=== PATIENT | female | born 1935 | race Caucasian/White ===

== ENCOUNTER → 2016-11-18 | Outpatient (CLI) | payer OTHER ==
[~2016-11-18] MED LIST: ASPCH81X PO; INSUINJ4 SQ; LISI20TA3 PO; NVLGI7030 SC; PRED1SUS3; SIMV40TA2 PO
[2016-11-18 09:36] LABS: BASO % 0.5 %; BASO ABS # 0.03 K/uL (0-0.2); COMPLETE YES; EOS % 2.7 %; HEMATOCRIT 44.5 % (37-47); IG% 0.2 %; LYMPH % 35.2 %; LYMPH ABS # 2.05 K/uL (1.2-3.4); MEAN CELL VOLUME 93.1 fL (80-100); MEAN CORPUSCULAR HEMOGLOBIN 31.6 pg (25-34); MEAN CORPUSCULAR HGB CONC 33.9 g/dl (32-36); MEAN PLATELET VOLUME 9.4 fL (7.4-10.4); MONO % 8.4 %; PLATELET COUNT 220 K/uL (130-400); RED BLOOD COUNT 4.78 M/uL (4.2-5.4); WHITE BLOOD COUNT 5.83 K/uL (4.8-10.8)
[2016-11-18 10:15] LABS: ALT/SGPT 23 U/L (12-78); AST/SGOT 17 U/L (15-37); BLOOD UREA NITROGEN 20 mg/dl (7-18); BUN/CREATININE RATIO 26.2 (10-20); CALCIUM 8.7 mg/dl (8.5-10.1); CARBON DIOXIDE 26 mmol/L (21-32); CHLORIDE 105 mmol/L (98-107); CHOLESTEROL 186 mg/dl (0-200); CREATININE 0.77 mg/dl (0.60-1.20); GLUCOSE 123 mg/dl (70-99); POTASSIUM 3.9 mmol/L (3.5-5.1); SODIUM 138 mmol/L (136-145); TRIGLYCERIDES 136 mg/dl (0-150); VERY LOW DENSITY LIPOPROT CALC 27 mg/dl
[2016-11-18 10:17] LABS: ALB/GLOB RATIO 0.9 (0.9-2); ALKALINE PHOSPHATASE 122 U/L (45-117); HDL CHOLESTEROL 47 mg/dl
[2016-11-18 11:10] LABS: ESTIMATED AVERAGE GLUCOSE 180 mg/dl; HA1C FLAG Normal (Normal)
[2016-11-18 12:27] LABS: URINE APPEARANCE CLEAR (CLEAR); URINE BILIRUBIN NEG (NEG); URINE COLOR YELLOW; URINE NITRITE POS (NEG); URINE SPECIFIC GRAVITY 1.019 (1.000-1.030); UROBILINOGEN NEG (NEG)
[2016-11-18 12:30] LABS: MANUAL MICROSCOPIC REQUIRED? NO; REVIEW REQ? NO
[2016-11-18 13:03] LABS: RATIO 17.6 mcg/mg (0-30.0)
== END | disposition home or self-care (01) ==
LOC: C.LAB 08:24
PROVIDERS: ATTEND Internal Medicine
DX: E11.65 Type 2 diabetes mellitus with hyperglycemia (principal); I10 Essential (primary) hypertension; E78.5 Hyperlipidemia, unspecified

== ENCOUNTER → 2016-11-20 | Outpatient (CLI) | payer OTHER | END | disposition home or self-care (01) | LOC: C.LAB 08:30 | PROVIDERS: ATTEND Internal Medicine | DX: N39.0 Urinary tract infection, site not specified (principal) ==

== ENCOUNTER → 2017-02-10 | Outpatient (CLI) | payer OTHER ==
--- NOTE | 2017-02-10 13:37 | MAMMOGRAPHY REPORT ---
UNILATERAL RIGHT DIGITAL SCREENING MAMMOGRAM TOMOSYNTHESIS WITH CAD: 02/10/2017 CLINICAL HISTORY: Asymptomatic. Personal history of breast cancer. TECHNIQUE: Breast tomosynthesis in addition to standard 2D mammography was performed. Current study was also evaluated with a Computer Aided Detection (CAD) system. COMPARISON: Comparison is made to exams dated: 02/07/2016 mammogram, 02/05/2015 mammogram, 4 mammogram, 01/17/2013 mammogram, 01/15/2012 mammogram, and 01/09/2011 mammogram - [facility]. BREAST COMPOSITION: There are scattered areas of fibroglandular density in the right breast. FINDINGS: There are possible new groupings of microcalcifications in the lateral and medial posterio r right breast, for which additional spot magnification views are recommended. A possible area of ar chitectural distortion in the upper outer posterior right breast warrant additional spot compression tomosynthesis views and possible ultrasound. No other suspicious mass, architectural distortion or cluster of microcalcifications is seen. IMPRESSION: ACR BI-RADS CATEGORY 0: INCOMPLETE EVALUATION: NEED ADDITIONAL IMAGING EVALUATION The possible new groupings of microcalcifications in the medial and lateral posterior right breast an d possible area of architectural distortion in the upper outer posterior right breast need additional imaging evaluation. The patient will be called to schedule an appointment. Approximately 10% of breast cancers are not detected with mammography. A negative mammographic report should not delay biopsy if a clinically suggestive mass is present. Alivia Garcia M.D. ay/:02/10/2017 10:04:28 Nuclear Plant Operator: Sahista GODWIN(R)(M), [facility] letter sent: Addl Imaging 0 BI-RADS Code: ACR BI-RADS Category 0: Incomplete Evaluation: Need Additional Imaging Evaluation
== END | disposition home or self-care (01) ==
LOC: C.MAMM 07:28
PROVIDERS: ATTEND Internal Medicine
DX: Z12.31 Encounter for screening mammogram for malignant neoplasm of breast (principal); Z90.12 Acquired absence of left breast and nipple; Z85.3 Personal history of malignant neoplasm of breast; R92.8 Other abnormal and inconclusive findings on diagnostic imaging of breast

== ENCOUNTER → 2017-02-16 | Outpatient (CLI) | payer OTHER ==
--- NOTE | 2017-02-16 15:09 | MAMMOGRAPHY REPORT ---
UNILATERAL RIGHT DIGITAL DIAGNOSTIC MAMMOGRAM TOMOSYNTHESIS AND TARGETED RIGHT ULTRASOUND: 02/16/2017 CLINICAL HISTORY: 81-year-old woman with a personal history of left breast cancer status post mastect mendy, called back from recent screening mammogram for possible microcalcifications in the medial and l ateral right breast as well as a possible area of architectural distortion in the right upper outer q uadrant. TECHNIQUE: Spot magnification right CC and ML views were obtained. Repeat ML views were obtained due to motion. Spot compression tomosynthesis right CC and MLO views were also obtained in the upper ou ter quadrant. COMPARISON: Comparison is made to exams dated: 02/10/2017 mammogram, 02/07/2016 mammogram, 02/05/2015 mammogram, 01/18/2014 mammogram, 01/15/2012 mammogram, and 01/17/2013 mammogram - [facility]. BREAST COMPOSITION: There are scattered areas of fibroglandular density in the right breast. FINDINGS: The spot compression tomosynthesis views of the right upper outer breast demonstrate effac ement of the questionable area of architectural distortion as seen on the 02/10/2017 screening mammog jovan. No definite persistent area of distortion is identified. The spot magnification views of the right breast demonstrate a stable jersey-shaped biopsy marker clip i n the 3:00 middle one third of the breast. There are 2 groupings of amorphous microcalcifications in the medial and lateral posterior right breast, measuring 3 mm. None of these calcifications demonst rate definitive layering on the spot magnification ML views to confirm benign milk of calcium. There are numerous other benign-appearing coarse, rim and rodlike calcifications in the visualized right b reast. When comparing back to prior available mammograms the small groupings of amorphous microcalci fications may have been present dating back to 2014 and therefore could represent benign calcificatio ns such as degenerating fibroadenomas or fibrocystic change. However, a short interval follow-up rig ht diagnostic mammogram including spot magnification views is recommended to ensure stability in 6 mo nths. Targeted ultrasound was performed throughout the lateral right breast. Sonographically normal tissue is seen without a suspicious solid or cystic mass. IMPRESSION: ACR-BI-RADS CATEGORY 3: PROBABLY BENIGN, TARGETED ULTRASOUND ACR-BI-RADS CATEGORY 3: PRO BABLY BENIGN 1. Effacement of the questionable area of architectural distortion in the right upper outer quadrant , and no suspicious sonographic correlate. This finding most likely represented normal overlapping f ibrolinear markings and no further close follow-up is needed at this time. 2. There are two 3 mm groupings of amorphous microcalcifications in the posterior right breast, late rally and medially, which may have been present dating back to 2014 and are most likely benign, as th ere are numerous other benign morphology calcifications throughout the remainder of the right breast. However, a short interval follow-up right diagnostic mammogram including spot magnification views i s recommended to ensure stability in 6 months. These results and recommendations were discussed with the patient at the time of the exam. She tenta tively scheduled a follow-up appointment prior to leaving our department. Approximately 10% of breast cancers are not detected with mammography. A negative mammographic report should not delay biopsy if a clinically suggestive mass is present. Alivia Garcia M.D. ay/:02/16/2017 12:11:09 Bookmaker'S Clerk: Francoise GODWIN(R)(M), [facility] letter sent: Follow Up Recommended 3 BI-RADS Code: ACR-BI-RADS Category 3: Probably Benign Ultrasound BI-RADS: ACR-BI-RADS Category 3: Pr obably Benign
== END | disposition home or self-care (01) ==
LOC: C.MAMM 08:55
PROVIDERS: ATTEND Internal Medicine
DX: R92.0 Mammographic microcalcification found on diagnostic imaging of breast (principal); N64.89 Other specified disorders of breast

== ENCOUNTER → 2017-04-16 | Outpatient (CLI) | payer OTHER ==
[2017-04-23 16:36] LABS: FECAL OCCULT BLOOD #1 NEGATIVE (NEGATIVE); FECAL OCCULT BLOOD #2 NEGATIVE (NEGATIVE); FECAL OCCULT BLOOD #3 NEGATIVE (NEGATIVE)
== END | disposition home or self-care (01) ==
LOC: C.LABSPEC 14:30
PROVIDERS: ATTEND Internal Medicine
DX: Z12.11 Encounter for screening for malignant neoplasm of colon (principal)

== ENCOUNTER → 2017-04-20 | Outpatient (CLI) | payer OTHER ==
[2017-04-20 09:57] LABS: HEMOGLOBIN A1C 8.1 % (4.5-5.6)
[2017-04-20 10:06] LABS: BLOOD UREA NITROGEN 18 mg/dl (7-18); CALCIUM 8.9 mg/dl (8.5-10.1); CARBON DIOXIDE 28 mmol/L (21-32); CHOLESTEROL 136 mg/dl (0-200); CREATININE 0.84 mg/dl (0.60-1.20); GLUCOSE 97 mg/dl (70-99); POTASSIUM 3.9 mmol/L (3.5-5.1); SODIUM 137 mmol/L (136-145)
[2017-04-20 10:14] LABS: CREATININE RANDOM URINE 49.6 mg/dl
[2017-04-20 10:17] LABS: LDL CHOLESTEROL (DIRECT) 73 mg/dl
== END | disposition home or self-care (01) ==
LOC: C.LAB 07:35
PROVIDERS: ATTEND Internal Medicine
DX: E11.65 Type 2 diabetes mellitus with hyperglycemia (principal); I10 Essential (primary) hypertension; E78.5 Hyperlipidemia, unspecified

== ENCOUNTER → 2017-09-09 | Outpatient (CLI) | payer OTHER ==
[2017-09-09 14:42] LABS: BASO % 0.3 %; BASO ABS # 0.03 K/uL (0-0.2); EOS % 1.8 %; EOS ABS # 0.18 K/uL (0-0.5); HEMATOCRIT 40.3 % (37-47); HEMOGLOBIN 13.6 g/dL (12.0-16.0); IG# 0.01 K/uL (0.00-0.02); LYMPH % 12.4 %; LYMPH ABS # 1.26 K/uL (1.2-3.4); MEAN CELL VOLUME 93.5 fL (80-100); MEAN CORPUSCULAR HEMOGLOBIN 31.6 pg (25-34); MEAN CORPUSCULAR HGB CONC 33.7 g/dl (32-36); MONO % 8.5 %; MONO ABS # 0.86 K/uL (0.11-0.59); NEUT % 76.9 %; NEUT ABS # 7.81 K/uL (1.4-6.5); PLATELET COUNT 230 K/uL (130-400); RED CELL DISTRIBUTION WIDTH CV 13.1 % (11.5-14.5); WHITE BLOOD COUNT 10.15 K/uL (4.8-10.8)
[2017-09-09 15:03] LABS: ALBUMIN 3.4 gm/dl (3.4-5.0); ALKALINE PHOSPHATASE 127 U/L (45-117); ALT/SGPT 27 U/L (12-78); AST/SGOT 21 U/L (15-37); BLOOD UREA NITROGEN 18 mg/dl (7-18); CALCIUM 8.7 mg/dl (8.5-10.1); CARBON DIOXIDE 24 mmol/L (21-32); CREATININE 0.85 mg/dl (0.60-1.20); GLUCOSE 185 mg/dl (70-99); POTASSIUM 4.3 mmol/L (3.5-5.1); SODIUM 134 mmol/L (136-145); TOTAL PROTEIN 7.4 gm/dl (6.4-8.2)
== END | disposition home or self-care (01) ==
LOC: C.LABSPEC 13:41
PROVIDERS: ATTEND Internal Medicine
DX: K62.5 Hemorrhage of anus and rectum (principal)

== ENCOUNTER → 2017-09-10 | Outpatient (CLI) | payer OTHER ==
[2017-09-10 13:15] LABS: BASO % 0.2 %; BASO ABS # 0.02 K/uL (0-0.2); EOS % 1.5 %; EOS ABS # 0.18 K/uL (0-0.5); HEMATOCRIT 40.5 % (37-47); HEMOGLOBIN 13.5 g/dL (12.0-16.0); IG# 0.03 K/uL (0.00-0.02); LYMPH % 13.2 %; LYMPH ABS # 1.55 K/uL (1.2-3.4); MEAN CORPUSCULAR HEMOGLOBIN 31.3 pg (25-34); MEAN CORPUSCULAR HGB CONC 33.3 g/dl (32-36); MEAN PLATELET VOLUME 10.1 fL (7.4-10.4); MONO % 11.1 %; MONO ABS # 1.31 K/uL (0.11-0.59); NEUT % 73.7 %; NEUT ABS # 8.67 K/uL (1.4-6.5); PLATELET COUNT 229 K/uL (130-400); RED CELL DISTRIBUTION WIDTH CV 13.2 % (11.5-14.5); RED CELL DISTRIBUTION WIDTH SD 45.5 fL (36.4-46.3); WHITE BLOOD COUNT 11.76 K/uL (4.8-10.8)
== END | disposition home or self-care (01) ==
LOC: C.LABSPEC 12:34
PROVIDERS: ATTEND Internal Medicine
DX: K62.5 Hemorrhage of anus and rectum (principal)

== ENCOUNTER 2019-03-12 12:06 | Observation (INO) ==
[2019-03-12] MEDS ORDERED: SODIUM CHLORIDE 0.9% 1000ML 500 ML IV ONE (12:50)
[2019-03-12 14:13] LABS: Basophils # (auto) 0.01 K/uL (0-0.2); Basophils % (auto) 0.1 %; Eosinophils # (auto) 0.11 K/uL (0-0.5); Eosinophils % (auto) 1.6 %; Hemoglobin 13.3 g/dL (12.0-16.0); Immature Granulocytes # (auto) 0.01 K/uL (0.00-0.02); Immature Granulocytes % (auto) 0.1 %; Lymphocytes # (auto) 1.34 K/uL (1.2-3.4); Lymphocytes % (auto) 19.6 %; Mean Corpuscular Hemoglobin 31.1 pg (25-34); Mean Corpuscular Hgb Conc 33.3 g/dL (32-36); Mean Corpuscular Volume 93.5 fL (80-100); Mean Platelet Volume 9.5 fL (7.4-10.4); Monocytes # (auto) 0.56 K/uL (0.11-0.59); Monocytes % (auto) 8.2 %; Neutrophils # (auto) 4.81 K/uL (1.4-6.5); Neutrophils % (auto) 70.4 %; Platelet Count 199 K/uL (130-400); RDW Coefficient of Variation 13.5 % (11.5-14.5); Red Blood Count 4.28 M/uL (4.2-5.4); White Blood Count 6.84 K/uL (4.8-10.8)
[2019-03-12 14:26] LABS: Partial Thromboplastin Ratio 0.9; Partial Thromboplastin Time 25.4 Seconds (21.0-31.0); Prothrombin Time 10.4 Seconds (9.0-12.0)
[2019-03-12 14:34] LABS: Alanine Aminotransferase 18 U/L (12-78); Albumin Level 3.4 gm/dl (3.4-5.0); Aspartate Aminotransferase 21 U/L (15-37); BUN Creatinine Ratio 22.5 (10-20); Bilirubin Direct < 0.1 mg/dl (0-0.2); Blood Urea Nitrogen 23 mg/dl (7-18); Calcium 8.7 mg/dl (8.5-10.1); Carbon Dioxide 27 mmol/L (21-32); Chloride 106 mmol/L (98-107); Creatinine Clr Calc Pharmacy 43.2 ml/min; Est GFR (Non-African American) 51.8; Glucose 113 mg/dl (70-99); Lipase 97 U/L (73-393); Potassium 4.3 mmol/L (3.5-5.1); Sodium 138 mmol/L (136-145)
[2019-03-12 14:37] LABS: Alkaline Phosphatase 104 U/L (45-117); Bilirubin,Total 0.4 mg/dl (0.2-1); Total Protein 7.3 gm/dl (6.4-8.2)
--- NOTE | 2019-03-12 15:27 | Emergency Department Note ---
Entered by Anastasiya Callejas acting as a scribe for Hasmukh Cohen History of Present Illness General Chief complaint: GI Bleed Stated complaint: GI BLEED Time Seen by Provider: 03/12/19 12:30 Source: patient History of Present Illness Onset (ago): day(s) (yesterday) Location: abdomen Pain Consistency: + other (worsening) Quality: + other (blood in stool) Associated symptoms: + denies other symptoms (black stool, pain with urination); no fever/chills The patient is a 83 year old female who presents to the Emergency Room with complaints of worsening blood in her stool beginning yesterday. The patient reports the blood was only on the tissue yesterday. She states this morning there was blood on her sheets when she woke up this morning. The patient reports abdominal cramping. The patient denies black stools, fever, and pain with urination. She states she is taking aspirin and lisinopril. The patient states rectal bleeding 1.5 years ago. She notes she had a colonoscopy which did not reveal anything. Patient denies any chest pain or difficulty breathing but does states she feels very weak and dizzy. Home Medications Home Medications Medication Instructions Recorded Confirmed Type calcium carbonate-vitamin D3 1 tab PO BID 03/12/19 03/12/19 History [Calcium 500 + D] docusate sodium [Colace] 100 mg PO QA 03/12/19 03/12/19 History insulin NPH and regular human 35 unit SUBCUT QDD 03/12/19 03/12/19 History [Novolin 70/30 U-100 Insulin] insulin NPH and regular human 50 unit SUBCUT QAM 03/12/19 03/12/19 History [Novolin 70/30 U-100 Insulin] latanoprost 1 drp OPB QA 03/12/19 03/12/19 History lisinopril 20 mg PO QAM 03/12/19 03/12/19 History simvastatin 40 mg PO HS 03/12/19 03/12/19 History timolol maleate 1 drp OPB 03/12/19 03/12/19 History Allergies Allergy/AdvReac Type Severity Reaction Status Date / Time amoxicillin [From Augmentin] Allergy Intermediate Rash on Unverified 03/12/19 14:32 Hands and Feet clavulanic acid Allergy Intermediate Rash on Unverified 03/12/19 14:32 [From Augmentin] Hands and Feet Past Med/Surg History Medical History No pertinent past medical history Surgical History No pertinent past surgical history Family History Other No pertinent family history Social History Feels Safe at Home: Yes Smoking Status: Never smoker Review of Systems See HPI for pertinent positives & negatives. and A total of 10 systems reviewed and were otherwise negative Physical Exam Vital Signs Vital Signs - 24 hr 03/12/19 12:11 03/12/19 13:28 Temperature 36.6 C Temperature Source Oral Pulse Rate 95 H Pulse Rate [Right Finger] 85 Respiratory Rate 20 20 Respiratory Effort / Characteristics Non-Labored Spontaneous Non-Labored Respiratory Depth Normal Normal Respiratory Pattern Regular Blood Pressure 187/87 H Blood Pressure [Right Arm] 170/81 H Blood Pressure Mean 120 Blood Pressure Mean [Right Arm] 110 Pulse Oximetry 96 99 Oxygen Delivery Method Room Air Room Air Sepsis Recent Fever Within 48 Hours No Sepsis Action Taken by Nursing No Action Required GENERAL: She is oriented to person, place, and time. She appears well-developed and well-nourished. She does not appear distressed. HENT: Exam performed. Head: Normocephalic and atraumatic. Right Ear: External ear normal. No mastoid tenderness. Left Ear: External ear normal. No mastoid tenderness. Mouth/Throat: The oropharynx is clear and moist. No trismus in the jaw. No dental abscesses or uvula swelling. No oropharyngeal exudate or tonsillar abscesses. EYES: Conjunctivae and EOM are normal. Pupils are equal, round, and reactive to light. Right eye exhibits no discharge. Left eye exhibits no discharge. No scleral icterus. NECK: Normal range of motion. Neck supple. No JVD present. No spinous process tenderness present. No carotid bruit present. No rigidity. No tracheal deviation and normal range of motion present. No Brudzinski's sign and no Kernig's sign noted. CV: Normal rate, regular rhythm, normal heart sounds and intact distal pulses. There is no peripheral edema. Palpable radial pulses bue. PULM/CHEST: Effort normal and breath sounds normal. No respiratory distress. No stridor. She has no wheezes. She has no rales. Chest Wall: She exhibits no tenderness. ABD: The abdomen is soft. Bowel sounds are normal. She has no distension. No mass is present. There is no tenderness. There is no rebound, no guarding, no Barrera's sign and no tenderness at McBurney's point. Rovsig negative MUSC/SKEL: Normal range of motion. There is no peripheral edema, tenderness or deformity. LYMPH: No cervical adenopathy. NEURO: She is alert and oriented to person, place, and time. She has normal strength. No cranial nerve deficit or sensory deficit. Coordination and gait normal. GCS eye subscore is 4. GCS verbal subscore is 5. GCS motor subscore is 6. cerbellar tests wnl. SKIN: Skin is warm and dry. She is not diaphoretic. PSYCH: She has a normal mood and affect. Her behavior is normal. Judgment and thought content normal. RECTAL: Bright red blood in rectum. Course Course 1233: Past medical records reviewed. The patient was evaluated in room C01B. A complete history and physical exam was performed. 1445: Vital signs stable. Labs and imaging within normal limits. Patient reports increasing dizziness, stating she feels she might pass out. I spoke with Dr. Dodge - [facility] Hospitalist who agrees to accept the patient for further evaluation and treatment. Administered Medications Discontinued Medications Sodium Chloride (Nss 1000ml) 500 mls @ 999 mls/hr IV .Q31M ONE Stop: 03/12/19 13:20 Last Infusion: 03/12/19 15:24 Dose: 0 mls/hr Documented by: [id number] Admin: 03/12/19 14:24 Dose: 999 mls/hr Documented by: [id number] Medical Decision Making Medical Records Attestation: I reviewed the patient's medical records. Home Medications Current Medication List: was personally reviewed by me Laboratory Data Attestation: I reviewed the patient's lab results. Result diagrams: 03/12/19 13:57 03/12/19 13:57 Lab Results 03/12/19 03/12/19 03/12/19 Range/Units 13:57 13:57 13:57 WBC 6.84 (4.8-10.8) K/uL RBC 4.28 (4.2-5.4) M/uL Hgb 13.3 (12.0-16.0) g/dL Hct 40.0 (37-47) % MCV 93.5 (80-100) fL MCH 31.1 (25-34) pg MCHC 33.3 (32-36) g/dL RDW Std Deviation 46.0 (36.4-46.3) fL RDW Coeff of Nikki 13.5 (11.5-14.5) % Plt Count 199 (130-400) K/uL MPV 9.5 (7.4-10.4) fL Immature Gran % (Auto) 0.1 % Neut % (Auto) 70.4 % Lymph % (Auto) 19.6 % [place] % (Auto) 8.2 % Eos % (Auto) 1.6 % Baso % (Auto) 0.1 % Immature Gran # (Auto) 0.01 (0.00-0.02) K/uL Neut # (Auto) 4.81 (1.4-6.5) K/uL Lymph # (Auto) 1.34 (1.2-3.4) K/uL [place] # (Auto) 0.56 (0.11-0.59) K/uL Eos # (Auto) 0.11 (0-0.5) K/uL Baso # (Auto) 0.01 (0-0.2) K/uL PT 10.4 (9.0-12.0) Seconds INR 1.0 (0.9-1.1) APTT 25.4 (21.0-31.0) Seconds PTT Ratio 0.9 Sodium 138 (136-145) mmol/L Potassium 4.3 (3.5-5.1) mmol/L Chloride 106 (98-107) mmol/L Carbon Dioxide 27 (21-32) mmol/L Anion Gap 5.0 (3-11) BUN 23 H (7-18) mg/dl Creatinine 1.01 (0.6-1.2) mg/dl Est Cr Clr Drug Dosing 43.2 ml/min Est GFR ( Amer) 60.0 Est GFR (Non-Af Amer) 51.8 BUN/Creatinine Ratio 22.5 H (10-20) Glucose 113 H (70-99) mg/dl Calcium 8.7 (8.5-10.1) mg/dl Magnesium 2.0 (1.8-2.4) mg/dl Total Bilirubin 0.4 (0.2-1) mg/dl Direct Bilirubin < 0.1 (0-0.2) mg/dl AST 21 (15-37) U/L ALT 18 (12-78) U/L Alkaline Phosphatase 104 (45-117) U/L Total Protein 7.3 (6.4-8.2) gm/dl Albumin 3.4 (3.4-5.0) gm/dl Lipase 97 (73-393) U/L Blood Type Antibody Screen 03/12/19 Range/Units 13:58 WBC (4.8-10.8) K/uL RBC (4.2-5.4) M/uL Hgb (12.0-16.0) g/dL Hct (37-47) % MCV (80-100) fL MCH (25-34) pg MCHC (32-36) g/dL RDW Std Deviation (36.4-46.3) fL RDW Coeff of Nikki (11.5-14.5) % Plt Count (130-400) K/uL MPV (7.4-10.4) fL Immature Gran % (Auto) % Neut % (Auto) % Lymph % (Auto) % [place] % (Auto) % Eos % (Auto) % Baso % (Auto) % Immature Gran # (Auto) (0.00-0.02) K/uL Neut # (Auto) (1.4-6.5) K/uL Lymph # (Auto) (1.2-3.4) K/uL [place] # (Auto) (0.11-0.59) K/uL Eos # (Auto) (0-0.5) K/uL Baso # (Auto) (0-0.2) K/uL PT (9.0-12.0) Seconds INR (0.9-1.1) APTT (21.0-31.0) Seconds PTT Ratio Sodium (136-145) mmol/L Potassium (3.5-5.1) mmol/L Chloride (98-107) mmol/L Carbon Dioxide (21-32) mmol/L Anion Gap (3-11) BUN (7-18) mg/dl Creatinine (0.6-1.2) mg/dl Est Cr Clr Drug Dosing ml/min Est GFR ( Amer) Est GFR (Non-Af Amer) BUN/Creatinine Ratio (10-20) Glucose (70-99) mg/dl Calcium (8.5-10.1) mg/dl Magnesium (1.8-2.4) mg/dl Total Bilirubin (0.2-1) mg/dl Direct Bilirubin (0-0.2) mg/dl AST (15-37) U/L ALT (12-78) U/L Alkaline Phosphatase (45-117) U/L Total Protein (6.4-8.2) gm/dl Albumin (3.4-5.0) gm/dl Lipase (73-393) U/L Blood Type O Negative Antibody Screen NEGATIVE ECG Data Attestation: I personally reviewed and interpreted this ECG as follows: Indication: + other (GI bleed) Rate (beats per minute): 85 Rhythm: + sinus rhythm ECG Intervals/blocks: + Normal QRS, + Normal MT and + Normal QT-c ECG ST segments: no ST depression and no ST elevation Blood Pressure Blood Pressure Findings: Elevated blood pressure Blood Pressure Disposition: further management by hospitalist MDM Narrative Vital signs stable. Labs and imaging within normal limits. Patient reports increasing dizziness, stating she feels she might pass out. I spoke with Dr. Dodge - [facility] Hospitalist who agrees to accept the patient for further evaluation and treatment. Impression & Plan GI bleed Discharge Plan Visit Data Chief Complaint: GI Bleed Stated Complaint: GI BLEED ED Provider: Hasmukh Cohen Discharge Problem: GI bleed Patient Disposition: Being Evaluated by Hospitalist Forms Stand Alone Forms: My [facility] [employer] Prescriptions Prescriptions: No Action latanoprost 0.005 % drops 1 drp OPB QAM RF: 0 lisinopril 20 mg tablet 20 mg PO QAM RF: 0 Novolin 70/30 U-100 Insulin 100 unit/mL (70-30) suspension 35 unit SUBCUT QDD RF: 0 Novolin 70/30 U-100 Insulin 100 unit/mL (70-30) suspension 50 unit SUBCUT QAM RF: 0 simvastatin 40 mg tablet 40 mg PO HS RF: 0 docusate sodium [Colace] 100 mg Capsule 100 mg PO QAM RF: 0 timolol maleate 0.5 % drops 1 drp OPB HS RF: 0 calcium carbonate-vitamin D3 [Calcium 500 + D] 500 mg(1,250mg) -200 unit Tablet 1 tab PO BID RF: 0 Referrals Referrals: Andrew Andrade MD [Primary Care Provider] - Discharge Problem: GI bleed Qualifiers: GI bleed type/associated pathology: unspecified gastrointestinal hemorrhage type Qualified Code(s): K92.2 - Gastrointestinal hemorrhage, unspecified The scribe's documentation has been prepared under my direction and personally reviewed by me in its entirety. I confirm that the note above accurately reflects all work, treatment, procedures, and medical decision making performed by me.
[2019-03-12] MEDS ORDERED: GLUCOSE 10 TABS/TUBE PO PRN (17:11)
[2019-03-12] MEDS ORDERED: GLUCOSE 40% GEL 15 GM TUBE PO PRN (17:11)
[2019-03-12] MEDS ORDERED: ACETAMINOPHEN 325 MG TAB PO PRN (17:11)
[2019-03-12] MEDS ORDERED: ONDANSETRON INJ 2 MG/ML 2 ML VIAL IV PRN (17:11)
[2019-03-12] MEDS ORDERED: CARBOHYDRATES FOR HYPOGLYCEMIA PO PRN (17:11)
[2019-03-12] MEDS ORDERED: GLUCAGON FOR INJ 1 MG VIAL SQ PRN (17:11)
[2019-03-12] MEDS ORDERED: DEXTROSE 50% 50 ML SYRINGE IV PRN (17:11)
[2019-03-12] MEDS ORDERED: PHARMACY GLYCEMIC MGMT CONSULT PRN (17:19)
[2019-03-12] MEDS ORDERED: HydrALAZINE HCL 20 MG/ML VIAL IV PRN (17:23)
[2019-03-12] MEDS: lisinopriL 20 MG TAB PO SCH (17:58)
[2019-03-12] MEDS ORDERED: INSULIN HUMAN NPH SC SCH (18:00)
[2019-03-12] MEDS: INSULIN ASPART 100 UNITS/ML 3 ML PEN SC SCH ×2 (18:03→21:29)
[2019-03-12 20:54] LABS: Basophils # (auto) 0.02 K/uL (0-0.2); Basophils % (auto) 0.3 %; Eosinophils # (auto) 0.17 K/uL (0-0.5); Eosinophils % (auto) 2.2 %; Hematocrit (blood only) 38.9 % (37-47); Immature Granulocytes # (auto) 0.01 K/uL (0.00-0.02); Immature Granulocytes % (auto) 0.1 %; Lymphocytes # (auto) 1.76 K/uL (1.2-3.4); Mean Corpuscular Hemoglobin 31.5 pg (25-34); Mean Corpuscular Hgb Conc 33.4 g/dL (32-36); Mean Corpuscular Volume 94.2 fL (80-100); Mean Platelet Volume 9.4 fL (7.4-10.4); Monocytes # (auto) 0.69 K/uL (0.11-0.59); Neutrophils # (auto) 4.99 K/uL (1.4-6.5); Neutrophils % (auto) 65.4 %; Platelet Count 232 K/uL (130-400); RDW Coefficient of Variation 13.7 % (11.5-14.5); RDW Standard Deviation 47.2 fL (36.4-46.3); Red Blood Count 4.13 M/uL (4.2-5.4); White Blood Count 7.64 K/uL (4.8-10.8)
[2019-03-12] MEDS ORDERED: TIMOLOL MALEATE 0.25% OP SOLN 5 ML BTL OPB SCH (21:00)
[2019-03-12] MEDS ORDERED: SIMVASTATIN 40 MG TAB PO SCH (21:00)
--- NOTE | 2019-03-12 21:01 | Pharmacy Report ---
Pharmacy Glycemic Short Note 2 - Date of Service March 12, 2019 - Glycemic Short BSG Results (Last 24 hours): 03/12/19 03/12/19 03/12/19 13:57 16:59 20:22 Glucose 113 H POC Glucose 144 H 176 H OUTPATIENT ANTIDIABETIC REGIMEN: * Novolin 70/30 50 units SQ in the AM and 35 units SQ with dinner. ASSESSMENT: * Ms Canales is a 83 year old F with a history of T2DM who presents to ED with complaints of blood in her stool. * Last A1C 09/2018 6.9%, updated A1C pending with AM labs. * Med rec reports that she took her Novolin 70/30 this AM prior to admission. * Pt ordered dinner, but will be NPO after midnight (presumably for EGD or other procedure? Not scheduled at time of this note). PLAN FOR INPATIENT GLYCEMIC CONTROL: * Basal insulin * NPH 15 units with dinner (Home dose of 35 units of Novolin 70/30 with dinner would be comprised of 25 units of basal coverage. Reduced this by about 40% in case of decreased PO intake due to reported nausea and abdominal cramping). * Bolus insulin * NovoLog per scale ACHS or Q6hrs while NPO * Goal Range: Low 110 mg/dL - High 140 mg/dL * Correction Factor: 25 mg/dL/unit * Nutritional / Prandial insulin per carb ratio of 1 unit per 8 grams CHO consumed PLAN FOR DISCHARGE: * To addressed once patient has resumed diet and insulin needs can be assessed.
[2019-03-12] MEDS: CALCIUM 600MG + VIT D 400 IU TAB PO SCH (21:29)
--- NOTE | 2019-03-12 22:23 | Electrocardiogram Report ---
Test Reason : Blood Pressure : / mmHG Vent. Rate : 085 BPM Atrial Rate : 085 BPM P-R Int : 150 ms QRS Dur : 072 ms QT Int : 364 ms P-R-T Axes : 032 068 070 degrees QTc Int : 433 ms Normal sinus rhythm Nonspecific ST and T wave abnormality Abnormal ECG When compared with ECG of 12-JAN-2001 11:20, No significant change was found Confirmed by Lokesh North ([id number]) on 03/12/2019 10:23:27 PM Referred By: Andrew Andrade Confirmed By:Lokesh North
--- NOTE | 2019-03-12 22:35 | History & Physical Report ---
Date of Service March 12, 2019 Assessment & Plan (1) GI bleed: Suspect lower GIB, patient with hematochezia, passage of clots earlier today. She is afebrile, HD stable, NAD. HR=96, DD=764/80. Hbg=13, Hct = 38.9 -Observation to medical floor with telemetry -Trend CBC q 8 hours - transfuse for active bleeding, Hgb < 7 or symptomatic anemia -Maintain PIV x 2 -Zofran PRN nausea -GI Consultation appreciated Present on Admission?: Yes (2) Diabetes: Patient managed with 70/30 at home -Pharmacy consultation appreciated to assist with insulin management -Continue Lisinopril -Continue Simvastatin Present on Admission?: Yes (3) Hypertension: Blood pressure elevated -Will continue Lisinopril with caution -Hydralazine as needed for SBP > 180 F/E/N - Heplock. Electrolytes WNL. NPO after midnight Ppx - SCDs Code - DNR/DNI per discussion with patient Dispo - Observation to medical floor with telemetry History of Present Illness Chief Complaint: hematochezia Primary Care Provider: Andrew Andrade MD Daly Canales is an 83yo C female with history of DM, hemorrhoids, diverticulosis, remote history of breast cancer s/p left mastectomy presenting with hematochezia. Patient reports some bright red blood in her stool two nights ago. This morning she woke up with blood in her undergarments and her bed with clots. She denies abdominal pain, nausea/vomiting or diarrhea. She has been constipated lately and has been straining to have a BM. She contacted her PCP and was instructed to come to the ER. Patient has had one prior episode of GIB in the past. She had a colonoscopy performed by [facility] and was found to have one polyp which was removed as well as diverticulosis and hemorrhoids (per patient report). She has not had bleeding since then. She denies CP/palpitations/SOB/dizziness. Denies fevers/chills. No additional complaints at this time. ER Course: Rectal exam with bright red blood. NSS Allergies Allergy/AdvReac Type Severity Reaction Status Date / Time amoxicillin [From Augmentin] Allergy Intermediate Rash on Unverified 03/12/19 14:32 Hands and Feet clavulanic acid Allergy Intermediate Rash on Unverified 03/12/19 14:32 [From Augmentin] Hands and Feet Home Medications Home Medications Medication Instructions Recorded Confirmed Type calcium carbonate-vitamin D3 1 tab PO BID 03/12/19 03/12/19 History [Calcium 500 + D] docusate sodium [Colace] 100 mg PO QAM 03/12/19 03/12/19 History insulin NPH and regular human 35 unit SUBCUT QDD 03/12/19 03/12/19 History [Novolin 70/30 U-100 Insulin] insulin NPH and regular human 50 unit SUBCUT QAM 03/12/19 03/12/19 History [Novolin 70/30 U-100 Insulin] latanoprost 1 drp OPB QAM 03/12/19 03/12/19 History lisinopril 20 mg PO QAM 03/12/19 03/12/19 History simvastatin 40 mg PO HS 03/12/19 03/12/19 History timolol maleate 1 drp OPB HS 03/12/19 03/12/19 History Past Med/Surg History Medical History (Updated 03/12/19 @ 22:33 by Mayuri Dodge DO) Breast cancer Diabetes Surgical History (Updated 03/12/19 @ 22:26 by Mayuri Dodge DO) History of mastectomy Family History Other No pertinent family history Social History Preferred Language: Gibralt[place] Communication Ability: Effective Beliefs That Will Affect Care: None Current Living Situation: Family Other Information That Helps Us Care for You: No Feels Safe at Home: Yes Safety Concerns: Feels Safe At This Time Smoking Status: Never smoker Hx Alcohol Use: No Hx Substance Use: No Review of Systems Review of Systems: All systems reviewed & are unremarkable except as noted in HPI & below Physical Exam Physical Exam: General: patient resting comfortably, NAD, non-toxic in appearance, AA&O x 4 Skin: warm, dry, intact, no rashes or lesions HEENT: NC/AT, PERRL, EOMI, anicteric sclera, conjunctiva without injection, external ear normal to inspection and nontender, nares patent, moist mucus membranes, dentition intact, no oropharyngeal lesions, neck supple, trachea midline, no LAD, no thyromegaly, no JVD Heart: +S1/S2, regular, no m/r/g Lungs: equal air entry bilaterally, no rales/rhonchi/wheezes Abd: +BS, soft, NT/ND, no masses/organomegaly/ascites Ext: warm, 2+ pulses in UE/LE bilaterally, no clubbing/cyanosis or edema Neuro: nonfocal, patient AA&O x 4, speech intact, no facial droop, moving all extremities on command with equal strength 5/5 Results & Data Vital Signs (Past 12 Hours) Vital Signs Temp Pulse Pulse Resp BP BP Pulse Ox 03/12/19 19:51 166/80 H 03/12/19 19:00 37.0 C 96 H 19 188/78 H 96 03/12/19 17:17 91 H 03/12/19 17:11 36.7 C 97 H 19 181/73 H 98 03/12/19 13:28 85 20 170/81 H 99 03/12/19 12:11 36.6 C 95 H 20 187/87 H 96 Laboratory Results Lab Results 03/12/19 03/12/19 03/12/19 Range/Units 13:57 13:57 13:57 WBC 6.84 (4.8-10.8) K/uL RBC 4.28 (4.2-5.4) M/uL Hgb 13.3 (12.0-16.0) g/dL Hct 40.0 (37-47) % MCV 93.5 (80-100) fL MCH 31.1 (25-34) pg MCHC 33.3 (32-36) g/dL RDW Std Deviation 46.0 (36.4-46.3) fL RDW Coeff of Nikki 13.5 (11.5-14.5) % Plt Count 199 (130-400) K/uL MPV 9.5 (7.4-10.4) fL Immature Gran % (Auto) 0.1 % Neut % (Auto) 70.4 % Lymph % (Auto) 19.6 % Mercer % (Auto) 8.2 % Eos % (Auto) 1.6 % Baso % (Auto) 0.1 % Immature Gran # (Auto) 0.01 (0.00-0.02) K/uL Neut # (Auto) 4.81 (1.4-6.5) K/uL Lymph # (Auto) 1.34 (1.2-3.4) K/uL Mercer # (Auto) 0.56 (0.11-0.59) K/uL Eos # (Auto) 0.11 (0-0.5) K/uL Baso # (Auto) 0.01 (0-0.2) K/uL PT 10.4 (9.0-12.0) Seconds INR 1.0 (0.9-1.1) APTT 25.4 (21.0-31.0) Seconds PTT Ratio 0.9 Sodium 138 (136-145) mmol/L Potassium 4.3 (3.5-5.1) mmol/L Chloride 106 (98-107) mmol/L Carbon Dioxide 27 (21-32) mmol/L Anion Gap 5.0 (3-11) BUN 23 H (7-18) mg/dl Creatinine 1.01 (0.6-1.2) mg/dl Est Cr Clr Drug Dosing 43.2 ml/min Est GFR ( Amer) 60.0 Est GFR (Non-Af Amer) 51.8 BUN/Creatinine Ratio 22.5 H (10-20) Glucose 113 H (70-99) mg/dl POC Glucose (70-99) mg/dl Calcium 8.7 (8.5-10.1) mg/dl Magnesium 2.0 (1.8-2.4) mg/dl Total Bilirubin 0.4 (0.2-1) mg/dl Direct Bilirubin < 0.1 (0-0.2) mg/dl AST 21 (15-37) U/L ALT 18 (12-78) U/L Alkaline Phosphatase 104 (45-117) U/L Total Protein 7.3 (6.4-8.2) gm/dl Albumin 3.4 (3.4-5.0) gm/dl Lipase 97 (73-393) U/L Blood Type Antibody Screen 03/12/19 03/12/19 03/12/19 Range/Units 13:58 16:59 20:22 WBC (4.8-10.8) K/uL RBC (4.2-5.4) M/uL Hgb (12.0-16.0) g/dL Hct (37-47) % MCV (80-100) fL MCH (25-34) pg MCHC (32-36) g/dL RDW Std Deviation (36.4-46.3) fL RDW Coeff of Nikki (11.5-14.5) % Plt Count (130-400) K/uL MPV (7.4-10.4) fL Immature Gran % (Auto) % Neut % (Auto) % Lymph % (Auto) % Mercer % (Auto) % Eos % (Auto) % Baso % (Auto) % Immature Gran # (Auto) (0.00-0.02) K/uL Neut # (Auto) (1.4-6.5) K/uL Lymph # (Auto) (1.2-3.4) K/uL Mercer # (Auto) (0.11-0.59) K/uL Eos # (Auto) (0-0.5) K/uL Baso # (Auto) (0-0.2) K/uL PT (9.0-12.0) Seconds INR (0.9-1.1) APTT (21.0-31.0) Seconds PTT Ratio Sodium (136-145) mmol/L Potassium (3.5-5.1) mmol/L Chloride (98-107) mmol/L Carbon Dioxide (21-32) mmol/L Anion Gap (3-11) BUN (7-18) mg/dl Creatinine (0.6-1.2) mg/dl Est Cr Clr Drug Dosing ml/min Est GFR ( Amer) Est GFR (Non-Af Amer) BUN/Creatinine Ratio (10-20) Glucose (70-99) mg/dl POC Glucose 144 H 176 H (70-99) mg/dl Calcium (8.5-10.1) mg/dl Magnesium (1.8-2.4) mg/dl Total Bilirubin (0.2-1) mg/dl Direct Bilirubin (0-0.2) mg/dl AST (15-37) U/L ALT (12-78) U/L Alkaline Phosphatase (45-117) U/L Total Protein (6.4-8.2) gm/dl Albumin (3.4-5.0) gm/dl Lipase (73-393) U/L Blood Type O Negative Antibody Screen NEGATIVE 03/12/19 Range/Units 20:23 WBC 7.64 (4.8-10.8) K/uL RBC 4.13 L (4.2-5.4) M/uL Hgb 13.0 (12.0-16.0) g/dL Hct 38.9 (37-47) % MCV 94.2 (80-100) fL MCH 31.5 (25-34) pg MCHC 33.4 (32-36) g/dL RDW Std Deviation 47.2 H (36.4-46.3) fL RDW Coeff of Nikki 13.7 (11.5-14.5) % Plt Count 232 (130-400) K/uL MPV 9.4 (7.4-10.4) fL Immature Gran % (Auto) 0.1 % Neut % (Auto) 65.4 % Lymph % (Auto) 23.0 % Mercer % (Auto) 9.0 % Eos % (Auto) 2.2 % Baso % (Auto) 0.3 % Immature Gran # (Auto) 0.01 (0.00-0.02) K/uL Neut # (Auto) 4.99 (1.4-6.5) K/uL Lymph # (Auto) 1.76 (1.2-3.4) K/uL Mercer # (Auto) 0.69 H (0.11-0.59) K/uL Eos # (Auto) 0.17 (0-0.5) K/uL Baso # (Auto) 0.02 (0-0.2) K/uL PT (9.0-12.0) Seconds INR (0.9-1.1) APTT (21.0-31.0) Seconds PTT Ratio Sodium (136-145) mmol/L Potassium (3.5-5.1) mmol/L Chloride (98-107) mmol/L Carbon Dioxide (21-32) mmol/L Anion Gap (3-11) BUN (7-18) mg/dl Creatinine (0.6-1.2) mg/dl Est Cr Clr Drug Dosing ml/min Est GFR ( Amer) Est GFR (Non-Af Amer) BUN/Creatinine Ratio (10-20) Glucose (70-99) mg/dl POC Glucose (70-99) mg/dl Calcium (8.5-10.1) mg/dl Magnesium (1.8-2.4) mg/dl Total Bilirubin (0.2-1) mg/dl Direct Bilirubin (0-0.2) mg/dl AST (15-37) U/L ALT (12-78) U/L Alkaline Phosphatase (45-117) U/L Total Protein (6.4-8.2) gm/dl Albumin (3.4-5.0) gm/dl Lipase (73-393) U/L Blood Type Antibody Screen ECG Additional Comments: est Reason : Blood Pressure : / mmHG Vent. Rate : 085 BPM Atrial Rate : 085 BPM P-R Int : 150 ms QRS Dur : 072 ms QT Int : 364 ms P-R-T Axes : 032 068 070 degrees QTc Int : 433 ms Normal sinus rhythm Nonspecific ST and T wave abnormality Abnormal ECG When compared with ECG of 12-JAN-2001 11:20, No significant change was found Confirmed by Lokesh North ([id number]) on 03/12/2019 10:23:27 PM Referred By: Andrew Andrade Confirmed By:Lokesh North Code Status & VTE Plan Code Status DNR/DNI per discussion with patient VTE Prophylaxis Plan VTE Prophylaxis will be ordered: No PG Care Time/CCT Total # of Minutes Spent Total Time Spent with Patient: Total time spent is greater than 50% in coordination of care (as documented) at patient's floor/unit and/or counseling patient: Coding Level of Care Code 01858 OBS Care - Level 2 Diagnoses GI bleed K92.2 GI bleed type/associated pathology: unspecified gastrointestinal hemorrhage type Diabetes E11.9; Z79.4 Diabetes mellitus type: type 2 Diabetes mellitus care home insulin use: with care home use Diabetes mellitus complication status: without complication Hypertension I10 Hypertension type: essential hypertension (1) GI bleed GI bleed type/associated pathology: unspecified gastrointestinal hemorrhage type Qualified Code(s): K92.2 - Gastrointestinal hemorrhage, unspecified (2) Diabetes Diabetes mellitus type: type 2 Diabetes mellitus care home 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
[2019-03-13] MEDS: INSULIN ASPART 100 UNITS/ML 3 ML PEN SC SCH ×4 (00:14→13:23)
[2019-03-13 04:07] LABS: Basophils # (auto) 0.03 K/uL (0-0.2); Basophils % (auto) 0.5 %; Eosinophils % (auto) 3.2 %; Hematocrit (blood only) 37.4 % (37-47); Hemoglobin 12.5 g/dL (12.0-16.0); Immature Granulocytes # (auto) 0.01 K/uL (0.00-0.02); Immature Granulocytes % (auto) 0.2 %; Lymphocytes # (auto) 1.73 K/uL (1.2-3.4); Lymphocytes % (auto) 27.5 %; Mean Corpuscular Hemoglobin 31.6 pg (25-34); Mean Corpuscular Hgb Conc 33.4 g/dL (32-36); Mean Corpuscular Volume 94.4 fL (80-100); Mean Platelet Volume 9.6 fL (7.4-10.4); Monocytes # (auto) 0.63 K/uL (0.11-0.59); Neutrophils % (auto) 58.6 %; Platelet Count 204 K/uL (130-400); RDW Coefficient of Variation 13.7 % (11.5-14.5); RDW Standard Deviation 47.7 fL (36.4-46.3); Red Blood Count 3.96 M/uL (4.2-5.4)
[2019-03-13 04:25] LABS: BUN Creatinine Ratio 24.7 (10-20); Calcium 8.7 mg/dl (8.5-10.1); Creatinine Clr Calc Pharmacy 45.8 ml/min; Est GFR (African American) 64.6; Est GFR (Non-African American) 55.8; Potassium 4.1 mmol/L (3.5-5.1)
[2019-03-13] MEDS ORDERED: INSULIN HUMAN NPH SC SCH ×2 (08:00→16:45)
[2019-03-13] MEDS: CALCIUM 600MG + VIT D 400 IU TAB PO SCH (08:39)
[2019-03-13] MEDS: lisinopriL 20 MG TAB PO SCH (08:39)
[2019-03-13] MEDS ORDERED: LATANOPROST 0.005% OP SOLN 2.5 ML BTL OPB SCH (09:00)
[2019-03-13] MEDS ORDERED: DOCUSATE SODIUM 100 MG CAP PO SCH (09:00)
[2019-03-13 12:59] LABS: Hematocrit (blood only) 40.7 % (37-47); Hemoglobin 13.6 g/dL (12.0-16.0)
[2019-03-13] MEDS ORDERED: INSULIN ASPART 100 UNITS/ML 3 ML PEN SC SCH (16:50)
--- NOTE | 2019-03-13 19:34 | Discharge Summary ---
Date of Service March 13, 2019 Admission HPI Per Admitting Provider Daly Canales is an 83yo C female with history of DM, hemorrhoids, diverticulosis, remote history of breast cancer s/p left mastectomy presenting with hematochezia. Patient reports some bright red blood in her stool two nights ago. This morning she woke up with blood in her undergarments and her bed with clots. She denies abdominal pain, nausea/vomiting or diarrhea. She has been constipated lately and has been straining to have a BM. She contacted her PCP and was instructed to come to the ER. Patient has had one prior episode of GIB in the past. She had a colonoscopy performed by [facility] and was found to have one polyp which was removed as well as diverticulosis and hemorrhoids (per patient report). She has not had bleeding since then. She denies CP/palpitations/SOB/dizziness. Denies fevers/chills. No additional complaints at this time. ER Course: Rectal exam with bright red blood. NSS Principal Diagnosis Hematochezia - Hemorrhoidal vs Diverticular Discharge Exam Constitutional WD/WN, vitals as above no acute distress Eyes + anicteric sclerae ENMT Ears: no hearing impairment Neck trachea midline Respiratory normal respiratory effort, lungs clear to auscultation Cardiovascular RRR, no murmur, no edema Gastrointestinal (Abdomen) Inspection/Auscultation: normal bowel sounds Percussion/Palpation: abdomen soft; abdomen nontender Musculoskeletal Head/Neck/Chest: normocephalic and head atraumatic Skin no rashes, warm and dry Neurologic moves all extremities Psychiatric A+Ox3, euthymic affect Discharge Data Allergies Allergy/AdvReac Type Severity Reaction Status Date / Time amoxicillin [From Augmentin] Allergy Intermediate Rash on Unverified 03/12/19 14:32 Hands and Feet clavulanic acid Allergy Intermediate Rash on Unverified 03/12/19 14:32 [From Augmentin] Hands and Feet Consultations 03/12/19 14:50 ED Decision to Admit Stat 03/12/19 17:11 Consult Case Management - Discharge Planning Routine Consult Gastroenterology Routine Hospital Course (1) GI bleed: - Suspect lower GI issue - she reports recent pellet-like stool and constipation. States she was advised to start Colace which has helped soften her stool however had initially bright red blood with wiping but then was having more clot-like bleeding. During admission the bleeding was less in her BMs. Then had a moderate BM with no visible blood in stool or with wiping. - Hgb was trended at was 13.3, 13, 12.5, 13.6 -- Gave Rx for Hgb recheck in 1-2 days. 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 Sewell ([facility]) - given stable Hgb counts and stopped bleeding can hold on scopes/further workup -- Discussed with patient and she agrees that an outpatient assessment can be completed. GI to send information to Dr. Pacheco and will have chairperson anesthesiology arr [place] F/U with Dr. Pacheco - Patient is afebrile, without leukocytosis, no abdominal pain (only initial cramping when this started), no palpable abdominal pain so unlikely diverticulitis - discussed CT scan but patient feels well discussed that this could be arranged as outpatient as well if symptoms return/pain starts/fever/feeling unwell (2) Diabetes: - Continue home regimen; A1c was obtained and pending as this is not ran on the weekend labs (3) Hypertension: - Blood pressure elevated - likely situational due to stress/poor sleep - patient reports monitoring her pressures at home and that normally they are 120- 130 systolic -- Given age and her being a reliable individual for pressure checks would not make adjustments to current regimen - did advise her to discuss with her PCP if this becomes an ongoing issue - BP was 146/89 on D/C - Continue Lisinopril 20 mg daily Total Time Total Time Spent Total Time Spent (In Minutes): Greater than 30 minutes Discharge Plan Discharge Items Patient Disposition: Home - Self-Care Reason For Visit: HEMATOCHEZIA Discharge Diagnosis: Bright Red Blood Per Rectum Activity: Resume your previous activity Non-emergency contact: Primary Care Provider Call non-emergency contact if: you have any medication questions, your symptoms worsen and you have a fever Follow-up/Referrals: Andrew Andrade MD [Primary Care Provider] - 03/16/19 9:30 am Maximilian Pacheco [Physician] - 05/18/19 9:00 am Diet: Carb Consistent or DM2 Addtl Attending Provider Instructions: Bright Red Blood Per Rectum: - Given your recent constipation this may have caused some increased bleeding between hemorrhoids and maybe some diverticular bleed. Thankfully your last bowel movement had no more redness/blood - Recommend to avoid aspirin and NSAIDs (ibuprofen, advil, motrin, naproxyn) for the next couple days until you have your blood levels rechecked. A lab slip will be given to have this drawn and re-assessed with results to your family doctor. - THankfully your blood counts have stayed stable. We took several hemoglobins and they have been 13.3, 13, 12.5, and 13.6 which is fantastic. But still should recheck before you see your family doctor - Discussed with the GI doctors that a scope can be held for now given you good blood counts and resolving blood in your stool. Recommend to continue your stool softener to help - If you start having abdominal pain or feeling unwell it is best to get checked out again. Given your diverticulosis it is important to watch for inflammation of these called diverticulitis. - We will have our navigator call Dr. Morrison office and get a follow-up for a possible colonoscopy if needed. Blood Pressure: - You have had some higher readings here. However this could be situational and given you check your blood pressures and they are normally better we will not make adjustments to your medications. If they stay high at home then you can talk with your doctor about medication adjustments if necessary Home Medications: - Continue your medications as previously prescribed. We did not change these Pending Studies at Discharge: No Stand-Alone Forms: My [employer], Smoking Cessation Medications and DC Order Prescriptions: Continued latanoprost 0.005 % drops 1 drp OPB QAM RF: 0 lisinopril 20 mg tablet 20 mg PO QAM RF: 0 Novolin 70/30 U-100 Insulin 100 unit/mL (70-30) suspension 35 unit SUBCUT QDD RF: 0 Novolin 70/30 U-100 Insulin 100 unit/mL (70-30) suspension 50 unit SUBCUT QAM RF: 0 simvastatin 40 mg tablet 40 mg PO HS RF: 0 docusate sodium [Colace] 100 mg Capsule 100 mg PO QAM RF: 0 timolol maleate 0.5 % drops 1 drp OPB HS RF: 0 calcium carbonate-vitamin D3 [Calcium 500 + D] 500 mg(1,250mg) -200 unit Tablet 1 tab PO BID RF: 0 Discharge Orders: Discharge Order (Routine); Ordered 03/13/19 Ordered By: Stephenie Gonzales/Other Patient Handouts: Bleeding Gastrointestinal Admission Data Admit Date/Time: 03/12/19 15:45 Attending Provider: Francis Olmos Admit Provider: Mayuri Dodge Primary Care Provider: Andrew Andrade Other Providers: Mayuri Dodge ; Matt Rosa Other Interventions: Discharge Summary Assessment (RN) Last Done: 03/13/19 16:43 DC Date/Time DO NOT enter until pt leaves facility: 03/13/19 17:30 Supervising Physician Co-Signing Physician Notes During my face to face patient encounter, I obtained a history, physical examination and discussed discharge plan with the patient. I had reviewed above note by APC and agreed with ti as my examination did not differ from Stephenie DICK. I answered all of the patient's questions and concerns. Patient was admitted with a Gastrointestinal bleed. Hemoglobin has been relatively stable. Patient will followup with GI service as an outpatient. GI service did not recommend doing any inpatient procedures at this time. Coding Level of Care Code D/C Day Management >30 mins Diagnoses GI bleed K92.2 GI bleed type/associated pathology: unspecified gastrointestinal hemorrhage type Diabetes E11.9; Z79.4 Diabetes mellitus complication status: without complication Diabetes mellitus skilled nursing insulin use: with skilled nursing use Diabetes mellitus type: type 2 Hypertension I10 Hypertension type: essential hypertension
[2019-03-14 06:38] LABS: Estimated Average Glucose 151 mg/dl; Hemoglobin A1C 6.9 % (4.5-5.6)
== END 2019-03-13 17:30 | disposition home or self-care (01) ==
LOC: 2W 12:06 → ED 12:06 → SUATTDRO 15:45 → 2W 16:35

== ENCOUNTER 2021-11-01 09:33 | Observation (INO) ==
[2021-11-01] MEDS ORDERED: SODIUM CHLORIDE 0.9% 500 ML IV SCH (09:45)
--- NOTE | 2021-11-01 09:47 | Emergency Department Note ---
History of Present Illness General Chief complaint: Hypoglycemia Stated complaint: HYPERGLYCEMIA Time Seen by Provider: 11/01/21 09:36 History of Present Illness 86-year-old female presents to the ED with a chief complaint of hypoglycemia. The patient lives alone. Her neighbors took her food to eat last night and she was fine at that time. She did not bring her garbage out this morning for trash day and the neighbor checked on her this morning. They found her face down on the floor beside her couch in her room. The patient remembers thinking about taking her trash out last night. She was found to have a blood sugar of 33 by EMS. She has snoring respirations when they arrived. They did administer IV glucose. Her glucose on arrival was 230. The patient seems mildly confused. She does report some left hand pain. Home Medications Medication Instructions Recorded Confirmed Type calcium carbonate 500 mg-vitamin 1 tab PO BID 03/12/19 07/03/21 History D3 5 mcg (200 unit) tablet (Calcium 500 + D) docusate sodium 100 mg capsule 100 mg PO QAM 03/12/19 07/03/21 History (Colace) latanoprost 0.005 % eye drops 1 drp OPB QAM 03/12/19 07/03/21 History timolol maleate 0.5 % eye drops 1 drp OPB HS 03/12/19 07/03/21 History varicella-zoster glycoE [id number] 0.5 ml IM .COMPLEX #1 ea 12/20/20 07/03/21 Rx adj(PF) 50 mcg/0.5 mL IM susp, kit (Shingrix (PF)) tramadol 50 mg tablet 50 mg PO BID PRN pain #45 tabs 01/10/21 07/03/21 Rx Walker (w/ hand brakes and wheels) #1 ea 03/26/21 07/03/21 Rx insulin human U-100 NPH-regulr See Rx Instructions subcut 03/26/21 07/03/21 Rx 70-30 mix 100 unit/mL subcutaneous .COMPLEX #70 mL susp (Novolin 70/30 U-100 Insulin) lancets (Accu-Chek Softclix #200 ea 03/26/21 07/03/21 Rx Lancets) triamcinolone acetonide 0.025 % 1 applic topical BID #15 grams 03/26/21 07/03/21 Rx topical cream blood-glucose meter (OneTouch #1 ea 03/28/21 07/03/21 Rx Ultra2 Meter) blood sugar diagnostic (OneTouch #100 ea 04/02/21 07/03/21 Rx Ultra Test strips) lisinopril 20 mg tablet 20 mg PO QAM #90 tabs 06/26/21 07/03/21 Rx simvastatin 40 mg tablet 40 mg PO HS #90 tabs 06/26/21 07/03/21 Rx pen needle, diabetic 31 gauge x #500 ea 07/05/21 Rx 5/16" (BD Ultra-Fine Short Pen Needle) insulin syringe-needle U-100 1 mL #100 ea 08/06/21 Rx 31 gauge x 5/16" (BD Insulin Syringe Ultra-Fine) Allergies Allergy/AdvReac Type Severity Reaction Status Date / Time amoxicillin [From Augmentin] Allergy Intermediate Rash on Verified 07/03/21 12:35 Hands and Feet clavulanic acid Allergy Intermediate Rash on Verified 07/03/21 12:35 [From Augmentin] Hands and Feet Past Med/Surg History Medical History Breast cancer Chondrocalcinosis of knee Diabetes Encounter for routine pelvic examination GI bleed Glaucoma Hyperlipemia Hypertension Osteoarthritis of left hip Spondylolisthesis of lumbar region Surgical History History of mastectomy S/P hysterectomy Family History Other No pertinent family history Denies family history of Ovarian cancer Prostate cancer Heart disease Breast cancer Colorectal cancer Social History Smoking Status: Never smoker Second Hand Exposure: No; Hx Alcohol Use: No Hx Substance Use: No Preferred Language: Luxembourgish Communication Ability: Effective Visual Impairment: No Limitations Hearing Ability: Normal Light Technician Required: No Beliefs That Will Affect Care: None marital status: / Current Living Situation: Family Current Living Situation Comment: Granddaughter current occupational status: retired Feels Safe at Home: Yes Childhood Exposure to Second-Hand Smoke: No Dental Care, Regularly: Yes Physical Activity Frequency: Does not Exercise Seatbelt Use: always Sunscreen Use: No Assistive Devices: Glasses Review of Systems A total of 10 systems reviewed and were otherwise negative Physical Exam Vital Signs Vital Signs - 24 hr 11/01/21 09:34 11/01/21 10:30 Temperature 36.5 C Temperature Source Temporal Artery Scan Pulse Rate 107 H Pulse Rate [Apical] 102 H Pulse Rhythm [Apical] Regular Respiratory Rate 22 18 Respiratory Effort / Characteristics Non-Labored Respiratory Depth Normal Normal Blood Pressure 200/147 H Blood Pressure [Left Arm] 145/97 H Blood Pressure Mean 164 Blood Pressure Mean [Left Arm] 113 Pulse Oximetry 97 97 Oxygen Delivery Method Room Air Room Air Sepsis Recent Fever Within 48 Hours No Sepsis New/Unexplained Change in Mental Status No Sepsis Action Taken by Nursing No Action Required CONSTITUTIONAL/VITAL SIGNS: Reviewed / noted above. GENERAL: Non-toxic in appearance. INTEGUMENTARY: Warm, dry, and [place]. HEAD: Normocephalic. EYES: without scleral icterus or trauma. ENT/OROPHARYNX: clear and moist. There is some dried blood in the nares. EMS did place a nasal trumpet initially when they arrived. No septal hematoma. Tongue with bilateral effusions. LYMPHADENOPATHY/NECK: Is supple without lymphadenopathy or meningismus. RESPIRATORY: Clear to auscultation bilaterally. No increased work of breathing. CARDIOVASCULAR: Regular rate and rhythm. GI/ABDOMEN: Soft and nontender. No organomegaly or pulsatile mass. EXTREMITIES: Warm and well perfused. Hand is slightly swollen and red. Noninfectious appearing. BACK: No CVA tenderness. NEUROLOGICAL: Intact without focal deficits. PSYCHIATRIC: normal affect. MUSCULOSKELETAL: Normally developed with good muscle tone. TRIAGE NURSING DOCUMENTATION REVIEWED. Course Administered Medications Discontinued Medications Sodium Chloride (Nss) 500 mls @ 999 mls/hr IV .Q31M [facility] Stop: 11/01/21 10:15 Last Admin: 11/01/21 10:30 Dose: 999 mls/hr Documented By: JOHNNY Medical Decision Making Differential Diagnosis Differential includes acute coronary syndrome, myocardial infarction, CVA, TIA, anemia, infection, pneumonia, UTI, pyelonephritis, poor nutrition, dehydration, electrolyte disturbance,hypoglycemia. Medical Records Attestation: I reviewed the patient's medical records. Home Medications Current Medication List: was personally reviewed by me Laboratory Data Attestation: I reviewed the patient's lab results. Result diagrams: 11/01/21 09:40 11/01/21 09:40 Lab Results 11/01/21 11/01/21 11/01/21 Range/Units 09:40 09:40 09:40 WBC 10.98 H (4.8-10.8) K/ul RBC 5.14 (3.93-5.22) M/uL Hgb 16.1 H (12.0-16.0) g/dl Hct 48.1 H (34.1-44.9) % MCV 93.6 (80.0-100.0) fL MCH 31.3 (25.0-34.0) pg MCHC 33.5 (32.0-36.0) g/dL RDW Std Deviation 45.8 (36.4-46.3) fL RDW Coeff of Nikki 13.5 (11.5-14.5) % Plt Count 256 (130-400) K/uL MPV 10.1 (9.4-12.3) fL Immature Gran % (Auto) 0.4 % Neut % (Auto) 87.1 % Lymph % (Auto) 6.8 % [place] % (Auto) 5.3 % Eos % (Auto) 0.2 % Baso % (Auto) 0.2 % Neut # (Auto) 9.57 H (1.4-6.5) K/uL Lymph # (Auto) 0.75 L (1.2-3.4) K/uL [place] # (Auto) 0.58 (0.24-0.82) K/uL Eos # (Auto) 0.02 (0-0.50) K/uL Baso # (Auto) 0.02 (0-0.2) K/uL Immature Gran # (Auto) 0.04 H (0.00-0.02) K/uL Sodium 139 (136-145) mmol/L Potassium 3.7 (3.5-5.1) mmol/L Chloride 103 (98-107) mmol/L Carbon Dioxide 26 (21-32) mmol/L Anion Gap 10 (3-11) BUN 23 (6-23) mg/dl Creatinine 0.87 (0.6-1.2) mg/dl Est Cr Clr Drug Dosing Not Reportable Est GFR ( Amer) 70.4 ml/min Est GFR (Non-Af Amer) 60.7 ml/min BUN/Creatinine Ratio 26.4 H (10-20) Glucose 163 H (70-99(Fasting)) mg/dl Lactate (0.4-2.0) mmol/L Calcium 9.1 (8.5-10.1) mg/dl Total Bilirubin 0.6 (0.2-1.0) mg/dl AST 32 (13-39) U/L ALT 13 (7-52) U/L Alkaline Phosphatase 84 (34-104) U/L Total Creatine Kinase 493 H (26-192) U/L Troponin I High Sens 66.2 H* (0-14) pg/ml Total Protein 7.8 (6.0-8.3) gm/dl Albumin 4.1 (3.4-5.0) gm/dl Globulin 3.7 (2.5-4.0) gm/dl Albumin/Globulin Ratio 1.1 (0.9-2) TSH 1.155 (0.300-4.500) uIu/ml 11/01/21 Range/Units 09:50 WBC (4.8-10.8) K/ul RBC (3.93-5.22) M/uL Hgb (12.0-16.0) g/dl Hct (34.1-44.9) % MCV (80.0-100.0) fL MCH (25.0-34.0) pg MCHC (32.0-36.0) g/dL RDW Std Deviation (36.4-46.3) fL RDW Coeff of Nikki (11.5-14.5) % Plt Count (130-400) K/uL MPV (9.4-12.3) fL Immature Gran % (Auto) % Neut % (Auto) % Lymph % (Auto) % [place] % (Auto) % Eos % (Auto) % Baso % (Auto) % Neut # (Auto) (1.4-6.5) K/uL Lymph # (Auto) (1.2-3.4) K/uL [place] # (Auto) (0.24-0.82) K/uL Eos # (Auto) (0-0.50) K/uL Baso # (Auto) (0-0.2) K/uL Immature Gran # (Auto) (0.00-0.02) K/uL Sodium (136-145) mmol/L Potassium (3.5-5.1) mmol/L Chloride (98-107) mmol/L Carbon Dioxide (21-32) mmol/L Anion Gap (3-11) BUN (6-23) mg/dl Creatinine (0.6-1.2) mg/dl Est Cr Clr Drug Dosing Est GFR ( Amer) ml/min Est GFR (Non-Af Amer) ml/min BUN/Creatinine Ratio (10-20) Glucose (70-99(Fasting)) mg/dl Lactate 1.0 (0.4-2.0) mmol/L Calcium (8.5-10.1) mg/dl Total Bilirubin (0.2-1.0) mg/dl AST (13-39) U/L ALT (7-52) U/L Alkaline Phosphatase (34-104) U/L Total Creatine Kinase (26-192) U/L Troponin I High Sens (0-14) pg/ml Total Protein (6.0-8.3) gm/dl Albumin (3.4-5.0) gm/dl Globulin (2.5-4.0) gm/dl Albumin/Globulin Ratio (0.9-2) TSH (0.300-4.500) uIu/ml Imaging Data Radiologist's Impression: Chest X-Ray 11/01/21 09:43 XR chest 1V portable HISTORY: 86 years-old Female weakness acute weakness COMPARISON: None TECHNIQUE: AP view of the chest FINDINGS: Cardiac silhouette is mildly enlarged. Atherosclerosis of the thoracic aorta. Pulmonary vascular congestion with interstitial coarsening. No pneumothorax. Probable trace pleural effusions. Mild right hemidiaphragmatic elevation. Asymmetric right hilar prominence. Ill-defined 1.4 cm nodular density of the left upper lung. Degenerative changes of the shoulders and spine. IMPRESSION: 1. Cardiomegaly with pulmonary vascular congestion and possible trace pleural effusions. 2. Asymmetric right hilar prominence may be projectional. Adenopathy or a right hilar lesion could appear similarly. Attention at follow-up recommended. 3. Ill-defined 1.4 cm nodular density of the left upper lung may be secondary to summation density versus pulmonary nodule. ACT 112: Negative or not required by law. The above report was generated using voice recognition software. It may contain grammatical, syntax or spelling errors. Electronically signed by: Michael Alexander M.D. 11/01/2021 10:[address] 11/01/21 09:[address] DOSE: 788.63 mGycm HISTORY: unresponsive episode/injury TECHNIQUE: Multiaxial CT images of the head were performed without the use of intravenous contrast. Automated exposure control was utilized for this study. A dose lowering technique was utilized adhering to the principles of ALARA. Comparison: Head CT 01/08/2021 Findings: The paranasal sinuses and mastoid air cells are clear. Motion artifact. The calvarium and skull base are intact. There is no mass, hematoma, midline shift, acute infarct. White matter hypodensity is nonspecific but suggestive of microvascular ischemic change. The ventricles and sulci demonstrate mild age-related involutional changes. Impression: Motion artifact. No definite acute intracranial abnormality. ACT 112: Negative or not required by law. Electronically signed by: Medardo Slaughter M.D. 11/01/2021 10:15 AM Hand X-Ray 11/01/21 09:46 XR hand LT min 3V routine HISTORY: 86 years-old Female pain/injury acute left hand pain status post trauma COMPARISON: None TECHNIQUE: 3 views of the left hand FINDINGS: Demineralized appearance of the bones. Multifocal osteoarthritis, severe within the first carpal metacarpal joint. Chondrocalcinosis is noted within the radiocarpal and second metacarpal phalangeal joints. No acute fracture or dislocation. IMPRESSION: 1. No acute fracture or dislocation. 2. Demineralized appearance of the bones with multifocal osteoarthritis, severe within the first carpal metacarpal joint. ACT 112: Negative or not required by law. The above report was generated using voice recognition software. It may contain grammatical, syntax or spelling errors. Electronically signed by: Michael Alexander M.D. 11/01/2021 10:31 AM ECG Data Attestation: I personally reviewed and interpreted this ECG as follows: MDM Narrative 86-year-old female presents to the ED with a chief complaint of a hypoglycemic event. She was last seen well last evening at dinnertime by the neighbors. She did not bring her trash out this morning and therefore they checked on her and found her unresponsive. EMS found her to have a blood sugar of 33. She was given IV glucose in route and her blood sugar on arrival was 230. She is now awake. She does complain of some left hand pain that appears to be somewhat swollen and slightly red. She does have bilateral contusions of the tongue. Also some bleeding of the nose related to a nasal trumpet by EMS. The patient's twelve-lead EKG shows chronic A. fib at a rate of 111. CBC is unremarkable. Total CK was 493. Troponin is 66. TSH is normal. X-ray of the hand and chest x-ray did not show acute process. The patient was told the results of the test. The patient will be seen by the hospitalist for further evaluation and care. Family arrived with the patient little later. They state that her blood sugars have been ranging anywhere from 40-400. She has an appointment to see endocrinology but it is not until February. The family feels that she is at risk and needs an insulin pump. Impression & Plan Hypoglycemia due to insulin, Elevated troponin Discharge Plan Visit Data Chief Complaint: Hypoglycemia Stated Complaint: HYPERGLYCEMIA ED Provider: Aftab Mcdonough Discharge Problem: Hypoglycemia due to insulin, Elevated troponin Patient Disposition: Being Evaluated by Hospitalist Forms Stand Alone Forms: Replaced By [facility], Virtual Emergency Department, Important Visit Information Prescriptions Prescriptions: No Action tramadol 50 mg tablet 50 mg PO BID PRN (Reason: pain) Qty: 45 0RF Novolin 70/30 U-100 Insulin 100 unit/mL (70-30) suspension See Rx Instructions SUBCUT .COMPLEX Qty: 70 3RF Rx Instructions: 50 units q AM, 30 units q PM subcut; (DME) lancets [Accu-Chek Softclix Lancets] [facility] See Rx Instructions .Route Qty: 200 1RF Rx Instructions: testing once daily (DME) blood-glucose meter [OneTouch Ultra2 Meter] [facility] See Rx Instructions .Route Qty: 1 0RF Rx Instructions: As directed (DME) OneTouch Ultra Test Strip See Rx Instructions .Route Qty: 100 0RF Rx Instructions: As directed lisinopril 20 mg tablet 20 mg PO QAM Qty: 90 1RF simvastatin 40 mg tablet 40 mg PO HS Qty: 90 1RF (DME) pen needle, diabetic [BD Ultra-Fine Short Pen Needle] 31 gauge x 5/16" needle See Rx Instructions .Route Qty: 500 1RF Rx Instructions: INJECT INSULIN BID; DX CODE- E11.9, Z79.4 (DME) insulin syringe-needle U-100 [BD Insulin Syringe Ultra-Fine] 1 mL 31 gauge x 5/16 syringe See Rx Instructions .Route Qty: 100 3RF Rx Instructions: INJECT INSULIN BID Shingrix (PF) 50 mcg/0.5 mL suspension for reconstitution 0.5 ml IM .COMPLEX Qty: 1 1RF Rx Instructions: 0.5 mL IM Apply once and then again 2-6 months later; (DME) Walker (w/ hand brakes and wheels) See Rx Instructions .Route .MEDSUPPLY Qty: 1 0RF Rx Instructions: As directed triamcinolone acetonide 0.025 % cream 1 applic topical BID Qty: 15 1RF latanoprost 0.005 % drops 1 drp OPB QAM docusate sodium [Colace] 100 mg Capsule 100 mg PO QAM timolol maleate 0.5 % drops 1 drp OPB HS calcium carbonate-vitamin D3 [Calcium 500 + D] 500 mg(1,250mg) -200 unit Tablet 1 tab PO BID Referrals Referrals: Reji Carver, DO [Primary Care Provider] -
[2021-11-01 09:55] LABS: Basophils # (auto) 0.02 K/uL (0-0.2); Basophils % (auto) 0.2 %; Eosinophils # (auto) 0.02 K/uL (0-0.50); Eosinophils % (auto) 0.2 %; Hematocrit (blood only) 48.1 % (34.1-44.9); Hemoglobin 16.1 g/dl (12.0-16.0); Immature Granulocytes # (auto) 0.04 K/uL (0.00-0.02); Immature Granulocytes % (auto) 0.4 %; Lymphocytes # (auto) 0.75 K/uL (1.2-3.4); Lymphocytes % (auto) 6.8 %; Mean Corpuscular Hemoglobin 31.3 pg (25.0-34.0); Mean Corpuscular Hgb Conc 33.5 g/dL (32.0-36.0); Mean Corpuscular Volume 93.6 fL (80.0-100.0); Mean Platelet Volume 10.1 fL (9.4-12.3); Monocytes # (auto) 0.58 K/uL (0.24-0.82); Monocytes % (auto) 5.3 %; Neutrophils # (auto) 9.57 K/uL (1.4-6.5); Neutrophils % (auto) 87.1 %; Platelet Count 256 K/uL (130-400); RDW Coefficient of Variation 13.5 % (11.5-14.5); RDW Standard Deviation 45.8 fL (36.4-46.3); Red Blood Count 5.14 M/uL (3.93-5.22); White Blood Count 10.98 K/ul (4.8-10.8)
--- NOTE | 2021-11-01 10:16 | CT Scan Report ---
HEAD CT NONCONTRAST CT DOSE: 788.63 mGycm HISTORY: unresponsive episode/injury TECHNIQUE: Multiaxial CT images of the head were performed without the use of intravenous contrast. A utomated exposure control was utilized for this study. A dose lowering technique was utilized adheri ng to the principles of ALARA. Comparison: Head CT 01/08/2021 Findings: The paranasal sinuses and mastoid air cells are clear. Motion artifact. The calvarium and s kull base are intact. There is no mass, hematoma, midline shift, acute infarct. White matter hypodens ity is nonspecific but suggestive of microvascular ischemic change. The ventricles and sulci demonstr ate mild age-related involutional changes. Impression: Motion artifact. No definite acute intracranial abnormality. ACT 112: Negative or not required by law. Electronically signed by: Medardo Slaughter M.D. 11/01/2021 10:15 AM
[2021-11-01 10:22] LABS: Alanine Aminotransferase 13 U/L (7-52); Albumin Globulin Ratio 1.1 (0.9-2); Albumin Level 4.1 gm/dl (3.4-5.0); Alkaline Phosphatase 84 U/L (34-104); Anion Gap 10 (3-11); Aspartate Aminotransferase 32 U/L (13-39); BUN Creatinine Ratio 26.4 (10-20); Bilirubin,Total 0.6 mg/dl (0.2-1.0); Blood Urea Nitrogen 23 mg/dl (6-23); Calcium 9.1 mg/dl (8.5-10.1); Carbon Dioxide 26 mmol/L (21-32); Chloride 103 mmol/L (98-107); Creatine Kinase 493 U/L (26-192); Est GFR (African American) 70.4 ml/min; Est GFR (Non-African American) 60.7 ml/min; Globulin 3.7 gm/dl (2.5-4.0); Glucose 163 mg/dl (70-99(Fasting)); Potassium 3.7 mmol/L (3.5-5.1); Sodium 139 mmol/L (136-145); Total Protein 7.8 gm/dl (6.0-8.3)
[2021-11-01 10:23] LABS: Troponin I High Sensitivity 66.2 pg/ml (0-14)
--- NOTE | 2021-11-01 10:29 | XRay Report ---
XR chest 1V portable HISTORY: 86 years-old Female weakness acute weakness COMPARISON: None TECHNIQUE: AP view of the chest FINDINGS: Cardiac silhouette is mildly enlarged. Atherosclerosis of the thoracic aorta. Pulmonary vascular mihir estion with interstitial coarsening. No pneumothorax. Probable trace pleural effusions. Mild right he midiaphragmatic elevation. Asymmetric right hilar prominence. Ill-defined 1.4 cm nodular density of t he left upper lung. Degenerative changes of the shoulders and spine. IMPRESSION: 1. Cardiomegaly with pulmonary vascular congestion and possible trace pleural effusions. 2. Asymmetric right hilar prominence may be projectional. Adenopathy or a right hilar lesion could ap pear similarly. Attention at follow-up recommended. 3. Ill-defined 1.4 cm nodular density of the left upper lung may be secondary to summation density ve rsus pulmonary nodule. ACT 112: Negative or not required by law. The above report was generated using voice recognition software. It may contain grammatical, syntax o r spelling errors. Electronically signed by: Michael Alexander M.D. 11/01/2021 10:27 AM
--- NOTE | 2021-11-01 10:33 | XRay Report ---
XR hand LT min 3V routine HISTORY: 86 years-old Female pain/injury acute left hand pain status post trauma COMPARISON: None TECHNIQUE: 3 views of the left hand FINDINGS: Demineralized appearance of the bones. Multifocal osteoarthritis, severe within the first carpal meta carpal joint. Chondrocalcinosis is noted within the radiocarpal and second metacarpal phalangeal join ts. No acute fracture or dislocation. IMPRESSION: 1. No acute fracture or dislocation. 2. Demineralized appearance of the bones with multifocal osteoarthritis, severe within the first carp al metacarpal joint. ACT 112: Negative or not required by law. The above report was generated using voice recognition software. It may contain grammatical, syntax o r spelling errors. Electronically signed by: Michael Alexander M.D. 11/01/2021 10:31 AM
--- NOTE | 2021-11-01 11:34 | History & Physical Report ---
Date of Service November 01, 2021 Assessment & Plan (1) Syncope: Plan: -Admit to med tele -Patient is currently afebrile, hemodynamically stable, stable on room air, and back to her neurologic baseline per family -Syncope and collapse at home most likely related to her hypoglycemia, CT head negative and patient without focal neuro defects, no apparent seizure activity, cannot rule out cardiac cause at this time -Monitor on tele for now for possible arrhythmias -Fall precautions ordered -Ordered PT/OT consults as well; while the patient has been stubborn in the past with not allowing home health and refusing to be placed, she is now experiencing significantly unsafe living situations. The patient has at least some degree of dementia and cannot reliably check her BSG and give herself the correct dose of insulin. It should continue to be stressed that they need to bring in home health or patient should be placed for her own safety. (2) Hypoglycemia: Plan: -EMS noted her BSG to be in the 30's on presentation to her home -After speaking with her family it sounds more like an issue with her social situation and medication non-compliance than an issue with the dose of her insulin. She has been very stubborn in the past with allowing home health to come or being placed, it does not seem as though her current home situation is safe enough with her current eating habits and current insulin regimen -Initially consulted Endocrinology and they reached out, appreciate their help. They will schedule her an outpatient appointment for early next week. For now they recommend discharging her on 30 units am and 15 units even of her 70/30 until they see her >This may not be viable at this time with the patient's baseline mental status and social situation >Will also consult a environmental educator to see if they can help with the current situation and find a safer plan until the patient is seen by endo outpatient -Will monitor her BSg q4h for now until it is stable and she is eating consistently -For now will use glargine 10 units BID for basal -Correction factor of 30 with a carb ration of 10 (3) Elevated troponin: Plan: -Troponin noted to be 66.2 in the ED on arrival -Patient denies chest pain and SOB, no significant EKG changes when I compared the new EKg to her last on -Likely related to demand from her fall and being on the ground all night -Will continue to trend to ensure it reaches a plateau -If any concerning signs, symptoms, or labs could consider cardiology consult (4) Elevated CK: Plan: -Noted to be 493 today, due to patient being on the ground overnight -Kidney function remains at baseline -Given 1L NSS bolus in the ED -Continue to trend CK q4h for now to ensure it also reaches a plateau, if repeat CK is significantly elevated could consider light IV hydration to prevent rhabdomyolysis (5) Diabetes: Plan: -See hypoglycemia -Will get a new A1C to see where her control has been (6) Hypertension: Plan: -Continue SENIOR UI DEVELOPER lisinopril as long as kidney function continues to remain stable (7) Dementia: Plan: -Not currently on medication, patient noted to be back to her neurologic baseline at the time of admission -Family states that patient will have mood fluctuations and can be agitated (8) Depression: Plan: -Not currently on medication (9) Hyperlipemia: Plan: -SENIOR UI DEVELOPER statin (10) Glaucoma: Plan: SENIOR UI DEVELOPER eye drops Plan The patient was discussed with Dr. Olmos at the time of admisison History of Present Illness Chief Complaint: Syncope, recurrent hypoglycemia Primary Care Provider: Reji Carver DO Daly is an 86 year old female with a PMH significant for IDDM, dementia, depression, HTN, hyperlipidemia, and osteoarthritis who presented to the [facility] ED via EMS on 11/01/21 with complaints of syncope and recurrent hypoglycemia. Per the ED staff, the patient has been having difficulties controlling her blood surgar for the past 6 months or so. Her PCP has been following and made her a referral to Endocrinology but her appointment is not until February. Her blood glucose has been fluctuating greatly from lows of 30 to highs in the 400's. This week her family noted her blood glucose to be in the 40's but they were able to successful treat it at home. This morning, her neighbors noticed that he had not taken her trash to the curb and checked on her. They found her face-down on the ground and unresponsive. They called EMS who found her blood glucose to be in the 30's and administered dextrose. In the ED the patient was found to be afebrile, hemodynamically stable, and stable on room air. Chest xray was significant for Cardiomegaly with pulmonary vascular congestion and possible trace pleural effusions. It also showed asymmetric right hilar prominence, and an ill-defined 1.4 cm nodular density of the left upper lobe (follow-up imaging is recommended), xray of the left hand and CT of the head were negative for acute findings. Labs were significant for a mild leukocytosis of 10.98 with a left shift of 9.57, glucose of 163, CK of 493, and high sensitivity troponin of 66.2. Prior to admission the patient was given 1L NSS bolus in the ED. At the time of the exam the patient was resting comfortably in bed in no acute distress with family sitting bedside. The majority of the history was obtained from family due to the patient's baseline mental status. Her family states that the patient has had difficulties with medical compliance for some time. She uses a walker and cane to ambulate at home, she lives by herself. She has dementia at baseline and her daughter states that her level of orientation fluctuates but she normally at least knows who she is and where she is. Her daughter states that she must have rolled off her couch to her carpeted floor sometime in the evening and would have been on the ground all night. They state that she is very stubborn and refuses to let home health into her home and refuses placement. They state that she eats and takes her insulin very infrequently, her daughter states that she loves junk food as well. Her family and friends check on her multiple times a day but unfortunately there are still times during the day when she is home alone. Her son does not think that she is checking her blood sugar regularly and does not take the right doses of insulin. They deny any recent illness, fever, and chills. She personally denies current chest pain, sob, abdominal pain, nausea, dysuria, hematuria. Her family confirmed with me that the patient is back to her neurologic baseline at the time of my exam. Allergies Allergy/AdvReac Type Severity Reaction Status Date / Time amoxicillin [From Augmentin] Allergy Intermediate Rash on Verified 11/01/21 15:17 Hands and Feet clavulanic acid Allergy Intermediate Rash on Verified 11/01/21 15:17 [From Augmentin] Hands and Feet Home Medications Medication Instructions Recorded Confirmed Type calcium carbonate 500 mg-vitamin 1 tab PO BID 03/12/19 11/04/21 History D3 5 mcg (200 unit) tablet (Calcium 500 + D) docusate sodium 100 mg capsule 100 mg PO QAM 03/12/19 11/04/21 History (Colace) latanoprost 0.005 % eye drops 1 drp OPB QAM 03/12/19 11/04/21 History timolol maleate 0.5 % eye drops 1 drp OPB HS 03/12/19 11/04/21 History Walker (w/ hand brakes and wheels) #1 ea 03/26/21 11/04/21 Rx lancets (Accu-Chek Softclix #200 ea 03/26/21 11/04/21 Rx Lancets) blood-glucose meter (OneTouch #1 ea 03/28/21 11/04/21 Rx Ultra2 Meter) blood sugar diagnostic (OneTouch #100 ea 04/02/21 11/04/21 Rx Ultra Test strips) lisinopril 20 mg tablet 20 mg PO QAM #90 tabs 06/26/21 11/04/21 Rx simvastatin 40 mg tablet 40 mg PO HS #90 tabs 06/26/21 11/04/21 Rx pen needle, diabetic 31 gauge x #500 ea 07/05/21 11/04/21 Rx 5/16" (BD Ultra-Fine Short Pen Needle) insulin syringe-needle U-100 1 mL #100 ea 08/06/21 11/04/21 Rx 31 gauge x 5/16" (BD Insulin Syringe Ultra-Fine) naproxen sodium 220 mg tablet 220 - 440 mg PO BID PRN Pain 11/01/21 11/04/21 History (Aleve) insulin NPH-regular 70-30 U-100 See Rx Instructions .Route 11/02/21 11/04/21 Rx insulin 100 unit/mL subcutaneous .COMPLEX #15 mL pen Past Med/Surg History Medical History (Updated 11/01/21 @ 12:25 by Aftab Sidhu PA-C) Breast cancer Chondrocalcinosis of knee Diabetes Encounter for routine pelvic examination GI bleed Glaucoma Hyperlipemia Hypertension Osteoarthritis of left hip Spondylolisthesis of lumbar region Surgical History History of mastectomy S/P hysterectomy Family History Other No pertinent family history Denies family history of Ovarian cancer Prostate cancer Heart disease Breast cancer Colorectal cancer Social History Smoking Status: Never smoker Second Hand Exposure: No; Hx Alcohol Use: No Hx Substance Use: No Preferred Language: Kazakh Communication Ability: Effective Visual Impairment: No Limitations Hearing Ability: Normal Production Tech Required: No Beliefs That Will Affect Care: None marital status: / Current Living Situation: Alone Current Living Situation Comment: Granddaughter current occupational status: retired Feels Safe at Home: Yes Childhood Exposure to Second-Hand Smoke: No Dental Care, Regularly: Yes Physical Activity Frequency: Does not Exercise Seatbelt Use: always Sunscreen Use: No Assistive Devices: Walker Review of Systems Review of Systems: Denies current fever, chills, headache, changes in vision, hearing, taste, and smell, chest pain, SOB, cough, abdominal pain, nausea, vomiting, diarrhea, hematemesis, melena, dysuria, hematuria, and recent falls. All systems have been reviewed and are otherwise negative. Physical Exam Physical Exam: Physical Exam: General: In no acute distress, stated age, poor hygiene, chronically ill appearing HEENT: Normocephalic, atraumatic, no scleral icterus, pupils around round, symmetrical, and reactive to light, dry mucus membranes, trachea midline, no thyromegaly Chest/Pulm: No respiratory distress, symmetrical chest expansion, decreased breath sounds in the BL lower lung andrade Cardiac: tachycardic rate, regular rhythm,no murmurs noted Abdomen: Negative for ascites and bruising, normoactive bowel sounds, soft, non-tender to palpation throughout Musculoskeletal: Symmetrical and without signs of acute trauma, upper and lower extremities with full ROM, no atrophy, spasticity, or flaccidity Extremities: Radial, dorsalis pedis, and posterior tibial pulses are intact and symmetrical, no edema noted in the BL LE's Skin: Warm, dry, patient with rosacea on the BL face and upper chest which is not new for her Neuro: Alert and oriented to person, place, month, but not year or president, no focal defects, CN II-XII tested and intact, Psych: No acute distress, calm and cooperative during the exam Results & Data Results & Data ([facility]) Vital Signs (Past 12 Hours) Vital Signs Temp Pulse Pulse Resp BP BP Pulse Ox 11/01/21 10:30 102 H 18 145/97 H 97 11/01/21 09:34 36.5 C 107 H 22 200/147 H 97 O2 Del Method 11/01/21 10:30 Room Air 11/01/21 09:34 Room Air Laboratory Results Abnormal lab results 11/01/21 11/01/21 Range/Units 09:40 09:40 WBC 10.98 H (4.8-10.8) K/ul Hgb 16.1 H (12.0-16.0) g/dl Hct 48.1 H (34.1-44.9) % Neut # (Auto) 9.57 H (1.4-6.5) K/uL Lymph # (Auto) 0.75 L (1.2-3.4) K/uL Immature Gran # (Auto) 0.04 H (0.00-0.02) K/uL BUN/Creatinine Ratio 26.4 H (10-20) Glucose 163 H (70-99(Fasting)) mg/dl Total Creatine Kinase 493 H (26-192) U/L Troponin I High Sens 66.2 H* (0-14) pg/ml Diagnostic Findings Chest X-Ray 11/01/21 09:43 XR chest 1V portable HISTORY: 86 years-old Female weakness acute weakness COMPARISON: None TECHNIQUE: AP view of the chest FINDINGS: Cardiac silhouette is mildly enlarged. Atherosclerosis of the thoracic aorta. Pulmonary vascular congestion with interstitial coarsening. No pneumothorax. Probable trace pleural effusions. Mild right hemidiaphragmatic elevation. Asymmetric right hilar prominence. Ill-defined 1.4 cm nodular density of the left upper lung. Degenerative changes of the shoulders and spine. IMPRESSION: 1. Cardiomegaly with pulmonary vascular congestion and possible trace pleural effusions. 2. Asymmetric right hilar prominence may be projectional. Adenopathy or a right hilar lesion could appear similarly. Attention at follow-up recommended. 3. Ill-defined 1.4 cm nodular density of the left upper lung may be secondary to summation density versus pulmonary nodule. ACT 112: Negative or not required by law. The above report was generated using voice recognition software. It may contain grammatical, syntax or spelling errors. Electronically signed by: Michael Alexander M.D. 11/01/2021 10:[address] 09/23/22 09:[address] DOSE: 788.63 mGycm HISTORY: unresponsive episode/injury TECHNIQUE: Multiaxial CT images of the head were performed without the use of intravenous contrast. Automated exposure control was utilized for this study. A dose lowering technique was utilized adhering to the principles of ALARA. Comparison: Head CT 01/08/2021 Findings: The paranasal sinuses and mastoid air cells are clear. Motion artifact. The calvarium and skull base are intact. There is no mass, hematoma, midline shift, acute infarct. White matter hypodensity is nonspecific but suggestive of microvascular ischemic change. The ventricles and sulci demonstrate mild age-related involutional changes. Impression: Motion artifact. No definite acute intracranial abnormality. ACT 112: Negative or not required by law. Electronically signed by: Medardo Slaughter M.D. 11/01/2021 10:15 AM Hand X-Ray 11/01/21 09:46 XR hand LT min 3V routine HISTORY: 86 years-old Female pain/injury acute left hand pain status post trauma COMPARISON: None TECHNIQUE: 3 views of the left hand FINDINGS: Demineralized appearance of the bones. Multifocal osteoarthritis, severe within the first carpal metacarpal joint. Chondrocalcinosis is noted within the radiocarpal and second metacarpal phalangeal joints. No acute fracture or dislocation. IMPRESSION: 1. No acute fracture or dislocation. 2. Demineralized appearance of the bones with multifocal osteoarthritis, severe within the first carpal metacarpal joint. ACT 112: Negative or not required by law. The above report was generated using voice recognition software. It may contain grammatical, syntax or spelling errors. Electronically signed by: Michael Alexander M.D. 11/01/2021 10:31 AM ECG Additional Comments: Poor data quality, interpretation may be adversely affected Sinus tachycardia with Premature supraventricular complexes Rightward axis Septal infarct (cited on or before 01-NOV-2021) ST & T wave abnormality, consider anterior ischemia Abnormal ECG When compared with ECG of 01-NOV-2021 09:36, (unconfirmed) Sinus rhythm has replaced Atrial fibrillation Code Status & VTE Plan Code Status DNR/DNI VTE Prophylaxis Plan VTE Prophylaxis will be ordered: Yes Supervising Physician Co-Signing Physician Notes Patient seen and examined at bedside. During face to face encounter obtained a history and physical examination. I reviewed above note and agree with it. Plan of care discussed with patient and APC Peno. will admit for syncope. consult PT/OT likely related to hypoglycemia PG Care Time/CCT Total # of Minutes Spent Total Time Spent with Patient: Total time spent is greater than 50% in coordination of care (as documented) at patient's floor/unit and/or counseling patient: Coding Level of Care Code Established Pt INT OBSERVATION CARE 70M LVL 3 Patient Type Established Medical Decision Making High Complexity Diagnoses Syncope R55 Hypoglycemia E16.2 Elevated troponin R77.8 Elevated CK R74.8 Diabetes E11.9; Z79.4 Diabetes mellitus complication status: without complication Diabetes mellitus skilled nursing insulin use: with skilled nursing use Diabetes mellitus type: type 2 Hypertension I10 Hypertension type: essential hypertension Dementia F03.90 Depression F32.A Hyperlipemia E78.5 Glaucoma H40.9 (1) Diabetes Diabetes mellitus complication status: without complication Diabetes mellitus skilled nursing insulin use: 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
[2021-11-01 16:06] LABS: Troponin I High Sensitivity 87.4 pg/ml (0-14)
--- NOTE | 2021-11-01 16:06 | Electrocardiogram Report ---
Test Reason : Blood Pressure : / mmHG Vent. Rate : 109 BPM Atrial Rate : 109 BPM P-R Int : 138 ms QRS Dur : 072 ms QT Int : 344 ms P-R-T Axes : 079 104 069 degrees QTc Int : 463 ms Poor data quality, interpretation may be adversely affected Sinus tachycardia with Premature supraventricular complexes Rightward axis Abnormal ECG When compared with ECG of 01-NOV-2021 09:36, (unconfirmed) HR has increased Confirmed by Alvin Griffith ([id number]) on 11/01/2021 4:06:13 PM Referred By: REFERRED SELF Confirmed By:Alvin Griffith
[2021-11-01] MEDS ORDERED: CARBOHYDRATES FOR HYPOGLYCEMIA PO PRN (17:05)
[2021-11-01] MEDS ORDERED: GLUCOSE 10 TAB/TUBE PO PRN (17:05)
[2021-11-01] MEDS ORDERED: DEXTROSE 50% 50 ML SYRINGE IV PRN (17:05)
[2021-11-01] MEDS ORDERED: ACETAMINOPHEN 325 MG TAB PO PRN (17:05)
[2021-11-01] MEDS ORDERED: GLUCOSE 40% GEL 15 GM TUBE PO PRN (17:05)
[2021-11-01] MEDS ORDERED: GLUCAGON FOR INJ 1 MG VIAL SQ PRN (17:05)
[2021-11-01] MEDS: INSULIN ASPART PER UNIT SC SCH ×2 (18:19→20:52)
[2021-11-01 19:37] LABS: Appearance Urine Cloudy (Clear); Bacteria Urine Automated 4+ (Negative); Bilirubin Urine Negative (Negative); Blood Urine Trace (Negative); Color Urine Yellow; Epithelial Cell Urine Auto >30 /lpf (0-5); Glucose Urine UA 3+ (Negative); Ketones Urine 1+ (Negative); Leukocyte Esterase Urine 1+ (Negative); Nitrite Urine Positive (Negative); Protein Urine Trace (Negative); RBC Urine Automated 0-4 /hpf (0-4); Specific Gravity Urine 1.024 (1.000-1.030); Urobilinogen Urine Negative (Negative); WBC Urine Automated >30 /hpf (0-5); pH Urine 5.5 (4.5-7.5)
[2021-11-01] MEDS: LANTUS PER UNIT CHARGE SQ SCH (20:52)
[2021-11-01] MEDS: CALCIUM 600MG + VIT D 400 IU TAB PO SCH (20:53)
[2021-11-01] MEDS ORDERED: TIMOLOL MALEATE 0.5% OP SOLN 5 ML BTL OP SCH (21:00)
[2021-11-01] MEDS ORDERED: SIMVASTATIN 40 MG TAB PO SCH (21:00)
[2021-11-02 05:54] LABS: Hematocrit (blood only) 41.2 % (34.1-44.9); Hemoglobin 14.2 g/dl (12.0-16.0); Mean Corpuscular Hemoglobin 32.2 pg (25.0-34.0); Mean Corpuscular Hgb Conc 34.5 g/dL (32.0-36.0); Mean Corpuscular Volume 93.4 fL (80.0-100.0); Platelet Count 196 K/uL (130-400); RDW Coefficient of Variation 13.9 % (11.5-14.5); RDW Standard Deviation 47.2 fL (36.4-46.3); Red Blood Count 4.41 M/uL (3.93-5.22); White Blood Count 6.48 K/ul (4.8-10.8)
[2021-11-02 06:22] LABS: BUN Creatinine Ratio 19.2 (10-20); Calcium 8.9 mg/dl (8.5-10.1); Creatinine Clr Calc Pharmacy 38.1 ml/min; Est GFR (African American) 56.7 ml/min; Potassium 3.9 mmol/L (3.5-5.1)
[2021-11-02] MEDS: INSULIN ASPART PER UNIT SC SCH ×2 (08:00→12:11)
[2021-11-02] MEDS: LANTUS PER UNIT CHARGE SQ SCH (08:01)
[2021-11-02] MEDS: CALCIUM 600MG + VIT D 400 IU TAB PO SCH (08:06)
[2021-11-02] MEDS ORDERED: lisinopril 20 MG TAB PO SCH (09:00)
[2021-11-02] MEDS ORDERED: DOCUSATE SODIUM 100 MG CAP PO SCH (09:00)
[2021-11-02 11:29] LABS: Estimated Average Glucose 154 mg/dl
--- NOTE | 2021-11-02 12:26 | Discharge Summary ---
Date of Service November 02, 2021 Admission HPI Per Admitting Provider Daly is an 86 year old female with a PMH significant for IDDM, dementia, depression, HTN, hyperlipidemia, and osteoarthritis who presented to the [facility] ED via EMS on 11/01/21 with complaints of syncope and recurrent hypoglycemia. Per the ED staff, the patient has been having difficulties controlling her blood surgar for the past 6 months or so. Her PCP has been following and made her a referral to Endocrinology but her appointment is not until February. Her blood glucose has been fluctuating greatly from lows of 30 to highs in the 400's. This week her family noted her blood glucose to be in the 40's but they were able to successful treat it at home. This morning, her neighbors noticed that he had not taken her trash to the curb and checked on her. They found her face-down on the ground and unresponsive. They called EMS who found her blood glucose to be in the 30's and administered dextrose. In the ED the patient was found to be afebrile, hemodynamically stable, and stable on room air. Chest xray was significant for Cardiomegaly with pulmonary vascular congestion and possible trace pleural effusions. It also showed asymmetric right hilar prominence, and an ill-defined 1.4 cm nodular density of the left upper lobe (follow-up imaging is recommended), xray of the left hand and CT of the head were negative for acute findings. Labs were significant for a mild leukocytosis of 10.98 with a left shift of 9.57, glucose of 163, CK of 493, and high sensitivity troponin of 66.2. Prior to admission the patient was given 1L NSS bolus in the ED. At the time of the exam the patient was resting comfortably in bed in no acute distress with family sitting bedside. The majority of the history was obtained from family due to the patient's baseline mental status. Her family states that the patient has had difficulties with medical compliance for some time. She uses a walker and cane to ambulate at home, she lives by herself. She has dementia at baseline and her daughter states that her level of orientation fluctuates but she normally at least knows who she is and where she is. Her daughter states that she must have rolled off her couch to her carpeted floor sometime in the evening and would have been on the ground all night. They state that she is very stubborn and refuses to let home health into her home and refuses placement. They state that she eats and takes her insulin very inf requently, her daughter states that she loves junk food as well. Her family and friends check on her multiple times a day but unfortunately there are still times during the day when she is home alone. Her son does not think that she is checking her blood sugar regularly and does not take the right doses of insulin. They deny any recent illness, fever, and chills. She personally denies current chest pain, sob, abdominal pain, nausea, dysuria, hematuria. Her family confirmed with me that the patient is back to her neurologic baseline at the time of my exam. Principal Diagnosis Insulin induced hypoglycemia causing syncope, elevated troponin without acute myocardial infarction Discharge Exam General-alert and oriented x3, no fevers, no chills HEENT-head atraumatic and normocephalic, pupils equal and reactive to light, extraocular muscles intact Neck-no lymphadenopathy or thyromegaly, trachea midline Chest-clear to auscultation percussion. No rales wheezing or rhonchi Cardiac-regular rate and rhythm, normal S1 and S2, no murmurs Abdomen-normal bowel sounds, nontender, no hepatosplenomegaly Extremities-no cyanosis, clubbing, or edema Neuro-cranial nerves II through XII intact, motor and sensory function within normal limits, strength symmetrical , no focal deficits Psych-normal affect, normal mood Discharge Data Allergies Allergy/AdvReac Type Severity Reaction Status Date / Time amoxicillin [From Augmentin] Allergy Intermediate Rash on Verified 11/01/21 15:17 Hands and Feet clavulanic acid Allergy Intermediate Rash on Verified 11/01/21 15:17 [From Augmentin] Hands and Feet Consultations 11/01/21 11:11 ED Decision to Admit Stat 11/01/21 11:18 Consult Endocrinology Routine Ordered Studies 11/01/21 09:43 CT head/brain wo con Stat Hospital Course (1) Syncope: Resolved. Appears to be due to insulin induced hypoglycemia. Daughter is at the bedside and we discussed endocrinology recommendations which is to decrease the insulin 70/30 down to 30 units in the morning and 15 units in the evening. She will follow-up with endocrinology as an outpatient. (2) Hypoglycemia: Resolved. Endocrinology recommended decreasing the insulin dose at discharge. Daughter is present and understands. She was treated with insulin glargine while hospitalized and is stable. (3) Elevated troponin: No evidence of acute myocardial infarction. (4) Elevated CK: No evidence of acute myocardial infarction (5) Diabetes: Diabetic diet. Insulin dosage has been down titrated at discharge (6) Hypertension: Controlled with current medications (7) Dementia: -Not currently on medication, patient noted to be back to her neurologic baseline at the time of admission -Family states that patient will have mood fluctuations and can be agitated (8) Depression: Mild. Supportive care (9) Hyperlipemia: Statin therapy (10) Glaucoma: E[employer] eye drops Plan home today with lower dose of insulin. Follow-up with endocrinology as an outpatient Total Time Total Time Spent Total Time Spent (In Minutes): 35 minutes Discharge Plan Discharge Items Patient Disposition: Home - Self-Care Reason For Visit: SYNCOPE, HYPOGLYCEMIA Discharge Diagnosis: Insulin induced hypoglycemia and syncope Activity: Resume your previous activity Non-emergency contact: Primary Care Provider Call non-emergency contact if: you have any medication questions Follow-up/Referrals: Reji Carver DO [Primary Care Provider] - Diet: Carb Consistent or DM2 Addtl Attending Provider Instructions: Insulin dosage has been decreased to 30 units in the morning and 15 units in the evening. Follow-up with endocrinology as planned Pending Studies at Discharge: No Stand-Alone Forms: My [employer], Smoking Cessation Medications and DC Order Prescriptions: New insulin NPH and regular human 100 unit/mL (70-30) insulin pen See Rx Instructions .ROUTE .COMPLEX Qty: 15 0RF Rx Instructions: 30 units in AM, 15 units in PM Continued (DME) lancets [Accu-Chek Softclix Lancets] Misc See Rx Instructions .Route Qty: 200 1RF Rx Instructions: testing once daily (DME) blood-glucose meter [OneTouch Ultra2 Meter] Misc See Rx Instructions .Route Qty: 1 0RF Rx Instructions: As directed (DME) OneTouch Ultra Test Strip See Rx Instructions .Route Qty: 100 0RF Rx Instructions: As directed lisinopril 20 mg tablet 20 mg PO QAM Qty: 90 1RF simvastatin 40 mg tablet 40 mg PO HS Qty: 90 1RF (DME) pen needle, diabetic [BD Ultra-Fine Short Pen Needle] 31 gauge x 5/16" needle See Rx Instructions .Route Qty: 500 1RF Rx Instructions: INJECT INSULIN BID; DX CODE- E11.9, Z79.4 (DME) insulin syringe-needle U-100 [BD Insulin Syringe Ultra-Fine] 1 mL 31 gauge x 5/16 syringe See Rx Instructions .Route Qty: 100 3RF Rx Instructions: INJECT INSULIN BID (DME) Walker (w/ hand brakes and wheels) See Rx Instructions .Route .MEDSUPPLY Qty: 1 0RF Rx Instructions: As directed latanoprost 0.005 % drops 1 drp OPB QAM docusate sodium [Colace] 100 mg Capsule 100 mg PO QAM timolol maleate 0.5 % drops 1 drp OPB HS calcium carbonate-vitamin D3 [Calcium 500 + D] 500 mg(1,250mg) -200 unit Tablet 1 tab PO BID naproxen sodium [Aleve] 220 mg Tablet 220 - 440 mg PO BID PRN (Reason: Pain) Discontinued Novolin 70/30 U-100 Insulin 100 unit/mL (70-30) suspension See Rx Instructions SUBCUT .COMPLEX Qty: 70 3RF Rx Instructions: 50 units q AM, 30 units q PM subcut; Discharge Orders: Discharge Order (Routine); Ordered 11/02/21 Ordered By: Sin Hobbs Admission Data Admit Date/Time: 11/01/21 11:18 Attending Provider: Sin Hobbs Admit Provider: Aftab Sidhu Primary Care Provider: Reji Carver Other Providers: Marianela Gates ; Nayan Bhandari Diana ; Jae,Emi Casarez ; Wilfred Gomez ; Nayan Goldstein ; Clark Corral ; William Davison ; Arlen Lynch ; Jeane Carr ; Eugenio Reyes ; Ermelinda Corea ; Rowdy Iyer ; Lien Anderson ; Francis Olmos Coding Level of Care Code D/C DAY MANAGEMENT >30 MINS Diagnoses Syncope R55 Hypoglycemia E16.2 Elevated troponin R77.8 Elevated CK R74.8 Diabetes E11.9; Z79.4 Diabetes mellitus type: type 2 Diabetes mellitus superintendent terminal insulin use: with senior living use Diabetes mellitus complication status: without complication Hypertension I10 Hypertension type: essential hypertension Dementia F03.90 Depression F32.A Hyperlipemia E78.5 Glaucoma H40.9
== END 2021-11-02 13:24 | disposition home or self-care (01) ==
LOC: 2W 09:33 → ED 09:33 → SUATTDRO 11:18 → 2W 16:18

== ENCOUNTER 2022-07-16 09:41 | Inpatient (IN) ==
[2022-07-16] MEDS ORDERED: FAMOTIDINE 20MG IV PUSH 20 MG/5 ML SYR IV STA (09:51)
[2022-07-16] MEDS ORDERED: PANTOprazole 80 MG in DEXTROSE 5% 100 ML IV STA (09:51)
--- NOTE | 2022-07-16 09:55 | Emergency Department Note ---
Impression & Plan GI bleed, Diverticulosis ED Provider Note NAME: CHELE VILLARREAL AGE: 87 SEX: F : 1935 ARRIVES VIA: Ambulance INFORMANT: [Patient][ems] ED PROVIDER(S): [Zion Newell MD] CHIEF COMPLAINT: Rectal bleeding HISTORY OF PRESENT ILLNESS: The patient is an 87-year-old female who states that this morning when she got up and went to the bathroom, she noticed blood running down her legs and into the toilet. She has no pain. She is not short of breath, dizzy or weak. She is not on blood thinning agents. The patient cannot recall having bleeding like this previously. She has had previous colonoscopies. PMHx/PSHx: See Below SOCIAL HISTORY: See Below. PHYSICAL EXAM: GENERAL: Patient is in no acute distress. HEENT: No acute trauma, normocephalic atraumatic, mucous membranes moist, no nasal congestion. NECK: No stridor, no adenopathy, no meningismus, trachea is midline. LUNGS: Clear to auscultation bilaterally, no wheeze, no rhonchi, breath sounds equal. HEART: Without murmurs gallops or rubs, regular rate and rhythm. ABDOMEN: Soft, nontender, bowel sounds positive, no peritonitis. EXTREMITIES: No cyanosis or edema, full range of motion of all the joints without pain or difficulty, no signs for acute trauma. NEUROLOGIC: Oriented x 3, no acute motor or sensory deficits, no focal weakness. SKIN: No rash, no jaundice, no diaphoresis. Rectal: Dark maroon appearing blood noted. No mass felt. DIFFERENTIAL DIAGNOSIS: Ulcer, gastritis, lower GI bleed, anemia, coagulopathy, electrolyte imbalance, dehydration, colitis or diverticulitis, among others. EMERGENCY DEPARTMENT COURSE/PROCEDURES: Prior/Outside records reviewed: EMS notes. ECG per my interpretation: Indication was GI bleeding. The ECG shows a normal sinus rhythm with a rate of 94. There is some low voltage noted. 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 There is no ST elevation, no PVCs. The QTc is 467 Continuous Cardiac Monitoring per my interpretation: An order was placed for continuous cardiac monitoring. The monitor shows a rate of 97 with normal sinus rhythm. Critical Care Note: I have personally spent 47 minutes of critical care time in the direct management of this patient. This includes bedside care, interpretation of diagnostic studies, and testing, discussion with consultants, patient, and family members, and other required patient management activities. This 47 minutes is in excess of all separately billable procedures. MEDICAL DECISION MAKING: There is no leukocytosis or worrisome anemia. There is a normal platelet count. No coagulopathy. No renal failure or significant electrolyte abnormality. No concerning liver enzyme elevation. No evidence for pancreatitis. ECG shows a normal sinus rhythm, no ischemia. Cardiac enzyme testing x1 is not consistent with acute cardiac injury. COVID test returned negative. Abdominal and pelvis CT shows diverticulosis without diverticulitis. No acute surgical process by CT imaging. On exam, the patient had dark red to maroon appearing blood rectally. She was not toxic or febrile. No abdominal pain. The patient was given 1 L of saline IV. She was given IV Protonix and IV Pepcid. The patient is currently resting comfortably. I spoke with the patient and her family about my findings. She does need a hospital stay for further work-up and monitoring. The patient's GI bleed is likely lower given the rectal exam results. I did speak with case management, the on-call hospitalist was consulted. It does not appear that emergent GI intervention is required. DISPOSITION: Patient's presentation and findings warrant a hospital stay. Past Med/Surg History Medical History Breast cancer Chondrocalcinosis of knee Diabetes Encounter for routine pelvic examination GI bleed Glaucoma Hyperlipemia Hypertension Osteoarthritis of left hip Spondylolisthesis of lumbar region Surgical History History of mastectomy S/P hysterectomy Family History Other No pertinent family history Denies family history of Ovarian cancer Prostate cancer Heart disease Breast cancer Colorectal cancer Social History Smoking Status: Never smoker Second Hand Exposure: No; Do You Dip or Chew Tobacco: No; Hx Alcohol Use: No Hx Substance Use: No Preferred Language: Armenian Communication Ability: Effective Visual Impairment: No Limitations Hearing Ability: Normal 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 Beliefs That Will Affect Care: None marital status: / Current Living Situation: Alone current occupational status: retired Feels Safe at Home: Yes Childhood Exposure to Second-Hand Smoke: No Diet: regular Dental Care, Regularly: Yes Physical Activity Frequency: Does not Exercise Seatbelt Use: sometimes Sunscreen Use: No Assistive Devices: Cane and Walker Allergies Allergies Allergy/AdvReac Type Severity Reaction Status Date / Time amoxicillin [From Augmentin] Allergy Intermediate Rash on Verified 07/01/22 13:34 Hands and Feet clavulanic acid Allergy Intermediate Rash on Verified 07/01/22 13:34 [From Augmentin] Hands and Feet Home Meds Home Medications Medication Instructions Recorded Confirmed latanoprost 0.005 % eye drops 0 drp OPB QAM 03/12/19 07/16/22 docusate sodium 100 mg capsule 0 mg PO QAM PRN Constipation 01/13/22 07/16/22 (Colace) calcium carbonate 500 mg-vitamin 0 tab PO BID 07/16/22 07/16/22 D3 5 mcg (200 unit) tablet (Calcium 500 + D) diclofenac sodium 1 % topical gel 0 g topical QID PRN pain, moderate 07/16/22 07/16/22 simvastatin 40 mg tablet 0 mg PO HS 07/16/22 07/16/22 timolol maleate 0.5 % eye drops 0 drp OPB HS 07/16/22 07/16/22 triamcinolone acetonide 0.025 % 0 applic topical BID 07/16/22 07/16/22 topical cream Previous Rx's Medication Instructions Recorded Walker (w/ hand brakes and wheels) #1 ea 03/26/21 lancets (Accu-Chek Softclix #200 ea 03/26/21 Lancets) blood-glucose meter (OneTouch #1 ea 03/28/21 Ultra2 Meter) blood sugar diagnostic (OneTouch #100 ea 04/02/21 Ultra Test strips) pen needle, diabetic 31 gauge x #500 ea 07/05/21 5/16" (BD Ultra-Fine Short Pen Needle) insulin syringe-needle U-100 1 mL #100 ea 08/06/21 31 gauge x 5/16" (BD Insulin Syringe Ultra-Fine) lisinopril 20 mg tablet 20 mg PO QAM #90 tabs 11/11/21 varicella-zoster glycoE [id number] 0.5 ml IM .COMPLEX #1 ea 12/23/21 adj(PF) 50 mcg/0.5 mL IM susp, kit (Shingrix (PF)) blood-glucose sensor (FreeStyle #2 ea 01/20/22 Raul 3 Sensor device) insulin NPH-regular 70-30 U-100 See Rx Instructions subcut BID #30 07/01/22 insulin 100 unit/mL subcutaneous mL pen Results & Data (ED) Vital Signs Vital Signs - 24 hr 07/16/22 09:45 07/16/22 09:45 07/16/22 10:14 Temperature 36.8 C Temperature Source Oral Pulse Rate 92 H 84 Pulse Rate from SpO2 Sensor Respiratory Rate 20 Respiratory Effort / Characteristics Non-Labored Respiratory Depth Normal Respiratory Pattern Regular Blood Pressure 173/108 H Blood Pressure Mean 129 Pulse Oximetry 98 97 Oxygen Delivery Method Room Air Room Air Sepsis Recent Fever Within 48 Hours No Sepsis New/Unexplained Change in Mental Status N/A Sepsis Action Taken by Nursing No Action Required 07/16/22 11:06 07/16/22 11:30 07/16/22 11:30 Temperature Temperature Source Pulse Rate 93 H 79 Pulse Rate from SpO2 Sensor 77 Respiratory Rate 16 18 Respiratory Effort / Characteristics Respiratory Depth Respiratory Pattern Blood Pressure 138/101 H Blood Pressure Mean 110 Pulse Oximetry 99 Oxygen Delivery Method Sepsis Recent Fever Within 48 Hours Sepsis New/Unexplained Change in Mental Status Sepsis Action Taken by Nursing 07/16/22 12:00 07/16/22 12:02 Temperature Temperature Source Pulse Rate 78 73 Pulse Rate from SpO2 Sensor 73 Respiratory Rate 17 17 Respiratory Effort / Characteristics Respiratory Depth Respiratory Pattern Blood Pressure Blood Pressure Mean Pulse Oximetry 98 Oxygen Delivery Method Sepsis Recent Fever Within 48 Hours Sepsis New/Unexplained Change in Mental Status Sepsis Action Taken by Half-Way Medications Current Medication List: was personally reviewed by me Laboratory Data Attestation: I reviewed the patient's lab results. 07/16/22 14:43 07/16/22 09:35 Lab Results 07/16/22 07/16/22 07/16/22 Range/Units 09:35 09:35 09:35 WBC 4.87 (4.8-10.8) K/ul RBC 4.25 (4.20-5.40) M/uL Hgb 13.4 (12.0-16.0) g/dl Hct 39.3 (37.0-47.0) % MCV 92.5 (80.0-100.0) fL MCH 31.5 (25.0-34.0) pg MCHC 34.1 (32.0-36.0) g/dL RDW Std Deviation 42.7 (36.4-46.3) fL RDW Coeff of Nikki 12.6 (11.5-14.5) % Plt Count 210 (130-400) K/uL MPV 10.1 (9.4-12.4) fL Immature Gran % (Auto) 0.2 % Neut % (Auto) 61.0 % Lymph % (Auto) 28.1 % Florence % (Auto) 7.0 % Eos % (Auto) 2.9 % Baso % (Auto) 0.8 % Neut # (Auto) 2.97 (1.40-6.50) K/uL Lymph # (Auto) 1.37 (1.2-3.4) K/uL Florence # (Auto) 0.34 (0.11-0.59) K/uL Eos # (Auto) 0.14 (0-0.50) K/uL Baso # (Auto) 0.04 (0-0.2) K/uL Immature Gran # (Auto) 0.01 (0.01-0.20) K/uL PT 10.9 (9.0-12.0) Seconds INR 1.0 (0.9-1.1) APTT 25.5 (21.0-31.0) Seconds PTT Ratio 0.9 Sodium 136 (136-145) mmol/L Potassium 4.3 (3.5-5.1) mmol/L Chloride 104 (98-107) mmol/L Carbon Dioxide 26 (21-32) mmol/L Anion Gap 6 (3-11) BUN 28 H (6-23) mg/dl Creatinine 0.94 (0.6-1.2) mg/dl Est Cr Clr Drug Dosing 43.9 ml/min Est GFR ( Amer) 63.7 ml/min Est GFR (Non-Af Amer) 54.9 ml/min BUN/Creatinine Ratio 29.8 H (10-20) Glucose 221 H (70-99(Fasting)) mg/dl Calcium 8.9 (8.6-10.3) mg/dl Magnesium 1.8 (1.7-2.4) mg/dl Total Bilirubin 0.5 (0.2-1.0) mg/dl AST 14 (13-39) U/L ALT 10 (7-52) U/L Alkaline Phosphatase 95 (34-104) U/L Troponin I High Sens 9.6 (0-14) pg/ml Total Protein 6.6 (6.0-8.3) gm/dl Albumin 3.8 (3.4-5.0) gm/dl Globulin 2.8 (2.5-4.0) gm/dl Albumin/Globulin Ratio 1.4 (0.9-2) Lipase 33 (11-82) U/L SARS-CoV-2, RNA, NAAT (NEGATIVE) Blood Type Antibody Screen 07/16/22 07/16/22 Range/Units 09:53 10:00 WBC (4.8-10.8) K/ul RBC (4.20-5.40) M/uL Hgb (12.0-16.0) g/dl Hct (37.0-47.0) % MCV (80.0-100.0) fL MCH (25.0-34.0) pg MCHC (32.0-36.0) g/dL RDW Std Deviation (36.4-46.3) fL RDW Coeff of Nikki (11.5-14.5) % Plt Count (130-400) K/uL MPV (9.4-12.4) fL Immature Gran % (Auto) % Neut % (Auto) % Lymph % (Auto) % Florence % (Auto) % Eos % (Auto) % Baso % (Auto) % Neut # (Auto) (1.40-6.50) K/uL Lymph # (Auto) (1.2-3.4) K/uL Florence # (Auto) (0.11-0.59) K/uL Eos # (Auto) (0-0.50) K/uL Baso # (Auto) (0-0.2) K/uL Immature Gran # (Auto) (0.01-0.20) K/uL PT (9.0-12.0) Seconds INR (0.9-1.1) APTT (21.0-31.0) Seconds PTT Ratio Sodium (136-145) mmol/L Potassium (3.5-5.1) mmol/L Chloride (98-107) mmol/L Carbon Dioxide (21-32) mmol/L Anion Gap (3-11) BUN (6-23) mg/dl Creatinine (0.6-1.2) mg/dl Est Cr Clr Drug Dosing ml/min Est GFR ( Amer) ml/min Est GFR (Non-Af Amer) ml/min BUN/Creatinine Ratio (10-20) Glucose (70-99(Fasting)) mg/dl Calcium (8.6-10.3) mg/dl Magnesium (1.7-2.4) mg/dl Total Bilirubin (0.2-1.0) mg/dl AST (13-39) U/L ALT (7-52) U/L Alkaline Phosphatase (34-104) U/L Troponin I High Sens (0-14) pg/ml Total Protein (6.0-8.3) gm/dl Albumin (3.4-5.0) gm/dl Globulin (2.5-4.0) gm/dl Albumin/Globulin Ratio (0.9-2) Lipase (11-82) U/L SARS-CoV-2, RNA, NAAT NEGATIVE (NEGATIVE) Blood Type O Negative Antibody Screen NEGATIVE Administered Medications Potassium Chloride/Sodium Chloride (Normal Saline W/20 Meq Kcl) 20 meq in 1,000 mls @ 120 mls/hr IV .Q8H20M KUSUM Stop: 08/15/22 13:29 Last Admin: 07/16/22 14:16 Dose: 120 mls/hr Documented By: CAS Insulin Glargine (Lantus Per Unit Charge) 5 units SQ BID KUSUM Stop: 08/15/22 12:29 Last Admin: 07/16/22 14:16 Dose: 5 units Documented By: CAS Co-signed By: KS Discontinued Medications Sodium Chloride (Nss 1000ml) 1,000 mls @ 999 mls/hr IV .Q1H1M KUSUM Stop: 07/16/22 11:00 Last Infusion: 07/16/22 12:21 Dose: 0 mls/hr Documented By: Admin: 07/16/22 10:11 Dose: 999 mls/hr Documented By: AM Pantoprazole Sodium 80 mg/ (Dextrose) 120 mls @ 480 mls/hr IV ONE STA Stop: 07/16/22 10:05 Last Infusion: 07/16/22 11:07 Dose: 0 mls/hr Documented By: Admin: 07/16/22 10:32 Dose: 480 mls/hr Documented By: CHINA Famotidine (Pepcid 20mg Iv Push) 20 mg in 5 mls @ 2.5 mls/min IV NOW STA Stop: 07/16/22 09:52 Last Admin: 07/16/22 10:11 Dose: 2.5 mls/min Documented By: CHINA Ioversol (Optiray 320 500ml) 94 ml IV ONCE ONE Stop: 07/16/22 10:59 Last Admin: 07/16/22 10:58 Dose: 94 ml Documented By: ТАТЬЯНА Imaging Data Radiologist's Impression: Abdomen/Pelvis CT 07/16/22 09:51 CT SCAN OF THE ABDOMEN AND PELVIS WITH IV CONTRAST CLINICAL HISTORY: GI bleeding. COMPARISON STUDY: Abdominal radiograph dated 11/21/2021. TECHNIQUE: Following the IV administration of 94 cc of Optiray 320, CT scan of the abdomen and pelvis is performed from the lung bases to the proximal femora. Images are reviewed in the axial, sagittal, and coronal planes. IV contrast was administered without complication. A dose lowering technique was utilized adhering to the principles of ALARA. CT DOSE: 1223.84 mGy.cm FINDINGS: Lung bases: The heart is enlarged and without pericardial effusion. The coronary arteries are densely calcified. The lung bases are clear noting bibasilar scarring/atelectasis. The patient is status post left mastectomy. A small hiatal hernia is noted. Liver: The contrast-enhanced liver is normal in size, contour, and attenuation. There is no intrahepatic biliary ductal dilatation. The hepatic veins and portal veins are patent. Gallbladder: Unremarkable. Spleen: Normal in size and attenuation. Pancreas: Unremarkable. Adrenal glands: Unremarkable. Kidneys: The contrast enhanced kidneys demonstrate mild cortical atrophy. Foci of cortical scarring are noted on the right. The kidneys enhance symmetrically. There is mild bilateral hydronephrosis. The ureters are distended to the level of the bladder. A circumaortic left renal vein is incidentally noted. Abdominal vasculature: The abdominal aorta is normal in course and caliber noting advanced atherosclerotic calcification. Bowel: There is moderate to advanced colonic diverticulosis without CT evidence of acute diverticulitis. No bowel obstruction is seen. Moderate fecal retention is seen throughout the colon. No intraluminal contrast is identified to suggest active extravasation. The appendix is well-visualized and normal. Peritoneum: There is no intraperitoneal free air or abdominal ascites. There is a large fat-containing umbilical hernia. Lymphadenopathy: None. Pelvic viscera: The bladder is decompressed around a Maynard catheter and could not be evaluated. Intraluminal gas is likely related to instrumentation. The uterus is surgically absent. No adnexal lesion is seen. Skeletal structures: The skeletal structures are osteopenic. There is moderate lumbosacral spondylosis. No lytic or blastic lesions are seen. IMPRESSION: 1. Moderate to advanced colonic diverticulosis without CT evidence of acute diverticulitis. 2. There is mild bilateral hydroureteronephrosis. The ureters are distended to the level of the bladder, and this may have been related to bladder distention. The bladder is currently decompressed around a Maynard catheter and cannot be evaluated. 3. Cardiomegaly with advanced coronary artery calcification. 4. Additional findings as above. ACT 112: Negative or not required by law. Electronically signed by: Zion Hoang M.D. 07/16/2022 11:13 AM Discharge Plan Visit Data Chief Complaint: Rectal Bleed Stated Complaint: RECTAL BLEED ED Provider: Zion Newell Discharge Problem: GI bleed, Diverticulosis Patient Disposition: Admitted As Inpatient Condition: Fair Discharge Instructions Interventions: ED Discharge Assessment Last Done: 07/16/22 13:06
[2022-07-16] MEDS ORDERED: SODIUM CHLORIDE 0.9% 1000ML 1,000 ML IV SCH (10:00)
[2022-07-16 10:41] LABS: Basophils # (auto) 0.04 K/uL (0-0.2); Basophils % (auto) 0.8 %; Eosinophils # (auto) 0.14 K/uL (0-0.50); Eosinophils % (auto) 2.9 %; Hematocrit (blood only) 39.3 % (37.0-47.0); Hemoglobin 13.4 g/dl (12.0-16.0); Immature Granulocytes # (auto) 0.01 K/uL (0.01-0.20); Immature Granulocytes % (auto) 0.2 %; Lymphocytes # (auto) 1.37 K/uL (1.2-3.4); Lymphocytes % (auto) 28.1 %; Mean Corpuscular Hemoglobin 31.5 pg (25.0-34.0); Mean Corpuscular Hgb Conc 34.1 g/dL (32.0-36.0); Mean Corpuscular Volume 92.5 fL (80.0-100.0); Mean Platelet Volume 10.1 fL (9.4-12.4); Monocytes # (auto) 0.34 K/uL (0.11-0.59); Neutrophils # (auto) 2.97 K/uL (1.40-6.50); Platelet Count 210 K/uL (130-400); RDW Coefficient of Variation 12.6 % (11.5-14.5); RDW Standard Deviation 42.7 fL (36.4-46.3); Red Blood Count 4.25 M/uL (4.20-5.40); White Blood Count 4.87 K/ul (4.8-10.8)
[2022-07-16 10:43] LABS: Partial Thromboplastin Ratio 0.9; Partial Thromboplastin Time 25.5 Seconds (21.0-31.0); Prothrombin Time 10.9 Seconds (9.0-12.0)
[2022-07-16 10:46] LABS: Albumin Globulin Ratio 1.4 (0.9-2); Albumin Level 3.8 gm/dl (3.4-5.0); BUN Creatinine Ratio 29.8 (10-20); Bilirubin,Total 0.5 mg/dl (0.2-1.0); Calcium 8.9 mg/dl (8.6-10.3); Creatinine Clr Calc Pharmacy 43.9 ml/min; Est GFR (African American) 63.7 ml/min; Est GFR (Non-African American) 54.9 ml/min; Globulin 2.8 gm/dl (2.5-4.0); Magnesium 1.8 mg/dl (1.7-2.4); Potassium 4.3 mmol/L (3.5-5.1); Total Protein 6.6 gm/dl (6.0-8.3)
[2022-07-16 10:50] LABS: Troponin I High Sensitivity 9.6 pg/ml (0-14)
[2022-07-16] MEDS ORDERED: OPTIRAY 320 500ml IV ONE (10:58)
--- NOTE | 2022-07-16 11:14 | CT Scan Report ---
CT SCAN OF THE ABDOMEN AND PELVIS WITH IV CONTRAST CLINICAL HISTORY: GI bleeding. COMPARISON STUDY: Abdominal radiograph dated 11/21/2021. TECHNIQUE: Following the IV administration of 94 cc of Optiray 320, CT scan of the abdomen and pelvi s is performed from the lung bases to the proximal femora. Images are reviewed in the axial, sagittal , and coronal planes. IV contrast was administered without complication. A dose lowering technique wa s utilized adhering to the principles of ALARA. CT DOSE: 1223.84 mGy.cm FINDINGS: Lung bases: The heart is enlarged and without pericardial effusion. The coronary arteries are densely calcified. The lung bases are clear noting bibasilar scarring/atelectasis. The patient is status pos t left mastectomy. A small hiatal hernia is noted. Liver: The contrast-enhanced liver is normal in size, contour, and attenuation. There is no intrahepa tic biliary ductal dilatation. The hepatic veins and portal veins are patent. Gallbladder: Unremarkable. Spleen: Normal in size and attenuation. Pancreas: Unremarkable. Adrenal glands: Unremarkable. Kidneys: The contrast enhanced kidneys demonstrate mild cortical atrophy. Foci of cortical scarring a re noted on the right. The kidneys enhance symmetrically. There is mild bilateral hydronephrosis. The ureters are distended to the level of the bladder. A circumaortic left renal vein is incidentally no vianney. Abdominal vasculature: The abdominal aorta is normal in course and caliber noting advanced atheroscle rotic calcification. Bowel: There is moderate to advanced colonic diverticulosis without CT evidence of acute diverticulit is. No bowel obstruction is seen. Moderate fecal retention is seen throughout the colon. No intralumi nal contrast is identified to suggest active extravasation. The appendix is well-visualized and norm al. Peritoneum: There is no intraperitoneal free air or abdominal ascites. There is a large fat-containin g umbilical hernia. Lymphadenopathy: None. Pelvic viscera: The bladder is decompressed around a Maynard catheter and could not be evaluated. Intra luminal gas is likely related to instrumentation. The uterus is surgically absent. No adnexal lesion is seen. Skeletal structures: The skeletal structures are osteopenic. There is moderate lumbosacral spondylosi s. No lytic or blastic lesions are seen. IMPRESSION: 1. Moderate to advanced colonic diverticulosis without CT evidence of acute diverticulitis. 2. There is mild bilateral hydroureteronephrosis. The ureters are distended to the level of the bladd er, and this may have been related to bladder distention. The bladder is currently decompressed aroun d a Maynard catheter and cannot be evaluated. 3. Cardiomegaly with advanced coronary artery calcification. 4. Additional findings as above. ACT 112: Negative or not required by law. Electronically signed by: Zion oHang M.D. 07/16/2022 11:13 AM
--- NOTE | 2022-07-16 12:04 | History & Physical Report ---
Date of Service July 16, 2022 Assessment & Plan (1) GI bleed: Plan: Maroon GI bleed No history of blood thinner use, uses Aleve periodically at home, does not quantify how often she uses this Baseline hemoglobin approximately 1314 Admitting hemoglobin 13.4 INR 1.0, PT normal Creatinine with normal baseline, 0.94 on admission BUN slightly elevated at 28 Patient noted to have maroon blood in the ED. She does have history of hemorrhoids, records are pending fax from [facility]. She does not have a history of upper GI bleed. She does note epigastric tenderness, but does use NSAIDs. Given mildly elevated BUN, dark bleeding, and history of NSAID use will cover with PPI push twice daily for now, although suspect that this is more likely lower GI bleed? Hemorrhoids. She is not hemodynamically unstable. Hemoglobin is trended, if she remains stable can likely follow-up with GI as outpatient. If unstable will consult Type II DM Admitting BSG 221 Home insulin NPHregular 70/30 held. Outpatient she is on 30 units a.m./15 units p.m. daily for 45 units total daily dose. - Weight based basal bolus ordered, lantus dose reduced while npo Per outpatient note patient has had some personality change/manic-like episodes which may be related to underlying dementia but have also been associated with dysregulated glucose control/UTIs. - NPO at this time, bsg checks q6h. Once eating switch to ac/hs. Goal 110-140 Hypertension Continue lisinopril 20 mg Hyperlipidemia Continue simvastatin 40 mg daily Dementia Slums score 14 Delirium precautions Pleasant, at cognitive baseline, and conversing well during HPI occasionally tangential DVT prophylaxis: PHarmacoprophylaxis deferred in the setting of bleeding, SCDs Disposition: MedTele for GIB for initial stability, if h&h x2 stable --> downgrade to med/surg Diet: N.p.o. while following for GI bleed, IV FM CODE STATUS: DNR/DNI (2) Diabetes: (3) Hypertension: (4) Hyperlipemia: (5) Dementia: History of Present Illness Primary Care Provider: Reji Carver DO Daly is an 87-year-old female with past medical history of hypertension, hyperlipidemia, type II DM, dementia, and depression not on anticoagulation who presents with an episode of blood running down her leg into the toilet without pain, shortness of breath, or dizziness after she had a bowel movement this morning. Her baseline hemoglobin is approximately 1314, admitting hemoglobin is 13.4. Daly reports she woke up after napping with her Went to get up and use the commode. After using commode there was a lot of blood on the floor coming out of the rectum. Denies lightheadedness, dizziness, syncope, presyncope, chest pain, chest pressure, shortness of breath, difficulty breathing. Reports that blood is dark and red, was also little bit bright red running down her legs She has a history of hemorrhoids. Used to have a colonoscopy on [place] but esquivel snot know the results of this. Denies a history of colorectal cancer. Denies history of stomach ulcer/stomach bleeding/GERD She reprots she had bleeding like this many years ago but does not remember why. Reprots she takes tylenol sometimes. Uses Aleve for pain "whenever I need it " History is somewhat limited by dementia, patient overall is a fair historian occasionally tangential Medical History: Reviewed Medications: Reviewed Surgical History: Reviewed Family history: Reviewed Allergies: Reviewed Social History: NO tobaccoo/use Code Status:DNR/DNI Allergies Allergy/AdvReac Type Severity Reaction Status Date / Time amoxicillin [From Augmentin] Allergy Intermediate Rash on Verified 07/01/22 13:34 Hands and Feet clavulanic acid Allergy Intermediate Rash on Verified 07/01/22 13:34 [From Augmentin] Hands and Feet Home Medications Medication Instructions Recorded Confirmed Type latanoprost 0.005 % eye drops 0 drp OPB QAM 03/12/19 07/16/22 History Walker (w/ hand brakes and wheels) #1 ea 03/26/21 07/01/22 Rx lancets (Accu-Chek Softclix #200 ea 03/26/21 07/01/22 Rx Lancets) blood-glucose meter (OneTouch #1 ea 03/28/21 07/01/22 Rx Ultra2 Meter) blood sugar diagnostic (OneTouch #100 ea 04/02/21 07/01/22 Rx Ultra Test strips) pen needle, diabetic 31 gauge x #500 ea 07/05/21 07/01/22 Rx 5/16" (BD Ultra-Fine Short Pen Needle) insulin syringe-needle U-100 1 mL #100 ea 08/06/21 07/01/22 Rx 31 gauge x 5/16" (BD Insulin Syringe Ultra-Fine) lisinopril 20 mg tablet 20 mg PO QAM #90 tabs 11/11/21 07/16/22 Rx varicella-zoster glycoE [id number] 0.5 ml IM .COMPLEX #1 ea 12/23/21 07/16/22 Rx adj(PF) 50 mcg/0.5 mL IM susp, kit (Shingrix (PF)) docusate sodium 100 mg capsule 0 mg PO QAM PRN Constipation 01/13/22 07/16/22 History (Colace) blood-glucose sensor (FreeStyle #2 ea 01/20/22 07/01/22 Rx Raul 3 Sensor device) insulin NPH-regular 70-30 U-100 See Rx Instructions subcut BID #30 07/01/22 07/16/22 Rx insulin 100 unit/mL subcutaneous mL pen calcium carbonate 500 mg-vitamin 0 tab PO BID 07/16/22 07/16/22 History D3 5 mcg (200 unit) tablet (Calcium 500 + D) diclofenac sodium 1 % topical gel 0 g topical QID PRN pain, moderate 07/16/22 07/16/22 History simvastatin 40 mg tablet 0 mg PO HS 07/16/22 07/16/22 History timolol maleate 0.5 % eye drops 0 drp OPB HS 07/16/22 07/16/22 History triamcinolone acetonide 0.025 % 0 applic topical BID 07/16/22 07/16/22 History topical cream Past Med/Surg History Medical History (Updated 07/16/22 @ 12:19 by Eugenio Zapata MD) Breast cancer Chondrocalcinosis of knee Diabetes Encounter for routine pelvic examination GI bleed Glaucoma Hyperlipemia Hypertension Osteoarthritis of left hip Spondylolisthesis of lumbar region Surgical History History of mastectomy S/P hysterectomy Family History Other No pertinent family history Denies family history of Ovarian cancer Prostate cancer Heart disease Breast cancer Colorectal cancer Social History Smoking Status: Never smoker Second Hand Exposure: No; Do You Dip or Chew Tobacco: No; Hx Alcohol Use: No Hx Substance Use: No Preferred Language: Dominican Communication Ability: Effective Visual Impairment: No Limitations Hearing Ability: Normal 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 Not oriented to year. NAD. Cooperative. Frequently tangential HEENT: Atraumatic, normocephalic. Vision/hearing grossly intact Pulm: CTAB A&P. -wheezes, -rales, -rhonchi. Symmetrical chest rise. No increased work of breathing. No respiratory distress. Cardiac: RRR, soft murmur. Radial pulses intact and symmetrical. Abdominal: Nontender, nondistended, soft. BS present. Specifically no epigastric tenderness Results & Data Results & Data Vital Signs (Past 12 Hours) Vital Signs Temp Pulse Resp BP Pulse Ox O2 Del Method 07/16/22 11:30 79 18 99 07/16/22 11:30 138/101 H 07/16/22 11:06 93 H 16 07/16/22 10:14 84 07/16/22 09:45 97 Room Air 07/16/22 09:45 36.8 C 92 H 20 173/108 H 98 Room Air PG Care Time/CCT Total # of Minutes Spent Total Time Spent with Patient: Total time spent is greater than 50% in coordination of care (as documented) at patient's floor/unit and/or counseling patient: Coding Level of Care Code 19350 INT INP/OBS CARE 2/55MIN Diagnoses GI bleed K92.2 GI bleed type/associated pathology: unspecified gastrointestinal hemorrhage type Diabetes E11.9; Z79.4 Diabetes mellitus type: type 2 Diabetes mellitus long-term insulin use: 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 Diabetes mellitus complication status: without complication Hypertension I10 Hypertension type: essential hypertension Hyperlipemia E78.5 Dementia F03.90 (1) GI bleed GI bleed type/associated pathology: unspecified gastrointestinal hemorrhage type Qualified Code(s): K92.2 - Gastrointestinal hemorrhage, unspecified (2) Diabetes Diabetes mellitus type: type 2 Diabetes mellitus long-term insulin use: with long-term use Diabetes mellitus complication status: without complication Qualified Code(s): E11.9 - Type 2 diabetes mellitus without complications; 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
[2022-07-16] MEDS ORDERED: GLUCAGON FOR INJ 1 MG VIAL SQ PRN (12:17)
[2022-07-16] MEDS ORDERED: DEXTROSE 50% 50 ML SYRINGE IV PRN (12:17)
[2022-07-16] MEDS ORDERED: GLUCOSE 10 TAB/TUBE PO PRN (12:17)
[2022-07-16] MEDS ORDERED: GLUCOSE 40% GEL 15 GM TUBE PO PRN (12:17)
[2022-07-16] MEDS ORDERED: CARBOHYDRATES FOR HYPOGLYCEMIA PO PRN (12:17)
[2022-07-16] MEDS ORDERED: DOCUSATE SODIUM 100 MG CAP PO PRN (13:01)
[2022-07-16] MEDS: NSS + 20MEQ KCL 20 MEQ/1,000 ML BAG IV SCH (14:16)
[2022-07-16] MEDS: LANTUS PER UNIT CHARGE SQ SCH ×2 (14:16→21:42)
[2022-07-16 15:06] LABS: Hemoglobin 12.2 g/dl (12.0-16.0)
[2022-07-16] MEDS ORDERED: INSULIN ASPART PER UNIT CHARGE SC SCH (16:30)
[2022-07-16] MEDS ORDERED: Nursing to Pharmacy Communication SCH (17:30)
[2022-07-16] MEDS: INSULIN ASPART PER UNIT CHARGE SC SCH (18:06)
[2022-07-16 19:23] LABS: Hematocrit (blood only) 33.6 % (37.0-47.0); Hemoglobin 11.6 g/dl (12.0-16.0)
[2022-07-16] MEDS ORDERED: TIMOLOL MALEATE 0.5% OP SOLN 5 ML BTL OPB SCH (21:00)
[2022-07-16] MEDS: PANTOprazole 40 MG in SYRINGE 0 ML IV SCH (21:42)
[2022-07-16] MEDS: TIMOLOL MALEATE 0.5% OP SOLN 5 ML BTL OPB SCH (21:42)
[2022-07-17] MEDS: NSS + 20MEQ KCL 20 MEQ/1,000 ML BAG IV SCH ×3 (00:18→21:15)
[2022-07-17] MEDS: INSULIN ASPART PER UNIT CHARGE SC SCH ×4 (00:20→17:51)
[2022-07-17 01:32] LABS: Hematocrit (blood only) 30.6 % (37.0-47.0); Hemoglobin 10.3 g/dl (12.0-16.0)
[2022-07-17] MEDS ORDERED: OLANZAPINE 2.5 MG TAB PO STA (03:26)
[2022-07-17] MEDS ORDERED: OLANZapine 10 MG/2.1 ML SDV IM STA (03:50)
[2022-07-17] MEDS ORDERED: OLANZapine 10 MG/2.1 ML SDV IM ONE (03:58)
--- NOTE | 2022-07-17 04:20 | Communication Note ---
Date of Service: July 17, 2022 Patient having hospital-acquired delirium essentially all night and has been attempting on and off to remove medical equipment as well as strike at nursing s taff on occasion. Nursing had done a great job with frequent reorientation and maneuvers to prevent use of restraints either physical or pharmacological. I had went and examined the patient who is only oriented to self and not oriented to time, situation, or location. During conversation, she is reaching for medical equipment including catheter, IV, and frequently trying to get out of bed. It was decided that the best course of action was to attempt oral Zyprexa as the patient's safety was at risk and conservative measures with reorientation were not working. Attempted to give the patient oral Zyprexa who after multiple attempts of coaxing her into taking medication, proceeded to pinch and crushed up the oral dose. Nurse at bedside attempted to take the pill from patient and patient reacted violently by grabbing at the nurse and squeezing her hands essentially as hard as she could and at one point almost tried to throw a punch of myself. It was at that time that it was determined that IM Zyprexa was the best course of action to proceed. 2.5 mg of zyprexa was injected at bedside by nursing. Pt seemed to become slightly more calm after injection, but continues to occasionally grab at medical equipment but certainly much less. Will continue to monitor. If pt becomes a threat to herself or others again, will have to use soft restraint.
[2022-07-17 07:22] LABS: Basophils # (auto) 0.04 K/uL (0-0.2); Basophils % (auto) 0.6 %; Eosinophils # (auto) 0.11 K/uL (0-0.50); Eosinophils % (auto) 1.5 %; Hematocrit (blood only) 34.4 % (37.0-47.0); Hemoglobin 11.6 g/dl (12.0-16.0); Immature Granulocytes # (auto) 0.02 K/uL (0.01-0.20); Immature Granulocytes % (auto) 0.3 %; Lymphocytes # (auto) 1.24 K/uL (1.2-3.4); Lymphocytes % (auto) 17.4 %; Mean Corpuscular Hgb Conc 33.7 g/dL (32.0-36.0); Mean Platelet Volume 9.9 fL (9.4-12.4); Monocytes # (auto) 0.35 K/uL (0.11-0.59); Monocytes % (auto) 4.9 %; Neutrophils # (auto) 5.36 K/uL (1.40-6.50); Neutrophils % (auto) 75.3 %; Platelet Count 227 K/uL (130-400); RDW Coefficient of Variation 12.6 % (11.5-14.5); RDW Standard Deviation 43.9 fL (36.4-46.3); Red Blood Count 3.62 M/uL (4.20-5.40); White Blood Count 7.12 K/ul (4.8-10.8)
[2022-07-17] MEDS: LANTUS PER UNIT CHARGE SQ SCH ×2 (09:38→21:14)
[2022-07-17] MEDS: PANTOprazole 40 MG in SYRINGE 0 ML IV SCH ×2 (09:38→21:14)
[2022-07-17] MEDS: LATANOPROST 0.005% OP SOLN 2.5 ML BTL OPB SCH (10:46)
[2022-07-17 11:23] LABS: Calcium 8.4 mg/dl (8.6-10.3); Potassium 4.3 mmol/L (3.5-5.1)
[2022-07-17 11:29] LABS: BUN Creatinine Ratio 26.1 (10-20); Creatinine Clr Calc Pharmacy 43.9 ml/min; Est GFR (Non-African American) 59.5 ml/min
--- NOTE | 2022-07-17 11:50 | Gastrointestinal Consultation ---
Date of Consultation July 17, 2022 Assessment & Plan (1) GI bleed: 87 year old female with lower GI bleed and stable H/H. She may well have had a short, self limited diverticular bleed or a bleed from hemorrhoids which is more typical of the description she gave. She had a colonoscopy in 2019 that showed diverticulosis and it was assumed that she had a bleed related to diverticula. Family is fairly insistent on her having a colonoscopy. I asked the patient she feels like she could do it and would take the prep. I will arrange it but I have doubts that she will complete the prep. History of Present Illness Reason for Consultation: rectal bleeding Attending Physician: Elaine Darling, History of Present Illness 87 year old female with rectal bleeding. History from her is confusing but she does admit to bleeding. Also says she has had "about seven colonoscopies". No pain with bleeding. According to admit note the blood ran down her leg and into her toilet. She has apparently had an UGI bleed in the past and she will take Aleve on occasion Allergies Allergy/AdvReac Type Severity Reaction Status Date / Time amoxicillin [From Augmentin] Allergy Intermediate Rash on Verified 07/01/22 13:34 Hands and Feet clavulanic acid Allergy Intermediate Rash on Verified 07/01/22 13:34 [From Augmentin] Hands and Feet Home Medications Medication Instructions Recorded Confirmed Type latanoprost 0.005 % eye drops 0 drp OPB QAM 03/12/19 07/16/22 History Walker (w/ hand brakes and wheels) #1 ea 03/26/21 07/01/22 Rx lancets (Accu-Chek Softclix #200 ea 03/26/21 07/01/22 Rx Lancets) blood-glucose meter (OneTouch #1 ea 03/28/21 07/01/22 Rx Ultra2 Meter) blood sugar diagnostic (OneTouch #100 ea 04/02/21 07/01/22 Rx Ultra Test strips) pen needle, diabetic 31 gauge x #500 ea 07/05/21 07/01/22 Rx 5/16" (BD Ultra-Fine Short Pen Needle) insulin syringe-needle U-100 1 mL #100 ea 08/06/21 07/01/22 Rx 31 gauge x 5/16" (BD Insulin Syringe Ultra-Fine) lisinopril 20 mg tablet 20 mg PO QAM #90 tabs 11/11/21 07/16/22 Rx varicella-zoster glycoE [id number] 0.5 ml IM .COMPLEX #1 ea 12/23/21 07/16/22 Rx adj(PF) 50 mcg/0.5 mL IM susp, kit (Shingrix (PF)) docusate sodium 100 mg capsule 0 mg PO QAM PRN Constipation 01/13/22 07/16/22 History (Colace) blood-glucose sensor (FreeStyle #2 ea 01/20/22 07/01/22 Rx Raul 3 Sensor device) insulin NPH-regular 70-30 U-100 See Rx Instructions subcut BID #30 07/01/22 07/16/22 Rx insulin 100 unit/mL subcutaneous mL pen calcium carbonate 500 mg-vitamin 0 tab PO BID 07/16/22 07/16/22 History D3 5 mcg (200 unit) tablet (Calcium 500 + D) diclofenac sodium 1 % topical gel 0 g topical QID PRN pain, moderate 07/16/22 07/16/22 History simvastatin 40 mg tablet 0 mg PO HS 07/16/22 07/16/22 History timolol maleate 0.5 % eye drops 0 drp OPB HS 07/16/22 07/16/22 History triamcinolone acetonide 0.025 % 0 applic topical BID 07/16/22 07/16/22 History topical cream Patient History Medical History Breast cancer Chondrocalcinosis of knee Diabetes Encounter for routine pelvic examination GI bleed Glaucoma Hyperlipemia Hypertension Osteoarthritis of left hip Spondylolisthesis of lumbar region Surgical History History of mastectomy S/P hysterectomy Family History Other No pertinent family history Denies family history of Ovarian cancer Prostate cancer Heart disease Breast cancer Colorectal cancer Social History Smoking Status: Never smoker Second Hand Exposure: No; Do You Dip or Chew Tobacco: No; Hx Alcohol Use: No Hx Substance Use: No Preferred Language: German Communication Ability: Effective Visual Impairment: No Limitations Hearing Ability: Normal 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 Beliefs That Will Affect Care: None marital status: / Current Living Situation: Alone current occupational status: retired Feels Safe at Home: Yes Childhood Exposure to Second-Hand Smoke: No Diet: regular Dental Care, Regularly: Yes Physical Activity Frequency: Does not Exercise Seatbelt Use: sometimes Sunscreen Use: No Assistive Devices: Cane and Walker Physical Exam Constitutional: WD/WN, vitals as above no acute distress Eyes: PERRL, conjunctivae normal, anicteric sclerae ENMT: external ear and nose normal, oropharynx normal Neck: trachea midline, no thyromegaly Respiratory: normal respiratory effort, lungs clear to auscultation Cardiovascular: RRR, no murmur, no edema Gastrointestinal (Abdomen): normal bowel sounds, soft, nontender, no hepatosplenomegaly Musculoskeletal: Extremities: no cyanosis and no clubbing Skin: no rashes, warm and dry Neurologic: PERRL, EOMI, accommodation nl, no face palsy, no dysarthria Psychiatric: Orientation: alert and oriented x 3 Results & Data Vital Signs (Past 12 Hours) Vital Signs Temp Pulse Pulse Resp BP Pulse Ox O2 Del Method 07/17/22 11:42 36.7 C 94 H 18 144/76 H 96 Room Air 07/17/22 10:26 88 07/17/22 07:44 36.6 C 64 18 145/78 H 97 Room Air 07/17/22 04:52 Room Air Laboratory Results 07/17/22 07/17/22 07/17/22 Range/Units 06:55 06:55 06:47 WBC 7.12 (4.8-10.8) K/ul RBC 3.62 L (4.20-5.40) M/uL Hgb 11.6 L (12.0-16.0) g/dl Hct 34.4 L (37.0-47.0) % MCV 95.0 (80.0-100.0) fL MCH 32.0 (25.0-34.0) pg MCHC 33.7 (32.0-36.0) g/dL RDW Std Deviation 43.9 (36.4-46.3) fL RDW Coeff of Nikki 12.6 (11.5-14.5) % Plt Count 227 (130-400) K/uL MPV 9.9 (9.4-12.4) fL Immature Gran % (Auto) 0.3 % Neut % (Auto) 75.3 % Lymph % (Auto) 17.4 % Bucks % (Auto) 4.9 % Eos % (Auto) 1.5 % Baso % (Auto) 0.6 % Neut # (Auto) 5.36 (1.40-6.50) K/uL Lymph # (Auto) 1.24 (1.2-3.4) K/uL Bucks # (Auto) 0.35 (0.11-0.59) K/uL Eos # (Auto) 0.11 (0-0.50) K/uL Baso # (Auto) 0.04 (0-0.2) K/uL Immature Gran # (Auto) 0.02 (0.01-0.20) K/uL Sodium 138 (136-145) mmol/L Potassium 4.3 (3.5-5.1) mmol/L Chloride 108 H (98-107) mmol/L Carbon Dioxide 22 (21-32) mmol/L Anion Gap 8 (3-11) BUN 23 (6-23) mg/dl Creatinine 0.88 (0.6-1.2) mg/dl Est Cr Clr Drug Dosing 43.9 ml/min Est GFR ( Amer) 69.0 ml/min Est GFR (Non-Af Amer) 59.5 ml/min BUN/Creatinine Ratio 26.1 H (10-20) Glucose 186 H (70-99(Fasting)) mg/dl POC Glucose 179 H (70-99) mg/dl Calcium 8.4 L (8.6-10.3) mg/dl 07/17/22 07/16/22 07/16/22 Range/Units 00:52 23:55 20:16 WBC (4.8-10.8) K/ul RBC (4.20-5.40) M/uL Hgb 10.3 L (12.0-16.0) g/dl Hct 30.6 L (37.0-47.0) % MCV (80.0-100.0) fL MCH (25.0-34.0) pg MCHC (32.0-36.0) g/dL RDW Std Deviation (36.4-46.3) fL RDW Coeff of Nikki (11.5-14.5) % Plt Count (130-400) K/uL MPV (9.4-12.4) fL Immature Gran % (Auto) % Neut % (Auto) % Lymph % (Auto) % Bucks % (Auto) % Eos % (Auto) % Baso % (Auto) % Neut # (Auto) (1.40-6.50) K/uL Lymph # (Auto) (1.2-3.4) K/uL Bucks # (Auto) (0.11-0.59) K/uL Eos # (Auto) (0-0.50) K/uL Baso # (Auto) (0-0.2) K/uL Immature Gran # (Auto) (0.01-0.20) K/uL Sodium (136-145) mmol/L Potassium (3.5-5.1) mmol/L Chloride (98-107) mmol/L Carbon Dioxide (21-32) mmol/L Anion Gap (3-11) BUN (6-23) mg/dl Creatinine (0.6-1.2) mg/dl Est Cr Clr Drug Dosing ml/min Est GFR ( Amer) ml/min Est GFR (Non-Af Amer) ml/min BUN/Creatinine Ratio (10-20) Glucose (70-99(Fasting)) mg/dl POC Glucose 109 H 159 H (70-99) mg/dl Calcium (8.6-10.3) mg/dl 07/16/22 07/16/22 07/16/22 Range/Units 19:05 18:01 14:43 WBC (4.8-10.8) K/ul RBC (4.20-5.40) M/uL Hgb 11.6 L 12.2 (12.0-16.0) g/dl Hct 33.6 L 36.0 L (37.0-47.0) % MCV (80.0-100.0) fL MCH (25.0-34.0) pg MCHC (32.0-36.0) g/dL RDW Std Deviation (36.4-46.3) fL RDW Coeff of Nikki (11.5-14.5) % Plt Count (130-400) K/uL MPV (9.4-12.4) fL Immature Gran % (Auto) % Neut % (Auto) % Lymph % (Auto) % Bucks % (Auto) % Eos % (Auto) % Baso % (Auto) % Neut # (Auto) (1.40-6.50) K/uL Lymph # (Auto) (1.2-3.4) K/uL Bucks # (Auto) (0.11-0.59) K/uL Eos # (Auto) (0-0.50) K/uL Baso # (Auto) (0-0.2) K/uL Immature Gran # (Auto) (0.01-0.20) K/uL Sodium (136-145) mmol/L Potassium (3.5-5.1) mmol/L Chloride (98-107) mmol/L Carbon Dioxide (21-32) mmol/L Anion Gap (3-11) BUN (6-23) mg/dl Creatinine (0.6-1.2) mg/dl Est Cr Clr Drug Dosing ml/min Est GFR ( Amer) ml/min Est GFR (Non-Af Amer) ml/min BUN/Creatinine Ratio (10-20) Glucose (70-99(Fasting)) mg/dl POC Glucose 172 H (70-99) mg/dl Calcium (8.6-10.3) mg/dl 07/16/22 Range/Units 13:22 WBC (4.8-10.8) K/ul RBC (4.20-5.40) M/uL Hgb (12.0-16.0) g/dl Hct (37.0-47.0) % MCV (80.0-100.0) fL MCH (25.0-34.0) pg MCHC (32.0-36.0) g/dL RDW Std Deviation (36.4-46.3) fL RDW Coeff of Nikki (11.5-14.5) % Plt Count (130-400) K/uL MPV (9.4-12.4) fL Immature Gran % (Auto) % Neut % (Auto) % Lymph % (Auto) % Bucks % (Auto) % Eos % (Auto) % Baso % (Auto) % Neut # (Auto) (1.40-6.50) K/uL Lymph # (Auto) (1.2-3.4) K/uL Bucks # (Auto) (0.11-0.59) K/uL Eos # (Auto) (0-0.50) K/uL Baso # (Auto) (0-0.2) K/uL Immature Gran # (Auto) (0.01-0.20) K/uL Sodium (136-145) mmol/L Potassium (3.5-5.1) mmol/L Chloride (98-107) mmol/L Carbon Dioxide (21-32) mmol/L Anion Gap (3-11) BUN (6-23) mg/dl Creatinine (0.6-1.2) mg/dl Est Cr Clr Drug Dosing ml/min Est GFR ( Amer) ml/min Est GFR (Non-Af Amer) ml/min BUN/Creatinine Ratio (10-20) Glucose (70-99(Fasting)) mg/dl POC Glucose 181 H (70-99) mg/dl Calcium (8.6-10.3) mg/dl Diagnostic Findings Abdomen/Pelvis CT 07/16/22 09:51 CT SCAN OF THE ABDOMEN AND PELVIS WITH IV CONTRAST CLINICAL HISTORY: GI bleeding. COMPARISON STUDY: Abdominal radiograph dated 11/21/2021. TECHNIQUE: Following the IV administration of 94 cc of Optiray 320, CT scan of the abdomen and pelvis is performed from the lung bases to the proximal femora. Images are reviewed in the axial, sagittal, and coronal planes. IV contrast was administered without complication. A dose lowering technique was utilized adhering to the principles of ALARA. CT DOSE: 1223.84 mGy.cm FINDINGS: Lung bases: The heart is enlarged and without pericardial effusion. The coronary arteries are densely calcified. The lung bases are clear noting bibasilar scarring/atelectasis. The patient is status post left mastectomy. A small hiatal hernia is noted. Liver: The contrast-enhanced liver is normal in size, contour, and attenuation. There is no intrahepatic biliary ductal dilatation. The hepatic veins and portal veins are patent. Gallbladder: Unremarkable. Spleen: Normal in size and attenuation. Pancreas: Unremarkable. Adrenal glands: Unremarkable. Kidneys: The contrast enhanced kidneys demonstrate mild cortical atrophy. Foci of cortical scarring are noted on the right. The kidneys enhance symmetrically. There is mild bilateral hydronephrosis. The ureters are distended to the level of the bladder. A circumaortic left renal vein is incidentally noted. Abdominal vasculature: The abdominal aorta is normal in course and caliber noting advanced atherosclerotic calcification. Bowel: There is moderate to advanced colonic diverticulosis without CT evidence of acute diverticulitis. No bowel obstruction is seen. Moderate fecal retention is seen throughout the colon. No intraluminal contrast is identified to suggest active extravasation. The appendix is well-visualized and normal. Peritoneum: There is no intraperitoneal free air or abdominal ascites. There is a large fat-containing umbilical hernia. Lymphadenopathy: None. Pelvic viscera: The bladder is decompressed around a Maynard catheter and could not be evaluated. Intraluminal gas is likely related to instrumentation. The uterus is surgically absent. No adnexal lesion is seen. Skeletal structures: The skeletal structures are osteopenic. There is moderate lumbosacral spondylosis. No lytic or blastic lesions are seen. IMPRESSION: 1. Moderate to advanced colonic diverticulosis without CT evidence of acute diverticulitis. 2. There is mild bilateral hydroureteronephrosis. The ureters are distended to the level of the bladder, and this may have been related to bladder distention. The bladder is currently decompressed around a Maynard catheter and cannot be evaluated. 3. Cardiomegaly with advanced coronary artery calcification. 4. Additional findings as above. ACT 112: Negative or not required by law. Electronically signed by: Zion Hoang M.D. 07/16/2022 11:13 AM (1) GI bleed GI bleed type/associated pathology: melena Qualified Code(s): K92.1 - Melena
[2022-07-17] MEDS ORDERED: Nursing to Pharmacy Communication SCH (13:00)
--- NOTE | 2022-07-17 13:06 | Hospitalist Progress Note ---
Date of Service July 17, 2022 Assessment & Plan (1) GI bleed: Plan: Acute/unstable - suspect lower GI bleed - moderate risk No history of blood thinner use, uses Aleve periodically at home, does not quantify how often she uses this Baseline hemoglobin approximately 1314 Admitting hemoglobin 13.4, CBC reviewed today, hgb 11.6 Creatinine with normal baseline, 0.94 on admission Per records from prior colonoscopy - prior hemorrhage of anus/rectum, colonoscopy performed 12/2017. Multiple diverticuli of the sigmoid colon were noted, no diverticulitis other abnormality noted. BUN slightly elevated at 28, reviewed BMP today, BUN 23 Patient has had several episodes of passing dark blood from rectum, although stable H&H and HD stable - continue to trend H&H - consulted [facility] GI team, appreciate input from Dr. Funk, plan for colonoscopy on 07/18 following adequate prep, hemorrhoids v diverticular bleed? - consent will need to be signed by family member/poa (2) Dementia: Plan: Chronic/unstable with hospital acquired delirium Slums score 14 Delirium precautions Given a dose of IM Zyprexa this AM due to agitation/combativeness and is currently in soft restraints - Will consider adding low dose Seroquel 25mg at HS (3) Diabetes: Plan: Chronic/stable - type 2 Admitting BSG 221 Home insulin NPHregular 70/30 held. Outpatient she is on 30 units a.m./15 units p.m. daily for 45 units total daily dose. - Weight based basal bolus ordered, lantus dose reduced while npo Per outpatient note patient has had some personality change/manic-like episodes which may be related to underlying dementia but have also been associated with dysregulated glucose control/UTIs. - NPO at this time, bsg checks q6h. Once eating switch to ac/hs. (4) Hypertension: Plan: Chronic/stable - Continue Lisinopril (5) Hyperlipemia: Plan: Chronic/stable - Continue Simvastatin Plan NPO with plans for bowel prep and colonoscopy on 07/18. Appreciate assistance by GI. SCDs to b/l LE as chemoppx deferred in setting of lower GI bleeding. Had lengthy discussion with pt's son, Vivek Canales, on the phone, he is agreeable to proceeding with procedure. He states that his sister is POA but she is currently very ill and has been in the hospital herself and he is unsure whether she will be able to provide consent for patient. He is able and willing to give consent if needed. He also indicated to me that the patient's living conditions are po or, smells of urine, and that she has had prior episodes of "passing out" being found down by neighbors due to hypoglycemia. There is concern that her current living conditions are not safe and thus he is in agreement that a facility with a memory support unit would be in her best interest to consider at time of discharge. Will plan to make patient a full admission, consult case management to assist in this manner. Will need PT/OT evals as well. Plan d/w Dr. Darling. Admission and Anticipated Discharge Date Admission Date: July 16, 2022 Supervising Physician Co-Signing Physician Notes PA Supervision Note: I did not personally see or examine the patient. I verified all villalobos points and agree with KAPIL Moeller with the following exceptions and/or additions: none. Subjective Patient was seen on daily rounds this morning. She has a h/o dementia and was experiencing delirium this AM requiring a dose of IM Zyprexa around 4am. She is currently awake and alert, voices having some lower back discomfort but no abdominal pain. Her family friend is at bedside, Flor, who adamantly stated t hat the patient was "not leaving the hospital without a colonoscopy." Currently, the pt is living alone but family states that her house was "covered in blood and smells like a toilet as she is incontinent." Physical Exam Physical Exam: GENERAL: 87 yo well-developed, well-nourished elderly F. Awake, alert but oriented only to self. NAD. LUNGS: Clear to auscultation bilaterally w/o w/r/r CARDIOVASCULAR: Regular rate and rhythm ABDOMEN: Soft, non-tender and non-distended. Bowel sounds normoactive x 4 quad. : ken in place Results & Data Results & Data Vital Signs (Past 12 Hours) Vital Signs Temp Pulse Pulse Resp BP Pulse Ox O2 Del Method 07/17/22 11:42 36.7 C 94 H 18 144/76 H 96 Room Air 07/17/22 10:26 88 07/17/22 07:44 36.6 C 64 18 145/78 H 97 Room Air 07/17/22 04:52 Room Air Laboratory Results 07/17/22 06:55 07/17/22 06:55 PG Care Time/CCT Total # of Minutes Spent Total Time Spent with Patient: Total time spent is greater than 50% in coordination of care (as documented) at patient's floor/unit and/or counseling patient: Coding Level of Care Code 50461 SUB INP/OBS CARE 3/50MIN Diagnoses GI bleed K92.2 GI bleed type/associated pathology: unspecified gastrointestinal hemorrhage type Dementia F03.90 Diabetes E11.9; Z79.4 Diabetes mellitus complication status: without complication Diabetes mellitus manager long term care insulin use: with longterm use Diabetes mellitus type: type 2 Hypertension I10 Hypertension type: essential hypertension Hyperlipemia E78.5 (1) GI bleed GI bleed type/associated pathology: unspecified gastrointestinal hemorrhage type Qualified Code(s): K92.2 - Gastrointestinal hemorrhage, unspecified (3) Diabetes Diabetes mellitus complication status: without complication Diabetes mellitus manager long term care insulin use: with manager long term care use Diabetes mellitus type: type 2 Qualified Code(s): E11.9 - Type 2 diabetes mellitus without complications; Z79.4 - 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
--- NOTE | 2022-07-17 14:55 | Anesthesiology Consultation ---
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 Darby - Esteban Darby MD Height/Weight Height: 5 ft 2 in Weight: 76.34 kg Allergies Allergy/AdvReac Type Severity Reaction Status Date / Time amoxicillin [From Augmentin] Allergy Intermediate Rash on Verified 07/01/22 13:34 Hands and Feet clavulanic acid Allergy Intermediate Rash on Verified 07/01/22 13:34 [From Augmentin] Hands and Feet Medications Home Medications Medication Instructions Recorded Confirmed Last Taken latanoprost 0.005 % eye drops 0 drp OPB QAM 03/12/19 07/16/22 03/12/19 Walker (w/ hand brakes and wheels) #1 ea 03/26/21 07/01/22 Unknown lancets (Accu-Chek Softclix #200 ea 03/26/21 07/01/22 Unknown Lancets) blood-glucose meter (OneTouch #1 ea 03/28/21 07/01/22 Unknown Ultra2 Meter) blood sugar diagnostic (OneTouch #100 ea 04/02/21 07/01/22 Unknown Ultra Test strips) pen needle, diabetic 31 gauge x #500 ea 07/05/21 07/01/22 Unknown 5/16" (BD Ultra-Fine Short Pen Needle) insulin syringe-needle U-100 1 mL #100 ea 08/06/21 07/01/22 Unknown 31 gauge x 5/16" (BD Insulin Syringe Ultra-Fine) lisinopril 20 mg tablet 20 mg PO QAM #90 tabs 11/11/21 07/16/22 07/15/22 varicella-zoster glycoE [id number] 0.5 ml IM .COMPLEX #1 ea 12/23/21 07/16/22 Unknown adj(PF) 50 mcg/0.5 mL IM susp, kit (Shingrix (PF)) docusate sodium 100 mg capsule 0 mg PO QAM PRN Constipation 01/13/22 07/16/22 Unknown (Colace) blood-glucose sensor (FreeStyle #2 ea 01/20/22 07/01/22 Unknown Raul 3 Sensor device) insulin NPH-regular 70-30 U-100 See Rx Instructions subcut BID #30 07/01/22 06/0 08/3107/15/22 insulin 100 unit/mL subcutaneous mL pen calcium carbonate 500 mg-vitamin 0 tab PO BID 07/16/22 07/16/22 Unknown D3 5 mcg (200 unit) tablet (Calcium 500 + D) diclofenac sodium 1 % topical gel 0 g topical QID PRN pain, moderate 07/16/22 07/16/22 Unknown simvastatin 40 mg tablet 0 mg PO HS 07/16/22 07/16/22 Unknown timolol maleate 0.5 % eye drops 0 drp OPB HS 07/16/22 07/16/22 Unknown triamcinolone acetonide 0.025 % 0 applic topical BID 07/16/22 07/16/22 Unknown topical cream Active Medications Generic Name Dose Route Start Last Admin Trade Name Freq PRN Reason Stop Dose Admin Potassium Chloride/Sodium Chloride 20 meq in 1,000 mls @ 120 mls/hr 07/16/22 13:30 07/17/22 12:42 Normal Saline W/20 Meq Kcl IV 08/15/22 13:29 120 mls/hr .Q8H20M KUSUM Administration Pantoprazole Sodium 40 mg/ 10 mls @ 5 mls/min 07/16/22 21:00 07/17/22 09:38 Syringe IV 08/15/22 20:59 5 mls/min BID KUSUM Administration Insulin Aspart 0 units 07/16/22 18:00 07/17/22 12:45 Insulin Aspart Per Unit Charge SC 08/15/22 16:29 1 units Q6 KUSUM Administration Insulin Glargine 5 units 07/16/22 12:30 07/17/22 09:38 Lantus Per Unit Charge SQ 08/15/22 12:29 5 units BID KUSUM Administration Latanoprost 1 drops 07/17/22 09:00 07/17/22 10:46 Latanoprost 0.005% Op Soln 2.5 Ml Btl OPB 08/16/22 08:59 1 drops QAM KUSUM Administration Timolol Maleate 1 drops 07/16/22 21:00 07/16/22 21:42 Timolol Maleate 0.5% Op Soln 5 Ml Btl OPB 08/15/22 20:59 1 drops HS KUSUM Administration Past Medical History Medical History (Updated 07/17/22 @ 14:57 by Bill Márquez MD) Breast cancer Chondrocalcinosis of knee Diabetes Encounter for pre-operative examination Encounter for routine pelvic examination GI bleed Glaucoma Hyperlipemia Hypertension Osteoarthritis of left hip Spondylolisthesis of lumbar region Past Family History Family History Other No pertinent family history Denies family history of Ovarian cancer Prostate cancer Heart disease Breast cancer Colorectal cancer Past Surgical History Surgical History History of mastectomy S/P hysterectomy Social History Smoking Status: Never smoker Do You Dip or Chew Tobacco: No Hx Alcohol Use: No Hx Substance Use: No Physical Exam Vital Signs Last Vital Signs Temp 36.7 C 07/17/22 11:42 Pulse 94 H 07/17/22 11:42 Resp 18 07/17/22 11:42 BP 144/76 H 07/17/22 11:42 Pulse Ox 96 07/17/22 11:42 O2 Del Method Room Air 07/17/22 11:42 Testing Laboratory Results 07/17/22 06:55 07/17/22 06:55 PT 10.9 Seconds (9.0-12.0) 07/16/22 09:35 INR 1.0 (0.9-1.1) 07/16/22 09:35 APTT 25.5 Seconds (21.0-31.0) 07/16/22 09:35 Blood Type O Negative 07/16/22 09:53 Antibody Screen NEGATIVE 07/16/22 09:53 07/17/22 07/17/22 11:49 06:47 POC Glucose 182 H 179 H Electrocardiogram Date: 07/16/2216-Jul-2022 09:46:44 [facility] ROUTINE RETRIEVAL Normal sinus rhythm Low voltage QRS Septal infarct (cited on or before 16-JUL-2022) Abnormal ECG When compared with ECG of 01-NOV-2021 09:37, Premature supraventricular complexes are no longer Present ST no longer depressed in Anterior leads Nonspecific T wave abnormality no longer evident in Lateral leads. Ventricular rate 94. Chest X-Ray Date: 11/01/21 XR chest 1V portable HISTORY: 86 years-old Female weakness acute weakness COMPARISON: None TECHNIQUE: AP view of the chest FINDINGS: Cardiac silhouette is mildly enlarged. Atherosclerosis of the thoracic aorta. Pulmonary vascular congestion with interstitial coarsening. No pneumothorax. Probable trace pleural effusions. Mild right hemidiaphragmatic elevation. Asymmetric right hilar prominence. Ill-defined 1.4 cm nodular density of the left upper lung. Degenerative changes of the shoulders and spine. IMPRESSION: 1. Cardiomegaly with pulmonary vascular congestion and possible trace pleural effusions. 2. Asymmetric right hilar prominence may be projectional. Adenopathy or a right hilar lesion could appear similarly. Attention at follow-up recommended. 3. Ill-defined 1.4 cm nodular density of the left upper lung may be secondary to summation density versus pulmonary nodule.
[2022-07-17] MEDS: POLYETHYLENE (MIRALAX) 17 GM PACK PO SCH (18:25)
[2022-07-17 18:40] LABS: Hematocrit (blood only) 28.8 % (37.0-47.0); Hemoglobin 9.9 g/dl (12.0-16.0)
[2022-07-17] MEDS: TIMOLOL MALEATE 0.5% OP SOLN 5 ML BTL OPB SCH (21:14)
[2022-07-17 22:56] LABS: Hematocrit (blood only) 28.7 % (37.0-47.0); Hemoglobin 9.6 g/dl (12.0-16.0)
[2022-07-18] MEDS: INSULIN ASPART PER UNIT CHARGE SC SCH ×5 (01:11→20:18)
[2022-07-18] MEDS ORDERED: OLANZapine 10 MG/2.1 ML SDV IM STA (02:51)
--- NOTE | 2022-07-18 05:40 | Electrocardiogram Report ---
Test Reason : Blood Pressure : / mmHG Vent. Rate : 094 BPM Atrial Rate : 094 BPM P-R Int : 158 ms QRS Dur : 074 ms QT Int : 374 ms P-R-T Axes : 007 070 048 degrees QTc Int : 467 ms Normal sinus rhythm Low voltage QRS Septal infarct (cited on or before 16-JUL-2022) Abnormal ECG When compared with ECG of 01-NOV-2021 09:37, Premature supraventricular complexes are no longer Present Confirmed by Lokesh North ([id number]) on 07/18/2022 5:39:47 AM Referred By: REFERRED SELF Confirmed By:Lokesh North
--- NOTE | 2022-07-18 05:50 | Communication Note ---
Date of Service: July 18, 2022 I was called to bedside at approximately 2200 hrs. as patient has been having multiple bloody bowel movements with copious amounts of bright red blood. Shreya ent undergoing bowel prep for colonoscopy in the morning and is having multiple difficulties with the prep. She began with patient is defecating all over herself which is full of bright red blood. Patient is also once again going into worsening delirium and refusing to take medications including the MiraLAX which is required for her prep. Repeat H&H was obtained due to concern of large amount of blood loss which did show decrease of hemoglobin down to 9.6 down from 9.9 with active bleeding. Patient was not consented for blood, so did discuss case with patient's POA, her daughter, who agreed to blood transfusion if needed after discussing the risk and benefits. Conversation witnessed by nursing. Later in the night, I was informed that the patient was screaming and thrashing her legs about again kicking at staff. Her thrashing would make the soft restraints become loose and mobile causing her to knock her IV off the side of the bed. Nursing attempted multiple times to reorient patient as best they could but to no avail. It is at that time, that it was determined for the patient's safety as well as the staff, that an additional dose of IM Zyprexa be given at 2.5 mg. Patient then did calm down on reassessment later in the shift. I strongly encourage day team to consider a nighttime treatment such as Seroquel or oral Zyprexa before bed to prevent future episodes of this worsening delirium overnight.
[2022-07-18] MEDS: POLYETHYLENE (MIRALAX) 17 GM PACK PO SCH (06:06)
--- NOTE | 2022-07-18 07:40 | Hospitalist Progress Note ---
Date of Service July 18, 2022 Assessment & Plan (1) GI bleed: Plan: Per records from prior colonoscopy - prior hemorrhage of anus/rectum, colonoscopy performed 12/2017. Multiple diverticuli of the sigmoid colon were noted, no diverticulitis other abnormality noted Patient has had several episodes of passing dark blood from rectum, although stable H&H and HD stable - Continue to trend H&H - Colonoscopy today by Dr. Darby, unfortunately copious liquid stool t hroughout the colon interfered with visualization, though no active bleeding noted - NM GI bleeding scan without evidence of active bleeding - Suspect diverticular bleeding that has since stopped (2) Acute blood loss anemia: Plan: Secondary to lower GI bleed No history of blood thinner use, uses Aleve periodically at home, does not quantify how often she uses this Baseline hemoglobin approximately 1314 Admitting hemoglobin 13.4, Hgb 9.8 today but stable from yesterday, transfuse if Hgb <8 (3) Dementia: Plan: Chronic/unstable with concurrent hospital acquired delirium Delirium precautions Added Seroquel 25mg HS to help with sleep Recommend trial of Haldol 5mg x1 if necessary for agitation. Will attempt to remove restraints Family including son and daughter is concerned about patient's home situation; namely that she is missing medications, dirty due to incontinence and forgetfulness, lives alone Family desires placement for patient, PT and OT ordered, will try to assess physical needs (4) Diabetes: Plan: Admitting BSG 221, however with a few episodes of hypoglycemia yesterday SSI ordered, holding basal Per outpatient note patient has had some personality change/manic-like episodes which may be related to underlying dementia but have also been associated with dysregulated glucose control/UTIs. DM2 diet added (5) Hypertension: Plan: - Resume Lisinopril, BP 180s systolic (6) Hyperlipemia: Plan: - Continue Simvastatin Plan SCDs to b/l LE as chemoppx deferred in setting of lower GI bleeding. Had lengthy discussion with pt's son, Vivek Canales, in person. He states that his sister is POA but she is currently very ill and has been in the hospital herself and he is unsure whether she will be able to provide consent for patient. POA was attempted to be called yesterday but did not receive an answer. Son is able and willing to give consent if needed. He indicated to me that the patient's living conditions are poor, smells of urine, and that she has had prior episodes of "passing out" being found down by neighbors due to hypoglycemia. There is concern that her current living conditions are not safe and thus he is in agreement that a facility with a memory support unit would be in her best interest to consider at time of discharge. Ask case management to assist in this manner. PT and OT guerline ordered. Admission and Anticipated Discharge Date Admission Date: July 17, 2022 Subjective Overnight patient with multiple bloody bowel movements with copious amounts of bright red blood. Had difficulty with prep due to agitation and volume necessary. Severe agitation overnight requiring Zyprexa 2.5mg IM at ~3AM, with some improvement in agitation. Patient also in soft restraints due to severe agitation and attempts to remove medical equipment despite reorientation. This afternoon patient has moments of clarity, however followed by trailing off about different topics (cats, [place], her children). She denies abdominal pain, SOB, chest pain. Review of Systems Review of Systems: All systems reviewed & are unremarkable except as noted in Subjective Physical Exam Constitutional: WD/WN, vitals as above Respiratory: normal respiratory effort, lungs clear to auscultation Cardiovascular: RRR, no murmur, no edema Gastrointestinal (Abdomen): normal bowel sounds, soft, nontender, no hepatosplenomegaly Skin: no rashes, warm and dry Psychiatric: alert and oriented to self, periods of clarity Results & Data Results & Data Vital Signs (Past 12 Hours) Vital Signs Temp Pulse Pulse Resp BP BP Pulse Ox 07/18/22 03:12 36.8 C 87 16 173/75 H 96 07/18/22 00:09 87 07/17/22 22:47 36.4 C L 63 18 169/82 H 99 07/17/22 20:04 36.4 C L 96 H 20 156/76 H 98 O2 Del Method 07/18/22 03:12 Room Air 07/18/22 00:09 07/17/22 22:47 Room Air 07/17/22 20:04 Room Air PG Care Time/CCT Total # of Minutes Spent Total Time Spent with Patient: Total time spent is greater than 50% in coordination of care (as documented) at patient's floor/unit and/or counseling patient: Coding Level of Care Code 89909 SUB INP/OBS CARE 3/50MIN Diagnoses GI bleed K92.2 GI bleed type/associated pathology: unspecified gastrointestinal hemorrhage type Acute blood loss anemia D62 Dementia F03.90 Diabetes E11.9; Z79.4 Diabetes mellitus complication status: without complication Diabetes mellitus manager long term care insulin use: with detention use Diabetes mellitus type: type 2 Hypertension I10 Hypertension type: essential hypertension Hyperlipemia E78.5 (1) GI bleed GI bleed type/associated pathology: unspecified gastrointestinal hemorrhage type Qualified Code(s): K92.2 - Gastrointestinal hemorrhage, unspecified (4) Diabetes Diabetes mellitus complication status: without complication Diabetes mellitus detention insulin use: with manager long term care use Diabetes mellitus type: type 2 Qualified Code(s): E11.9 - Type 2 diabetes mellitus without complications; 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
--- NOTE | 2022-07-18 08:14 | History & Physical Bridge Note ---
Date of Service July 18, 2022 History & Physical Bridge Note I have examined the patient, reviewed the History & Physical and in the interval since the performance of the History & Physical I have noted the following changes of clinical significance: no changes noted proceed with colonoscopy. risks/benefits and procedure discussed with patient/patient's POA, who agrees to proceed
[2022-07-18] MEDS: PANTOprazole 40 MG in SYRINGE 0 ML IV SCH ×2 (08:31→20:17)
[2022-07-18] MEDS: LATANOPROST 0.005% OP SOLN 2.5 ML BTL OPB SCH (08:31)
[2022-07-18] MEDS ORDERED: LIDOCAINE 2% 2 ML VIAL/AMP(20MG/ML) INFIL ONE (09:33)
[2022-07-18] MEDS ORDERED: PROPOFOL IV EMULSION 10 MG/ML 20 ML VIAL IV ONE (09:33)
--- NOTE | 2022-07-18 09:36 | GI REPORT ---
Patient Name: Daly Canales Procedure Date: 07/18/2022 9:05 AM Date of : 1935 Admit Type: Inpatient Age: 87 Gender: Female Attending MD: Esteban Darby MD, Procedure: Colonoscopy Providers: Esteban Darby MD Referring MD: Elaine Darling Do Indications: Hematochezia Medicines: Monitored Anesthesia Care Complications: No immediate complications. Estimated blood loss: None. Estimated Blood Loss: Estimated blood loss: none. Procedure: Pre-Anesthesia Assessment: - Prior Anticoagulants: The patient has taken no anticoagulant or antiplatelet agents. - ASA Grade Assessment: III - A patient with severe systemic disease. After I obtained informed consent, the scope was passed under direct vision. Throughout the procedure, the patient's blood pressure, pulse, and oxygen saturations were monitored continuously. The Colonoscope was introduced through the anus and advanced to the cecum, identified by appendiceal orifice and ileocecal valve. The colonoscopy was performed without difficulty. The patient tolerated the procedure well. The quality of the bowel preparation was poor. Findings: Copious quantities of semi-liquid semi-solid stool was found in the entire colon, interfering with visualization. some old blood was noted but no definitive active GI bleeding was found. A few medium-mouthed diverticula were found in the transverse colon. Impression: - Preparation of the colon was poor. - Stool in the entire examined colon. - Diverticulosis in the transverse colon. - No specimens collected. Recommendation: - Return patient to [facility] for [facility] care. - Clear liquid diet today. -obtain nuclear medicine bleeding scan now and if positive would transfer to tertiary care center for IR angiography Esteban Darby MD 07/18/2022 9:35:12 AM This report has been signed electronically. Note Initiated On: 07/18/2022 9:05 AM Number of Addenda: 0 I attest to the content of the Intraoperative Record and orders documented therein, exceptions below {[id number]}
--- NOTE | 2022-07-18 10:43 | Anesthesiology Progress Note ---
Date of Service July 18, 2022 Anesthesia Post Procedure Vital Signs Vital Signs: Temp Pulse Pulse Resp BP BP Pulse Ox 07/18/22 10:34 36.6 C 88 20 174/70 H 97 07/18/22 10:10 84 20 124/81 97 07/18/22 09:56 89 20 156/55 H 98 07/18/22 09:41 85 18 139/60 98 07/18/22 08:00 91 H 07/18/22 08:23 36.8 C 89 12 173/86 H 97 07/18/22 07:40 36.7 C 91 H 18 155/67 H 98 07/18/22 03:12 36.8 C 87 16 173/75 H 96 07/18/22 00:09 87 07/17/22 22:47 36.4 C L 63 18 169/82 H 99 07/17/22 20:04 36.4 C L 96 H 20 156/76 H 98 07/17/22 16:17 37.1 C 94 H 20 176/77 H 95 07/17/22 15:33 95 H 07/17/22 11:42 36.7 C 94 H 18 144/76 H 96 O2 Del Method 07/18/22 10:34 Room Air 07/18/22 10:10 Room Air 07/18/22 09:56 Room Air 07/18/22 09:41 Room Air 07/18/22 08:00 07/18/22 08:23 Room Air 07/18/22 07:40 Room Air 07/18/22 03:12 Room Air 07/18/22 00:09 07/17/22 22:47 Room Air 07/17/22 20:04 Room Air 07/17/22 16:17 Room Air 07/17/22 15:33 07/17/22 11:42 Room Air Transfer of Care Handoff Completed per policy Notes Mental Status: alert / awake / arousable and participated in evaluation Patient Amnestic to Procedure: Yes Nausea / Vomiting: adequately controlled Pain: adequately controlled Airway Patency, RR, SpO2: stable & adequate BP & HR: stable & adequate Hydration State: stable & adequate Anesthetic Complications: no major complications apparent
[2022-07-18 12:17] LABS: Basophils # (auto) 0.02 K/uL (0-0.2); Basophils % (auto) 0.3 %; Eosinophils # (auto) 0.16 K/uL (0-0.50); Eosinophils % (auto) 2.7 %; Hematocrit (blood only) 29.3 % (37.0-47.0); Hemoglobin 9.8 g/dl (12.0-16.0); Immature Granulocytes # (auto) 0.01 K/uL (0.01-0.20); Immature Granulocytes % (auto) 0.2 %; Lymphocytes # (auto) 1.17 K/uL (1.2-3.4); Mean Corpuscular Hemoglobin 31.2 pg (25.0-34.0); Mean Corpuscular Hgb Conc 33.4 g/dL (32.0-36.0); Mean Corpuscular Volume 93.3 fL (80.0-100.0); Mean Platelet Volume 9.9 fL (9.4-12.4); Monocytes # (auto) 0.41 K/uL (0.11-0.59); Neutrophils # (auto) 4.08 K/uL (1.40-6.50); Neutrophils % (auto) 69.8 %; Platelet Count 213 K/uL (130-400); RDW Coefficient of Variation 12.8 % (11.5-14.5); RDW Standard Deviation 43.7 fL (36.4-46.3); Red Blood Count 3.14 M/uL (4.20-5.40); White Blood Count 5.85 K/ul (4.8-10.8)
[2022-07-18 12:28] LABS: BUN Creatinine Ratio 16.7 (10-20); Calcium 8.2 mg/dl (8.6-10.3); Creatinine Clr Calc Pharmacy 49.4 ml/min; Est GFR (African American) 79.8 ml/min; Est GFR (Non-African American) 68.8 ml/min; Potassium 3.9 mmol/L (3.5-5.1)
--- NOTE | 2022-07-18 16:01 | Nuclear Medicine Report ---
NUCLEAR GI BLEEDING SCAN CLINICAL HISTORY: GI bleeding. COMPARISON STUDY: Abdominal CT dated 07/16/2022. TECHNIQUE: Following the IV administration of 23.0 mCi of technetium 99m UltraTag labeled red blood c ells, nuclear bleeding scan was performed. Anterior flow images were obtained every 2 seconds for a t otal 54 seconds. Anterior static images were obtained every 5 minutes for a total of 60 minutes. Ther e is no scintigraphic evidence of active GI bleeding at the time of examination. The examination is d egraded by motion artifact. FINDINGS: On the flow images there is expected activity within the heart, abdominal aorta, and iliac vessels. There is expected activity within the liver and spleen. There is no abnormal tracer accumulation typi aslly for active GI bleeding at the time of examination. Excreted activity is seen within the bladder. IMPRESSION: There is no scintigraphic evidence of active GI bleeding at the time of examination. ACT 112: Negative or not required by law. Electronically signed by: Zion Hoang M.D. 07/18/2022 4:00 PM
[2022-07-18] MEDS ORDERED: Nursing to Pharmacy Communication SCH (19:00)
[2022-07-18] MEDS: QUEtiapine FUMARATE 25 MG TABLET PO SCH (20:17)
[2022-07-18] MEDS: TIMOLOL MALEATE 0.5% OP SOLN 5 ML BTL OPB SCH (20:18)
[2022-07-18] MEDS: NSS + 20MEQ KCL 20 MEQ/1,000 ML BAG IV SCH (20:20)
[2022-07-19] MEDS: NSS + 20MEQ KCL 20 MEQ/1,000 ML BAG IV SCH ×2 (05:31→18:56)
[2022-07-19 06:15] LABS: Basophils # (auto) 0.03 K/uL (0-0.2); Basophils % (auto) 0.5 %; Eosinophils # (auto) 0.15 K/uL (0-0.50); Eosinophils % (auto) 2.5 %; Hematocrit (blood only) 28.1 % (37.0-47.0); Hemoglobin 9.4 g/dl (12.0-16.0); Immature Granulocytes # (auto) 0.02 K/uL (0.01-0.20); Immature Granulocytes % (auto) 0.3 %; Lymphocytes # (auto) 1.17 K/uL (1.2-3.4); Lymphocytes % (auto) 19.2 %; Mean Corpuscular Hemoglobin 31.5 pg (25.0-34.0); Mean Corpuscular Hgb Conc 33.5 g/dL (32.0-36.0); Mean Corpuscular Volume 94.3 fL (80.0-100.0); Mean Platelet Volume 9.6 fL (9.4-12.4); Monocytes # (auto) 0.41 K/uL (0.11-0.59); Monocytes % (auto) 6.7 %; Neutrophils % (auto) 70.8 %; Platelet Count 192 K/uL (130-400); RDW Coefficient of Variation 12.8 % (11.5-14.5); Red Blood Count 2.98 M/uL (4.20-5.40); White Blood Count 6.08 K/ul (4.8-10.8)
[2022-07-19 06:33] LABS: BUN Creatinine Ratio 15.4 (10-20); Est GFR (African American) 79.8 ml/min; Est GFR (Non-African American) 68.8 ml/min; Potassium 4.3 mmol/L (3.5-5.1)
--- NOTE | 2022-07-19 07:09 | Hospitalist Progress Note ---
Date of Service July 19, 2022 Assessment & Plan (1) GI bleed: Plan: Per records from prior colonoscopy - prior hemorrhage of anus/rectum, colonoscopy performed 12/2017. Multiple diverticuli of the sigmoid colon were noted, no diverticulitis other abnormality noted - Continue to trend H&H, Hgb stable at 9.4 - Colonoscopy 07/[address] Darby, unfortunately copious liquid stool throughout the colon interfered with visualization, though no active bleeding noted - NM GI bleeding scan without evidence of active bleeding - Suspect diverticular bleeding that has since stopped, follow up with GI outpatient (2) Acute blood loss anemia: Plan: Secondary to lower GI bleed No history of blood thinner use, uses Aleve periodically at home Baseline hemoglobin approximately 1314 Hemoglobin stable at 9.4 (3) Dementia: Plan: Chronic/unstable with concurrent hospital acquired delirium Delirium precautions Added Seroquel 25mg HS to help with sleep, patient seems more alert today and got a bit more sleep overnight Recommend trial of Haldol 5mg x1 if necessary for agitation. Able to remove restraints this afternoon Family including son and daughter is concerned about patient's home situation; namely that she is missing medications, poor hygiene due to incontinence and forgetfulness, lives alone Family desires placement for patient, PT and OT ordered, will try to assess physical needs when patient more alert and oriented (4) Diabetes: Plan: Admitting BSG 221, BSGs have been well controlled in the low 100s SSI ordered, basal deferred given hypoglycemia on 07/17 Per outpatient note patient has had some personality change/manic-like epi sodes in the past which may be related to underlying dementia, but may have also been associated with dysregulated glucose control/UTIs DM2 diet; minced and moist as patient had difficulty with diet this morning with her dentures (they do not fit well) (5) Hypertension: Plan: - Continue lisinopril, BP 160s systolic (6) Hyperlipemia: Plan: - Continue Simvastatin Plan Chemoppx for DVT deferred in setting of lower GI bleeding. Son, Vivek Canales, is current medical decision maker if patient cannot advocate for herself. Patient's daughter is her POA, however, she is critically ill and hospitalized. POA was attempted to be called earlier this admission but did not receive an answer. Son is able and willing to give consent if needed. There is concern that her current living conditions are not safe and thus he is in agreement that a facility with a memory support unit would be in her best interest to consider at time of discharge. He indicated to me that the patient's living conditions are poor, smells of urine, and that she has had prior episodes of "passing out" being found down by neighbors due to hypoglycemia. Have asked case management to assist in this manner. PT and OT evals ordered. Admission and Anticipated Discharge Date Admission Date: July 17, 2022 Subjective Overnight patient did get about 4 hours of sleep with Seroquel, better than the night before, however did have episodes of disorientation requiring reorientation. Today patient is tearful reporting that she is having some difficulty with swallowing, started talking about how she slept a long life and wants her children to have her house. Later in the day was able to eat food without issue after her dentures were taken out. Review of Systems Review of Systems: All systems reviewed & are unremarkable except as noted in Subjective Physical Exam Constitutional: WD/WN, vitals as above Respiratory: normal respiratory effort, lungs clear to auscultation Cardiovascular: RRR, no murmur, no edema Gastrointestinal (Abdomen): normal bowel sounds, soft, nontender, no hepatosplenomegaly Skin: no rashes, warm and dry Psychiatric: alert and oriented to self, periods of clarity Results & Data Results & Data Vital Signs (Past 12 Hours) Vital Signs Temp Pulse Pulse Resp BP Pulse Ox O2 Del Method 07/19/22 02:55 36.6 C 109 H 18 172/77 H 98 Nasal Cannula 07/18/22 22:45 110 H 07/18/22 23:18 37.1 C 100 H 18 159/72 H 98 Nasal Cannula 07/18/22 19:19 36.8 C 93 H 18 154/73 H 97 Nasal Cannula 07/18/22 19:10 Nasal Cannula O2 Flow Rate 07/19/22 02:55 2 07/18/22 22:45 07/18/22 23:18 2 07/18/22 19:19 2 07/18/22 19:10 2 PG Care Time/CCT Total # of Minutes Spent Total Time Spent with Patient: Total time spent is greater than 50% in coordination of care (as documented) at patient's floor/unit and/or counseling patient: Coding Level of Care Code 38375 SUB INP/OBS CARE 3/50MIN Diagnoses GI bleed K92.2 GI bleed type/associated pathology: unspecified gastrointestinal hemorrhag e type Acute blood loss anemia D62 Dementia F03.90 Diabetes E11.9; Z79.4 Diabetes mellitus complication status: without complication Diabetes mellitus [facility] 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 Diabetes mellitus type: type 2 Hypertension I10 Hypertension type: essential hypertension Hyperlipemia E78.5 (1) GI bleed GI bleed type/associated pathology: unspecified gastrointestinal hemorrhage type Qualified Code(s): K92.2 - Gastrointestinal hemorrhage, unspecified (4) Diabetes Diabetes mellitus complication status: without complication Diabetes mellitus [facility] insulin use: with [facility] use Diabetes mellitus type: type 2 Qualified Code(s): E11.9 - Type 2 diabetes mellitus without complications; Z79.4 - jail (current) use of insulin (5) Hypertension Hypertension type: essential hypertension Qualified Code(s): I10 - Essential (primary) hypertension
[2022-07-19] MEDS: INSULIN ASPART PER UNIT CHARGE SC SCH ×4 (08:03→20:59)
[2022-07-19] MEDS: PANTOprazole 40 MG in SYRINGE 0 ML IV SCH ×2 (08:04→20:14)
[2022-07-19] MEDS: LATANOPROST 0.005% OP SOLN 2.5 ML BTL OPB SCH (08:04)
[2022-07-19] MEDS: lisinopril 20 MG TAB PO SCH (08:05)
[2022-07-19 19:39] LABS: Hematocrit (blood only) 27.5 % (37.0-47.0); Hemoglobin 9.3 g/dl (12.0-16.0)
[2022-07-19] MEDS: QUEtiapine FUMARATE 25 MG TABLET PO SCH (20:14)
[2022-07-19] MEDS: TIMOLOL MALEATE 0.5% OP SOLN 5 ML BTL OPB SCH (20:14)
[2022-07-20 06:13] LABS: Hematocrit (blood only) 27.7 % (37.0-47.0); Hemoglobin 9.5 g/dl (12.0-16.0)
[2022-07-20] MEDS: PANTOprazole 40 MG in SYRINGE 0 ML IV SCH ×2 (07:27→20:15)
[2022-07-20] MEDS: LATANOPROST 0.005% OP SOLN 2.5 ML BTL OPB SCH (07:27)
[2022-07-20] MEDS: lisinopril 20 MG TAB PO SCH (07:27)
--- NOTE | 2022-07-20 07:42 | Hospitalist Progress Note ---
Date of Service July 20, 2022 Assessment & Plan (1) GI bleed: Plan: - Per records from prior colonoscopy - prior hemorrhage of anus/rectum, colonoscopy performed 12/2017. Multiple diverticuli of the sigmoid colon were noted, no diverticulitis other abnormality noted - Colonoscopy 07/[address] Darby, unfortunately copious liquid stool throughout the colon interfered with visualization, though no active bleeding noted - NM GI bleeding scan without evidence of active bleeding - Suspect diverticular bleeding that has since slowed/stopped, follow up with GI outpatient - Continue to trend H&H, Hgb stable at 9.5 (2) Acute blood loss anemia: Plan: Secondary to lower GI bleed No history of blood thinner use, uses Aleve periodically at home Baseline hemoglobin approximately 1314 Hemoglobin stable at 9.5 (3) Dementia: Plan: Chronic/unstable with concurrent hospital acquired delirium Delirium precautions Added Seroquel 25mg HS to help with sleep, patient seems more alert today and got a bit more sleep overnight Recommend trial of Haldol 5mg x1 if necessary for agitation. Able to remove restraints this afternoon Family including son and daughter is concerned about patient's home situation; namely that she is missing medications, poor hygiene due to incontinence and forgetfulness, lives alone Family desires placement for patient, PT and OT ordered, recommending SNF (4) Diabetes: Plan: Admitting BSG 221, BSGs have been well controlled in the low 100s SSI ordered, basal deferred given hypoglycemia on 07/17 Per outpatient note patient has had some personality change/manic-like episodes in the past which may be related to underlying dementia, but may have also been associated with dysregulated glucose control/UTIs DM2 diet; minced and moist as patient had difficulty with her dentures (they do not fit well) (5) Hypertension: Plan: - Continue lisinopril, BP 150s systolic (6) Hyperlipemia: Plan: - Continue Simvastatin Plan Chemoppx for DVT deferred in setting of lower GI bleeding. Son, Vivek Canales, is current medical decision maker if patient cannot advocate for herself. Patient's daughter is her POA, however, she is critically ill and hospitalized. POA was attempted to be called earlier this admission but did not receive an answer. Son is able and willing to give consent if needed. There is concern that her current living conditions are not safe and thus he is in agreement that a facility with a memory support unit would be in her best interest to consider at time of discharge. He indicated to me that the patient's living conditions are poor, smells of urine, and that she has had prior episodes of "passing out" being found down by neighbors due to hypoglycemia. Have asked case management to assist in this manner. PT and OT recommending SNF. Admission and Anticipated Discharge Date Admission Date: July 17, 2022 Subjective Patient without any acute events overnight. Today is much more alert, conversant, periods of confusion but very redirectable. Review of Systems Review of Systems: All systems reviewed & are unremarkable except as noted in Subjective Physical Exam Constitutional: WD/WN, vitals as above Respiratory: normal respiratory effort, lungs clear to auscultation Cardiovascular: RRR, no murmur, no edema Gastrointestinal (Abdomen): normal bowel sounds, soft, nontender, no hepatosplenomegaly Skin: no rashes, warm and dry Psychiatric: alert and oriented x3, periods of confusion but is redirectable Results & Data Results & Data Vital Signs (Past 12 Hours) Vital Signs Temp Pulse Pulse Resp BP Pulse Ox O2 Del Method 07/20/22 03:21 165/71 H 07/20/22 03:02 36.7 C 76 18 175/74 H 95 Room Air 07/19/22 22:01 82 07/19/22 22:58 36.5 C 87 18 168/76 H 96 Room Air PG Care Time/CCT Total # of Minutes Spent Total Time Spent with Patient: Total time spent is greater than 50% in coordination of care (as documented) at patient's floor/unit and/or counseling patient: Coding Level of Care Code 03682 SUB INP/OBS CARE 2/35MIN Diagnoses GI bleed K92.2 GI bleed type/associated pathology: unspecified gastrointestinal hemorrhage type Acute blood loss anemia D62 Dementia F03.90 Diabetes E11.9; Z79.4 Diabetes mellitus complication status: without complication Diabetes mellitus group home insulin use: with lobsterman use Diabetes mellitus type: type 2 Hypertension I10 Hypertension type: essential hypertension Hyperlipemia E78.5 (1) GI bleed GI bleed type/associated pathology: unspecified gastrointestinal hemorrhage type Qualified Code(s): K92.2 - Gastrointestinal hemorrhage, unspecified (4) Diabetes Diabetes mellitus complication status: without complication Diabetes mellitus group home insulin use: with group home use Diabetes mellitus type: type 2 Qualified Code(s): E11.9 - Type 2 diabetes mellitus without complications; Z79.4 - terminal clerk (current) use of insulin (5) Hypertension Hypertension type: essential hypertension Qualified Code(s): I10 - Essential (primary) hypertension
[2022-07-20] MEDS: INSULIN ASPART PER UNIT CHARGE SC SCH ×4 (09:48→20:14)
[2022-07-20] MEDS: QUEtiapine FUMARATE 25 MG TABLET PO SCH (20:09)
[2022-07-20] MEDS: TIMOLOL MALEATE 0.5% OP SOLN 5 ML BTL OPB SCH (20:15)
[2022-07-21] MEDS ORDERED: HALOPERIDOL LACTATE 5 MG/ML 1 ML VIAL IM STA (00:29)
[2022-07-21] MEDS ORDERED: HALOPERIDOL LACTATE 5 MG/ML 1 ML VIAL ONE (06:20)
[2022-07-21] MEDS: PANTOprazole 40 MG in SYRINGE 0 ML IV SCH (07:37)
[2022-07-21] MEDS: LATANOPROST 0.005% OP SOLN 2.5 ML BTL OPB SCH (07:37)
[2022-07-21] MEDS: lisinopril 20 MG TAB PO SCH (07:37)
[2022-07-21] MEDS: PANTOprazole 40 MG TAB PO SCH (08:51)
[2022-07-21 08:54] LABS: Basophils # (auto) 0.01 K/uL (0-0.2); Basophils % (auto) 0.1 %; Eosinophils % (auto) 1.4 %; Hematocrit (blood only) 28.1 % (37.0-47.0); Hemoglobin 9.4 g/dl (12.0-16.0); Immature Granulocytes # (auto) 0.01 K/uL (0.01-0.20); Immature Granulocytes % (auto) 0.1 %; Lymphocytes # (auto) 0.99 K/uL (1.2-3.4); Lymphocytes % (auto) 14.3 %; Mean Corpuscular Hemoglobin 31.4 pg (25.0-34.0); Mean Corpuscular Hgb Conc 33.5 g/dL (32.0-36.0); Mean Platelet Volume 9.9 fL (9.4-12.4); Monocytes # (auto) 0.56 K/uL (0.11-0.59); Monocytes % (auto) 8.1 %; Neutrophils # (auto) 5.24 K/uL (1.40-6.50); Platelet Count 206 K/uL (130-400); RDW Coefficient of Variation 13.2 % (11.5-14.5); RDW Standard Deviation 44.9 fL (36.4-46.3); Red Blood Count 2.99 M/uL (4.20-5.40); White Blood Count 6.91 K/ul (4.8-10.8)
[2022-07-21] MEDS: INSULIN ASPART PER UNIT CHARGE SC SCH ×4 (09:06→20:49)
[2022-07-21 09:09] LABS: BUN Creatinine Ratio 15.8 (10-20); Calcium 8.4 mg/dl (8.6-10.3); Creatinine Clr Calc Pharmacy 40.4 ml/min; Est GFR (African American) 62.9 ml/min; Est GFR (Non-African American) 54.2 ml/min; Potassium 3.7 mmol/L (3.5-5.1)
--- NOTE | 2022-07-21 14:16 | Hospitalist Progress Note ---
Date of Service July 21, 2022 Assessment & Plan (1) GI bleed: Plan: Per records from prior colonoscopy - prior hemorrhage of anus/rectum, colonoscopy performed 12/2017. Multiple diverticuli of the sigmoid colon were noted, no diverticulitis other abnormality noted. Colonoscopy attempted this admission but very poor bowel prep encountered. Appreciate gastroenterology consultation. NM GI bleeding scan without evidence of active bleeding. Suspect diverticular bleeding that has since stopped. Follow up with GI outpatient. Serial labs (2) Acute blood loss anemia: Plan: Secondary to lower GI bleed. Hemoglobin now stable at 9.4. Serial labs. (3) Dementia: Plan: Supportive care. Seroquel added at bedtime to help with sleep. (4) Diabetes: Plan: ADA diet. Sliding scale coverage. Continue current medical management. Stable (5) Hypertension: Plan: Stable.- Continue lisinopril (6) Hyperlipemia: Plan: Stable. Continue Simvastatin Plan Awaiting discharge to SNF facility. Admission and Anticipated Discharge Date Admission Date: July 17, 2022 Subjective No acute distress. Baseline confusion due to underlying dementia. Hemoglobin stable at 9.4. Intravenous Protonix switch to p.o. Awaiting SNF placement. Review of Systems Review of Systems: Constitutional-no fever or chills ENT-no blurred vision, no double vision, no epistaxis, no sore throat Respiratory-no cough, no wheezing, no shortness of breath Cardiac-no palpitations, no chest pain, no syncope GI-no nausea, vomiting, diarrhea, melena, hematochezia -no urinary retention, no urinary incontinence, no dysuria, no hematuria Musculoskeletal-no joint pain, no muscle tenderness Skin-no bruising, no rashes, no pruritus Neuro-no isolated weakness, no paresthesia, no weakness Psych-no depression, no anxiety Physical Exam Physical Exam: General-alert. Disoriented at baseline HEENT-head atraumatic and normocephalic, pupils equal and reactive to light, extraocular muscles intact Neck-no lymphadenopathy or thyromegaly, trachea midline Chest-clear to auscultation percussion. No rales wheezing or rhonchi Cardiac-regular rate and rhythm, normal S1 and S2 Abdomen-normal bowel sounds, nontender, no hepatosplenomegaly Extremities-no cyanosis, clubbing, or edema Neuro-cranial nerves II through XII intact, motor and sensory function within normal limits, strength symmetrical , no focal deficits Psych-baseline dementia Results & Data Results & Data Vital Signs (Past 12 Hours) Vital Signs Temp Pulse Resp BP BP Pulse Ox O2 Del Method 07/21/22 11:19 36.6 C 93 H 18 165/70 H 98 Room Air 07/21/22 07:43 36.9 C 100 H 20 160/67 H 97 Room Air Laboratory Results 07/21/22 08:28 07/21/22 08:28 PG Care Time/CCT Total # of Minutes Spent Total Time Spent with Patient: Total time spent is greater than 50% in coordination of care (as documented) at patient's floor/unit and/or counseling patient: Coding Level of Care Code 39806 SUB INP/OBS CARE 3/50MIN Diagnoses GI bleed K92.2 GI bleed type/associated pathology: unspecified gastrointestinal hemorrhage type Acute blood loss anemia D62 Dementia F03.90 Diabetes E11.9; Z79.4 Diabetes mellitus type: type 2 Diabetes mellitus residential insulin use: with termination clerk use Diabetes mellitus complication status: without complication Hypertension I10 Hypertension type: essential hypertension Hyperlipemia E78.5 (1) GI bleed GI bleed type/associated pathology: unspecified gastrointestinal hemorrhage type Qualified Code(s): K92.2 - Gastrointestinal hemorrhage, unspecified (4) Diabetes Diabetes mellitus type: type 2 Diabetes mellitus termination clerk insulin use: with residential use Diabetes mellitus complication status: without complication Qualified Code(s): E11.9 - Type 2 diabetes mellitus without complications; Z79.4 - assisted (current) use of insulin (5) Hypertension Hypertension type: essential hypertension Qualified Code(s): I10 - Essential (primary) hypertension
[2022-07-21] MEDS: TIMOLOL MALEATE 0.5% OP SOLN 5 ML BTL OPB SCH (20:49)
[2022-07-21] MEDS: QUEtiapine FUMARATE 25 MG TABLET PO SCH (20:50)
[2022-07-22 08:05] LABS: Basophils # (auto) 0.03 K/uL (0-0.2); Basophils % (auto) 0.4 %; Eosinophils # (auto) 0.12 K/uL (0-0.50); Eosinophils % (auto) 1.4 %; Hematocrit (blood only) 28.5 % (37.0-47.0); Hemoglobin 9.7 g/dl (12.0-16.0); Immature Granulocytes # (auto) 0.03 K/uL (0.01-0.20); Immature Granulocytes % (auto) 0.4 %; Lymphocytes # (auto) 0.68 K/uL (1.2-3.4); Mean Corpuscular Hemoglobin 31.3 pg (25.0-34.0); Mean Corpuscular Volume 91.9 fL (80.0-100.0); Monocytes # (auto) 0.73 K/uL (0.11-0.59); Monocytes % (auto) 8.6 %; Neutrophils # (auto) 6.92 K/uL (1.40-6.50); Neutrophils % (auto) 81.2 %; Platelet Count 236 K/uL (130-400); RDW Coefficient of Variation 13.1 % (11.5-14.5); RDW Standard Deviation 43.2 fL (36.4-46.3); White Blood Count 8.51 K/ul (4.8-10.8)
[2022-07-22 08:21] LABS: BUN Creatinine Ratio 16.3 (10-20); Calcium 8.4 mg/dl (8.6-10.3); Creatinine Clr Calc Pharmacy 47.9 ml/min; Est GFR (African American) 77.4 ml/min; Est GFR (Non-African American) 66.8 ml/min; Potassium 3.4 mmol/L (3.5-5.1)
[2022-07-22] MEDS: lisinopril 20 MG TAB PO SCH (08:34)
[2022-07-22] MEDS: LATANOPROST 0.005% OP SOLN 2.5 ML BTL OPB SCH (08:34)
[2022-07-22] MEDS: PANTOprazole 40 MG TAB PO SCH (08:34)
[2022-07-22] MEDS: INSULIN ASPART PER UNIT CHARGE SC SCH ×4 (08:36→21:15)
[2022-07-22] MEDS ORDERED: POTASSIUM CHLORIDE CRTAB 20 MEQ TABCR PO STA (09:44)
[2022-07-22] MEDS: LANTUS PER UNIT CHARGE SQ SCH ×2 (10:40→21:17)
--- NOTE | 2022-07-22 14:37 | Hospitalist Progress Note ---
Date of Service July 22, 2022 Assessment & Plan (1) GI bleed: Plan: Per records from prior colonoscopy - prior hemorrhage of anus/rectum, colonoscopy performed 12/2017. Multiple diverticuli of the sigmoid colon were noted, no diverticulitis other abnormality noted. Colonoscopy attempted this admission but very poor bowel prep encountered. Appreciate gastroenterology consultation. NM GI bleeding scan without evidence of active bleeding. Suspect diverticular bleeding that has since stopped. Follow up with GI outpatient. Serial labs (2) Acute blood loss anemia: Plan: Secondary to lower GI bleed. Hemoglobin now stable. Serial labs. (3) Dementia: Plan: Supportive care. Seroquel added at bedtime to help with sleep. (4) Diabetes: Plan: ADA diet. Basal Lantus therapy has been ordered. Sliding scale coverage. (5) Hypertension: Plan: Stable. Continue lisinopril (6) Hyperlipemia: Plan: Stable. Continue Simvastatin (7) Hypokalemia: Plan: Oral supplementation. Serial labs Plan Awaiting discharge to SNF facility. Admission and Anticipated Discharge Date Admission Date: July 17, 2022 Subjective No new problems. She has baseline dementia. She is on basal Lantus at home and Lantus low-dose has been started. Mild hypokalemia noted. Oral potassium supplementation ordered. Review of Systems Review of Systems: Constitutional-no fever or chills ENT-no blurred vision, no double vision, no epistaxis, no sore throat Respiratory-no cough, no wheezing, no shortness of breath Cardiac-no palpitations, no chest pain, no syncope GI-no nausea, vomiting, diarrhea, melena, hematochezia -no urinary retention, no urinary incontinence, no dysuria, no hematuria Musculoskeletal-no joint pain, no muscle tenderness Skin-no bruising, no rashes, no pruritus Neuro-no isolated weakness, no paresthesia, no weakness Psych-no depression, no anxiety Physical Exam Physical Exam: General-alert. Disoriented at baseline HEENT-head atraumatic and normocephalic, pupils equal and reactive to light, extraocular muscles intact Neck-no lymphadenopathy or thyromegaly, trachea midline Chest-clear to auscultation percussion. No rales wheezing or rhonchi Cardiac-regular rate and rhythm, normal S1 and S2 Abdomen-normal bowel sounds, nontender, no hepatosplenomegaly Extremities-no cyanosis, clubbing, or edema Neuro-cranial nerves II through XII intact, motor and sensory function within normal limits, strength symmetrical , no focal deficits Psych-baseline dementia Results & Data Results & Data Vital Signs (Past 12 Hours) Vital Signs Temp Pulse Pulse Resp BP BP Pulse Ox 07/22/22 12:29 37.2 C 91 H 16 127/63 96 07/22/22 08:09 37.0 C 95 H 18 159/75 H 94 07/22/22 05:59 96 H O2 Del Method 07/22/22 12:29 Room Air 07/22/22 08:09 Room Air 07/22/22 05:59 Laboratory Results 07/22/22 07:33 07/22/22 07:33 PG Care Time/CCT Total # of Minutes Spent Total Time Spent with Patient: Total time spent is greater than 50% in coordination of care (as documented) at patient's floor/unit and/or counseling patient: Coding Level of Care Code 33155 SUB INP/OBS CARE 3/50MIN Diagnoses GI bleed K92.2 GI bleed type/associated pathology: unspecified gastrointestinal hemorrhage type Acute blood loss anemia D62 Dementia F03.90 Diabetes E11.9; Z79.4 Diabetes mellitus type: type 2 Diabetes mellitus custodial insulin use: with roasterman use Diabetes mellitus complication status: without complication Hypertension I10 Hypertension type: essential hypertension Hyperlipemia E78.5 Hypokalemia E87.6 (1) GI bleed GI bleed type/associated pathology: unspecified gastrointestinal hemorrhage type Qualified Code(s): K92.2 - Gastrointestinal hemorrhage, unspecified (4) Diabetes Diabetes mellitus type: type 2 Diabetes mellitus custodial insulin use: with custodial use Diabetes mellitus complication status: without complication Qualified Code(s): E11.9 - Type 2 diabetes mellitus without complications; Z79.4 - residential (current) use of insulin (5) Hypertension Hypertension type: essential hypertension Qualified Code(s): I10 - Essential (primary) hypertension
[2022-07-22 15:45] LABS: Basophils # (auto) 0.04 K/uL (0-0.2); Basophils % (auto) 0.3 %; Eosinophils # (auto) 0.07 K/uL (0-0.50); Eosinophils % (auto) 0.5 %; Hematocrit (blood only) 27.8 % (37.0-47.0); Hemoglobin 9.5 g/dl (12.0-16.0); Immature Granulocytes # (auto) 0.04 K/uL (0.01-0.20); Immature Granulocytes % (auto) 0.3 %; Lymphocytes # (auto) 1.24 K/uL (1.2-3.4); Lymphocytes % (auto) 9.7 %; Mean Corpuscular Hemoglobin 31.7 pg (25.0-34.0); Mean Corpuscular Hgb Conc 34.2 g/dL (32.0-36.0); Mean Corpuscular Volume 92.7 fL (80.0-100.0); Mean Platelet Volume 9.7 fL (9.4-12.4); Monocytes # (auto) 1.01 K/uL (0.11-0.59); Monocytes % (auto) 7.9 %; Neutrophils # (auto) 10.36 K/uL (1.40-6.50); Neutrophils % (auto) 81.3 %; Platelet Count 254 K/uL (130-400); RDW Coefficient of Variation 13.1 % (11.5-14.5); RDW Standard Deviation 44.1 fL (36.4-46.3); White Blood Count 12.76 K/ul (4.8-10.8)
--- NOTE | 2022-07-22 18:33 | Electrocardiogram Report ---
Test Reason : Blood Pressure : / mmHG Vent. Rate : 094 BPM Atrial Rate : 094 BPM P-R Int : 146 ms QRS Dur : 082 ms QT Int : 352 ms P-R-T Axes : 016 081 097 degrees QTc Int : 440 ms Normal sinus rhythm with sinus arrhythmia Poor R wave progression, consider anterior NM vs. lead placement vs. LVH Abnormal ECG When compared with ECG of 16-JUL-2022 09:46, Nonspecific T wave abnormality now evident in Lateral leads Confirmed by Bill Pimentel ([id number]) on 07/22/2022 6:33:15 PM Referred By: REFERRED SELF Confirmed By:Carrington Pimentel
[2022-07-22] MEDS: QUEtiapine FUMARATE 25 MG TABLET PO SCH (21:17)
[2022-07-22] MEDS: TIMOLOL MALEATE 0.5% OP SOLN 5 ML BTL OPB SCH (21:17)
[2022-07-23 07:58] LABS: Basophils # (auto) 0.03 K/uL (0-0.2); Basophils % (auto) 0.4 %; Eosinophils # (auto) 0.13 K/uL (0-0.50); Eosinophils % (auto) 1.8 %; Hematocrit (blood only) 26.4 % (37.0-47.0); Hemoglobin 8.9 g/dl (12.0-16.0); Immature Granulocytes # (auto) 0.02 K/uL (0.01-0.20); Immature Granulocytes % (auto) 0.3 %; Lymphocytes # (auto) 1.15 K/uL (1.2-3.4); Lymphocytes % (auto) 15.8 %; Mean Corpuscular Hemoglobin 31.3 pg (25.0-34.0); Mean Corpuscular Hgb Conc 33.7 g/dL (32.0-36.0); Mean Platelet Volume 10.2 fL (9.4-12.4); Monocytes # (auto) 0.74 K/uL (0.11-0.59); Monocytes % (auto) 10.2 %; Neutrophils # (auto) 5.19 K/uL (1.40-6.50); Neutrophils % (auto) 71.5 %; Platelet Count 234 K/uL (130-400); RDW Coefficient of Variation 13.1 % (11.5-14.5); RDW Standard Deviation 44.2 fL (36.4-46.3); Red Blood Count 2.84 M/uL (4.20-5.40); White Blood Count 7.26 K/ul (4.8-10.8)
[2022-07-23 08:14] LABS: BUN Creatinine Ratio 21.6 (10-20); Calcium 8.5 mg/dl (8.6-10.3); Creatinine Clr Calc Pharmacy 43.8 ml/min; Est GFR (Non-African American) 59.5 ml/min; Potassium 3.9 mmol/L (3.5-5.1)
[2022-07-23] MEDS: LANTUS PER UNIT CHARGE SQ SCH ×2 (08:44→22:09)
[2022-07-23] MEDS: INSULIN ASPART PER UNIT CHARGE SC SCH ×4 (08:44→22:08)
[2022-07-23] MEDS: LATANOPROST 0.005% OP SOLN 2.5 ML BTL OPB SCH (11:06)
[2022-07-23] MEDS: PANTOprazole 40 MG TAB PO SCH (11:06)
[2022-07-23] MEDS: lisinopril 20 MG TAB PO SCH (11:06)
--- NOTE | 2022-07-23 14:40 | Hospitalist Progress Note ---
Date of Service July 23, 2022 Assessment & Plan (1) GI bleed: Plan: Appears to have spontaneously stopped. GI consultation appreciated. Attempted colonoscopy July 18 was aborted due to poor bowel prep. Nuclear medicine bleeding scan was negative. Hemoglobin is low but stable. Serial labs (2) Acute blood loss anemia: Plan: Hemoglobin is low but stable. No transfusion needed. Serial labs (3) Dementia: Plan: Stable. Continue supportive care. Continue current medical management (4) Diabetes: Plan: Type II. ADA diet. Sliding scale coverage. Continue current medical management (5) Hypertension: Plan: Stable. Continue current medical management (6) Hyperlipemia: Plan: Stable. Continue current medical management (7) Hypokalemia: Plan: Improved. Continue oral replacement (8) Near syncope: Plan: Occurred July 22. Probably vasovagal etiology. No recurrence. Plan Anticipate discharge to SNF facility when arrangements are finalized Admission and Anticipated Discharge Date Admission Date: July 17, 2022 Subjective Alert. Baseline dementia. One-on-one sitter present. She had a near syncopal episode yesterday with no recurrence. Hemoglobin is mildly low but stable. No overt GI bleeding. Potassium corrected to 3.9. Lantus basal insulin therapy started yesterday, July 22. Glucose 168 this morning. Review of Systems Review of Systems: Constitutional-no fever or chills ENT-no blurred vision, no double vision, no epistaxis, no sore throat Respiratory-no cough, no wheezing, no shortness of breath Cardiac-no palpitations, no chest pain, no syncope GI-no nausea, vomiting, diarrhea, melena, hematochezia -no urinary retention, no urinary incontinence, no dysuria, no hematuria Musculoskeletal-no joint pain, no muscle tenderness Skin-no bruising, no rashes, no pruritus Neuro-no isolated weakness, no paresthesia, no weakness Psych-no depression, no anxiety Physical Exam Physical Exam: General-alert, no fevers, no chills HEENT-head atraumatic and normocephalic, pupils equal and reactive to light, ext raocular muscles intact Neck-no lymphadenopathy or thyromegaly, trachea midline Chest-clear to auscultation percussion. No rales wheezing or rhonchi Cardiac-regular rate and rhythm, normal S1 and S2 Abdomen-normal bowel sounds, nontender, no hepatosplenomegaly Extremities-no cyanosis, clubbing, or edema Neuro-cranial nerves II through XII intact, motor and sensory function within normal limits, strength symmetrical , no focal deficits Psych-baseline dementia and disorientation Results & Data Results & Data Vital Signs (Past 12 Hours) Vital Signs Temp Pulse Pulse Resp BP Pulse Ox O2 Del Method 07/23/22 08:50 Room Air 07/23/22 11:01 36.8 C 82 18 143/64 H 93 Room Air 07/23/22 06:02 74 07/23/22 07:02 36.8 C 72 19 137/61 90 Room Air 07/23/22 04:00 36.6 C 68 19 123/53 L 93 Room Air Laboratory Results 07/23/22 06:57 07/23/22 06:57 Resolved. Attempted colonoscopy was aborted due to poor bowel prep. Nuclear bleeding scan was negative. Hemoglobin is low but stable. PG Care Time/CCT Total # of Minutes Spent Total Time Spent with Patient: Total time spent is greater than 50% in coordination of care (as documented) at patient's floor/unit and/or counseling patient: Coding Level of Care Code 33981 SUB INP/OBS CARE 235MIN Diagnoses GI bleed K92.2 GI bleed type/associated pathology: unspecified gastrointestinal hemorrhage type Acute blood loss anemia D62 Dementia F03.90 Diabetes E11.9; Z79.4 Diabetes mellitus type: type 2 Diabetes mellitus halfway insulin use: with halfway use Diabetes mellitus complication status: without complication Hypertension I10 Hypertension type: essential hypertension Hyperlipemia E78.5 Hypokalemia E87.6 Near syncope R55 (1) GI bleed GI bleed type/associated pathology: unspecified gastrointestinal hemorrhage type Qualified Code(s): K92.2 - Gastrointestinal hemorrhage, unspecified (4) Diabetes Diabetes mellitus type: type 2 Diabetes mellitus termite technician insulin use: with termite technician use Diabetes mellitus complication status: without complication Qualified Code(s): E11.9 - Type 2 diabetes mellitus without complications; Z79.4 - halfway (current) use of insulin (5) Hypertension Hypertension type: essential hypertension Qualified Code(s): I10 - Essential (primary) hypertension
[2022-07-23] MEDS: TIMOLOL MALEATE 0.5% OP SOLN 5 ML BTL OPB SCH (22:08)
[2022-07-23] MEDS: QUEtiapine FUMARATE 25 MG TABLET PO SCH (22:08)
[2022-07-24 08:05] LABS: Basophils # (auto) 0.03 K/uL (0-0.2); Basophils % (auto) 0.5 %; Eosinophils # (auto) 0.14 K/uL (0-0.50); Eosinophils % (auto) 2.1 %; Immature Granulocytes # (auto) 0.02 K/uL (0.01-0.20); Immature Granulocytes % (auto) 0.3 %; Lymphocytes # (auto) 1.03 K/uL (1.2-3.4); Lymphocytes % (auto) 15.7 %; Mean Corpuscular Hemoglobin 31.9 pg (25.0-34.0); Mean Corpuscular Hgb Conc 33.3 g/dL (32.0-36.0); Mean Corpuscular Volume 95.7 fL (80.0-100.0); Mean Platelet Volume 9.9 fL (9.4-12.4); Monocytes % (auto) 9.2 %; Neutrophils # (auto) 4.72 K/uL (1.40-6.50); Neutrophils % (auto) 72.2 %; Platelet Count 184 K/uL (130-400); RDW Coefficient of Variation 13.2 % (11.5-14.5); RDW Standard Deviation 46.5 fL (36.4-46.3); Red Blood Count 2.82 M/uL (4.20-5.40); White Blood Count 6.54 K/ul (4.8-10.8)
[2022-07-24 08:16] LABS: BUN Creatinine Ratio 24.8 (10-20); Calcium 8.4 mg/dl (8.6-10.3); Creatinine Clr Calc Pharmacy 36.7 ml/min; Est GFR (African American) 55.7 ml/min; Est GFR (Non-African American) 48.1 ml/min; Potassium 4.1 mmol/L (3.5-5.1)
[2022-07-24] MEDS: INSULIN ASPART PER UNIT CHARGE SC SCH ×4 (09:06→21:51)
[2022-07-24] MEDS: LANTUS PER UNIT CHARGE SQ SCH ×2 (09:08→21:51)
[2022-07-24] MEDS: LATANOPROST 0.005% OP SOLN 2.5 ML BTL OPB SCH (09:09)
[2022-07-24] MEDS: lisinopril 20 MG TAB PO SCH (09:09)
[2022-07-24] MEDS: PANTOprazole 40 MG TAB PO SCH (09:09)
--- NOTE | 2022-07-24 14:13 | Hospitalist Progress Note ---
Date of Service July 24, 2022 Assessment & Plan (1) Near syncope: Plan: Resolved. Probably vasovagal etiology. This occurred while she was on the toilet. No recurrence (2) Hypokalemia: Plan: Corrected (3) Acute blood loss anemia: Plan: Hemoglobin now stable. No transfusion needed this admission (4) GI bleed: Plan: Probably diverticular in etiology which has resolved. Colonoscopy attempted July 18 but encountered poor bowel prep. Nuclear medicine bleeding scan negative (5) Diabetes: Plan: Type II. ADA diet. Continue current medical management. Stable (6) Hypertension: Plan: Stable. Continue current medical (7) Hyperlipemia: Plan: Stable. Continue current medical management Plan Eventual discharge to SNF dementia unit when arrangements are finalized Admission and Anticipated Discharge Date Admission Date: July 17, 2022 Subjective Alert. 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 Will discontinue one-on-one supervision. Hemoglobin stable at 9.0. Glucose level acceptable. Potassium 4.1. Will discharge to dementia unit when arrangements are finalized Review of Systems Review of Systems: Constitutional-no fever or chills ENT-no blurred vision, no double vision, no epistaxis, no sore throat Respiratory-no cough, no wheezing, no shortness of breath Cardiac-no palpitations, no chest pain, no syncope GI-no nausea, vomiting, diarrhea, melena, hematochezia -no urinary retention, no urinary incontinence, no dysuria, no hematuria Musculoskeletal-no joint pain, no muscle tenderness Skin-no bruising, no rashes, no pruritus Neuro-no isolated weakness, no paresthesia, no weakness Psych-no depression, no anxiety Physical Exam Physical Exam: General-alert, chronically confused due to severe dementia. No fevers, no chills HEENT-head atraumatic and normocephalic, pupils equal and reactive to light, extraocular muscles intact Neck-no lymphadenopathy or thyromegaly, trachea midline Chest-clear to auscultation percussion. No rales wheezing or rhonchi Cardiac-regular rate and rhythm, normal S1 and S2 Abdomen-normal bowel sounds, nontender, no hepatosplenomegaly Extremities-no cyanosis, clubbing, or edema Neuro-cranial nerves II through XII intact, motor and sensory function within normal limits, strength symmetrical , no focal deficits Psych-normal affect, normal mood Results & Data Results & Data Vital Signs (Past 12 Hours) Vital Signs Temp Pulse Pulse Resp BP Pulse Ox O2 Del Method 07/24/22 11:06 36.4 C L 98 H 18 125/72 94 Room Air 07/24/22 09:00 79 07/24/22 07:25 36.6 C 83 18 128/72 95 Room Air 07/24/22 04:00 37.1 C 78 18 137/61 97 Nasal Cannula O2 Flow Rate 07/24/22 11:06 07/24/22 09:00 07/24/22 07:25 07/24/22 04:00 2 Laboratory Results 07/24/22 07:42 07/24/22 07:42 PG Care Time/CCT Total # of Minutes Spent Total Time Spent with Patient: Total time spent is greater than 50% in coordination of care (as documented) at patient's floor/unit and/or counseling patient: Coding Level of Care Code 82201 SUB INP/OBS CARE 2/35MIN Diagnoses Near syncope R55 Hypokalemia E87.6 Acute blood loss anemia D62 GI bleed K92.1 GI bleed type/associated pathology: melena Diabetes E11.9; Z79.4 Diabetes mellitus type: type 2 Diabetes mellitus moth exterminator insulin use: with moth exterminator use Diabetes mellitus complication status: without complication Hypertension I10 Hypertension type: essential hypertension Hyperlipemia E78.5 (4) GI bleed GI bleed type/associated pathology: melena Qualified Code(s): K92.1 - Melena (5) Diabetes Diabetes mellitus type: type 2 Diabetes mellitus care home insulin use: with care home use Diabetes mellitus complication status: without complication Qualified Code(s): E11.9 - Type 2 diabetes mellitus without complications; Z79.4 - shelter (current) use of insulin (6) Hypertension Hypertension type: essential hypertension Qualified Code(s): I10 - Essential (primary) hypertension
[2022-07-24] MEDS: QUEtiapine FUMARATE 25 MG TABLET PO SCH (21:52)
[2022-07-24] MEDS: TIMOLOL MALEATE 0.5% OP SOLN 5 ML BTL OPB SCH (22:45)
[2022-07-25] MEDS: PANTOprazole 40 MG TAB PO SCH (08:21)
[2022-07-25] MEDS: lisinopril 20 MG TAB PO SCH (08:21)
[2022-07-25] MEDS: LATANOPROST 0.005% OP SOLN 2.5 ML BTL OPB SCH (08:22)
[2022-07-25] MEDS: LANTUS PER UNIT CHARGE SQ SCH ×2 (08:37→21:51)
[2022-07-25] MEDS: INSULIN ASPART PER UNIT CHARGE SC SCH ×4 (08:38→21:52)
--- NOTE | 2022-07-25 12:14 | Discharge Summary ---
Date of Service July 25, 2022 Admission HPI Per Admitting Provider Daly is an 87-year-old female with past medical history of hypertension, hyperlipidemia, type II DM, dementia, and depression not on anticoagulation who presents with an episode of blood running down her leg into the toilet without pain, shortness of breath, or dizziness after she had a bowel movement this morning. Her baseline hemoglobin is approximately 1314, admitting hemoglobin is 13.4. Daly reports she woke up after napping with her Went to get up and use the commode. After using commode there was a lot of blood on the floor coming out of the rectum. Denies lightheadedness, dizziness, syncope, presyncope, chest pain, chest pressure, shortness of breath, difficulty breathing. Reports that blood is dark and red, was also little bit bright red running down her legs She has a history of hemorrhoids. Used to have a colonoscopy on [place] but esquivel snot know the results of this. Denies a history of colorectal cancer. Denies history of stomach ulcer/stomach bleeding/GERD She reprots she had bleeding like this many years ago but does not remember why. Reprots she takes tylenol sometimes. Uses Aleve for pain "whenever I need it " History is somewhat limited by dementia, patient overall is a fair historian occasionally tangential Medical History: Reviewed Medications: Reviewed Surgical History: Reviewed Family history: Reviewed Allergies: Reviewed Social History: NO tobaccoo/use Code Status:DNR/DNI Principal Diagnosis GI bleed of suspected diverticular etiology, acute blood loss anemia, hypokalemia, near syncope Discharge Exam General-alert, chronically confused due to severe dementia. No fevers, no chills HEENT-head atraumatic and normocephalic, pupils equal and reactive to light, extraocular muscles intact Neck-no lymphadenopathy or thyromegaly, trachea midline Chest-clear to auscultation percussion. No rales wheezing or rhonchi Cardiac-regular rate and rhythm, normal S1 and S2 Abdomen-normal bowel sounds, nontender, no hepatosplenomegaly Extremities-no cyanosis, clubbing, or edema Neuro-cranial nerves II through XII intact, motor and sensory function within normal limits, strength symmetrical , no focal deficits Psych-normal affect, normal mood Discharge Data Allergies Allergy/AdvReac Type Severity Reaction Status Date / Time amoxicillin [From Augmentin] Allergy Intermediate Rash on Verified 07/01/22 13:34 Hands and Feet clavulanic acid Allergy Intermediate Rash on Verified 07/01/22 13:34 [From Augmentin] Hands and Feet Consultations 07/16/22 11:05 ED Decision to Admit Stat 07/17/22 10:23 Consult Gastroenterology Routine Procedures Performed Operation Date: 07/18/22 16:30 Actual Procedures p Colonoscopy - Esteban Darby MD Ordered Studies 07/16/22 09:51 CT abd pelvis IV con only Stat Hospital Course (1) Near syncope: Resolved. Probably vasovagal etiology. This occurred while she was on the toilet. No recurrence (2) Hypokalemia: Corrected (3) Acute blood loss anemia: Hemoglobin now stable. No transfusion needed this admission (4) GI bleed: Probably diverticular in etiology which has resolved. Colonoscopy attempted July 18 but encountered poor bowel prep. Nuclear medicine bleeding scan negative (5) Diabetes: Type II. ADA diet. Continue current medical management. Stable (6) Hypertension: Stable. Continue current medical (7) Hyperlipemia: Stable. Continue current medical management Plan Discharge to [facility] today, July 25 Total Time Total Time Spent Total Time Spent (In Minutes): 40 minutes Discharge Plan Discharge Items Patient Disposition: Transfer Jail Fac Reason For Visit: RECTAL BLEED Discharge Diagnosis: Lower GI bleed of suspected diverticular etiology, acute blood loss anemia, hypokalemia, near syncope Condition on Discharge: Good Activity: Resume your previous activity Non-emergency contact: Primary Care Provider Call non-emergency contact if: you have any medication questions Follow-up/Referrals: Reji Carver DO [Primary Care Provider] - Diet: Carb Consistent or DM2 Addtl Attending Provider Instructions: Take medications as directed Pending Studies at Discharge: No Stand-Alone Forms: My [facility] Skilled Items Patient informed of condition?: Yes DNR: Yes Discharge Level of Care: Skilled Communicable Disease: No Discharge Prognosis: Stable Lines: None Urinary Catheter: No Medications and DC Order Prescriptions: New quetiapine 25 mg Tablet 25 mg PO HS Qty: 10 0RF pantoprazole 40 mg Tablet,Delayed Release (Dr/Ec) 40 mg PO QAM Qty: 10 0RF Continued (DME) lancets [Accu-Chek Softclix Lancets] Misc See Rx Instructions .Route Qty: 200 1RF Rx Instructions: testing once daily (DME) blood-glucose meter [OneTouch Ultra2 Meter] [facility] See Rx Instructions .Route Qty: 1 0RF Rx Instructions: As directed (DME) OneTouch Ultra Test Strip See Rx Instructions .Route Qty: 100 0RF Rx Instructions: As directed (DME) pen needle, diabetic [BD Ultra-Fine Short Pen Needle] 31 gauge x 5/16" needle See Rx Instructions .Route Qty: 500 1RF Rx Instructions: INJECT INSULIN BID; DX CODE- E11.9, Z79.4 (DME) insulin syringe-needle U-100 [BD Insulin Syringe Ultra-Fine] 1 mL 31 gauge x 5/16 syringe See Rx Instructions .Route Qty: 100 3RF Rx Instructions: INJECT INSULIN BID (DME) FreeStyle Raul 3 Sensor Device See Rx Instructions .Route Qty: 2 3RF Rx Instructions: Change sensor every 14 days insulin NPH and regular human 100 unit/mL (70-30) insulin pen See Rx Instructions subcut BID Qty: 30 5RF Hold Instructions: Weight loss, nausea, lack of appetite. Rx Instructions: Inject 30 units in AM, 15 units in PM subcutaneously every day. (DME) Walker (w/ hand brakes and wheels) See Rx Instructions .Route .MEDSUPPLY Qty: 1 0RF Rx Instructions: As directed triamcinolone acetonide 0.025 % cream 0 applic topical BID Rx Instructions: Son says mom only takes insulin and lisinopril lisinopril 20 mg tablet 20 mg PO QAM Qty: 90 3RF Rx Instructions: Son says mom only takes insulin and lisinopril simvastatin 40 mg tablet 40 mg PO HS Qty: 10 0RF Rx Instructions: last filled in nov 2021 for 90 day supply, verified with pharmacist timolol maleate 0.5 % drops 1 drp OPB HS Qty: 5 0RF Rx Instructions: Son says mom only takes insulin and lisinopril calcium carbonate-vitamin D3 [Calcium 500 + D] 500 mg-5 mcg (200 unit) tablet 1 tab PO BID Qty: 10 0RF Rx Instructions: Son says mom only takes insulin and lisinopril diclofenac sodium 1 % gel 2 g topical QID PRN (Reason: pain, moderate) Qty: 100 0RF Rx Instructions: Son says mom only takes insulin and lisinopril Changed latanoprost 0.005 % drops 1 drp OPB QAM Qty: 7.5 0RF Rx Instructions: Son says mom only takes insulin and lisinopril docusate sodium [Colace] 100 mg capsule 100 mg PO QAM PRN (Reason: Constipation) Qty: 10 0RF Rx Instructions: Son says mom only takes insulin and lisinopril Discontinued Shingrix (PF) 50 mcg/0.5 mL suspension for reconstitution 0.5 ml IM .COMPLEX Qty: 1 1RF Rx Instructions: 0.5 mL IM Apply once and then again 2-6 months later; Discharge Orders: Discharge Order (Routine); Ordered 07/25/22 Ordered By: Sin Hobbs Admission Data Admit Date/Time: 07/17/22 12:43 Attending Provider: Sin Hobbs Admit Provider: Eugenio Zapata Primary Care Provider: Reji Carver Other Providers: Francis Olmos ; Eugenio Zapata ; Griffin Funk Jr ; [facility] ; [facility] Other Interventions: Discharge Summary Assessment (RN) Last Done: 07/18/22 10:10 Coding Level of Care Code 89255 INP/OBS DISCH >30 MIN Diagnoses Near syncope R55 Hypokalemia E87.6 Acute blood loss anemia D62 GI bleed K92.1 GI bleed type/associated pathology: melena Diabetes E11.9; Z79.4 Diabetes mellitus type: type 2 Diabetes mellitus custodial insulin use: with salvage determiner use Diabetes mellitus complication status: without complication Hypertension I10 Hypertension type: essential hypertension Hyperlipemia E78.5
--- NOTE | 2022-07-25 14:45 | Hospitalist Progress Note ---
Date of Service July 25, 2022 Assessment & Plan (1) Near syncope: Plan: Resolved. Probably vasovagal etiology. This occurred while she was on the toilet. No recurrence (2) Hypokalemia: Plan: Corrected (3) Acute blood loss anemia: Plan: Hemoglobin now stable. No transfusion needed this admission (4) GI bleed: Plan: Probably diverticular in etiology which has resolved. Colonoscopy attempted July 18 but encountered poor bowel prep. Nuclear medicine bleeding scan negative (5) Diabetes: Plan: Type II. ADA diet. Continue current medical management. Stable (6) Hypertension: Plan: Stable. Continue current medical (7) Hyperlipemia: Plan: Stable. Continue current medical management Plan Discharge to [facility] on Thursday, July 28 Admission and Anticipated Discharge Date Admission Date: July 17, 2022 Subjective No new problems. Anticipated discharge to SNF will be delayed until Thursday. Her Maynard catheter can be removed. Review of Systems Review of Systems: Constitutional-no fever or chills ENT-no blurred vision, no double vision, no epistaxis, no sore throat Respiratory-no cough, no wheezing, no shortness of breath Cardiac-no palpitations, no chest pain, no syncope GI-no nausea, vomiting, diarrhea, melena, hematochezia -no urinary retention, no urinary incontinence, no dysuria, no hematuria Musculoskeletal-no joint pain, no muscle tenderness Skin-no bruising, no rashes, no pruritus Neuro-no isolated weakness, no paresthesia, no weakness Psych-no depression, no anxiety Physical Exam Physical Exam: General-alert, chronically confused due to severe dementia. No fevers, no chills HEENT-head atraumatic and normocephalic, pupils equal and reactive to light, extraocular muscles intact Neck-no lymphadenopathy or thyromegaly, trachea midline Chest-clear to auscultation percussion. No rales wheezing or rhonchi Cardiac-regular rate and rhythm, normal S1 and S2 Abdomen-normal bowel sounds, nontender, no hepatosplenomegaly Extremities-no cyanosis, clubbing, or edema Neuro-cranial nerves II through XII intact, motor and sensory function within normal limits, strength symmetrical , no focal deficits Psych-normal affect, normal mood Results & Data Results & Data Vital Signs (Past 12 Hours) Vital Signs Temp Pulse Pulse Resp BP Pulse Ox O2 Del Method 07/25/22 11:55 36.8 C 95 H 18 131/66 98 Room Air 07/25/22 11:30 86 07/25/22 07:54 36.8 C 84 18 136/63 96 Room Air 07/25/22 03:00 36.8 C 86 20 124/65 94 Room Air Laboratory Results 07/24/22 07:42 07/24/22 07:42 PG Care Time/CCT Total # of Minutes Spent Total Time Spent with Patient: Total time spent is greater than 50% in coordination of care (as documented) at patient's floor/unit and/or counseling patient: Coding Level of Care Code 92321 SUB INP/OBS CARE 2/35MIN Diagnoses Near syncope R55 Hypokalemia E87.6 Acute blood loss anemia D62 GI bleed K92.1 GI bleed type/associated pathology: melena Diabetes E11.9; Z79.4 Diabetes mellitus type: type 2 Diabetes mellitus predatory animal exterminator insulin use: with predatory animal exterminator use Diabetes mellitus complication status: without complication Hypertension I10 Hypertension type: essential hypertension Hyperlipemia E78.5 (4) GI bleed GI bleed type/associated pathology: melena Qualified Code(s): K92.1 - Melena (5) Diabetes Diabetes mellitus type: type 2 Diabetes mellitus halfway insulin use: with halfway use Diabetes mellitus complication status: without complication Qualified Code(s): E11.9 - Type 2 diabetes mellitus without complications; Z79.4 - detention (current) use of insulin (6) Hypertension Hypertension type: essential hypertension Qualified Code(s): I10 - Essential (primary) hypertension
[2022-07-25] MEDS: TIMOLOL MALEATE 0.5% OP SOLN 5 ML BTL OPB SCH (21:52)
[2022-07-25] MEDS: QUEtiapine FUMARATE 25 MG TABLET PO SCH (21:52)
[2022-07-25] MEDS: DOCUSATE SODIUM 100 MG CAP PO PRN (22:00)
[2022-07-25] MEDS ORDERED: OLANZapine 10 MG/2.1 ML SDV IM STA (22:51)
[2022-07-26] MEDS: LANTUS PER UNIT CHARGE SQ SCH ×2 (08:38→21:35)
[2022-07-26] MEDS: LATANOPROST 0.005% OP SOLN 2.5 ML BTL OPB SCH (08:38)
[2022-07-26] MEDS: PANTOprazole 40 MG TAB PO SCH (08:38)
[2022-07-26] MEDS: lisinopril 20 MG TAB PO SCH (08:38)
[2022-07-26] MEDS: POLYETHYLENE (MIRALAX) 17 GM PACK PO PRN (08:38)
[2022-07-26] MEDS: INSULIN ASPART PER UNIT CHARGE SC SCH ×4 (08:39→21:34)
--- NOTE | 2022-07-26 14:46 | Hospitalist Progress Note ---
Date of Service July 26, 2022 Assessment & Plan (1) Near syncope: Plan: Resolved. Probably vasovagal etiology. This occurred while she was on the toilet. No recurrence (2) Hypokalemia: Plan: Corrected (3) Acute blood loss anemia: Plan: Hemoglobin now stable. No transfusion needed this admission (4) GI bleed: Plan: Probably diverticular in etiology which has resolved. Colonoscopy attempted July 18 but encountered poor bowel prep. Nuclear medicine bleeding scan negative (5) Diabetes: Plan: Type II. ADA diet. Continue current medical management. Stable (6) Hypertension: Plan: Stable. Continue current medical (7) Hyperlipemia: Plan: Stable. Continue current medical management Plan Discharge to [facility] on July 28 Admission and Anticipated Discharge Date Admission Date: July 17, 2022 Subjective Stable overall. No new problems. Awaiting placement Review of Systems Review of Systems: Constitutional-no fever or chills ENT-no blurred vision, no double vision, no epistaxis, no sore throat Respiratory-no cough, no wheezing, no shortness of breath Cardiac-no palpitations, no chest pain, no syncope GI-no nausea, vomiting, diarrhea, melena, hematochezia -no urinary retention, no urinary incontinence, no dysuria, no hematuria Musculoskeletal-no joint pain, no muscle tenderness Skin-no bruising, no rashes, no pruritus Neuro-no isolated weakness, no paresthesia, no weakness Psych-no depression, no anxiety Physical Exam Physical Exam: General-alert, chronically confused due to severe dementia. No fevers, no chills HEENT-head atraumatic and normocephalic, pupils equal and reactive to light, extraocular muscles intact Neck-no lymphadenopathy or thyromegaly, trachea midline Chest-clear to auscultation percussion. No rales wheezing or rhonchi Cardiac-regular rate and rhythm, normal S1 and S2 Abdomen-normal bowel sounds, nontender, no hepatosplenomegaly Extremities-no cyanosis, clubbing, or edema Neuro-cranial nerves II through XII intact, motor and sensory function within normal limits, strength symmetrical , no focal deficits Psych-normal affect, normal mood Results & Data Results & Data Vital Signs (Past 12 Hours) Vital Signs Temp Pulse Pulse Resp BP Pulse Ox O2 Del Method 07/26/22 14:05 87 07/26/22 12:11 37.0 C 81 16 125/66 94 Room Air 07/26/22 08:29 36.6 C 78 20 137/65 91 Room Air 07/26/22 07:30 Room Air 07/26/22 05:49 78 Laboratory Results 07/24/22 07:42 07/24/22 07:42 PG Care Time/CCT Total # of Minutes Spent Total Time Spent with Patient: Total time spent is greater than 50% in coordination of care (as documented) at patient's floor/unit and/or counseling patient: Coding Level of Care Code 81517 SUB INP/OBS CARE 2/35MIN Diagnoses Near syncope R55 Hypokalemia E87.6 Acute blood loss anemia D62 GI bleed K92.1 GI bleed type/associated pathology: melena Diabetes E11.9; Z79.4 Diabetes mellitus type: type 2 Diabetes mellitus continuous churn buttermaker insulin use: with continuous churn buttermaker use Diabetes mellitus complication status: without complication Hypertension I10 Hypertension type: essential hypertension Hyperlipemia E78.5 (4) GI bleed GI bleed type/associated pathology: melena Qualified Code(s): K92.1 - Melena (5) Diabetes Diabetes mellitus type: type 2 Diabetes mellitus continuous churn buttermaker insulin use: with mcc use Diabetes mellitus complication status: without complication Qualified Code(s): E11.9 - Type 2 diabetes mellitus without complications; Z79.4 - shelter (current) use of insulin (6) Hypertension Hypertension type: essential hypertension Qualified Code(s): I10 - Essential (primary) hypertension
[2022-07-26] MEDS: QUEtiapine FUMARATE 25 MG TABLET PO SCH (21:33)
[2022-07-26] MEDS: TIMOLOL MALEATE 0.5% OP SOLN 5 ML BTL OPB SCH (21:34)
[2022-07-27 07:25] LABS: Basophils # (auto) 0.03 K/uL (0-0.2); Basophils % (auto) 0.5 %; Eosinophils # (auto) 0.25 K/uL (0-0.50); Eosinophils % (auto) 4.3 %; Hematocrit (blood only) 26.1 % (37.0-47.0); Hemoglobin 8.8 g/dl (12.0-16.0); Immature Granulocytes # (auto) 0.02 K/uL (0.01-0.20); Immature Granulocytes % (auto) 0.3 %; Lymphocytes # (auto) 1.27 K/uL (1.2-3.4); Mean Corpuscular Hemoglobin 31.2 pg (25.0-34.0); Mean Corpuscular Hgb Conc 33.7 g/dL (32.0-36.0); Mean Corpuscular Volume 92.6 fL (80.0-100.0); Mean Platelet Volume 9.7 fL (9.4-12.4); Monocytes # (auto) 0.49 K/uL (0.11-0.59); Monocytes % (auto) 8.5 %; Neutrophils % (auto) 64.4 %; Platelet Count 157 K/uL (130-400); RDW Coefficient of Variation 13.2 % (11.5-14.5); RDW Standard Deviation 43.8 fL (36.4-46.3); Red Blood Count 2.82 M/uL (4.20-5.40); White Blood Count 5.76 K/ul (4.8-10.8)
[2022-07-27 07:39] LABS: BUN Creatinine Ratio 24.5 (10-20); Calcium 8.7 mg/dl (8.6-10.3); Creatinine Clr Calc Pharmacy 38.9 ml/min; Est GFR (African American) 63.7 ml/min; Est GFR (Non-African American) 54.9 ml/min; Potassium 4.1 mmol/L (3.5-5.1)
[2022-07-27] MEDS: LANTUS PER UNIT CHARGE SQ SCH ×2 (08:34→20:53)
[2022-07-27] MEDS: INSULIN ASPART PER UNIT CHARGE SC SCH ×4 (08:34→20:53)
[2022-07-27] MEDS: POLYETHYLENE (MIRALAX) 17 GM PACK PO PRN (08:34)
[2022-07-27] MEDS: LATANOPROST 0.005% OP SOLN 2.5 ML BTL OPB SCH (08:34)
[2022-07-27] MEDS: lisinopril 20 MG TAB PO SCH (08:35)
[2022-07-27] MEDS: PANTOprazole 40 MG TAB PO SCH (08:35)
[2022-07-27] MEDS: DOCUSATE SODIUM 100 MG CAP PO PRN (08:35)
--- NOTE | 2022-07-27 14:27 | Hospitalist Progress Note ---
Date of Service July 27, 2022 Assessment & Plan (1) Near syncope: Plan: Resolved. Probably vasovagal etiology. This occurred while she was on the toilet. No recurrence (2) Hypokalemia: Plan: Corrected (3) Acute blood loss anemia: Plan: Hemoglobin now stable. No transfusion needed this admission (4) GI bleed: Plan: Probably diverticular in etiology which has resolved. Colonoscopy attempted July 18 but encountered poor bowel prep. Nuclear medicine bleeding scan negative (5) Diabetes: Plan: Type II. ADA diet. Continue current medical management. Stable (6) Hypertension: Plan: Stable. Continue current medical (7) Hyperlipemia: Plan: Stable. Continue current medical management Plan Discharge to [facility] on July 28 Admission and Anticipated Discharge Date Admission Date: July 17, 2022 Subjective Alert. No acute problems. Lab studies done today, July 27, are stable. Hopeful discharge to [facility] tomorrow, July 28 Review of Systems Review of Systems: Constitutional-no fever or chills ENT-no blurred vision, no double vision, no epistaxis, no sore throat Respiratory-no cough, no wheezing, no shortness of breath Cardiac-no palpitations, no chest pain, no syncope GI-no nausea, vomiting, diarrhea, melena, hematochezia -no urinary retention, no urinary incontinence, no dysuria, no hematuria Musculoskeletal-no joint pain, no muscle tenderness Skin-no bruising, no rashes, no pruritus Neuro-no isolated weakness, no paresthesia, no weakness Psych-no depression, no anxiety Physical Exam Physical Exam: General-alert, chronically confused due to severe dementia. No fevers, no chills HEENT-head atraumatic and normocephalic, pupils equal and reactive to light, extraocular muscles intact Neck-no lymphadenopathy or thyromegaly, trachea midline Chest-clear to auscultation percussion. No rales wheezing or rhonchi Cardiac-regular rate and rhythm, normal S1 and S2 Abdomen-normal bowel sounds, nontender, no hepatosplenomegaly Extremities-no cyanosis, clubbing, or edema Neuro-cranial nerves II through XII intact, motor and sensory function within normal limits, strength symmetrical , no focal deficits Psych-normal affect, normal mood Results & Data Results & Data Vital Signs (Past 12 Hours) Vital Signs Temp Pulse Pulse Resp BP Pulse Ox O2 Del Method 07/27/22 12:00 36.3 C L 79 16 138/68 94 Room Air 07/27/22 07:56 36.9 C 74 18 146/74 H 91 Room Air 07/27/22 07:10 Room Air 07/27/22 05:44 72 Laboratory Results 07/27/22 07:01 07/27/22 07:01 PG Care Time/CCT Total # of Minutes Spent Total Time Spent with Patient: Total time spent is greater than 50% in coordination of care (as documented) at patient's floor/unit and/or counseling patient: Coding Level of Care Code 06321 SUB INP/OBS CARE 2/35MIN Diagnoses Near syncope R55 Hypokalemia E87.6 Acute blood loss anemia D62 GI bleed K92.1 GI bleed type/associated pathology: melena Diabetes E11.9; Z79.4 Diabetes mellitus type: type 2 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 [facility] use Diabetes mellitus complication status: without complication Hypertension I10 Hypertension type: essential hypertension Hyperlipemia E78.5 (4) GI bleed GI bleed type/associated pathology: melena Qualified Code(s): K92.1 - Melena (5) Diabetes Diabetes mellitus type: type 2 Diabetes mellitus [facility] insulin use: with [facility] use Diabetes mellitus complication status: without complication Qualified Code(s): E11.9 - Type 2 diabetes mellitus without complications; 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
[2022-07-27] MEDS: QUEtiapine FUMARATE 25 MG TABLET PO SCH (20:53)
[2022-07-27] MEDS: TIMOLOL MALEATE 0.5% OP SOLN 5 ML BTL OPB SCH (20:54)
[2022-07-28] MEDS: LATANOPROST 0.005% OP SOLN 2.5 ML BTL OPB SCH (08:32)
[2022-07-28] MEDS: POLYETHYLENE (MIRALAX) 17 GM PACK PO PRN (08:32)
[2022-07-28] MEDS: lisinopril 20 MG TAB PO SCH (08:32)
[2022-07-28] MEDS: PANTOprazole 40 MG TAB PO SCH (08:32)
[2022-07-28] MEDS: INSULIN ASPART PER UNIT CHARGE SC SCH ×2 (08:33→12:31)
[2022-07-28] MEDS: LANTUS PER UNIT CHARGE SQ SCH (08:33)
--- NOTE | 2022-07-28 11:59 | Discharge Summary ---
Date of Service July 28, 2022 Admission HPI Per Admitting Provider Daly is an 87-year-old female with past medical history of hypertension, hyperlipidemia, type II DM, dementia, and depression not on anticoagulation who presents with an episode of blood running down her leg into the toilet without pain, shortness of breath, or dizziness after she had a bowel movement this morning. Her baseline hemoglobin is approximately 1314, admitting hemoglobin is 13.4. Daly reports she woke up after napping with her Went to get up and use the commode. After using commode there was a lot of blood on the floor coming out of the rectum. Denies lightheadedness, dizziness, syncope, presyncope, chest pain, chest pressure, shortness of breath, difficulty breathing. Reports that blood is dark and red, was also little bit bright red running down her legs She has a history of hemorrhoids. Used to have a colonoscopy on [place] but esquivel snot know the results of this. Denies a history of colorectal cancer. Denies history of stomach ulcer/stomach bleeding/GERD She reprots she had bleeding like this many years ago but does not remember why. Reprots she takes tylenol sometimes. Uses Aleve for pain "whenever I need it " History is somewhat limited by dementia, patient overall is a fair historian occasionally tangential Medical History: Reviewed Medications: Reviewed Surgical History: Reviewed Family history: Reviewed Allergies: Reviewed Social History: NO tobaccoo/use Code Status:DNR/DNI Principal Diagnosis GI bleed, suspected diverticular etiology, acute blood loss anemia, hypokalemia, near syncope Discharge Exam General-alert, chronically confused due to severe dementia. No fevers, no chills HEENT-head atraumatic and normocephalic, pupils equal and reactive to light, ex traocular muscles intact Neck-no lymphadenopathy or thyromegaly, trachea midline Chest-clear to auscultation percussion. No rales wheezing or rhonchi Cardiac-regular rate and rhythm, normal S1 and S2 Abdomen-normal bowel sounds, nontender, no hepatosplenomegaly Extremities-no cyanosis, clubbing, or edema Neuro-cranial nerves II through XII intact, motor and sensory function within normal limits, strength symmetrical , no focal deficits Psych-normal affect, normal mood Discharge Data Allergies Allergy/AdvReac Type Severity Reaction Status Date / Time amoxicillin [From Augmentin] Allergy Intermediate Rash on Verified 07/01/22 13:34 Hands and Feet clavulanic acid Allergy Intermediate Rash on Verified 07/01/22 13:34 [From Augmentin] Hands and Feet Consultations 07/16/22 11:05 ED Decision to Admit Stat 07/17/22 10:23 Consult Gastroenterology Routine Procedures Performed Operation Date: 07/18/22 16:30 Actual Procedures p Colonoscopy - Esteban Darby MD Ordered Studies 07/16/22 09:51 CT abd pelvis IV con only Stat Hospital Course (1) Near syncope: Resolved. Probably vasovagal etiology. This occurred while she was on the toilet. No recurrence (2) Hypokalemia: Corrected (3) Acute blood loss anemia: Hemoglobin now stable. No transfusion needed this admission (4) GI bleed: Probably diverticular in etiology which has resolved. Colonoscopy attempted July 18 but encountered poor bowel prep. Nuclear medicine bleeding scan negative (5) Diabetes: Type II. ADA diet. Continue current medical management. Stable (6) Hypertension: Stable. Continue current medical (7) Hyperlipemia: Stable. Continue current medical management Plan Discharge to [facility] today, July 28 Total Time Total Time Spent Total Time Spent (In Minutes): 40 minutes Discharge Plan Discharge Items Patient Disposition: Transfer [facility] Fac Reason For Visit: RECTAL BLEED Discharge Diagnosis: Lower GI bleed of suspected diverticular etiology, acute blood loss anemia, hypokalemia, near syncope Condition on Discharge: Good Activity: Resume your previous activity Non-emergency contact: Primary Care Provider Call non-emergency contact if: you have any medication questions Follow-up/Referrals: Reji Carver DO [Primary Care Provider] - Diet: Carb Consistent or DM2 Addtl Attending Provider Instructions: Take medications as directed Pending Studies at Discharge: No Stand-Alone Forms: My [facility] Skilled Items Patient informed of condition?: Yes DNR: Yes Discharge Level of Care: Skilled Communicable Disease: No Discharge Prognosis: Stable Lines: None Urinary Catheter: No Medications and DC Order Prescriptions: New quetiapine 25 mg Tablet 25 mg PO HS Qty: 10 0RF pantoprazole 40 mg Tablet,Delayed Release (Dr/Ec) 40 mg PO QAM Qty: 10 0RF Continued (DME) lancets [Accu-Chek Softclix Lancets] Misc See Rx Instructions .Route Qty: 200 1RF Rx Instructions: testing once daily (DME) blood-glucose meter [OneTouch Ultra2 Meter] Misc See Rx Instructions .Route Qty: 1 0RF Rx Instructions: As directed (DME) OneTouch Ultra Test Strip See Rx Instructions .Route Qty: 100 0RF Rx Instructions: As directed (DME) pen needle, diabetic [BD Ultra-Fine Short Pen Needle] 31 gauge x 5/16" needle See Rx Instructions .Route Qty: 500 1RF Rx Instructions: INJECT INSULIN BID; DX CODE- E11.9, Z79.4 (DME) insulin syringe-needle U-100 [BD Insulin Syringe Ultra-Fine] 1 mL 31 gauge x 5/16 syringe See Rx Instructions .Route Qty: 100 3RF Rx Instructions: INJECT INSULIN BID (DME) FreeStyle Raul 3 Sensor Device See Rx Instructions .Route Qty: 2 3RF Rx Instructions: Change sensor every 14 days insulin NPH and regular human 100 unit/mL (70-30) insulin pen See Rx Instructions subcut BID Qty: 30 5RF Hold Instructions: Weight loss, nausea, lack of appetite. Rx Instructions: Inject 30 units in AM, 15 units in PM subcutaneously every day. (DME) Walker (w/ hand brakes and wheels) See Rx Instructions .Route .MEDSUPPLY Qty: 1 0RF Rx Instructions: As directed triamcinolone acetonide 0.025 % cream 0 applic topical BID Rx Instructions: Son says mom only takes insulin and lisinopril lisinopril 20 mg tablet 20 mg PO QAM Qty: 90 3RF Rx Instructions: Son says mom only takes insulin and lisinopril simvastatin 40 mg tablet 40 mg PO HS Qty: 10 0RF Rx Instructions: last filled in nov 2021 for 90 day supply, verified with pharmacist timolol maleate 0.5 % drops 1 drp OPB HS Qty: 5 0RF Rx Instructions: Son says mom only takes insulin and lisinopril calcium carbonate-vitamin D3 [Calcium 500 + D] 500 mg-5 mcg (200 unit) tablet 1 tab PO BID Qty: 10 0RF Rx Instructions: Son says mom only takes insulin and lisinopril diclofenac sodium 1 % gel 2 g topical QID PRN (Reason: pain, moderate) Qty: 100 0RF Rx Instructions: Son says mom only takes insulin and lisinopril Changed latanoprost 0.005 % drops 1 drp OPB QAM Qty: 7.5 0RF Rx Instructions: Son says mom only takes insulin and lisinopril docusate sodium [Colace] 100 mg capsule 100 mg PO QAM PRN (Reason: Constipation) Qty: 10 0RF Rx Instructions: Son says mom only takes insulin and lisinopril Discontinued Shingrix (PF) 50 mcg/0.5 mL suspension for reconstitution 0.5 ml IM .COMPLEX Qty: 1 1RF Rx Instructions: 0.5 mL IM Apply once and then again 2-6 months later; Discharge Orders: Discharge Order (Routine); Ordered 07/28/22 Ordered By: Sin Hobbs Admission Data Admit Date/Time: 07/17/22 12:43 Attending Provider: Sin Hobbs Admit Provider: Eugenio Zapata Primary Care Provider: Reji Carver Other Providers: Francis lOmos ; Eugenio Zapata ; Griffin Funk Jr ; [facility] ; [facility] Other Interventions: Discharge Summary Assessment (RN) Last Done: 07/18/22 10:10 Coding Level of Care Code 59873 INP/OBS DISCH >30 MIN Diagnoses Near syncope R55 Hypokalemia E87.6 Acute blood loss anemia D62 GI bleed K92.1 GI bleed type/associated pathology: melena Diabetes E11.9; Z79.4 Diabetes mellitus type: type 2 Diabetes mellitus longterm insulin use: with technician terminal and repeater use Diabetes mellitus complication status: without complication Hypertension I10 Hypertension type: essential hypertension Hyperlipemia E78.5
== END 2022-07-28 13:57 | DRG 378 ==
LOC: ED 09:41 → 2N 09:41 → SUATTDRO 12:14 → 2N 13:06 → SUATTDRO 07-17 12:43 → 2N 07-19 10:20

== ENCOUNTER 2022-08-06 17:15 | Observation (INO) ==
--- NOTE | 2022-08-06 17:20 | ED Triage Note ---
Date of Service August 06, 2022 History of Present Illness This patient was briefly evaluated while in triage. An abbreviated physical exam was performed. This patient is a 87-year-old Female who presents to the ED for evaluation of left leg pain and swelling. Had outpatient U/S today showing DVT. No breathing problems or fever. Recently here for GI bleed. Currently in a fdc. Physical Exam Limited Triage Exam: VITALS: Vitals are noted on the nurse's note and reviewed by myself. Vital signs stable. GENERAL: White female who is pleasantly confused but cooperative. HEART: Regular rate and rhythm without murmurs gallops or rubs. LUNGS: Clear to auscultation bilaterally without wheezes, rales or rhonchi. No retractions or accessory muscle use. SKIN: Notable edema to LLE Initial orders for labs and / or imaging were placed and patient was placed in the waiting area until a bed is available. Please see further documentation for the full ED course. MDM / Impression Impression Impression: Left leg swelling, DVT (deep venous thrombosis), History of GI bleed, Anemia Impression: DVT (deep venous thrombosis) Qualifiers: DVT location: lower extremity Affected thrombotic vein of extremity: unspecified vein of extremity Chronicity: acute Laterality: left Qualified Code(s): I82.402 - Acute embolism and thrombosis of unspecified deep veins of left lower extremity Anemia Qualifiers: Anemia type: unspecified type Qualified Code(s): D64.9 - Anemia, unspecified
[2022-08-06 18:15] LABS: Alanine Aminotransferase 11 U/L (7-52); Albumin Globulin Ratio 0.9 (0.9-2); Albumin Level 3.4 gm/dl (3.4-5.0); Alkaline Phosphatase 89 U/L (34-104); Anion Gap 9 (3-11); Aspartate Aminotransferase 20 U/L (13-39); BUN Creatinine Ratio 21.1 (10-20); Bilirubin,Total 0.4 mg/dl (0.2-1.0); Blood Urea Nitrogen 23 mg/dl (6-23); Calcium 8.8 mg/dl (8.6-10.3); Carbon Dioxide 26 mmol/L (21-32); Chloride 105 mmol/L (98-107); Est GFR (African American) 53.2 ml/min; Est GFR (Non-African American) 45.9 ml/min; Globulin 3.6 gm/dl (2.5-4.0); Glucose 206 mg/dl (70-99(Fasting)); Potassium 4.6 mmol/L (3.5-5.1); Sodium 140 mmol/L (136-145)
[2022-08-06 18:23] LABS: Basophils # (auto) 0.04 K/uL (0-0.2); Basophils % (auto) 0.5 %; Eosinophils # (auto) 0.22 K/uL (0-0.50); Eosinophils % (auto) 2.6 %; Hematocrit (blood only) 28.2 % (37.0-47.0); Hemoglobin 9.1 g/dl (12.0-16.0); Immature Granulocytes # (auto) 0.03 K/uL (0.01-0.20); Immature Granulocytes % (auto) 0.4 %; Lymphocytes # (auto) 1.41 K/uL (1.2-3.4); Lymphocytes % (auto) 16.5 %; Mean Corpuscular Hemoglobin 30.3 pg (25.0-34.0); Mean Corpuscular Hgb Conc 32.3 g/dL (32.0-36.0); Mean Platelet Volume 10.6 fL (9.4-12.4); Monocytes # (auto) 0.45 K/uL (0.11-0.59); Monocytes % (auto) 5.3 %; Neutrophils # (auto) 6.37 K/uL (1.40-6.50); Neutrophils % (auto) 74.7 %; Platelet Count 276 K/uL (130-400); RDW Coefficient of Variation 13.3 % (11.5-14.5); RDW Standard Deviation 45.3 fL (36.4-46.3); White Blood Count 8.52 K/ul (4.8-10.8)
--- NOTE | 2022-08-06 18:46 | Emergency Department Note ---
Impression & Plan Left leg swelling, DVT (deep venous thrombosis), History of GI bleed, Anemia ED Provider Note NAME: CHELE VILLARREAL AGE: 87 SEX: F : 1935 ARRIVES VIA: Walk-In INFORMANT: [Patient][son] ED PROVIDER(S): [Zion Newell MD] CHIEF COMPLAINT: Left leg swelling HISTORY OF PRESENT ILLNESS: The patient is an 87-year-old female who has had 3 or 4 days of some left leg swelling. Today, she had an outpatient ultrasound showing an extensive DVT. All the veins of the leg were clotted except the common femoral vein. She was sent to the hospital. The patient was in our facility recently for what was thought to be diverticular bleeding. She did not require a blood transfusion. As per the patient and her son, she has never had a DVT before. PMHx/PSHx: See Below SOCIAL HISTORY: See Below. PHYSICAL EXAM: GENERAL: Patient is in no acute distress. HEENT: No acute trauma, normocephalic atraumatic, mucous membranes moist, no nasal congestion. NECK: No stridor, no adenopathy, no meningismus, trachea is midline. LUNGS: Clear to auscultation bilaterally, no wheeze, no rhonchi, breath sounds equal. HEART: 2/6 systolic murmur, regular rate and rhythm. ABDOMEN: Soft, nontender, bowel sounds positive, no peritonitis. EXTREMITIES: No cyanosis. There is fairly significant swelling of the left low er extremity when compared to the right. No erythema to suggest cellulitis. No evidence for left lower extremity neurovascular compromise. NEUROLOGIC: Oriented x 3, no acute motor or sensory deficits, no focal weakness. SKIN: No rash, no jaundice, no diaphoresis. DIFFERENTIAL DIAGNOSIS: DVT, PE, coagulopathy, anemia, cellulitis, neurovascular compromise, among others. EMERGENCY DEPARTMENT COURSE/PROCEDURES: Prior/Outside records reviewed: Recent discharge summary. MEDICAL DECISION MAKING: There is no leukocytosis. The patient is anemic however, this appears baseline looking back at recent testing. There is a normal platelet count. No coagulopathy. No renal failure, glucose was somewhat elevated. No concerning liver enzyme elevation. COVID test returned negative. On exam, the patient did have edema to the left lower extremity. The ultrasound report she brought to our hospital does show extensive DVT in the veins of the left lower extremity. Given the extensive DVT findings, given her recent GI bleeding, I do think a hospital stay is warranted. She requires anticoagulation and monitoring. We need to be sure she does not redevelop GI bleeding. I spoke with the patient and case management, the on-call hospitalist was consulted. DISPOSITION: Patient's findings and history warrant a hospital stay. Past Med/Surg History Medical History Breast cancer Chondrocalcinosis of knee Diabetes GI bleed likely secondary to diverticulosis Glaucoma Hyperlipemia Hypertension Osteoarthritis of left hip Spondylolisthesis of lumbar region Surgical History History of mastectomy S/P hysterectomy Family History Other No pertinent family history Denies family history of Ovarian cancer Prostate cancer Heart disease Breast cancer Colorectal cancer Social History Smoking Status: Never smoker Second Hand Exposure: No; Do You Dip or Chew Tobacco: No; Hx Alcohol Use: No Hx Substance Use: No Preferred Language: Danish Communication Ability: Effective Visual Impairment: No Limitations Hearing Ability: Normal 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 Required: No Beliefs That Will Affect Care: None marital status: / Current Living Situation: Correction current occupational status: retired Other Information That Helps Us Care for You: No Feels Safe at Home: Yes Safety Concerns: Feels Safe At This Time Childhood Exposure to Second-Hand Smoke: No Diet: regular Dental Care, Regularly: Yes Physical Activity Frequency: Does not Exercise Seatbelt Use: sometimes Sunscreen Use: No Assistive Devices: Walker Allergies Allergies Allergy/AdvReac Type Severity Reaction Status Date / Time amoxicillin [From Augmentin] Allergy Intermediate Rash on Verified 07/01/22 13:34 Hands and Feet clavulanic acid Allergy Intermediate Rash on Verified 07/01/22 13:34 [From Augmentin] Hands and Feet Home Meds Home Medications Medication Instructions Recorded Confirmed calcium carbonate 500 mg-vitamin 1 tab PO BID 08/06/22 08/06/22 D3 5 mcg (200 unit) tablet (Os-Wil 500 + D3) diclofenac sodium 1 % topical gel 2 g topical QID PRN Pain 08/06/22 08/06/22 docusate sodium 100 mg tablet 100 mg PO DAILY PRN Constipation 08/06/22 08/06/22 insulin NPH-regular 70-30 U-100 15 unit subcut QPM 08/06/22 08/06/22 insulin 100 unit/mL subcutaneous pen (Novolin 70-30 FlexPen U-100 Insulin) insulin NPH-regular 70-30 U-100 30 unit subcut QAM 08/06/22 08/06/22 insulin 100 unit/mL subcutaneous pen (Novolin 70-30 FlexPen U-100 Insulin) latanoprost 0.005 % eye drops 1 drp OPB HS 08/06/22 08/06/22 lisinopril 20 mg tablet 20 mg PO QAM 08/06/22 08/06/22 pantoprazole 40 mg tablet,delayed 40 mg PO QAM 08/06/22 08/06/22 release quetiapine 25 mg tablet 25 mg PO HS 08/06/22 08/06/22 simvastatin 40 mg tablet 40 mg PO HS 08/06/22 08/06/22 timolol maleate 0.5 % eye drops 1 drp OPB HS 08/06/22 08/06/22 triamcinolone acetonide 0.025 % 1 applic topical BID 08/06/22 08/06/22 topical cream Results & Data (ED) Vital Signs Vital Signs - 24 hr 08/06/22 17:19 08/06/22 18:41 Temperature 36.0 C L Temperature Source Temporal Artery Scan Pulse Rate 104 H Pulse Rate [Right Finger] 93 H Pulse Rhythm [Right Finger] Regular Pulse Strength [Right Finger] Normal Respiratory Rate 20 18 Respiratory Effort / Characteristics Non-Labored Non-Labored Respiratory Depth Normal Normal Respiratory Pattern Regular Regular Blood Pressure 131/64 Blood Pressure [Right Arm] 167/85 H Blood Pressure Mean 86 Blood Pressure Mean [Right Arm] 112 Blood Pressure Position [Right Arm] Lying Pulse Oximetry 96 98 Oxygen Delivery Method Room Air Room Air Sepsis Recent Fever Within 48 Hours No Sepsis New/Unexplained Change in Mental Status N/A Sepsis Action Taken by Nursing No Action Required Home Medications Current Medication List: was personally reviewed by me Laboratory Data Attestation: I reviewed the patient's lab results. 08/06/22 17:34 08/06/22 17:34 Lab Results 0608/06/22 08/06/22 Range/Units 17:34 17:34 17:34 WBC 8.52 (4.8-10.8) K/ul RBC 3.00 L (4.20-5.40) M/uL Hgb 9.1 L (12.0-16.0) g/dl Hct 28.2 L (37.0-47.0) % MCV 94.0 (80.0-100.0) fL MCH 30.3 (25.0-34.0) pg MCHC 32.3 (32.0-36.0) g/dL RDW Std Deviation 45.3 (36.4-46.3) fL RDW Coeff of Nikki 13.3 (11.5-14.5) % Plt Count 276 (130-400) K/uL MPV 10.6 (9.4-12.4) fL Immature Gran % (Auto) 0.4 % Neut % (Auto) 74.7 % Lymph % (Auto) 16.5 % [place] % (Auto) 5.3 % Eos % (Auto) 2.6 % Baso % (Auto) 0.5 % Neut # (Auto) 6.37 (1.40-6.50) K/uL Lymph # (Auto) 1.41 (1.2-3.4) K/uL [place] # (Auto) 0.45 (0.11-0.59) K/uL Eos # (Auto) 0.22 (0-0.50) K/uL Baso # (Auto) 0.04 (0-0.2) K/uL Immature Gran # (Auto) 0.03 (0.01-0.20) K/uL PT Cancelled INR Cancelled APTT Cancelled PTT Ratio Cancelled Sodium 140 (136-145) mmol/L Potassium 4.6 (3.5-5.1) mmol/L Chloride 105 (98-107) mmol/L Carbon Dioxide 26 (21-32) mmol/L Anion Gap 9 (3-11) BUN 23 (6-23) mg/dl Creatinine 1.09 (0.6-1.2) mg/dl Est Cr Clr Drug Dosing Not Reportable Est GFR ( Amer) 53.2 ml/min Est GFR (Non-Af Amer) 45.9 ml/min BUN/Creatinine Ratio 21.1 H (10-20) Glucose 206 H (70-99(Fasting)) mg/dl Calcium 8.8 (8.6-10.3) mg/dl Total Bilirubin 0.4 (0.2-1.0) mg/dl AST 20 (13-39) U/L ALT 11 (7-52) U/L Alkaline Phosphatase 89 (34-104) U/L Total Protein 7.0 (6.0-8.3) gm/dl Albumin 3.4 (3.4-5.0) gm/dl Globulin 3.6 (2.5-4.0) gm/dl Albumin/Globulin Ratio 0.9 (0.9-2) 08/06/22 Range/Units 19:00 WBC (4.8-10.8) K/ul RBC (4.20-5.40) M/uL Hgb (12.0-16.0) g/dl Hct (37.0-47.0) % MCV (80.0-100.0) fL MCH (25.0-34.0) pg MCHC (32.0-36.0) g/dL RDW Std Deviation (36.4-46.3) fL RDW Coeff of Nikki (11.5-14.5) % Plt Count (130-400) K/uL MPV (9.4-12.4) fL Immature Gran % (Auto) % Neut % (Auto) % Lymph % (Auto) % [place] % (Auto) % Eos % (Auto) % Baso % (Auto) % Neut # (Auto) (1.40-6.50) K/uL Lymph # (Auto) (1.2-3.4) K/uL [place] # (Auto) (0.11-0.59) K/uL Eos # (Auto) (0-0.50) K/uL Baso # (Auto) (0-0.2) K/uL Immature Gran # (Auto) (0.01-0.20) K/uL PT Cancelled INR Cancelled APTT Cancelled PTT Ratio Cancelled Sodium (136-145) mmol/L Potassium (3.5-5.1) mmol/L Chloride (98-107) mmol/L Carbon Dioxide (21-32) mmol/L Anion Gap (3-11) BUN (6-23) mg/dl Creatinine (0.6-1.2) mg/dl Est Cr Clr Drug Dosing Est GFR ( Amer) ml/min Est GFR (Non-Af Amer) ml/min BUN/Creatinine Ratio (10-20) Glucose (70-99(Fasting)) mg/dl Calcium (8.6-10.3) mg/dl Total Bilirubin (0.2-1.0) mg/dl AST (13-39) U/L ALT (7-52) U/L Alkaline Phosphatase (34-104) U/L Total Protein (6.0-8.3) gm/dl Albumin (3.4-5.0) gm/dl Globulin (2.5-4.0) gm/dl Albumin/Globulin Ratio (0.9-2) Administered Medications Heparin Sodium/Dextrose (Heparin Sodium/Dextrose) 25,000 units in 500 mls @ 23 mls/hr IV .[id number] [facility]; Protocol Stop: 09/05/22 19:59 Last Admin: 08/06/22 21:09 Dose: 1,150 units/hr, 23 mls/hr Documented By: CHRIS Co-signed By: AB Insulin Aspart (Insulin Aspart Per Unit Charge) 0 units SC ACHS KUSUM Stop: 09/05/22 23:14 Last Admin: 08/06/22 23:29 Dose: 9 units Documented By: LMP Co-signed By: RICARDA Discontinued Medications Insulin Glargine (Lantus Per Unit Charge) 10 units SQ NOW STA Stop: 08/06/22 23:21 Last Admin: 08/06/22 23:30 Dose: 10 units Documented By: LMP Co-signed By: RICARDA Discharge Plan Visit Data Chief Complaint: Leg Injury/Pain Stated Complaint: HAS BLOODCLOT IN HER LEG ED Provider: Zion Newell Discharge Problem: Left leg swelling, DVT (deep venous thrombosis), History of GI bleed, Anemia Patient Disposition: Admitted As Inpatient Condition: Good Discharge Instructions Interventions: ED Discharge Assessment Last Done: 08/06/22 22:25
[2022-08-06] MEDS ORDERED: Heparin IV Adult Wt-Based Standard *NO* Bolus Protocol IV SCH (19:39)
--- NOTE | 2022-08-06 19:44 | History & Physical Report ---
Date of Service August 06, 2022 Assessment & Plan (1) Left leg DVT: Plan: 87yo female presenting with extensive acute DVT of LLE. No SOB, cough, hemoptysis or chest pain to suggest current PE. Patient is 98% on RA, HR=87. Patient was recently admitted to [facility] for acute LGIB thought to be secondary to diverticular bleed. She denies any recent melena or hematochezia. Complicated case due to extensive clot burden involving entirety of LLE as well as recent LGIB. -Admit to medical -Consider CT venogram to assess extension of clot -Heparin gtt -Monitor closely for evidence of bleeding or development of PE -If patient fails to improve would consider transfer to facility capable of catheter directed thrombolysis or IVC filter placement (2) Diabetes: Plan: Patient is on NPH 70-30 at home 30u qAM nd 15u qPM. Last HgbA1C on 06/05/22 = 8 -Lantus 10u BID -ISS - goal blood sugar 110-140 -CC diet as tolerated (3) Hypertension: Plan: Chronic. Blood pressure elevated at present 152/73 -Continue Lisinopril 20mg po daily -Monitor (4) Hyperlipemia: Plan: Chronic. Stable -Continue Simvastatin 40mg po qHS F/E/N - Heplock. Electrolyltes WNL. CC diet as tolerated Ppx - Heparin gtt for acute DVT. Protonix po daily Code -DNR/DNI per discussion with patient Dispo - Admit to medical History of Present Illness Chief Complaint: LLE DVT Primary Care Provider: DO Meño Mistrydonita Canales is a pleasant 87yo female with history fo HTN, HLP, DM, and Dementia presenting with LLE DVT. Patient was recently admitted to [facility] from 07/17/22 - 07/28/22 with a lower GI bleed and near syncope thought to be secondary to diverticulosis. Her bleeding resolved spontaneously. She had a colonoscopy performed on 07/18/[address] Darby which revealed diverticulosis. Patient was discharged to [facility] in stable condition on 07/28/22. Patient has been complaining of intermittent LLE pain for the last month. Four days ago she was found to have extensive swelling and pain in the LLE. She had a LLE venous doppler performed at [facility] today 08/06/22 which revealed extensive LLE acute DVT with all visualized left-sided deep vein structures failing to compress or augment normally. Right common femoral vein is of normal appearance and interrogation. Patient denies chest pain, cough, SOB or hemoptysis. No prior episodes of VTE. No recent surgery. She was recently hospitalized as above and did not receive VTE chemoprophylaxis due to acute LGIB. In the ER she is afebrile, HD stable, NAD. No additional complaints. Patient specifically denies fever, chills, cough, SOB, chest pain, abdominal pain, nausea, vomiting, diarrhea or constipation. She does not think she's had any further episodes of GI bleeding. ER Course: Heparin gtt - no bolus Allergies Allergy/AdvReac Type Severity Reaction Status Date / Time amoxicillin [From Augmentin] Allergy Intermediate Rash on Verified 07/01/22 13:34 Hands and Feet clavulanic acid Allergy Intermediate Rash on Verified 07/01/22 13:34 [From Augmentin] Hands and Feet Home Medications Medication Instructions Recorded Confirmed Type calcium carbonate 500 mg-vitamin 1 tab PO BID 08/06/22 08/06/22 History D3 5 mcg (200 unit) tablet (Os-Wil 500 + D3) diclofenac sodium 1 % topical gel 2 g topical QID PRN Pain 08/06/22 08/06/22 History docusate sodium 100 mg tablet 100 mg PO DAILY PRN Constipation 08/06/22 08/06/22 History insulin NPH-regular 70-30 U-100 15 unit subcut QPM 08/06/22 08/06/22 History insulin 100 unit/mL subcutaneous pen (Novolin 70-30 FlexPen U-100 Insulin) insulin NPH-regular 70-30 U-100 30 unit subcut QAM 08/06/22 08/06/22 History insulin 100 unit/mL subcutaneous pen (Novolin 70-30 FlexPen U-100 Insulin) latanoprost 0.005 % eye drops 1 drp OPB HS 08/06/22 08/06/22 History lisinopril 20 mg tablet 20 mg PO QAM 08/06/22 08/06/22 History pantoprazole 40 mg tablet,delayed 40 mg PO QAM 08/06/22 08/06/22 History release quetiapine 25 mg tablet 25 mg PO HS 08/06/22 08/06/22 History simvastatin 40 mg tablet 40 mg PO HS 08/06/22 08/06/22 History timolol maleate 0.5 % eye drops 1 drp OPB HS 08/06/22 08/06/22 History triamcinolone acetonide 0.025 % 1 applic topical BID 08/06/22 08/06/22 History topical cream Past Med/Surg History Medical History (Updated 08/06/22 @ 22:50 by Mayuri Dodge DO) Breast cancer Chondrocalcinosis of knee Diabetes GI bleed likely secondary to diverticulosis Glaucoma Hyperlipemia Hypertension Osteoarthritis of left hip Spondylolisthesis of lumbar region Surgical History History of mastectomy S/P hysterectomy Family History Other No pertinent family history Denies family history of Ovarian cancer Prostate cancer Heart disease Breast cancer Colorectal cancer Social History Smoking Status: Never smoker Second Hand Exposure: No; Do You Dip or Chew Tobacco: No; Hx Alcohol Use: No Hx Substance Use: No Preferred Language: Algerian Communication Ability: Impaired Visual Impairment: No Limitations Hearing Ability: Normal Mine Promotor Required: No Beliefs That Will Affect Care: None marital status: / Current Living Situation: Alone current occupational status: retired Feels Safe at Home: Yes Childhood Exposure to Second-Hand Smoke: No Diet: regular Dental Care, Regularly: Yes Physical Activity Frequency: Does not Exercise Seatbelt Use: sometimes Sunscreen Use: No Assistive Devices: Cane Review of Systems Review of Systems: All systems reviewed & are unremarkable except as noted in HPI & below Physical Exam Physical Exam: General: patient resting comfortably, NAD, non-toxic in appearance, answers questions appropriately and follows commands Skin: warm, dry, intact, no rashes or lesions HEENT: NC/AT, PERRL, EOMI, anicteric sclera, conjunctiva without injection, external ear normal to inspection and nontender, nares patent, moist mucus membranes, dentition intact, no oropharyngeal lesions, neck supple, trachea midline, no LAD, no thyromegaly, no JVD Heart: +S1/S2, regular, no m/r/g Lungs: equal air entry bilaterally, no rales/rhonchi/wheezes Abd: +BS, soft, NT/ND, no masses/organomegaly/ascites Ext: warm, 2+ pulses in UE/LE bilaterally, no clubbing/cyanosis, +edema, redness, tenderness and warmth of LLE to thigh. No cellulitis or rash Neuro: nonfocal, speech intact, no facial droop, moving all extremities on command with equal strength 5/5 Results & Data Results & Data Vital Signs (Past 12 Hours) Vital Signs Temp Pulse Pulse Resp BP BP Pulse Ox 08/06/22 18:41 93 H 18 167/85 H 98 08/06/22 17:19 36.0 C L 104 H 20 131/64 96 O2 Del Method 08/06/22 18:41 Room Air 08/06/22 17:19 Room Air Laboratory Results Laboratory Results WBC 8.52 K/ul (4.8-10.8) 08/06/22 17:34 RBC 3.00 M/uL (4.20-5.40) L 08/06/22 17:34 Hgb 9.1 g/dl (12.0-16.0) L 08/06/22 17:34 Hct 28.2 % (37.0-47.0) L 08/06/22 17:34 MCV 94.0 fL (80.0-100.0) 08/06/22 17:34 MCH 30.3 pg (25.0-34.0) 08/06/22 17:34 MCHC 32.3 g/dL (32.0-36.0) 08/06/22 17:34 RDW Std Deviation 45.3 fL (36.4-46.3) 08/06/22 17:34 RDW Coeff of Nikki 13.3 % (11.5-14.5) 08/06/22 17:34 Plt Count 276 K/uL (130-400) 08/06/22 17:34 MPV 10.6 fL (9.4-12.4) 08/06/22 17:34 Immature Gran % (Auto) 0.4 % 08/06/22 17: Neut % (Auto) 74.7 % 08/06/22 17: Lymph % (Auto) 16.5 % 08/06/22 17:34 Young % (Auto) 5.3 % 08/06/22 17:34 Eos % (Auto) 2.6 % 08/06/22 17:34 Baso % (Auto) 0.5 % 08/06/22 17:34 Neut # (Auto) 6.37 K/uL (1.40-6.50) 08/06/22 17:34 Lymph # (Auto) 1.41 K/uL (1.2-3.4) 08/06/22 17:34 Young # (Auto) 0.45 K/uL (0.11-0.59) 08/06/22 17:34 Eos # (Auto) 0.22 K/uL (0-0.50) 08/06/22 17:34 Baso # (Auto) 0.04 K/uL (0-0.2) 08/06/22 17:34 Immature Gran # (Auto) 0.03 K/uL (0.01-0.20) 08/06/22 17:34 PT 11.4 Seconds (9.0-12.0) 08/06/22 21:33 INR 1.0 (0.9-1.1) 08/06/22 21:33 APTT 27.1 Seconds (21.0-31.0) 08/06/22 21:33 PTT Ratio 1.0 08/06/22 21:33 Sodium 140 mmol/L (136-145) 08/06/22 17:34 Potassium 4.6 mmol/L (3.5-5.1) 08/06/22 17:34 Chloride 105 mmol/L (98-107) 08/06/22 17:34 Carbon Dioxide 26 mmol/L (21-32) 08/06/22 17:34 Anion Gap 9 (3-11) 08/06/22 17:34 BUN 23 mg/dl (6-23) 08/06/22 17:34 Creatinine 1.09 mg/dl (0.6-1.2) 08/06/22 17:34 Est Cr Clr Drug Dosing Not Reportable 08/06/22 17:34 Est GFR ( Amer) 53.2 ml/min 08/06/22 17:34 Est GFR (Non-Af Amer) 45.9 ml/min 08/06/22 17:34 BUN/Creatinine Ratio 21.1 (10-20) H 08/06/22 17:34 Glucose 206 mg/dl (70-99(Fasting)) H 08/06/22 17:34 Calcium 8.8 mg/dl (8.6-10.3) 08/06/22 17:34 Total Bilirubin 0.4 mg/dl (0.2-1.0) 08/06/22 17:34 AST 20 U/L (13-39) 08/06/22 17:34 ALT 11 U/L (7-52) 08/06/22 17:34 Alkaline Phosphatase 89 U/L (34-104) 08/06/22 17:34 Total Protein 7.0 gm/dl (6.0-8.3) 08/06/22 17:34 Albumin 3.4 gm/dl (3.4-5.0) 08/06/22 17:34 Globulin 3.6 gm/dl (2.5-4.0) 08/06/22 17:34 Albumin/Globulin Ratio 0.9 (0.9-2) 08/06/22 17:34 SARS-CoV-2, RNA, NAAT NEGATIVE (NEGATIVE) 08/06/22 20:13 PG Care Time/CCT Total # of Minutes Spent Total Time Spent with Patient: Total time spent is greater than 50% in coordination of care (as documented) at patient's floor/unit and/or counseling patient: Coding Level of Care Code 34952 INT INP/OBS CARE 2/55MIN Diagnoses Left leg DVT I82.402 Diabetes E11.9; Z79.4 Diabetes mellitus complication status: without complication Diabetes mellitus mcfp insulin use: with mcfp use Diabetes mellitus type: type 2 Hypertension I10 Hypertension type: essential hypertension Hyperlipemia E78.5 (2) Diabetes Diabetes mellitus complication status: without complication Diabetes mellitus mcfp insulin use: with intermodal 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
[2022-08-06] MEDS ORDERED: HEPARIN SODIUM/DEXTROSE 25,000 UNITS/500 ML BAG IV SCH (20:00)
[2022-08-06 22:34] LABS: Partial Thromboplastin Time 27.1 Seconds (21.0-31.0); Prothrombin Time 11.4 Seconds (9.0-12.0)
[2022-08-06] MEDS ORDERED: GLUCOSE 40% GEL 15 GM TUBE PO PRN (23:02)
[2022-08-06] MEDS ORDERED: ONDANSETRON INJ 2 MG/ML 2 ML VIAL IV PRN (23:02)
[2022-08-06] MEDS ORDERED: GLUCOSE 10 TAB/TUBE PO PRN (23:02)
[2022-08-06] MEDS ORDERED: CARBOHYDRATES FOR HYPOGLYCEMIA PO PRN (23:02)
[2022-08-06] MEDS ORDERED: DEXTROSE 50% 50 ML SYRINGE IV PRN (23:02)
[2022-08-06] MEDS ORDERED: ACETAMINOPHEN 325 MG TAB PO PRN (23:02)
[2022-08-06] MEDS ORDERED: GLUCAGON FOR INJ 1 MG VIAL SQ PRN (23:02)
[2022-08-06] MEDS ORDERED: LANTUS PER UNIT CHARGE SQ STA (23:20)
[2022-08-06] MEDS: INSULIN ASPART PER UNIT CHARGE SC SCH (23:29)
[2022-08-07 03:31] LABS: Hematocrit (blood only) 24.2 % (37.0-47.0); Hemoglobin 7.9 g/dl (12.0-16.0); Mean Corpuscular Hemoglobin 30.5 pg (25.0-34.0); Mean Corpuscular Hgb Conc 32.6 g/dL (32.0-36.0); Mean Corpuscular Volume 93.4 fL (80.0-100.0); Mean Platelet Volume 9.6 fL (9.4-12.4); Platelet Count 220 K/uL (130-400); RDW Coefficient of Variation 13.5 % (11.5-14.5); RDW Standard Deviation 45.9 fL (36.4-46.3); Red Blood Count 2.59 M/uL (4.20-5.40); White Blood Count 6.72 K/ul (4.8-10.8)
[2022-08-07 03:45] LABS: BUN Creatinine Ratio 21.7 (10-20); Calcium 8.1 mg/dl (8.6-10.3); Creatinine Clr Calc Pharmacy 38.9 ml/min; Est GFR (African American) 55.1 ml/min; Est GFR (Non-African American) 47.5 ml/min; Potassium 3.8 mmol/L (3.5-5.1)
[2022-08-07 04:13] LABS: Partial Thromboplastin Ratio 1.8
[2022-08-07 04:15] LABS: Partial Thromboplastin Time 51.3 Seconds (21.0-31.0)
[2022-08-07] MEDS: lisinopril 20 MG TAB PO SCH (08:56)
[2022-08-07] MEDS: PANTOprazole 40 MG TAB PO SCH (08:56)
[2022-08-07] MEDS: TRIAMCINOLONE ACET 0.025% CR 15 GM TUBE TOP SCH ×2 (08:57→21:11)
[2022-08-07] MEDS ORDERED: LANTUS PER UNIT CHARGE SQ SCH (09:00)
[2022-08-07] MEDS: INSULIN ASPART PER UNIT CHARGE SC SCH ×4 (09:04→21:08)
[2022-08-07] MEDS ORDERED: ENOXAPARIN 1 MG/KG SQ SCH (10:15)
--- NOTE | 2022-08-07 10:21 | Hospitalist Progress Note ---
Date of Service August 07, 2022 Assessment & Plan (1) Left leg DVT: Plan: Acute/unstable - Complicated case due to extensive clot burden involving entirety of LLE as well as recent LGIB. - Could consider CT venogram to assess extension of clot - Heparin gtt initiated by admitting team - will switch to Lovenox for now with plans to transition to DOAC vs Coumadin - Will d/w Dr. Villanueva to gauge input on most appropriate anticoagulant to start - Monitor closely for evidence of bleeding or development of PE - If patient fails to improve would consider transfer to facility capable of catheter directed thrombolysis or IVC filter placement - CBC reviewed this AM, hgb 7.9, hct 24.2 - Continue to monitor for s/sx of bleeding, repeat CBC in AM (2) Diabetes: Plan: Chronic/stable Patient is on NPH 70-30 at home 30u qAM nd 15u qPM. Last HgbA1C on 06/05/22 = 8 - Lantus 10u BID - ISS - goal blood sugar 110-140 - CC diet as tolerated (3) Hypertension: Plan: Chronic/stable - Continue Lisinopril 20mg po daily - BP well controlled (4) Hyperlipemia: Plan: Chronic. Stable - Continue Simvastatin 40mg po qHS Plan Patient is medically stable, dc heparin gtt and transition to Lovenox for today with intent to start either Coumadin therapy vs. DOAC. Anticipate can return to SNF tomorrow. PT/OT eval. Labs in AM. Updated patient's son, Vivek, and daugther, Arely, via phone today. Plan d/w Dr. Hobbs. Admission and Anticipated Discharge Date Admission Date: August 06, 2022 Supervising Physician Co-Signing Physician Notes The patient was not seen by me. The chart was reviewed. Case discussed with KAPIL Blanchard. Agree with assessment and plan Subjective Patient seen on daily rounds this morning. She is resting comfortably in bed. Pleasantly confused. No complaints. Physical Exam Physical Exam: GENERAL: 87 yo well-developed, well-nourished F. NAD. LUNGS: Clear to auscultation bilaterally w/o W/R/R. CARDIOVASCULAR: Regular rate and rhythm ABDOMEN: Soft, non-tender and non-distended. BS normoactive x 4 quad. EXTREMITIES: No edema. Non-tender. Peripheral pulses +2/4. Results & Data Results & Data Vital Signs (Past 12 Hours) Vital Signs Temp Pulse Resp BP Pulse Ox O2 Del Method 08/07/22 07:13 36.5 C 88 16 138/63 95 Room Air 08/06/22 22:55 36.7 C 101 H 165/76 H 98 Room Air Laboratory Results 08/07/22 03:08 08/07/22 03:08 PG Care Time/CCT Total # of Minutes Spent Total Time Spent with Patient: Total time spent is greater than 50% in coordination of care (as documented) at patient's floor/unit and/or counseling patient: Coding Level of Care Code 46431 SUB INP/OBS CARE 2/35MIN Diagnoses Left leg DVT I82.402 Diabetes E11.9; Z79.4 Diabetes mellitus complication status: without complication 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
[2022-08-07] MEDS ORDERED: ENOXAPARIN 80 MG/0.8 ML SYR SQ SCH (10:30)
[2022-08-07] MEDS ORDERED: STOP ORDER [HEPARIN DRIP] ONE (12:00)
[2022-08-07] MEDS: ENOXAPARIN 80 MG/0.8 ML SYR SQ SCH ×2 (12:26→21:10)
[2022-08-07 16:06] LABS: Appearance Urine Turbid (Clear); Bacteria Urine Automated 4+ (Negative); Bilirubin Urine Negative (Negative); Blood Urine Trace (Negative); Cast Urine Automated 0 /lpf (0-5); Color Urine Yellow; Epithelial Cell Urine Auto >30 /lpf (0-5); Glucose Urine UA 2+ (Negative); Ketones Urine Negative (Negative); Leukocyte Esterase Urine 3+ (Negative); Nitrite Urine Positive (Negative); Protein Urine Trace (Negative); RBC Urine Automated 0-4 /hpf (0-4); Specific Gravity Urine 1.018 (1.000-1.030); Urobilinogen Urine Negative (Negative); WBC Urine Automated >30 /hpf (0-5); pH Urine 5.5 (4.5-7.5)
[2022-08-07] MEDS ORDERED: LATANOPROST 0.005% OP SOLN 2.5 ML BTL OPB SCH (21:00)
[2022-08-07] MEDS ORDERED: SIMVASTATIN 40 MG TAB PO SCH (21:00)
[2022-08-07] MEDS ORDERED: QUEtiapine FUMARATE 25 MG TABLET PO SCH (21:00)
[2022-08-07] MEDS: LANTUS PER UNIT CHARGE SQ SCH (21:08)
[2022-08-08 06:49] LABS: Basophils # (auto) 0.05 K/uL (0-0.2); Basophils % (auto) 0.8 %; Eosinophils # (auto) 0.22 K/uL (0-0.50); Eosinophils % (auto) 3.6 %; Hematocrit (blood only) 24.6 % (37.0-47.0); Immature Granulocytes # (auto) 0.02 K/uL (0.01-0.20); Immature Granulocytes % (auto) 0.3 %; Lymphocytes # (auto) 1.58 K/uL (1.2-3.4); Lymphocytes % (auto) 25.7 %; Mean Corpuscular Hemoglobin 30.3 pg (25.0-34.0); Mean Corpuscular Hgb Conc 32.5 g/dL (32.0-36.0); Mean Corpuscular Volume 93.2 fL (80.0-100.0); Mean Platelet Volume 9.6 fL (9.4-12.4); Monocytes # (auto) 0.46 K/uL (0.11-0.59); Monocytes % (auto) 7.5 %; Neutrophils # (auto) 3.81 K/uL (1.40-6.50); Neutrophils % (auto) 62.1 %; Platelet Count 245 K/uL (130-400); RDW Coefficient of Variation 13.3 % (11.5-14.5); RDW Standard Deviation 44.9 fL (36.4-46.3); Red Blood Count 2.64 M/uL (4.20-5.40); White Blood Count 6.14 K/ul (4.8-10.8)
[2022-08-08 07:09] LABS: BUN Creatinine Ratio 18.2 (10-20); Calcium 8.1 mg/dl (8.6-10.3); Creatinine Clr Calc Pharmacy 41.7 ml/min; Est GFR (African American) 59.8 ml/min; Est GFR (Non-African American) 51.6 ml/min; Potassium 3.8 mmol/L (3.5-5.1)
[2022-08-08 07:20] LABS: Prothrombin Time 11.1 Seconds (9.0-12.0)
[2022-08-08] MEDS: INSULIN ASPART PER UNIT CHARGE SC SCH ×2 (09:02→12:44)
[2022-08-08] MEDS: LANTUS PER UNIT CHARGE SQ SCH (09:02)
[2022-08-08] MEDS: PANTOprazole 40 MG TAB PO SCH (09:03)
[2022-08-08] MEDS: lisinopril 20 MG TAB PO SCH (09:03)
[2022-08-08] MEDS: ENOXAPARIN 80 MG/0.8 ML SYR SQ SCH (09:04)
[2022-08-08] MEDS: TRIAMCINOLONE ACET 0.025% CR 15 GM TUBE TOP SCH (09:04)
--- NOTE | 2022-08-08 11:41 | Discharge Summary ---
Date of Service August 08, 2022 Admission HPI Per Admitting Provider Daly Canales is a pleasant 87yo female with history fo HTN, HLP, DM, and Dementia presenting with LLE DVT. Patient was recently admitted to [facility] from 07/17/22 - 07/28/22 with a lower GI bleed and near syncope thought to be secondary to diverticulosis. Her bleeding resolved spontaneously. She had a colonoscopy performed on 07/18/[address] Darby which revealed diverticulosis. Patient was discharged to [facility] in stable condition on 07/28/22. Patient has been complaining of intermittent LLE pain for the last month. Four days ago she was found to have extensive swelling and pain in the LLE. She had a LLE venous doppler performed at [facility] today 08/06/22 which revealed extensive LLE acute DVT with all visualized left-sided deep vein structures failing to compress or augment normally. Right common femoral vein is of normal appearance and interrogation. Patient denies chest pain, cough, SOB or hemoptysis. No prior episodes of VTE. No recent surgery. She was recently hospitalized as above and did not receive VTE chemoprophylaxis due to acute LGIB. In the ER she is afebrile, HD stable, NAD. No additional complaints. Patient specifically denies fever, chills, cough, SOB, chest pain, abdominal pain, nausea, vomiting, diarrhea or constipation. She does not think she's had any further episodes of GI bleeding. ER Course: Heparin gtt - no bolus Principal Diagnosis LLE DVT Discharge Exam GENERAL: 87 yo well-developed, well-nourished F. NAD. LUNGS: Clear to auscultation bilaterally w/o W/R/R. CARDIOVASCULAR: Regular rate and rhythm ABDOMEN: Soft, non-tender and non-distended. BS normoactive x 4 quad. EXTREMITIES: No edema. Non-tender. Peripheral pulses +2/4. Discharge Data Allergies Allergy/AdvReac Type Severity Reaction Status Date / Time amoxicillin [From Augmentin] Allergy Intermediate Rash on Verified 07/01/22 13:34 Hands and Feet clavulanic acid Allergy Intermediate Rash on Verified 07/01/22 13:34 [From Augmentin] Hands and Feet Consultations 08/06/22 19:09 ED Decision to Admit Stat Hospital Course (1) Left leg DVT: Acute/unstable - Complicated case due to extensive clot burden involving entirety of LLE as well as recent LGIB. - Could consider CT venogram to assess extension of clot - Heparin gtt initiated by admitting team - will switch to Lovenox for now with plans to transition to DOAC vs Coumadin - After discussion with Dr. Villanueva, plan was for treatment dose Lovenox 1mg/kg BID x 1 week with transition to Eliquis 5mg BID - Given her history of GI bleeding/recent diverticular bleed, using Lovenox would pose lower risk of bleeding as opposed to using Eliquis 10mg BID x 1 week and then transitioning to 5mg BID - Unfortunately, personal care facility will refused to take her back on Lovenox, therefore, no other option but to put her on Eliquis 10mg BID x 5 more days for total of 7 days and then reduce dose to 5mg BID - Total duration should be minimum of 3 months but will be left to the discretion of her PCP - Monitor closely for evidence of bleeding or development of PE - If patient fails to improve would consider transfer to facility capable of catheter directed thrombolysis or IVC filter placement - CBC reviewed this AM, stable H&H - hgb 8.0 and hct 24.6, no s/sx of bleeding since admission - She will need to be continuously monitored for s/sx of bleeding given her recent history (2) Diabetes: Chronic/stable Patient is on NPH 70-30 at home 30u qAM nd 15u qPM. Last HgbA1C on 06/05/22 = 8 - Lantus 10u BID - ISS - goal blood sugar 110-140 - CC diet as tolerated (3) Hypertension: Chronic/stable - Continue Lisinopril 20mg po daily - BP well controlled (4) Hyperlipemia: Chronic. 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 Plan for d/c back to personal care facility on Eliquis. Will need to f/u with PCP upon discharge. Above plan of care has been d/w Dr. Hobbs who is in agreement with aforementioned. Total Time Total Time Spent Total Time Spent (In Minutes): 40 minutes Discharge Plan Discharge Items Patient Disposition: Personal Group Home Reason For Visit: LLE DVT Discharge Diagnosis: blood clot in left leg Condition on Discharge: Good Activity: Resume your previous activity Non-emergency contact: Primary Care Provider Call non-emergency contact if: you have any medication questions Follow-up/Referrals: Reji Carver, [Primary Care Provider] - Diet: Carb Consistent or DM2 Addtl Attending Provider Instructions: You were hospitalized due to swelling in your left leg which was found to be due to a blood clot in your left leg. You were started on a blood thinner in your IV to treat the blood clot. You have been transitioned to a pill called Eliquis of which you will need to continue taking as directed to treat the blood clot. You will be taking Eliquis 10mg twice a day for the next 5 days and then reduce the dose to 5mg twice a day. You will be at a higher risk of bleeding with taking this new medication. Please notify medical provider urgently if any signs or symptoms of bleeding occur. You will need to continue blood thinners for a minimum of 3 months but your [facility] care provider will determine when you can stop taking it. Please follow up with your primary care provider within 1 week or sooner if needed. If you have any questions following your discharge, call the nonemergency number listed on your discharge paperwork. In the event of a medical emergency, call 911. Pending Studies at Discharge: No Stand-Alone Forms: My [employer], Smoking Cessation Skilled Items Patient informed of condition?: Yes DNR: Yes Discharge Level of Care: Other Communicable Disease: No Discharge Prognosis: Stable Lines: None Urinary Catheter: No Medications and DC Order Prescriptions: New Eliquis 5 mg tablet 5 mg PO BID Qty: 72 0RF Rx Instructions: take 2 tablets po BID x 5 more days (first dose on 08/08/22) Continued quetiapine 25 mg tablet 25 mg PO HS latanoprost 0.005 % drops 1 drp OPB HS lisinopril 20 mg tablet 20 mg PO QAM simvastatin 40 mg tablet 40 mg PO HS triamcinolone acetonide 0.025 % cream 1 applic TOPICAL BID pantoprazole 40 mg tablet,delayed release (DR/EC) 40 mg PO QAM timolol maleate 0.5 % drops 1 drp OPB HS docusate sodium 100 mg Tablet 100 mg PO DAILY PRN (Reason: Constipation) Novolin 70-30 FlexPen U-100 100 unit/mL (70-30) insulin pen 15 unit SUBCUT QPM Novolin 70-30 FlexPen U-100 100 unit/mL (70-30) insulin pen 30 unit SUBCUT QAM calcium carbonate-vitamin D3 [Os-Wil 500 + D3] 500 mg-5 mcg (200 unit) Tablet 1 tab PO BID diclofenac sodium 1 % gel 2 g TOPICAL QID PRN (Reason: Pain) Discharge Orders: Discharge Order (Routine); Ordered 08/08/22 Ordered By: Lorena Gonzales/Other Patient Handouts: DVT Dc Admission Data Admit Date/Time: 08/06/22 19:44 Attending Provider: Sin Hobbs Admit Provider: Mayuri Dodge Primary Care Provider: Reji Carver Other Providers: Mayuri Dodge Other Interventions: Discharge Summary Assessment (RN) Last Done: 08/08/22 11:43 Supervising Physician Co-Signing Physician Notes The patient was not seen by me. The chart was reviewed. Case discussed with KAPIL Ortiz. Agree with assessment and plan. She will be discharged today, August 08 Coding Level of Care Code 59904 INP/OBS DISCH >30 MIN Diagnoses Left leg DVT I82.402 Diabetes E11.9; Z79.4 Diabetes mellitus complication status: without complication Diabetes mellitus nursing home insulin use: with remote computer terminal operator use Diabetes mellitus type: type 2 Hypertension I10 Hypertension type: essential hypertension Hyperlipemia E78.5 Abnormal urinalysis R82.90
[2022-08-08] MEDS ORDERED: WARFARIN SOD 5 MG TAB PO SCH (16:00)
== END 2022-08-08 13:11 | disposition home or self-care (01) ==
LOC: ED 17:15 → SUATTDRO 19:44 → INTOOBSV 19:44 → 3W 19:44

== ENCOUNTER 2023-08-08 16:34 | Observation (INO) ==
--- NOTE | 2023-08-08 17:07 | Emergency Department Note ---
Impression & Plan Unwitnessed fall, CVA (cerebral vascular accident), Contusion of knee, left ED Provider Note Provider: Vasiliy Berrios MD DATE OF SERVICE: 08/08/2023 CHIEF COMPLAINT: Fall, ongoing confusion HISTORY OF PRESENT ILLNESS: Patient is a 88-year-old female history of dementia, type 2 diabetes, osteoarthritis, GI bleed, left lower extremity DVT and recent UTI evaluated here this past week on cefdinir presenting after an unwitnessed fall at [facility] where she resides. Patient herself states that she was helping somebody use the bathroom and then fell. Not sure that this is entirely accurate and the patient is the best historian. Does relay a bit of soreness of right upper arm and states she has broken this in the past. Denies injury to the left arm or the legs although she states they are chronically swollen. Denies significant chest pain to me or shortness of breath. Denies any abdominal pain or nausea or vomiting. Denies neck or head pain to me. Patient does not remember on antibiotics for UTI recently and also states that she should have just stayed home. Not in any significant distress and not agitated. Did reach out discussed with [facility] in the states that she possibly hit her head on the back of a dresser but her insurer and she does often help another friend there so this could be possible. They did get in contact with the patient's son who is at camp and planning to come back to see his mother. PAST MEDICAL HISTORY: As noted above MEDICATIONS: Reviewed home medications includes Eliquis SOCIAL HISTORY: PHYSICAL EXAM: GENERAL: alert and oriented to her birthday but not recent events in no acute distress on stretcher Head: normocephalic and atraumatic EYES: No injection, discharge or icterus. PERRL, EOMI. NECK: Trachea midline. Supple. ENT: Mucous membranes pink and moist. Pharynx without erythema or exudate. LUNGS: Airway patent. No retractions. Breath sounds clear with good air entry bilaterally. HEART: Regular rate and rhythm. No chest wall tenderness ABDOMEN: Soft and non-tender, without guarding or rebound. BACK: No midline tenderness, no SI joint tenderness. No bilateral flank tenderness. SKIN: Acyanotic, warm, dry, without rashes EXTREMITIES: Tenderness or swelling of the left upper extremity. The right upper extremities is acutely swollen or tender with a little bit of soreness to the right shoulder with ROM. Patient has 2-3+ edema of the lower extremities left greater than right with some contusion to the left knee and slight abrasion here. NEUROLOGICAL: No aphasia. No facial droop or slurred speech. Again not the best historian to current events. Intact sensation in extremities and moves extremities to command. EK bpm normal sinus rhythm. Right axis. No acute ST segment elevation or depression with a QTc of 446. CONTINUOUS CARDIAC MONITORING: was ordered and showed a heart rate of 70s to 90s bpm in normal sinus GCS 15. Patient's laboratory studies and imaging reviewed. Differential includes Fracture, dislocation, contusion, intra-abdominal, pneumothorax, intrathoracic, intracranial, neurologic, compartment syndrome, rhabdomyolysis, as well as other pathologies. IMPRESSION/MEDICAL DECISION MAKING: Patient suffered a fall to the ground unwitnessed at facility. Unclear if she may have hit her head or not and again she is an unreliable historian. Does not seem to be in any significant distress at this time. Is chronic swelling of the lower extremities based on prior notes and recently treated for UTI. Is on Eliquis. As such with her dementia and the use of anticoagulants with her threshold for CT scanning. Will obtain x-ray of the right shoulder she is tender here but able to move the lower legs without significant tenderness and doubt occult fracture or dislocation here. Will repeat basic blood work and try to obtain a repeat urine sample to ensure clearance. Shoulder x-ray without new acute fracture healing previous fracture per radiology. CT of the head, cervical spine, and chest abdomen pelvis without significant acute traumatic injury noted. There is note of some lymph nodes in the right chest as well as a 9 mm hypodense focus in the bonilla favoring a subacute infarct. Blood work without significant anemia or leukocytosis. No significant electrolyte abnormalities signs of new significant renal dysfunction. No evidence of significant transaminitis, elevated CK, or troponin elevation. Does not seem consistent with ACS or rhabdomyolysis. Negative COVID testing and normal TSH. Patient does have a history of DVT on Eliquis do have some concerns of again as per reports he has not been acting quite herself and with the findings of subacute infarct on the imaging if this may be at play. Urinalysis is ordered pending collection to ensure clearance of previous UTI and she is on cefdinir. Prior culture was for alpha strep so it is unclear if this was truly pathogenic. Discussion with facility states she has had some waxing waning issues and has been having much more frequent falls recently. Urinalysis not indicative of infection. Given that she denies any history of stroke and there is no documented history of stroke and she now has a subacute stroke finding do feel that further evaluation would be reasonable especially in light of her multiple falls. Discussed with the patient. Attempted call the patient's son at the listed number but no answer. Discussed with the hospitalist team for further care here given the concern for subacute CVA. DIAGNOSIS: Fall, subacute CVA, right knee contusion DISPOSITION: Hospitalist will evaluate Patient was agreeable with this plan. Past Med/Surg History Problem List (Updated 08/08/23 @ 21:09 by Vasiliy Berrios M.D.) Contusion of knee, left (Acute) UTI (urinary tract infection) CVA (cerebral vascular accident) (Acute) Unwitnessed fall (Acute) Falls frequently (Acute) Acute UTI (urinary tract infection) (Acute) AMS (altered mental status) (Acute) Fracture, humerus Abnormal urinalysis Left leg swelling (Acute) DVT (deep venous thrombosis) (Acute) History of GI bleed (Acute) Anemia (Acute) Left leg DVT Near syncope Hypokalemia Acute blood loss anemia Encounter for pre-operative examination GI bleed (Acute) Diverticulosis (Acute) GI bleed likely secondary to diverticulosis Diabetes Hypertension Hyperlipemia Glaucoma Chondrocalcinosis of knee Spondylolisthesis of lumbar region DDD (degenerative disc disease), lumbar Osteoarthritis of left hip Lumbar spinal stenosis Severe at L4-L5 Dementia Depression Chronic low back pain Hypoglycemia due to insulin (Acute) Elevated troponin (Acute) Elevated CK Hypoglycemia Syncope Diabetes mellitus type 2 in nonobese Medical History Breast cancer Surgical History S/P hysterectomy History of mastectomy Family History Other No pertinent family history Denies family history of Ovarian cancer Prostate cancer Heart disease Breast cancer Colorectal cancer Social History Smoking Status: Never smoker Second Hand Exposure: No; Do You Dip or Chew Tobacco: No; Hx Alcohol Use: No Hx Substance Use: No Preferred Language: Mongolian Communication Ability: Impaired Visual Impairment: No Limitations Hearing Ability: Normal Cuff Cutter Required: No Beliefs That Will Affect Care: None marital status: / Current Living Situation: Assisted current occupational status: retired Feels Safe at Home: Yes Childhood Exposure to Second-Hand Smoke: No Diet: regular Dental Care, Regularly: Yes Physical Activity Frequency: Does not Exercise Seatbelt Use: sometimes Sunscreen Use: No Assistive Devices: Walker Allergies Allergies Allergy/AdvReac Type Severity Reaction Status Date / Time amoxicillin [From Augmentin] Allergy Intermediate Rash on Verified 08/08/23 18:00 Hands and Feet clavulanic acid Allergy Intermediate Rash on Verified 08/08/23 18:00 [From Augmentin] Hands and Feet Home Meds Home Medications Medication Instructions Recorded Confirmed calcium carbonate 500 mg-vitamin 1 tab PO BID 08/06/22 08/08/23 D3 5 mcg (200 unit) tablet (Os-Wil 500 + D3) diclofenac sodium 1 % topical gel 2 g topical QID PRN Pain 08/06/22 08/08/23 docusate sodium 100 mg tablet 100 mg PO DAILY PRN Constipation 08/06/22 08/08/23 latanoprost 0.005 % eye drops 1 drp OPB HS 08/06/22 08/08/23 pantoprazole 40 mg tablet,delayed 40 mg PO QAM 08/06/22 08/08/23 release quetiapine 25 mg tablet 25 mg PO HS 08/06/22 08/08/23 simvastatin 40 mg tablet 40 mg PO HS 08/06/22 08/08/23 timolol maleate 0.5 % eye drops 1 drp OPB HS 08/06/22 08/08/23 triamcinolone acetonide 0.025 % 1 applic topical BID 08/06/22 08/08/23 topical cream insulin NPH-regular 70-30 U-100 20 unit subcut QPM 08/11/22 08/08/23 insulin 100 unit/mL subcutaneous pen (Novolin 70-30 FlexPen U-100 Insulin) insulin NPH-regular 70-30 U-100 35 unit subcut QAM 08/11/22 08/08/23 insulin 100 unit/mL subcutaneous pen (Novolin 70-30 FlexPen U-100 Insulin) acetaminophen 325 mg tablet 650 mg PO Q6H PRN PAIN/FEVER 08/08/23 08/08/23 (Tylenol) ferrous sulfate 325 mg (65 mg 325 mg PO DAILY 08/08/23 08/08/23 iron) tablet furosemide 20 mg tablet (Lasix) 20 mg PO DAILY 08/08/23 08/08/23 lisinopril 40 mg tablet 40 mg PO QAM 08/08/23 08/08/23 Previous Rx's Medication Instructions Recorded apixaban 5 mg tablet (Eliquis) 5 mg PO BID #72 tabs 08/08/22 cefdinir 300 mg capsule 300 mg PO BID 7 days #14 caps 08/03/23 Results & Data (ED) Vital Signs Vital Signs - 24 hr 08/08/23 16:26 08/08/23 16:41 08/08/23 16:54 Temperature 36.9 C Temperature Source Oral Pulse Rate 81 98 H 78 Pulse Rate from SpO2 Sensor Pulse Rhythm Regular Pulse Strength Normal Respiratory Rate 22 20 Respiratory Effort / Characteristics Non-Labored Respiratory Depth Normal Respiratory Pattern Regular Blood Pressure 198/107 H 187/97 H Blood Pressure Mean 137 127 Blood Pressure Position Lying Pulse Oximetry 98 Oxygen Delivery Method Room Air Sepsis Recent Fever Within 48 Hours No Sepsis New/Unexplained Change in Mental Status N/A Sepsis Action Taken by Nursing No Action Required 08/08/23 17:00 08/08/23 17:00 08/08/23 19:33 Temperature Temperature Source Pulse Rate 81 80 87 Pulse Rate from SpO2 Sensor 81 86 Pulse Rhythm Pulse Strength Respiratory Rate 20 18 18 Respiratory Effort / Characteristics Respiratory Depth Respiratory Pattern Blood Pressure 190/92 H 190/92 H 182/86 H Blood Pressure Mean 124 104 118 Blood Pressure Position Pulse Oximetry 95 97 97 Oxygen Delivery Method Room Air Room Air Room Air Sepsis Recent Fever Within 48 Hours Sepsis New/Unexplained Change in Mental Status Sepsis Action Taken by Nursing 08/08/23 20:06 08/08/23 20:33 Temperature Temperature Source Pulse Rate 90 97 H Pulse Rate from SpO2 Sensor 90 Pulse Rhythm Pulse Strength Respiratory Rate 20 20 Respiratory Effort / Characteristics Respiratory Depth Respiratory Pattern Blood Pressure 179/90 H 180/85 H Blood Pressure Mean 119 116 Blood Pressure Position Pulse Oximetry 96 97 Oxygen Delivery Method Room Air Room Air Sepsis Recent Fever Within 48 Hours Sepsis New/Unexplained Change in Mental Status Sepsis Action Taken by Nursing Laboratory Data 08/08/23 16:40 08/08/23 17:54 Lab Results 08/08/23 08/08/23 08/08/23 Range/Units 16:40 16:58 17:54 WBC 4.89 (4.8-10.8) K/ul RBC 4.54 (4.20-5.40) M/uL Hgb 14.2 (12.0-16.0) g/dl Hct 42.7 (37.0-47.0) % MCV 94.1 (80.0-100.0) fL MCH 31.3 (25.0-34.0) pg MCHC 33.3 (32.0-36.0) g/dL RDW Std Deviation 46.0 (36.4-46.3) fL RDW Coeff of Nikki 13.5 (11.5-14.5) % Plt Count 213 (130-400) K/uL MPV 10.1 (9.4-12.4) fL Immature Gran % (Auto) 0.2 % Neut % (Auto) 55.4 % Lymph % (Auto) 30.7 % Warrick % (Auto) 9.8 % Eos % (Auto) 3.3 % Baso % (Auto) 0.6 % Neut # (Auto) 2.71 (1.40-6.50) K/uL Lymph # (Auto) 1.50 (1.20-3.40) K/uL Warrick # (Auto) 0.48 (0.11-0.59) K/uL Eos # (Auto) 0.16 (0.00-0.50) K/uL Baso # (Auto) 0.03 (0.00-0.20) K/uL Immature Gran # (Auto) 0.01 (0.01-0.20) K/uL PT Cancelled 11.1 INR Cancelled 1.0 Sodium 137 (136-145) mmol/L Potassium TNP 3.9 Chloride 103 (98-107) mmol/L Carbon Dioxide 27 (21-32) mmol/L Anion Gap 7 (3-11) BUN 22 (6-23) mg/dl Creatinine 1.25 H (0.6-1.2) mg/dl Est Cr Clr Drug Dosing 33.2 ml/min Est GFR ( Amer) 44.8 ml/min Est GFR (Non-Af Amer) 38.6 ml/min BUN/Creatinine Ratio 17.6 (10-20) Glucose 87 (70-99(Fasting)) mg/dl POC Glucose (70-99) mg/dl Calcium 9.0 (8.6-10.3) mg/dl Magnesium 2.0 (1.7-2.4) mg/dl Total Bilirubin 0.4 (0.2-1.0) mg/dl AST TNP 15 ALT 10 (7-52) U/L Alkaline Phosphatase 101 (34-104) U/L Total Creatine Kinase 106 (26-192) U/L Troponin I High Sens 7.3 (0-14) pg/ml Total Protein 7.8 (6.0-8.3) gm/dl Albumin 4.1 (3.4-5.0) gm/dl Globulin 3.7 (2.5-4.0) gm/dl Albumin/Globulin Ratio 1.1 (0.9-2) TSH 2.465 (0.300-4.500) uIu/ml Urine Color Urine Appearance (Clear) Urine pH (4.5-7.5) Ur Specific Granville (1.000-1.030) Urine Protein (Negative) Urine Glucose (UA) (Negative) Urine Ketones (Negative) Urine Blood (Negative) Urine Nitrite (Negative) Urine Bilirubin (Negative) Urine Urobilinogen (Negative) Ur Leukocyte Esterase (Negative) SARS-CoV-2, RNA, NAAT NEGATIVE (NEGATIVE) 08/08/23 08/08/23 Range/Units 19:48 Unknown WBC (4.8-10.8) K/ul RBC (4.20-5.40) M/uL Hgb (12.0-16.0) g/dl Hct (37.0-47.0) % MCV (80.0-100.0) fL MCH (25.0-34.0) pg MCHC (32.0-36.0) g/dL RDW Std Deviation (36.4-46.3) fL RDW Coeff of Nikki (11.5-14.5) % Plt Count (130-400) K/uL MPV (9.4-12.4) fL Immature Gran % (Auto) % Neut % (Auto) % Lymph % (Auto) % Warrick % (Auto) % Eos % (Auto) % Baso % (Auto) % Neut # (Auto) (1.40-6.50) K/uL Lymph # (Auto) (1.20-3.40) K/uL Warrick # (Auto) (0.11-0.59) K/uL Eos # (Auto) (0.00-0.50) K/uL Baso # (Auto) (0.00-0.20) K/uL Immature Gran # (Auto) (0.01-0.20) K/uL PT INR Sodium (136-145) mmol/L Potassium Chloride (98-107) mmol/L Carbon Dioxide (21-32) mmol/L Anion Gap (3-11) BUN (6-23) mg/dl Creatinine (0.6-1.2) mg/dl Est Cr Clr Drug Dosing ml/min Est GFR ( Amer) ml/min Est GFR (Non-Af Amer) ml/min BUN/Creatinine Ratio (10-20) Glucose (70-99(Fasting)) mg/dl POC Glucose 106 H (70-99) mg/dl Calcium (8.6-10.3) mg/dl Magnesium (1.7-2.4) mg/dl Total Bilirubin (0.2-1.0) mg/dl AST ALT (7-52) U/L Alkaline Phosphatase (34-104) U/L Total Creatine Kinase (26-192) U/L Troponin I High Sens (0-14) pg/ml Total Protein (6.0-8.3) gm/dl Albumin (3.4-5.0) gm/dl Globulin (2.5-4.0) gm/dl Albumin/Globulin Ratio (0.9-2) TSH (0.300-4.500) uIu/ml Urine Color Yellow Urine Appearance Clear (Clear) Urine pH 6.5 (4.5-7.5) Ur Specific [place]ville 1.011 (1.000-1.030) Urine Protein Negative (Negative) Urine Glucose (UA) Negative (Negative) Urine Ketones Negative (Negative) Urine Blood Negative (Negative) Urine Nitrite Negative (Negative) Urine Bilirubin Negative (Negative) Urine Urobilinogen Negative (Negative) Ur Leukocyte Esterase Negative (Negative) SARS-CoV-2, RNA, NAAT (NEGATIVE) Administered Medications Discontinued Medications Aspirin (Aspirin Chew 324 Mg) 324 mg PO NOW STA Stop: 08/08/23 19:53 Last Admin: 08/08/23 20:11 Dose: 324 mg Documented By: ABEL Ioversol (Optiray 320 125ml) 120 ml IV ONCE ONE Stop: 08/08/23 20:54 Last Admin: 08/08/23 20:53 Dose: 120 ml Documented By: KARLEE Imaging Data Radiologist's Impression: Abdomen/Pelvis CT 08/08/23 16:42 CT OF THE ABDOMEN AND PELVIS WITHOUT CONTRAST CLINICAL HISTORY: fall, on eliquis COMPARISON STUDY: CT of the abdomen and pelvis July 16, 2022. TECHNIQUE: Axial images of the abdomen and pelvis were obtained without IV contrast. Images were reviewed in the axial, sagittal, and coronal planes. Automated exposure control was utilized for the study. A dose lowering technique was utilized adhering to the principles of ALARA. FINDINGS: No hemoperitoneum or pneumoperitoneum is present. There is no retroperitoneal hematoma. Evaluation of the solid abdominal viscera is suboptimal on this unenhanced exam but there is no evidence for hepatic injury to the liver, spleen, adrenal glands, kidneys or pancreas. Mild bilateral collecting system dilatation is similar to prior CT. There are no urinary calculi. No free fluid is present. There is no abdominal or pelvic lymphadenopathy. Colonic diverticulosis without evidence for acute diverticulitis. There is a moderate amount stool within the colon and rectum. No acute fractures are identified within the lumbar spine, pelvis or hips. IMPRESSION: 1. No acute traumatic findings within the abdomen or pelvis on unenhanced exam. 2. Colonic diverticulosis. No evidence for acute diverticulitis. Moderate amount of stool within the colon and rectum. 3. No acute fractures. ACT 112: Negative or not required by law. Electronically signed by: Flaco Campa M.D. 08/08/2023 5:[address] 08/08/23 16:42 CT OF THE CERVICAL SPINE WITHOUT CONTRAST CLINICAL HISTORY: fall COMPARISON STUDY: Cervical spine CT August 03, 2023. TECHNIQUE: Helical axial images of the cervical spine were obtained without IV contrast. Sagittal and coronal reconstructions were viewed. Automated exposure control was utilized for the study. A dose lowering technique was utilized adhering to the principles of ALARA. FINDINGS: Alignment of the cervical spine is anatomic. Vertebral body heights are maintained. No acute cervical spine fracture or subluxation is present. There is no prevertebral edema. Facet joints are intact. Moderate multilevel degenerative disc disease and facet arthrosis is present. Degenerative changes at the C1-C2 articulation are again noted. IMPRESSION: No acute cervical spine fracture or subluxation. ACT 112: Negative or not required by law. Electronically signed by: Flaco Campa M.D. 08/08/2023 5:[address] 08/08/23 16:42 CT OF THE CHEST WITHOUT IV CONTRAST CLINICAL HISTORY: fall COMPARISON STUDY: Chest radiograph August 03, 2023. TECHNIQUE: Axial images of the chest were obtained without IV contrast. Images were reviewed in the axial, sagittal, and coronal planes. IV contrast was not administered for this examination. Automated exposure control was utilized for the study. A dose lowering technique was utilized adhering to the principles of ALARA. FINDINGS: Old, healed proximal right humeral fracture is noted. Status post left mastectomy. There are several mildly enlarged low-attenuation lobulated right axillary lymph nodes. Index node on image 60 of 213 measures 1.6 x 1.6 cm. The inferior most lymph node contains calcifications. Evaluation of the thoracic aorta is suboptimal on this unenhanced exam but there is no mediastinal hematoma. There is moderate cardiomegaly and coronary artery calcification. There is no pericardial effusion. No pneumothorax or pleural effusion is present. There are no suspicious pulmonary nodules. Ground glass opacities and linear densities favor atelectasis. There is no pulmonary contusion. No acute rib or thoracic spine fracture is identified. The abdomen and pelvis CT will be reported separately. IMPRESSION: 1. No acute traumatic findings within the chest. 2. Several mildly enlarged low-attenuation lobulated right axillary lymph nodes. This lymphadenopathy is nonspecific and follow-up nonemergent right mammogram and ultrasound are recommended. 3. Status post left mastectomy. ACT 112: Positive. There are findings on this exam that require communication between the performing entity and the patient following Patient Test Result Information Act ([place] Act 112) guidelines. Electronically signed by: Flaco Campa M.D. 08/08/2023 5:39 PM Chest X-Ray 08/08/23 16:42 XR chest 1V portable CLINICAL HISTORY: fall, confusion COMPARISON STUDY: Chest radiograph August 03, 2023. Chest CT performed earlier today. FINDINGS: There is no pneumothorax or pleural effusion. Lung volumes are mildly diminished. Mild interstitial thickening is likely chronic cardiomegaly is unchanged. There has been no change in alignment of the healing proximal right humeral fracture. IMPRESSION: 1. No acute cardiopulmonary findings. 2. No change in alignment of a healing proximal right humeral fracture. ACT 112: Negative or not required by law. Electronically signed by: Flaco Campa M.D. 08/08/2023 6:[address] 08/08/23 16:42 CT OF THE HEAD WITHOUT CONTRAST CLINICAL HISTORY: fall, more confusion, dementia/eliquis COMPARISON STUDY: Head CT August 03, 2023. TECHNIQUE: Helical axial images of the head were obtained without IV contrast. Automated exposure control was utilized for the study. A dose lowering technique was utilized adhering to the principles of ALARA. FINDINGS: No acute intracranial hemorrhage, midline shift or mass effect is present. The ventricular system is stable. White matter hypodensities are unchanged and favor small vessel disease. A 9 mm hypodense focus within the bonilla on image 8 is more conspicuous than on prior exam. The basal cisterns are patent. No extra-axial collections are present. There are no findings to suggest acute dural sinus thrombosis or acute territorial infarct. No significant calvarial abnormalities are present. Visualized portions of the sinuses and mastoid air cells are clear. IMPRESSION: 1. No acute intracranial hemorrhage or mass effect. 2. 9 mm hypodense focus within the bonilla. This favors a subacute infarct. 3. No calvarial fractures. ACT 112: Negative or not required by law. Electronically signed by: Flaco Campa M.D. 08/08/2023 5:27 PM Shoulder X-Ray 08/08/23 16:42 XR shoulder RT min 2V routine CLINICAL HISTORY: fall COMPARISON: Right humerus radiographs April 11, 2023. FINDINGS: There is been no change in alignment of the displaced impacted proximal right humeral fracture since radiographs of April 11, 2023. There is callus formation. No acute fractures within the right shoulder are present. There are moderate degenerative changes within the right shoulder. IMPRESSION: 1. No change in alignment of the partially healed proximal right humeral fracture since radiographs of April 11, 2023. 2. No acute fractures within the right shoulder. No dislocation. ACT 112: Negative or not required by law. Electronically signed by: Flaco Campa M.D. 08/08/2023 5:45 PM Discharge Plan Visit Data Chief Complaint: Fall ED Provider: Vasiliy Berrios Discharge Problem: Unwitnessed fall, CVA (cerebral vascular accident), Contusion of knee, left Patient Disposition: Being Evaluated by Hospitalist Discharge Instructions Interventions: ED Discharge Assessment Last Done: 08/08/23 20:42 Forms Stand Alone Forms: [facility] [place] Prescriptions Prescriptions: No Action Novolin 70-30 FlexPen U-100 100 unit/mL (70-30) insulin pen 20 unit SUBCUT QPM Rx Instructions: AT 1700 Novolin 70-30 FlexPen U-100 100 unit/mL (70-30) insulin pen 35 unit SUBCUT QAM quetiapine 25 mg tablet 25 mg PO HS latanoprost 0.005 % drops 1 drp OPB HS simvastatin 40 mg tablet 40 mg PO HS triamcinolone acetonide 0.025 % cream 1 applic TOPICAL BID pantoprazole 40 mg tablet,delayed release (DR/EC) 40 mg PO QAM timolol maleate 0.5 % drops 1 drp OPB HS docusate sodium 100 mg Tablet 100 mg PO DAILY PRN (Reason: Constipation) calcium carbonate-vitamin D3 [Os-Wil 500 + D3] 500 mg-5 mcg (200 unit) Tablet 1 tab PO BID diclofenac sodium 1 % gel 2 g TOPICAL QID PRN (Reason: Pain) Eliquis 5 mg tablet 5 mg PO BID Qty: 72 0RF cefdinir 300 mg capsule 300 mg PO BID 7 Days Qty: 14 0RF Rx Instructions: STARTED 08/03/23 FOR 7 DAYS acetaminophen [Tylenol] 325 mg Tablet 650 mg PO Q6H PRN (Reason: PAIN/FEVER) ferrous sulfate 325 mg (65 mg iron) Tablet 325 mg PO DAILY furosemide [Lasix] 20 mg Tablet 20 mg PO DAILY lisinopril 40 mg tablet 40 mg PO QAM Referrals Referrals: Reji Carver DO [Primary Care Provider] - Discharge Problem: CVA (cerebral vascular accident) Qualifiers: CVA mechanism: unspecified Qualified Code(s): I63.9 - Cerebral infarction, unspecified
[2023-08-08 17:18] LABS: Basophils # (auto) 0.03 K/uL (0.00-0.20); Basophils % (auto) 0.6 %; Eosinophils # (auto) 0.16 K/uL (0.00-0.50); Eosinophils % (auto) 3.3 %; Hematocrit (blood only) 42.7 % (37.0-47.0); Hemoglobin 14.2 g/dl (12.0-16.0); Immature Granulocytes # (auto) 0.01 K/uL (0.01-0.20); Immature Granulocytes % (auto) 0.2 %; Lymphocytes % (auto) 30.7 %; Mean Corpuscular Hemoglobin 31.3 pg (25.0-34.0); Mean Corpuscular Hgb Conc 33.3 g/dL (32.0-36.0); Mean Corpuscular Volume 94.1 fL (80.0-100.0); Mean Platelet Volume 10.1 fL (9.4-12.4); Monocytes # (auto) 0.48 K/uL (0.11-0.59); Monocytes % (auto) 9.8 %; Neutrophils # (auto) 2.71 K/uL (1.40-6.50); Neutrophils % (auto) 55.4 %; Platelet Count 213 K/uL (130-400); RDW Coefficient of Variation 13.5 % (11.5-14.5); Red Blood Count 4.54 M/uL (4.20-5.40); White Blood Count 4.89 K/ul (4.8-10.8)
--- NOTE | 2023-08-08 17:28 | CT Scan Report ---
CT OF THE HEAD WITHOUT CONTRAST CLINICAL HISTORY: fall, more confusion, dementia/eliquis COMPARISON STUDY: Head CT August 03, 2023. TECHNIQUE: Helical axial images of the head were obtained without IV contrast. Automated exposure con trol was utilized for the study. A dose lowering technique was utilized adhering to the principles o f ALARA. FINDINGS: No acute intracranial hemorrhage, midline shift or mass effect is present. The ventricular system is stable. White matter hypodensities are unchanged and favor small vessel disease. A 9 mm hyp odense focus within the bonilla on image 8 is more conspicuous than on prior exam. The basal cisterns ar e patent. No extra-axial collections are present. There are no findings to suggest acute dural sinus thrombosis or acute territorial infarct. No significant calvarial abnormalities are present. Visualiz ed portions of the sinuses and mastoid air cells are clear. IMPRESSION: 1. No acute intracranial hemorrhage or mass effect. 2. 9 mm hypodense focus within the bonilla. This favors a subacute infarct. 3. No calvarial fractures. ACT 112: Negative or not required by law. Electronically signed by: Flaco Campa M.D. 08/08/2023 5:27 PM
--- NOTE | 2023-08-08 17:30 | CT Scan Report ---
CT OF THE CERVICAL SPINE WITHOUT CONTRAST CLINICAL HISTORY: fall COMPARISON STUDY: Cervical spine CT August 03, 2023. TECHNIQUE: Helical axial images of the cervical spine were obtained without IV contrast. Sagittal a nd coronal reconstructions were viewed. Automated exposure control was utilized for the study. A do se lowering technique was utilized adhering to the principles of ALARA. FINDINGS: Alignment of the cervical spine is anatomic. Vertebral body heights are maintained. No acut e cervical spine fracture or subluxation is present. There is no prevertebral edema. Facet joints are intact. Moderate multilevel degenerative disc disease and facet arthrosis is present. Degenerative changes at the C1-C2 articulation are again noted. IMPRESSION: No acute cervical spine fracture or subluxation. ACT 112: Negative or not required by law. Electronically signed by: Flaco Campa M.D. 08/08/2023 5:29 PM
--- NOTE | 2023-08-08 17:41 | CT Scan Report ---
CT OF THE CHEST WITHOUT IV CONTRAST CLINICAL HISTORY: fall COMPARISON STUDY: Chest radiograph August 03, 2023. TECHNIQUE: Axial images of the chest were obtained without IV contrast. Images were reviewed in the axial, sagittal, and coronal planes. IV contrast was not administered for this examination. Automat ed exposure control was utilized for the study. A dose lowering technique was utilized adhering to t he principles of ALARA. FINDINGS: Old, healed proximal right humeral fracture is noted. Status post left mastectomy. There are several mildly enlarged low-attenuation lobulated right axillary lymph nodes. Index node on image 60 of 213 measures 1.6 x 1.6 cm. The inferior most lymph node contains calcifications. Evaluation of the thoracic aorta is suboptimal on this unenhanced exam but there is no mediastinal hematoma. There is moderate cardiomegaly and coronary artery calcification. There is no pericardial effusion. No pne umothorax or pleural effusion is present. There are no suspicious pulmonary nodules. Ground glass opa cities and linear densities favor atelectasis. There is no pulmonary contusion. No acute rib or thora cic spine fracture is identified. The abdomen and pelvis CT will be reported separately. IMPRESSION: 1. No acute traumatic findings within the chest. 2. Several mildly enlarged low-attenuation lobulated right axillary lymph nodes. This lymphadenopathy is nonspecific and follow-up nonemergent right mammogram and ultrasound are recommended. 3. Status post left mastectomy. ACT 112: Positive. There are findings on this exam that require communication between the performing entity and the patient following Patient Test Result Information Act ([place] Act 112) guidelines. Electronically signed by: Flaco Campa M.D. 08/08/2023 5:39 PM
[2023-08-08 17:45] LABS: Troponin I High Sensitivity 7.3 pg/ml (0-14)
--- NOTE | 2023-08-08 17:46 | CT Scan Report ---
CT OF THE ABDOMEN AND PELVIS WITHOUT CONTRAST CLINICAL HISTORY: fall, on eliquis COMPARISON STUDY: CT of the abdomen and pelvis July 16, 2022. TECHNIQUE: Axial images of the abdomen and pelvis were obtained without IV contrast. Images were revi ewed in the axial, sagittal, and coronal planes. Automated exposure control was utilized for the alfredo dy. A dose lowering technique was utilized adhering to the principles of ALARA. FINDINGS: No hemoperitoneum or pneumoperitoneum is present. There is no retroperitoneal hematoma. Shadia luation of the solid abdominal viscera is suboptimal on this unenhanced exam but there is no evidence for hepatic injury to the liver, spleen, adrenal glands, kidneys or pancreas. Mild bilateral collect ing system dilatation is similar to prior CT. There are no urinary calculi. No free fluid is present. There is no abdominal or pelvic lymphadenopathy. Colonic diverticulosis without evidence for acute d iverticulitis. There is a moderate amount stool within the colon and rectum. No acute fractures are i dentified within the lumbar spine, pelvis or hips. IMPRESSION: 1. No acute traumatic findings within the abdomen or pelvis on unenhanced exam. 2. Colonic diverticulosis. No evidence for acute diverticulitis. Moderate amount of stool within the colon and rectum. 3. No acute fractures. ACT 112: Negative or not required by law. Electronically signed by: Flaco Campa M.D. 08/08/2023 5:44 PM
[2023-08-08 17:47] LABS: Alanine Aminotransferase 10 U/L (7-52); Albumin Globulin Ratio 1.1 (0.9-2); Albumin Level 4.1 gm/dl (3.4-5.0); Alkaline Phosphatase 101 U/L (34-104); Anion Gap 7 (3-11); BUN Creatinine Ratio 17.6 (10-20); Bilirubin,Total 0.4 mg/dl (0.2-1.0); Blood Urea Nitrogen 22 mg/dl (6-23); Carbon Dioxide 27 mmol/L (21-32); Chloride 103 mmol/L (98-107); Creatine Kinase 106 U/L (26-192); Creatinine Clr Calc Pharmacy 33.2 ml/min; Est GFR (African American) 44.8 ml/min; Est GFR (Non-African American) 38.6 ml/min; Globulin 3.7 gm/dl (2.5-4.0); Glucose 87 mg/dl (70-99(Fasting)); Sodium 137 mmol/L (136-145); Total Protein 7.8 gm/dl (6.0-8.3)
--- NOTE | 2023-08-08 17:47 | XRay Report ---
XR shoulder RT min 2V routine CLINICAL HISTORY: fall COMPARISON: Right humerus radiographs April 11, 2023. FINDINGS: There is been no change in alignment of the displaced impacted proximal right humeral frac ture since radiographs of April 11, 2023. There is callus formation. No acute fractures within the rig ht shoulder are present. There are moderate degenerative changes within the right shoulder. IMPRESSION: 1. No change in alignment of the partially healed proximal right humeral fracture since radiographs o f April 11, 2023. 2. No acute fractures within the right shoulder. No dislocation. ACT 112: Negative or not required by law. Electronically signed by: Flaco Campa M.D. 08/08/2023 5:45 PM
[2023-08-08 18:02] LABS: Thyroid Stimulating Hormone 2.465 uIu/ml (0.300-4.500)
--- NOTE | 2023-08-08 18:13 | XRay Report ---
XR chest 1V portable CLINICAL HISTORY: fall, confusion COMPARISON STUDY: Chest radiograph August 03, 2023. Chest CT performed earlier today. FINDINGS: There is no pneumothorax or pleural effusion. Lung volumes are mildly diminished. Mild inte rstitial thickening is likely chronic cardiomegaly is unchanged. There has been no change in alignmen t of the healing proximal right humeral fracture. IMPRESSION: 1. No acute cardiopulmonary findings. 2. No change in alignment of a healing proximal right humeral fracture. ACT 112: Negative or not required by law. Electronically signed by: Flaco Campa M.D. 08/08/2023 6:11 PM
[2023-08-08 18:39] LABS: Potassium 3.9 mmol/L (3.5-5.1)
[2023-08-08 18:51] LABS: Prothrombin Time 11.1 Seconds (9.0-12.0)
[2023-08-08 19:08] LABS: Appearance Urine Clear (Clear); Bilirubin Urine Negative (Negative); Blood Urine Negative (Negative); Color Urine Yellow; Glucose Urine UA Negative (Negative); Ketones Urine Negative (Negative); Leukocyte Esterase Urine Negative (Negative); Nitrite Urine Negative (Negative); Protein Urine Negative (Negative); Specific Gravity Urine 1.011 (1.000-1.030); Urobilinogen Urine Negative (Negative); pH Urine 6.5 (4.5-7.5)
--- NOTE | 2023-08-08 19:36 | History & Physical Report ---
Date of Service August 08, 2023 Assessment & Plan (1) CVA (cerebral vascular accident): Plan: Admit to the PCU on telemetry Currently stable and nontoxic-appearing Presented to the ED from her personal-group home after sustaining an unwitnessed fall earlier today Extensive imaging was obtained on trauma workup, CT of the head and brain without contrast notes a 9 mm hypodense focus within the bonilla favoring a subacute infarct Per chart review patient was in the [facility] ED on 08/03/2023 due to recurrent falls, altered mental status, and slurred speech At the time she did have a CT of the head and brain obtained which was read as negative for acute findings, her symptoms were thought to be due to possible UTI and she was discharged on a 7-day course of cefdinir Suspects her symptoms on 08/03/2023 may have been due to this subacute stroke and may not have been visible on CT head at that time Patient's neurologic exam is nonfocal Will obtain CTAs of the head/neck, MRI of the brain without contrast, TTE, A1c, and fasting lipid panel for further evaluation to assist with secondary prevention Dysphagia screen, aspiration precautions, fall precautions, PT/OT consults May have been experiencing recurrent falls due to remaining on her antihypertensives and diuretics possibly exacerbating her CVA Will allow permissive hypertension overnight Every 4 hours neurochecks Neurology consult has been placed Will give 324 mg aspirin now, can plan to continue 81 mg tomorrow Will continue home simvastatin at this time, adjust dosing based on fasting lipid panel tomorrow Heart healthy/DM type II diet if she passes dysphagia screen AM CBC, CMP, mag, PT/INR, A1c, fasting lipid panel (2) Unwitnessed fall: Plan: Patient was initially brought to the ED today due to unwitnessed fall She has been having recurrent falls since her last ED visit on 08/03/2023, symptoms/falls were thought to be due to possible UTI at that time Trauma workup today is negative for acute trauma, patient denies any pain at this time Fall precautions have been ordered PT/OT consults As needed Tylenol for pain (3) UTI (urinary tract infection): Plan: Patient was started on a 7-day course of cefdinir on 08/03/2023 for possible UTI Review of urine culture from 08/03/2023 shows no growth to date Will continue cefdinir with an end date of (4) DVT (deep venous thrombosis): Plan: Patient is typically on 5 mg twice daily Eliquis for history of left lower extremity DVT Did have her a.m. dose Will hold her evening dose tonight with recent unwitnessed fall, and starting full dose aspirin for subacute stroke tonight Can resume tomorrow (08/09/2023), if she is without signs of bleeding (5) Dementia: Plan: Continue at bedtime Seroquel (6) Diabetes: Plan: Monitor BSG ACHS, goal is [id number] Start 5 units Lantus twice daily, CF of 50, CR of 15 Adjust regimen as needed Follow a.m. hemoglobin A1c Plan The patient was discussed with Dr. Cuellar at the time of the admission History of Present Illness Chief Complaint: Unwitnessed fall Primary Care Provider: Reji Carver, Is an 88-year-old female with a past medical history significant for left lower extremity DVT (Currently on Eliquis), HTN, HLP, DMII, and Dementia who presented to the [facility] ED From [facility] dementia unit after experiencing an unwitnessed fall. There was reportedly question as to if she did hit her head against a dresser. On arrival to the ED she was noted to be hypertensive at 198/107, tachycardic at 98, but otherwise stable. Labs including CBC, CMP, high-sensitivity troponin, UA, and COVID-19 screen were unremarkable. Cervical spine CT, chest CT, chest x-ray, right shoulder x-ray, and CT of the abdomen and pelvis without contrast were read as negative for acute signs of trauma. The patient's CT chest did note several mi ldly enlarged low-attenuation loculated right axillary lymph nodes. This lymph adenopathy is nonspecific and follow-up nonemergent right mammogram and ultrasound are recommended. CT of the head and brain without contrast was read as negative for acute intracranial hemorrhage or mass effect. But did show a 9 mm hypodense focus within the bonilla favoring a subacute infarct. Patient was sitting in bed in no acute distress at the time of exam. History was limited due to the patient's baseline dementia. She confirms that she did fall earlier today but cannot tell me details surrounding the fall. She denies any pain at this time. Her only complaint is that she is hungry and wants to eat. She denies chest pain, shortness of breath, abdominal pain. 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 Shortly after admission the patient's son arrived and I did go back and discuss the current findings with him. He is in agreement with admission for further workup and secondary prevention. Of note he says that the patient's bruise left knee was from her fall approximately 1 week ago where she did have a negative x-ray. Please refer to Dr. Cuellar's attestation for any changes to the treatment plan Allergies Allergy/AdvReac Type Severity Reaction Status Date / Time amoxicillin [From Augmentin] Allergy Intermediate Rash on Verified 08/08/23 18:00 Hands and Feet clavulanic acid Allergy Intermediate Rash on Verified 08/08/23 18:00 [From Augmentin] Hands and Feet Home Medications Medication Instructions Recorded Confirmed Type calcium carbonate 500 mg-vitamin 1 tab PO BID 08/06/22 08/08/23 History D3 5 mcg (200 unit) tablet (Os-Wil 500 + D3) diclofenac sodium 1 % topical gel 2 g topical QID PRN Pain 08/06/22 08/08/23 History docusate sodium 100 mg tablet 100 mg PO DAILY PRN Constipation 08/06/22 08/08/23 History latanoprost 0.005 % eye drops 1 drp OPB HS 08/06/22 08/08/23 History pantoprazole 40 mg tablet,delayed 40 mg PO QAM 08/06/22 08/08/23 History release quetiapine 25 mg tablet 25 mg PO HS 08/06/22 08/08/23 History simvastatin 40 mg tablet 40 mg PO HS 08/06/22 08/08/23 History timolol maleate 0.5 % eye drops 1 drp OPB HS 08/06/22 08/08/23 History triamcinolone acetonide 0.025 % 1 applic topical BID 08/06/22 08/08/23 History topical cream apixaban 5 mg tablet (Eliquis) 5 mg PO BID #72 tabs 08/08/22 08/08/23 Rx insulin NPH-regular 70-30 U-100 20 unit subcut QPM 08/11/22 08/08/23 History insulin 100 unit/mL subcutaneous pen (Novolin 70-30 FlexPen U-100 Insulin) insulin NPH-regular 70-30 U-100 35 unit subcut QAM 08/11/22 08/08/23 History insulin 100 unit/mL subcutaneous pen (Novolin 70-30 FlexPen U-100 Insulin) cefdinir 300 mg capsule 300 mg PO BID 7 days #14 caps 08/03/23 08/08/23 Rx acetaminophen 325 mg tablet 650 mg PO Q6H PRN PAIN/FEVER 08/08/23 08/08/23 History (Tylenol) ferrous sulfate 325 mg (65 mg 325 mg PO DAILY 08/08/23 08/08/23 History iron) tablet furosemide 20 mg tablet (Lasix) 20 mg PO DAILY 08/08/23 08/08/23 History lisinopril 40 mg tablet 40 mg PO QAM 08/08/23 08/08/23 History Past Med/Surg History Problem List (Updated 08/08/23 @ 21:09 by Vasiliy Berrios M.D.) Contusion of knee, left (Acute) UTI (urinary tract infection) CVA (cerebral vascular accident) (Acute) Unwitnessed fall (Acute) Falls frequently (Acute) Acute UTI (urinary tract infection) (Acute) AMS (altered mental status) (Acute) Fracture, humerus Abnormal urinalysis Left leg swelling (Acute) DVT (deep venous thrombosis) (Acute) History of GI bleed (Acute) Anemia (Acute) Left leg DVT Near syncope Hypokalemia Acute blood loss anemia Encounter for pre-operative examination GI bleed (Acute) Diverticulosis (Acute) GI bleed likely secondary to diverticulosis Diabetes Hypertension Hyperlipemia Glaucoma Chondrocalcinosis of knee Spondylolisthesis of lumbar region DDD (degenerative disc disease), lumbar Osteoarthritis of left hip Lumbar spinal stenosis Severe at L4-L5 Dementia Depression Chronic low back pain Hypoglycemia due to insulin (Acute) Elevated troponin (Acute) Elevated CK Hypoglycemia Syncope Diabetes mellitus type 2 in nonobese Medical History Breast cancer Surgical History S/P hysterectomy History of mastectomy Family History Other No pertinent family history Denies family history of Ovarian cancer Prostate cancer Heart disease Breast cancer Colorectal cancer Social History Smoking Status: Never smoker Second Hand Exposure: No; Do You Dip or Chew Tobacco: No; Hx Alcohol Use: No Hx Substance Use: No Preferred Language: [place]agu[place] Communication Ability: Effective Visual Impairment: No Limitations Hearing Ability: Normal 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 Beliefs That Will Affect Care: None marital status: / Current Living Situation: [facility] Current Living Situation Comment: [facility] current occupational status: retired Other Information That Helps Us Care for You: No Feels Safe at Home: Yes Safety Concerns: Feels Safe At This Time Childhood Exposure to Second-Hand Smoke: No Diet: regular Dental Care, Regularly: Yes Physical Activity Frequency: Does not Exercise Seatbelt Use: sometimes Sunscreen Use: No Assistive Devices: Walker Physical Exam Physical Exam: Physical Exam: General: In no acute distress, stated age, chronically ill appearing but non- toxic HEENT: Normocephalic, atraumatic, no scleral icterus, pupils around round, symmetrical, and reactive to light, moist mucus membranes, trachea midline, no thyromegaly Chest/Pulm: No respiratory distress, symmetrical chest expansion, clear breath sounds throughout Cardiac: RRR, no murmurs noted Abdomen: Negative for ascites and bruising, normoactive bowel sounds, soft, non-tender to palpation throughout Musculoskeletal: Bruising in various stages of healing is noted on the left knee from previous fall last week, no other signs of trauma noted Extremities: Radial, dorsalis pedis, and posterior tibial pulses are intact and symmetrical, no edema noted in the BL LE's Skin: Patient with BL LE erythema consistent with venous stasis, mine skin abrasions from previous fall in various stages of healing on the BL LE's, no signs of acute infection Neuro: Alert and oriented to person, place, month, no focal defects, CN II- XII tested and intact, patient was unable to follow commands for pronator drift or cerebellar testing, no tremors noted Psych: No acute distress, polite, intermittently confused, cooperative during the exam Results & Data Results & Data Vital Signs (Past 12 Hours) Vital Signs Temp Pulse Resp BP Pulse Ox O2 Del Method 08/08/23 17:00 80 18 190/92 H 97 Room Air 08/08/23 17:00 81 20 190/92 H 95 Room Air 08/08/23 16:54 78 20 187/97 H 08/08/23 16:41 98 H 08/08/23 16:26 36.9 C 81 22 198/107 H 98 Room Air Laboratory Results Abnormal lab results 08/08/23 08/08/23 Range/Units 16:40 19:48 Creatinine 1.25 H (0.6-1.2) mg/dl POC Glucose 106 H (70-99) mg/dl Diagnostic Findings Abdomen/Pelvis CT 08/08/23 16:42 CT OF THE ABDOMEN AND PELVIS WITHOUT CONTRAST CLINICAL HISTORY: fall, on eliquis COMPARISON STUDY: CT of the abdomen and pelvis July 16, 2022. TECHNIQUE: Axial images of the abdomen and pelvis were obtained without IV contrast. Images were reviewed in the axial, sagittal, and coronal planes. Automated exposure control was utilized for the study. A dose lowering technique was utilized adhering to the principles of ALARA. FINDINGS: No hemoperitoneum or pneumoperitoneum is present. There is no retroperitoneal hematoma. Evaluation of the solid abdominal viscera is suboptimal on this unenhanced exam but there is no evidence for hepatic injury to the liver, spleen, adrenal glands, kidneys or pancreas. Mild bilateral collecting system dilatation is similar to prior CT. There are no urinary calculi. No free fluid is present. There is no abdominal or pelvic lymp hadenopathy. Colonic diverticulosis without evidence for acute diverticulitis. There is a moderate amount stool within the colon and rectum. No acute fractures are identified within the lumbar spine, pelvis or hips. IMPRESSION: 1. No acute traumatic findings within the abdomen or pelvis on unenhanced exam. 2. Colonic diverticulosis. No evidence for acute diverticulitis. Moderate amount of stool within the colon and rectum. 3. No acute fractures. ACT 112: Negative or not required by law. Electronically signed by: Flaco Campa M.D. 08/08/2023 5:[address] 08/08/23 16:42 CT OF THE CERVICAL SPINE WITHOUT CONTRAST CLINICAL HISTORY: fall COMPARISON STUDY: Cervical spine CT August 03, 2023. TECHNIQUE: Helical axial images of the cervical spine were obtained without IV contrast. Sagittal and coronal reconstructions were viewed. Automated exposure control was utilized for the study. A dose lowering technique was utilized adhering to the principles of ALARA. FINDINGS: Alignment of the cervical spine is anatomic. Vertebral body heights are maintained. No acute cervical spine fracture or subluxation is present. Th ere is no prevertebral edema. Facet joints are intact. Moderate multilevel degenerative disc disease and facet arthrosis is present. Degenerative changes at the C1-C2 articulation are again noted. IMPRESSION: No acute cervical spine fracture or subluxation. ACT 112: Negative or not required by law. Electronically signed by: Flaco Campa M.D. 08/08/2023 5:[address] 08/08/23 16:42 CT OF THE CHEST WITHOUT IV CONTRAST CLINICAL HISTORY: fall COMPARISON STUDY: Chest radiograph August 03, 2023. TECHNIQUE: Axial images of the chest were obtained without IV contrast. Images were reviewed in the axial, sagittal, and coronal planes. IV contrast was not administered for this examination. Automated exposure control was utilized for the study. A dose lowering technique was utilized adhering to the principles of ALARA. FINDINGS: Old, healed proximal right humeral fracture is noted. Status post left mastectomy. There are several mildly enlarged low-attenuation lobulated right axillary lymph nodes. Index node on image 60 of 213 measures 1.6 x 1.6 cm. The inferior most lymph node contains calcifications. Evaluation of the thoracic aorta is suboptimal on this unenhanced exam but there is no mediastinal hematoma. There is moderate cardiomegaly and coronary artery calcification. There is no pericardial effusion. No pneumothorax or pleural effusion is present. There are no suspicious pulmonary nodules. Ground glass opacities and linear densities favor atelectasis. There is no pulmonary contusion. No acute rib or thoracic spine fracture is identified. The abdomen and pelvis CT will be reported separately. IMPRESSION: 1. No acute traumatic findings within the chest. 2. Several mildly enlarged low-attenuation lobulated right axillary lymph nodes. This lymphadenopathy is nonspecific and follow-up nonemergent right mammogram and ultrasound are recommended. 3. Status post left mastectomy. ACT 112: Positive. There are findings on this exam that require communication between the performing entity and the patient following Patient Test Result Information Act ([place] Act 112) guidelines. Electronically signed by: Flaco Campa M.D. 08/08/2023 5:39 PM Chest X-Ray 08/08/23 16:42 XR chest 1V portable CLINICAL HISTORY: fall, confusion COMPARISON STUDY: Chest radiograph August 03, 2023. Chest CT performed earlier today. FINDINGS: There is no pneumothorax or pleural effusion. Lung volumes are mildly diminished. Mild interstitial thickening is likely chronic cardiomegaly is unchanged. There has been no change in alignment of the healing proximal right humeral fracture. IMPRESSION: 1. No acute cardiopulmonary findings. 2. No change in alignment of a healing proximal right humeral fracture. ACT 112: Negative or not required by law. Electronically signed by: Flaco Campa M.D. 08/08/2023 6:[address] 08/08/23 16:42 CT OF THE HEAD WITHOUT CONTRAST CLINICAL HISTORY: fall, more confusion, dementia/eliquis COMPARISON STUDY: Head CT August 03, 2023. TECHNIQUE: Helical axial images of the head were obtained without IV contrast. Automated exposure control was utilized for the study. A dose lowering technique was utilized adhering to the principles of ALARA. FINDINGS: No acute intracranial hemorrhage, midline shift or mass effect is present. The ventricular system is stable. White matter hypodensities are unchanged and favor small vessel disease. A 9 mm hypodense focus within the bonilla on image 8 is more conspicuous than on prior exam. The basal cisterns are patent. No extra-axial collections are present. There are no findings to suggest acute dural sinus thrombosis or acute territorial infarct. No significant calvarial abnormalities are present. Visualized portions of the sinuses and mastoid air cells are clear. IMPRESSION: 1. No acute intracranial hemorrhage or mass effect. 2. 9 mm hypodense focus within the bonilla. This favors a subacute infarct. 3. No calvarial fractures. ACT 112: Negative or not required by law. Electronically signed by: Flaco Campa M.D. 08/08/2023 5:27 PM Shoulder X-Ray 08/08/23 16:42 XR shoulder RT min 2V routine CLINICAL HISTORY: fall COMPARISON: Right humerus radiographs April 11, 2023. FINDINGS: There is been no change in alignment of the displaced impacted proximal right humeral fracture since radiographs of April 11, 2023. There is callus formation. No acute fractures within the right shoulder are present. There are moderate degenerative changes within the right shoulder. IMPRESSION: 1. No change in alignment of the partially healed proximal right humeral fracture since radiographs of April 11, 2023. 2. No acute fractures within the right shoulder. No dislocation. ACT 112: Negative or not required by law. Electronically signed by: Flaco Campa M.D. 08/08/2023 5:45 PM ECG Additional Comments: Normal sinus rhythm Rightward axis Low voltage QRS Cannot rule out Anterior infarct (cited on or before 03-AUG-2023) Abnormal ECG When compared with ECG of 03-AUG-2023 07:17, QRS axis Shifted right Nonspecific T wave abnormality no longer evident in Inferior leads Code Status & VTE Plan Code Status DNR/DNI VTE Prophylaxis Plan VTE Prophylaxis will be ordered: Yes Supervising Physician Co-Signing Physician Notes Attending addendum: I have physically seen this patient, have supervised the LATHA's activities, and agree with the H&P unless as otherwise noted. Assessment and Plan: Subacute pontine CVA/unwitnessed fall- The patient will be admitted to telemetry for serial cardiac enzymes, serial EKG's, cardiac rhythm monitoring and a 2-D echocardiogram with Dopplers. CT head shows 9 mm bonilla subacute infarct CT cervical spine negative CT scan abdomen and pelvis shows moderate stool CTA head and neck are now ordered MRI of brain is now ordered Stroke without tPA order set Consult PT/OT and speech Consults neurology Temporarily hold Eliquis Aspirin 324 mg now Urinary tract infection- Started on cefdinir on 08/03/2023 Will complete 7-day course as long as swallowing is okay DVT- Temporarily hold Eliquis PG Care Time/CCT Total # of Minutes Spent Total Time Spent with Patient: Total time spent is greater than 50% in coordination of care (as documented) at patient's floor/unit and/or counseling patient: Coding [place] [address] INT INP/OBS CARE 3/75MIN Patient Type Established Medical Decision Making High Complexity Diagnoses CVA (cerebral vascular accident) I63.9 Unwitnessed fall R29.6 UTI (urinary tract infection) N39.0 DVT (deep venous thrombosis) I82.402 Affected thrombotic vein of extremity: unspecified vein of extremity Chronicity: acute DVT location: lower extremity Laterality: left Dementia F03.90 Type 2 diabetes mellitus without complication, with long-term current use of insulin E11.9; Z79.4 Diabetes mellitus complication status: without complication 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 mellitus mobile application developer insulin use: with mobile application developer use Diabetes mellitus type: type 2 (4) DVT (deep venous thrombosis) Affected thrombotic vein of extremity: unspecified vein of extremity Chronicity: acute DVT location: lower extremity Laterality: left Qualified Code(s): I82.402 - Acute embolism and thrombosis of unspecified deep veins of left lower extremity (6) Diabetes Diabetes mellitus complication status: without complication Diabetes mellitus mobile application developer insulin use: with mobile application developer use Diabetes mellitus type: type 2 Qualified Code(s): E11.9 - Type 2 diabetes mellitus without complications; Z79.4 - MCC (current) use of insulin
[2023-08-08] MEDS ORDERED: PHARMACIST DISCHARGE MED REC CONSULT PRN (19:37)
[2023-08-08] MEDS ORDERED: CARBOHYDRATES FOR HYPOGLYCEMIA PO PRN (19:38)
[2023-08-08] MEDS ORDERED: GLUCAGON FOR INJ 1 MG VIAL SQ PRN (19:38)
[2023-08-08] MEDS ORDERED: DEXTROSE 50% 50 ML SYRINGE IV PRN (19:38)
[2023-08-08] MEDS ORDERED: GLUCOSE 40% GEL 15 GM TUBE PO PRN (19:38)
[2023-08-08] MEDS ORDERED: GLUCOSE 10 TAB/TUBE PO PRN (19:38)
[2023-08-08] MEDS: ASPIRIN CHEW 324 MG PO STA (20:11)
[2023-08-08] MEDS: OPTIRAY 320 125ml IV ONE (20:53)
[2023-08-08] MEDS ORDERED: DOCUSATE SODIUM 100 MG CAP PO PRN (21:14)
--- NOTE | 2023-08-08 21:36 | CT Scan Report ---
CT angio neck with con, CT angio head w con CLINICAL HISTORY: subacute CVA on CT head TECHNIQUE: CT angiography of the head and neck was performed following intravenous administration of iodinated contrast. Coronal and sagittal MIPS were obtained from the axial data set and were submitt ed for review. Automated dose lowering techniques and/or adjustment according to patient size were u tilized for this examination. All measurements were calculated based on NASCET criteria. CT DOSE: 451.88 mGy.cm Comparison: Prior CT head 08/08/2023. FINDINGS: Small thyroid nodules are seen which do not require follow-up by ACR criteria. 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 There is no significant atherosclerotic plaque i n the aortic arch or the origins of the innominate, left common carotid, and left subclavian arteries . The common carotid, external carotid, cervical segments of the internal carotid arteries, and the cervical segments of the vertebral arteries are patent without hemodynamically significant stenosis. The left vertebral artery is dominant. CTA Head: The anterior and posterior cerebral circulations are patent. No hemodynamically significan t stenosis, aneurysm, dissection, or arteriovenous malformation is shown. In particular, the superior cerebellar arteries and anterior inferior cerebral arteries appear intact. IMPRESSION: 1. No occlusion, hemodynamically significant stenosis, or dissection in the major cervical arteries. 2. No occlusion, hemodynamically significant stenosis, aneurysm, dissection, or arteriovenous malfor mation in the major intracranial arteries. In particular the major arteries of the vertebrobasilar sy stem appear patent with a right-sided pontine hypodensity. Assessment of stenosis of the internal carotid arteries is based on NASCET criteria. ACT 112: Negative or not required by law. Electronically signed by: Duane Briggs M.D. 08/08/2023 9:33 PM
[2023-08-08] MEDS: SIMVASTATIN 40 MG TAB PO SCH (21:46)
[2023-08-08] MEDS: LACTATED RINGER'S 1,000 ML IV SCH (21:46)
[2023-08-08] MEDS: QUEtiapine FUMARATE 25 MG TABLET PO SCH (21:46)
[2023-08-08] MEDS: CEFDINIR 300 MG CAP PO SCH (21:46)
[2023-08-08] MEDS: INSULIN ASPART PER UNIT CHARGE SC SCH (21:47)
[2023-08-08] MEDS: LANTUS PER UNIT CHARGE SQ SCH (21:47)
[2023-08-08] MEDS: TIMOLOL MALEATE 0.5% OP SOLN 5 ML BTL OP SCH (21:47)
[2023-08-08] MEDS: LATANOPROST 0.005% OP SOLN 2.5 ML BTL OPB SCH (21:47)
[2023-08-09 07:29] LABS: Basophils # (auto) 0.03 K/uL (0.00-0.20); Basophils % (auto) 0.7 %; Eosinophils # (auto) 0.13 K/uL (0.00-0.50); Eosinophils % (auto) 3.1 %; Hematocrit (blood only) 39.6 % (37.0-47.0); Immature Granulocytes # (auto) 0.01 K/uL (0.01-0.20); Immature Granulocytes % (auto) 0.2 %; Lymphocytes # (auto) 1.18 K/uL (1.20-3.40); Lymphocytes % (auto) 27.9 %; Mean Corpuscular Hemoglobin 30.7 pg (25.0-34.0); Mean Corpuscular Hgb Conc 32.8 g/dL (32.0-36.0); Mean Corpuscular Volume 93.4 fL (80.0-100.0); Mean Platelet Volume 9.6 fL (9.4-12.4); Monocytes # (auto) 0.32 K/uL (0.11-0.59); Monocytes % (auto) 7.6 %; Neutrophils # (auto) 2.56 K/uL (1.40-6.50); Neutrophils % (auto) 60.5 %; Platelet Count 183 K/uL (130-400); RDW Coefficient of Variation 13.2 % (11.5-14.5); RDW Standard Deviation 44.9 fL (36.4-46.3); Red Blood Count 4.24 M/uL (4.20-5.40); White Blood Count 4.23 K/ul (4.8-10.8)
--- NOTE | 2023-08-09 07:42 | Electrocardiogram Report ---
Test Reason : Blood Pressure : / mmHG Vent. Rate : 082 BPM Atrial Rate : 082 BPM P-R Int : 172 ms QRS Dur : 088 ms QT Int : 382 ms P-R-T Axes : 083 101 091 degrees QTc Int : 446 ms Normal sinus rhythm Rightward axis Low voltage QRS Cannot rule out Anterior infarct (cited on or before 03-AUG-2023) Abnormal ECG When compared with ECG of 03-AUG-2023 07:17, QRS axis Shifted right Nonspecific T wave abnormality no longer evident in Inferior leads Confirmed by Lokesh North ([id number]) on 08/09/2023 7:42:39 AM Referred By: Confirmed By:Lokesh North
[2023-08-09 07:45] LABS: Prothrombin Time 10.9 Seconds (9.0-12.0)
[2023-08-09 08:01] LABS: BUN Creatinine Ratio 22.8 (10-20); Calcium 8.4 mg/dl (8.6-10.3); Chol HDL Ratio 2.2 (0-5); Creatinine Clr Calc Pharmacy 43.8 ml/min; Est GFR (African American) 64.9 ml/min; Estimated Average Glucose 157 mg/dl; Hemoglobin A1C 7.1 % (4.5-5.6); Magnesium 1.8 mg/dl (1.7-2.4); Potassium 3.8 mmol/L (3.5-5.1)
--- NOTE | 2023-08-09 08:16 | Neurology Consultation ---
Date of Consultation August 09, 2023 Assessment & Plan (1) CVA (cerebral vascular accident): History of Present Illness Attending Physician: Josh Burgess MD History of Present Illness S: pt this morning talking well. complaining of rt arm pain. pt CT head with pontine hypodensity, appears to be new compare to prior. pt overall back to baseline. pt with dementia hx and lives at a senior living (personal care). 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 pending mri brain. chart reviewed. Admission HPI: Is an 88-year-old female with a past medical history significant for left lower extremity DVT (Currently on Eliquis), HTN, HLP, DMII, and Dementia who presented to the [facility] ED From [facility] dementia unit after experiencing an unwitnessed fall. There was reportedly question as to if she did hit her head against a dresser. On arrival to the ED she was noted to be hypertensive at 198/107, tachycardic at 98, but otherwise stable. Labs including CBC, CMP, high-sensitivity troponin, UA, and COVID-19 screen were unremarkable. Cervical spine CT, chest CT, chest x-ray, right shoulder x-ray, and CT of the abdomen and pelvis without contrast were read as negative for acute signs of trauma. The patient's CT chest did note several mildly enlarged low-attenuation loculated right axillary lymph nodes. This lymph adenopathy is nonspecific and follow-up nonemergent right mammogram and ultrasound are recommended. CT of the head and brain without contrast was read as negative for acute intracranial hemorrhage or mass effect. But did show a 9 mm hypodense focus within the bonilla favoring a subacute infarct. Patient was sitting in bed in no acute distress at the time of exam. History was limited due to the patient's baseline dementia. She confirms that she did fall earlier today but cannot tell me details surrounding the fall. She denies any pain at this time. Her only complaint is that she is hungry and wants to eat. She denies chest pain, shortness of breath, abdominal pain. Per review of patient's previous admissions and transfer paperwork she is a DNR/DNI in her son is her power of environmental attorney. Shortly after admission the patient's son arrived and I did go back and discuss the current findings with him. He is in agreement with admission for further workup and secondary prevention. Of note he says that the patient's bruise left knee was from her fall approximately 1 week ago where she did have a negative x- ray. Allergies Allergy/AdvReac Type Severity Reaction Status Date / Time amoxicillin [From Augmentin] Allergy Intermediate Rash on Verified 08/08/23 18:00 Hands and Feet clavulanic acid Allergy Intermediate Rash on Verified 08/08/23 18:00 [From Augmentin] Hands and Feet Home Medications Medication Instructions Recorded Confirmed Type calcium carbonate 500 mg-vitamin 1 tab PO BID 08/06/22 08/08/23 History D3 5 mcg (200 unit) tablet (Os-Wil 500 + D3) diclofenac sodium 1 % topical gel 2 g topical QID PRN Pain 08/06/22 08/08/23 History docusate sodium 100 mg tablet 100 mg PO DAILY PRN Constipation 08/06/22 08/08/23 History latanoprost 0.005 % eye drops 1 drp OPB HS 08/06/22 08/08/23 History pantoprazole 40 mg tablet,delayed 40 mg PO QAM 08/06/22 08/08/23 History release quetiapine 25 mg tablet 25 mg PO HS 08/06/22 08/08/23 History simvastatin 40 mg tablet 40 mg PO HS 08/06/22 08/08/23 History timolol maleate 0.5 % eye drops 1 drp OPB HS 08/06/22 08/08/23 History triamcinolone acetonide 0.025 % 1 applic topical BID 08/06/22 08/08/23 History topical cream apixaban 5 mg tablet (Eliquis) 5 mg PO BID #72 tabs 08/08/22 08/08/23 Rx insulin NPH-regular 70-30 U-100 20 unit subcut QPM 08/11/22 08/08/23 History insulin 100 unit/mL subcutaneous pen (Novolin 70-30 FlexPen U-100 Insulin) insulin NPH-regular 70-30 U-100 35 unit subcut QAM 08/11/22 08/08/23 History insulin 100 unit/mL subcutaneous pen (Novolin 70-30 FlexPen U-100 Insulin) cefdinir 300 mg capsule 300 mg PO BID 7 days #14 caps 08/03/23 08/08/23 Rx acetaminophen 325 mg tablet 650 mg PO Q6H PRN PAIN/FEVER 08/08/23 08/08/23 History (Tylenol) ferrous sulfate 325 mg (65 mg 325 mg PO DAILY 08/08/23 08/08/23 History iron) tablet furosemide 20 mg tablet (Lasix) 20 mg PO DAILY 08/08/23 08/08/23 History lisinopril 40 mg tablet 40 mg PO QAM 08/08/23 08/08/23 History Patient History Medical History Breast cancer Surgical History S/P hysterectomy History of mastectomy Family History Other No pertinent family history Denies family history of Ovarian cancer Prostate cancer Heart disease Breast cancer Colorectal cancer Social History Smoking Status: Never smoker Second Hand Exposure: No; Do You Dip or Chew Tobacco: No; Hx Alcohol Use: No Hx Substance Use: No Preferred Language: Maltese Communication Ability: Effective Visual Impairment: No Limitations Hearing Ability: Normal 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 Beliefs That Will Affect Care: None marital status: / Current Living Situation: Senior Care Current Living Situation Comment: [facility] current occupational status: retired Other Information That Helps Us Care for You: No Feels Safe at Home: Yes Safety Concerns: Feels Safe At This Time Childhood Exposure to Second-Hand Smoke: No Diet: regular Dental Care, Regularly: Yes Physical Activity Frequency: Does not Exercise Seatbelt Use: sometimes Sunscreen Use: No Assistive Devices: Walker Review of Systems Review of Systems: All systems reviewed & are unremarkable except as noted in Subjective Constitutional: as per Subjective / HPI Eyes: as per Subjective / HPI Ear, Nose, Mouth, Throat: as per Subjective / HPI Respiratory: as per Subjective / HPI Cardiovascular: as per Subjective / HPI Gastrointestinal: as per Subjective / HPI Musculoskeletal: as per Subjective / HPI Integumentary: as per Subjective / HPI Neurologic: as per Subjective / HPI Psychiatric: as per Subjective / HPI Endocrine: as per Subjective / HPI Hematologic / Lymphatic: as per Subjective / HPI Allergy / Immunological: as per Subjective / HPI Exam (Neuro) Physical Exam: HEENT: normocephalic Neuro: Mental: Alert, follows command well. fluent speech but with some mumbling. at times hard to make sentence. no neglect CN: PERRL, Full EOM, symmetric face, midline T/U/P, Motor: No abnormal movements, normal tone , moves all distal limbs. complaining of rt arm pain. Coord: intact on left arm. rt arm pt does not want to move. DTR: 1+ sym b/l Gait:deferred. Impression: 88 yo female with recurrent falls with CT head noted for pontine hypodensity suggestive of ischemic stroke. Likely subacute since her last recent ED visit. pt with dementia as baseline and DNR/DNI. Recommendations: 1. Standard stroke work up as planned 2. pt on eliquis for prior hx of DVT, re commend cutting back on eliquis dose to 2.5mg po bid given her advance age and frequent falls. 3. Images: pending MRI brain (stroke pro tocol), TTE with bubble, CTA done (no stenosis). 4. Permissive Hypertension for next 24-4 8 hrs. Keep SBP goal range less than 220. Avoid hypotension. Do not stop beta-arielle if on it. 5 6. Long-term SBP goal less than 130. 7. Plenty of hydration including IV flui d if possible (use isotonic solution) next 1-2 days. Avoid hypovolemia and hypotension. 8. Initiate DVT prevention therapy. 9. Avoid hypoglycemia, serum glucose goa l during hospitalization: 140-180. 10. Long-term HgA1c goal less than 7. 11. Start statin if not on it and no abs olute contraindication, long-term LDL goal less than 70. 12. Head of bed up 30 degrees if possibl e. 14. Telemetry monitoring. Consider manager intermediate cardiac monitoring, i.e. MCOT (mobile cardiac outpatient telemetry) or ICM (insertable solar energy installation manager, e.g. LINQ), if never had fdc cardiac monitoring done previously. And if found to have atrial flutter or fibrillation, should consider anticoagulation therapy if no contraindication. 15. Fall precaution and aspiration preca ution. 16. Consult physical and occupational th erapy and speech path evaluation (for swallowing). Chart reviewed I have spent more than 50% educating patient about potential diagnosis and neurological evaluation and coordinating care with patient's treatment team. Total time spent (including chart review and coordination of care): 60 min (this includes chart review). Results & Data Vital Signs (Past 12 Hours) Vital Signs Temp Pulse Pulse Resp BP BP Pulse Ox 08/09/23 03:58 36.5 C 82 18 184/82 H 97 08/08/23 23:48 36.6 C 80 19 152/72 H 92 08/08/23 22:58 95 H 08/08/23 22:03 90 08/08/23 21:10 36.5 C 92 H 18 185/82 H 96 08/08/23 21:10 08/08/23 20:33 97 H 20 180/85 H 97 Pulse Ox O2 Del Method O2 Del Method 08/09/23 03:58 Room Air 08/08/23 23:48 Room Air 08/08/23 22:58 08/08/23 22:03 08/08/23 21:10 Room Air 08/08/23 21:10 96 Room Air 08/08/23 20:33 Room Air PG Care Time/CCT Total # of Minutes Spent Total Time Spent with Patient: Total time spent is greater than 50% in coordination of care (as documented) at patient's floor/unit and/or counseling patient: Coding Level of Care Code 01105 IN/OBS CONSULT LVL 4,60M Diagnoses CVA (cerebral vascular accident) I63.9 CVA mechanism: unspecified (1) CVA (cerebral vascular accident) CVA mechanism: unspecified Qualified Code(s): I63.9 - Cerebral infarction, unspecified
[2023-08-09] MEDS: FERROUS SULFATE 325 MG TAB PO SCH (08:59)
[2023-08-09] MEDS: PANTOprazole 40 MG TAB PO SCH (08:59)
[2023-08-09] MEDS: ASPIRIN 81 MG ECTAB PO SCH (08:59)
--- NOTE | 2023-08-09 09:38 | Hospitalist Progress Note ---
Date of Service August 09, 2023 Assessment & Plan (1) CVA (cerebral vascular accident): Plan: Presented to the ED from her personal-senior care after sustaining an unwitnessed fall Extensive imaging was obtained on trauma workup, CT of the head and brain without contrast notes a 9 mm hypodense focus within the bonilla favoring a subacute infarct Per chart review patient was in [facility] ED on 08/03/2023 due to recurrent falls, altered mental status, and slurred speech At the time she did have a CT of the head and brain obtained which was read as negative for acute findings, her symptoms were thought to be due to possible UTI and she was discharged on a 7-day course of cefdinir Suspects her symptoms on 08/03/2023 may have been due to this subacute stroke and may not have been visible on CT head at that time Patient's neurologic exam is nonfocal -CTA head and neck did not show any evidence of big vessel occlusions, MRI of the brain is pending -Neurology has been consulted, appreciate commendations -Will reduce the dose of apixaban to 2.5 mg twice daily as suggested, continue aspirin 81 mg daily and also statin. (2) Unwitnessed fall: Plan: Patient was initially brought to the ED today due to unwitnessed fall She has been having recurrent falls since her last ED visit on 08/03/2023, symptoms/falls were thought to be due to possible UTI at that time Trauma workup today is negative for acute trauma, patient denies any pain at this time Fall precautions have been ordered PT/OT consults As needed Tylenol for pain (3) UTI (urinary tract infection): Plan: Patient was started on a 7-day course of cefdinir on 08/03/2023 for possible UTI Review of urine culture from 08/03/2023 shows no growth to date Will continue cefdinir with an end date of 08/10/23 (4) DVT (deep venous thrombosis): Plan: Patient is typically on 5 mg twice daily Eliquis for history of left lower extremity DVT Resumed on a lower dose of 2.5 mg twice daily given her age (5) Dementia: Plan: Continue at bedtime Seroquel (6) Diabetes: Plan: Monitor BSG ACHS, goal is [id number] Start 5 units Lantus twice daily, CF of 50, CR of 15 Adjust regimen as needed Follow a.m. hemoglobin A1c Plan Continue to monitor, await evaluation by physical therapy Admission and Anticipated Discharge Date Admission Date: August 08, 2023 Subjective Patient seen and examined, denies pain although a little bit confused. Review of Systems Review of Systems: All systems reviewed are negative, apart from the ones contained in the history. Physical Exam Physical Exam: The patient is awake, alert and oriented 2, well developed and well nourished, normocephalic and atraumatic, lying in bed and in no acute distress. HEENT--PERRL, EOMI, mucous membranes and oropharynx mildly dry Neck--supple. No JVD. No bruits. Thyroid normal, trachea midline, no adenopathy. Heart--normal S1 and S2. No murmurs, rubs or gallops. Lungs--clear bilaterally, no respiratory distress, no accessory muscle use. Abdomen--normal bowel sounds and soft. Extremities--no cyanosis or clubbing. No edema. Dermatologic--normal skin turgor, normal color, no abnormal lymph nodes, no rash. Neurologic--cranial nerves II through XII grossly intact. Rheumatologic--normal range of motion. Psychiatric--normal affect. Results & Data Results & Data Vital Signs (Past 12 Hours) Vital Signs Temp Pulse Pulse Resp BP Pulse Ox O2 Del Method 08/09/23 08:11 97.9 F 75 19 172/81 H 96 Room Air 08/09/23 03:58 97.7 F 82 18 184/82 H 97 Room Air 08/08/23 23:48 97.9 F 80 19 152/72 H 92 Room Air 08/08/23 22:58 95 H 08/08/23 22:03 90 PG Care Time/CCT Total # of Minutes Spent Total Time Spent with Patient: Total time spent is greater than 50% in coordination of care (as documented) at patient's floor/unit and/or counseling patient: Coding Level of Care Code 76560 SUB INP/OBS CARE 2/35MIN Diagnoses CVA (cerebral vascular accident) I63.9 CVA mechanism: unspecified Unwitnessed fall R29.6 UTI (urinary tract infection) N39.0 DVT (deep venous thrombosis) I82.402 Affected thrombotic vein of extremity: unspecified vein of extremity Chronicity: acute DVT location: lower extremity Laterality: left Dementia F03.90 Type 2 diabetes mellitus without complication, with long-term current use of insulin E11.9; Z79.4 Diabetes mellitus type: type 2 Diabetes mellitus jail insulin use: with intermediate manager use Diabetes mellitus complication status: without complication Time Spent (min) 35 (1) CVA (cerebral vascular accident) CVA mechanism: unspecified Qualified Code(s): I63.9 - Cerebral infarction, unspecified (4) DVT (deep venous thrombosis) Affected thrombotic vein of extremity: unspecified vein of extremity Chronicity: acute DVT location: lower extremity Laterality: left Qualified Code(s): I82.402 - Acute embolism and thrombosis of unspecified deep veins of left lower extremity (6) Diabetes Diabetes mellitus type: type 2 Diabetes mellitus jail insulin use: with jail use Diabetes mellitus complication status: without complication Qualified Code(s): E11.9 - Type 2 diabetes mellitus without complications; Z79.4 - prison (current) use of insulin
--- NOTE | 2023-08-09 12:35 | Magnetic Resonance Report ---
MRI OF THE BRAIN WITHOUT CONTRAST CLINICAL HISTORY: subacute CVA COMPARISON STUDY: Head CT and CTA of the head August 08, 2023. TECHNIQUE: Utilizing a 1.5 Ruth Ann magnet and dedicated coil, multiplanar, multiecho imaging of the bra in was performed without IV contrast. FINDINGS: There is a 1.2 cm focus restricted diffusion within the right aspect of the bonilla which mariah esponds to the finding on head CT of August 08, 2023. This is hypointense on the ADC map. Corresponding T2 hyperintensity is present. There is no mass effect. There is no evidence for acute hemorrhage. No additional foci of restricted diffusion are present. Ventricular system is unremarkable. The basal c isterns are patent. There are no extra axial collections. Flow-voids for the major intracranial vesse ls are present. Moderate white matter T2 hyperintense foci suggest small vessel disease. No calvarial lesions are evident. IMPRESSION: 1. 1.2 cm focus of restricted diffusion within the right aspect of the bonilla consistent with an acute to subacute infarct. This corresponds to the finding on head CT. 2. No acute intracranial hemorrhage. ACT 112: Negative or not required by law. Electronically signed by: Flaco Campa M.D. 08/09/2023 12:32 PM
[2023-08-09] MEDS ORDERED: POLYETHYLENE (MIRALAX) 17 GM PACK PO PRN (13:26)
--- NOTE | 2023-08-09 14:41 | XCELERA ---
[id number]
--- NOTE | 2023-08-09 18:56 | Billing Data ---
Date of Service August 09, 2023 Coding Level of Care Code 62458 INT INP/OBS CARE
[2023-08-09] MEDS: APIXABAN 2.5 MG TAB PO SCH (19:51)
[2023-08-10 06:33] LABS: Basophils # (auto) 0.04 K/uL (0.00-0.20); Basophils % (auto) 0.9 %; Eosinophils # (auto) 0.16 K/uL (0.00-0.50); Eosinophils % (auto) 3.5 %; Hematocrit (blood only) 40.3 % (37.0-47.0); Hemoglobin 13.3 g/dl (12.0-16.0); Immature Granulocytes # (auto) 0.01 K/uL (0.01-0.20); Immature Granulocytes % (auto) 0.2 %; Lymphocytes # (auto) 1.32 K/uL (1.20-3.40); Lymphocytes % (auto) 29.1 %; Mean Corpuscular Hemoglobin 30.9 pg (25.0-34.0); Mean Corpuscular Volume 93.5 fL (80.0-100.0); Mean Platelet Volume 9.6 fL (9.4-12.4); Monocytes # (auto) 0.35 K/uL (0.11-0.59); Monocytes % (auto) 7.7 %; Neutrophils # (auto) 2.66 K/uL (1.40-6.50); Neutrophils % (auto) 58.6 %; Platelet Count 183 K/uL (130-400); RDW Standard Deviation 44.8 fL (36.4-46.3); Red Blood Count 4.31 M/uL (4.20-5.40); White Blood Count 4.54 K/ul (4.8-10.8)
[2023-08-10 07:51] LABS: Magnesium 1.8 mg/dl (1.7-2.4); Potassium 4.1 mmol/L (3.5-5.1)
[2023-08-10 07:57] LABS: BUN Creatinine Ratio 19.4 (10-20); Creatinine Clr Calc Pharmacy 37.5 ml/min; Est GFR (African American) 53.5 ml/min; Est GFR (Non-African American) 46.1 ml/min
--- NOTE | 2023-08-10 09:03 | Pharmacy Report ---
- Date of Service August 10, 2023 - Pharmacy CVA/TIA Medication Review Medications to Prevent Stroke handout has been added to the patients discharge packet. Antiplatelet(s) * aspirin 81 mg daily Cholesterol * age>75 moderate-high statin therapy : atorvastatin 40 mg daily DVT Prophylaxis * see below Therapeutic Anticoagulation * apixaban 2.5 mg bid - lower dosing utilized d/t advanced age and hx of frequent falls Type 2 Diabetes * Patient has T2DM, reasonable to defer a diabetes medication with proven CVD benefit to their outpatient provider due to familiarity with risks/benefits of such therapies. "Medications to prevent stroke" handout has already been added to the patient's discharge packet, which instructs the patient to follow up with their outpatient provider to evaluate which diabetes medication with proven CVD benefit is best for them
[2023-08-10] MEDS: ACETAMINOPHEN 325 MG TAB PO PRN (12:26)
[2023-08-10] MEDS ORDERED: STROKE PATIENT DISCHARGE STA (14:21)
--- NOTE | 2023-08-10 14:21 | Discharge Summary ---
Discharge Summary Date of Service August 10, 2023 Principal Dx & Hospital Course #1 = Principal Diagnosis (1) CVA (cerebral vascular accident): Presented to the ED from her personal-prison after sustaining an unwitnessed fall Extensive imaging was obtained on trauma workup, CT of the head and brain without contrast notes a 9 mm hypodense focus within the bonilla favoring a subacute infarct Per chart review patient was in the [facility] ED on 08/03/2023 due to recurrent falls, altered mental status, and slurred speech At the time she did have a CT of the head and brain obtained which was read as negative for acute findings, her symptoms were thought to be due to possible UTI and she was discharged on a 7-day course of cefdinir Suspect her symptoms on 08/03/2023 may have been due to this subacute stroke and may not have been visible on CT head at that time Patient's neurologic exam is nonfocal and her slurred speech has improved CTAs of the head/neck without major stenoses, MRI of the brain without contrast confirms 1.2 cm bonilla acute to subacute stroke - TTE negative for bubble study and with preserved EF -Hemoglobin A1c well-controlled, and fasting lipid panel controlled but will switch simvastatin to high intensity atorvastatin 40 mg daily Appreciate neurology consultation -No need for long-term cardiac event monitoring as she is already on Eliquis for history of DVT -Added on aspirin 81 mg daily Given history of diabetes, could also consider SGLT2 as an outpatient Stable for discharge back to personal care with outpatient PT/OT (2) Unwitnessed fall: Patient was initially brought to the ED today due to unwitnessed fall She has been having recurrent falls since her last ED visit on 08/03/2023, symptoms/falls were thought to be due to possible UTI at that time Trauma workup today is negative for acute trauma, patient denies any pain at this time -Likely from stroke (3) UTI (urinary tract infection): Patient was started on a 7-day course of cefdinir on 08/03/2023 for possible UTI Review of urine culture from 08/03/2023 shows alpha Streptococcus, not Enterococcus She completed a 7-day course of cefdinir (4) DVT (deep venous thrombosis): Patient is typically on 5 mg twice daily Eliquis for history of left lower extremity DVT -Neurology recommends decreasing dose to 2.5 Mg p.o. twice daily for DVT prevention dose but also due to multiple falls and risk of bleeding (5) Dementia: Continue at bedtime Seroquel (6) Diabetes: Hemoglobin A1c well-controlled Continue home NPH 70/30 and consider adding on SGLT 2 inhibitor given history of stroke and diabetes (7) Axillary lymphadenopathy: Noted incidentally to have enlarged right axillary lymphadenopathy on the CT of the chest Recommend outpatient mammogram and breast ultrasound especially given history of breast cancer Discussed care with patient and her son at the bedside regarding this issue Plan Disposition-stable for discharge to personal-prison with outpatient PT/OT Notes For Next Care Provider Needs outpatient right breast mammogram and breast ultrasound Medication Changes From Visit Added aspirin 81 mg p.o. daily Decrease Eliquis to 2.5 Mg p.o. twice daily Admission HPI Per Admitting Provider Is an 88-year-old female with a past medical history significant for left lower extremity DVT (Currently on Eliquis), HTN, HLP, DMII, and Dementia who presented to the [facility] ED From [facility] dementia unit after experiencing an unwitnessed fall. There was reportedly question as to if she did hit her head against a dresser. On arrival to the ED she was noted to be hypertensive at 198/107, tachycardic at 98, but otherwise stable. Labs including CBC, CMP, high-sensitivity troponin, UA, and COVID-19 screen were unremarkable. Cervical spine CT, chest CT, chest x-ray, right shoulder x-ray, and CT of the abdomen and pelvis without contrast were read as negative for acute signs of trauma. The patient's CT chest did note several mildly enlarged low-attenuation loculated right axillary lymph nodes. This lymph adenopathy is nonspecific and follow-up nonemergent right mammogram and ultrasound are recommended. CT of the head and brain without contrast was read as negative for acute intracranial hemorrhage or mass effect. But did show a 9 mm hypodense focus within the bonilla favoring a subacute infarct. Patient was sitting in bed in no acute distress at the time of exam. History was limited due to the patient's baseline dementia. She confirms that she did fall earlier today but cannot tell me details surrounding the fall. She denies any pain at this time. Her only complaint is that she is hungry and wants to eat. She denies chest pain, shortness of breath, abdominal pain. Per review of patient's previous admissions and transfer paperwork she is a DNR/DNI in her son is her power of ip attorney. Shortly after admission the patient's son arrived and I did go back and discuss the current findings with him. He is in agreement with admission for further workup and secondary prevention. Of note he says that the patient's bruise left knee was from her fall approximately 1 week ago where she did have a negative x-ray. Please refer to Dr. Cuellar's attestation for any changes to the treatment plan Discharge Exam Constitutional WD/WN, vitals as above Respiratory normal respiratory effort, lungs clear to auscultation Cardiovascular RRR, no murmur, no edema Gastrointestinal (Abdomen) normal bowel sounds, soft, nontender, no hepatosplenomegaly Neurologic PERRL, EOMI, accommodation nl, no face palsy, no dysarthria moves all extremities and awake; no focal motor deficits Updated Medication List Medication Instructions Recorded Confirmed Type calcium carbonate 500 mg-vitamin 1 tab PO BID 08/06/22 08/08/23 History D3 5 mcg (200 unit) tablet (Os-Wil 500 + D3) diclofenac sodium 1 % topical gel 2 g topical QID PRN Pain 08/06/22 08/08/23 History docusate sodium 100 mg tablet 100 mg PO DAILY PRN Constipation 08/06/22 08/08/23 History latanoprost 0.005 % eye drops 1 drp OPB HS 08/06/22 08/08/23 History pantoprazole 40 mg tablet,delayed 40 mg PO QAM 08/06/22 08/08/23 History release quetiapine 25 mg tablet 25 mg PO HS 08/06/22 08/08/23 History timolol maleate 0.5 % eye drops 1 drp OPB HS 08/06/22 08/08/23 History triamcinolone acetonide 0.025 % 1 applic topical BID 08/06/22 08/08/23 History topical cream insulin NPH-regular 70-30 U-100 20 unit subcut QPM 08/11/22 08/08/23 History insulin 100 unit/mL subcutaneous pen (Novolin 70-30 FlexPen U-100 Insulin) insulin NPH-regular 70-30 U-100 35 unit subcut QAM 08/11/22 08/08/23 History insulin 100 unit/mL subcutaneous pen (Novolin 70-30 FlexPen U-100 Insulin) acetaminophen 325 mg tablet 650 mg PO Q6H PRN PAIN/FEVER 08/08/23 08/08/23 History (Tylenol) ferrous sulfate 325 mg (65 mg 325 mg PO DAILY 08/08/23 08/08/23 History iron) tablet furosemide 20 mg tablet (Lasix) 20 mg PO DAILY 08/08/23 08/08/23 History lisinopril 40 mg tablet 40 mg PO QAM 08/08/23 08/08/23 History apixaban 2.5 mg tablet (Eliquis) 2.5 mg PO BID #60 tabs 08/10/23 Rx aspirin 81 mg tablet,delayed 81 mg PO DAILY #30 tabs 08/10/23 Rx release atorvastatin 40 mg tablet 40 mg PO QAM #30 tabs 08/10/23 Rx Hospital Stay Data Consultations 08/08/23 19:31 ED Decision to Admit Stat 08/08/23 19:37 Consult Neurology Routine Diagnostic Imagining Performed 08/08/23 16:42 CT abd pelvis wo con Stat CT cervical spine wo con Stat CT chest diagnostic wo con Stat CT head/brain wo con Stat 08/08/23 19:52 CTA head w con [CT angio head w con] Urgent CTA neck with con [CT angio neck with con] Urgent 08/09/23 00:00 MR brain wo con Routine Echocardiogram Pending Results Patient Have Any Pending Studies at Discharge: No Discharge Instructions Given to Patient (Per Discharging Provider) You were admitted and found to have had a stroke in your bonilla which is a part of your brainstem. Fortunately your symptoms of stroke have resolved. You were started on aspirin and your cholesterol medication was switched to a stronger one to keep this from happening again. Your Eliquis dose was lowered to the DVT prevention dose based on the fact that you have frequent falls-this was recommended by the Neurologist. Incidentally, you were found to have some enlarged lymph nodes in your right armpit region. Please talk to your PCP about ordering a breast mammogram and ultrasound to look for breast cancer as we discussed. Risk Factors for Stroke: You can reduce your chances of stroke by working with your medical provider to adopt a healthy lifestyle. Some specific ways to lower your chance of stroke are: * If you are a smoker, now is the time to stop smoking cigarettes * If you are diabetic, improve the control of your blood sugars * Avoid excessive amounts of alcohol * Control high blood pressure * Lose weight if you are overweight * Be sure to lead an active lifestyle * Eat a healthy diet low in salt, cholesterol and fat You should know about other risk factors for stroke that you are unable to control. These include: * Age 55 years or older * Male gender * Certain racial groups: , or / * Family History of Stroke, Mini stroke or Heart Attack * Sickle Cell Disease Follow Up: It is important for you to keep your follow up appointments with your medical provider. Who to Call and When: Medical Emergencies: Call 911 immediately if you experience any of the following warning signs and symptoms of Stroke: * Sudden numbness or weakness of the face, arm or leg, especially on one side of the body * Sudden confusion, trouble speaking or understanding * Sudden trouble seeing in one or both eyes * Sudden trouble walking, dizziness, loss of balance or coordination * Sudden severe headache with no cause Do not delay calling 911 if you experience any warning signs or symptoms of a stroke. Delay in seeking medical attention may affect what treatments can be given to you. . Total Time Total Time Spent Total Time Spent (In Minutes): 45 minutes Total Time Includes: Examination of the Patient, Discharge Planning and Medication Reconciliation Coding Level of Care Code 69788 INP/OBS DISCH >30 MIN Diagnoses CVA (cerebral vascular accident) I63.9 CVA mechanism: unspecified Unwitnessed fall R29.6 UTI (urinary tract infection) N39.0 DVT (deep venous thrombosis) I82.402 Affected thrombotic vein of extremity: unspecified vein of extremity Chronicity: acute DVT location: lower extremity Laterality: left Dementia F03.90 Type 2 diabetes mellitus without complication, with long-term current use of insulin E11.9; Z79.4 Diabetes mellitus complication status: without complication Diabetes mellitus mcfp insulin use: with long lines operator use Diabetes mellitus type: type 2 Axillary lymphadenopathy R59.0
[2023-08-11] MEDS ORDERED: ATORVASTATIN 40 MG TAB PO SCH (09:00)
== END 2023-08-10 15:10 | disposition home or self-care (01) ==
LOC: 2S 16:34 → ED 16:34 → SUATTDRO 19:37 → 2S 20:42

== ENCOUNTER 2024-02-11 11:34 | Inpatient (IN) ==
--- NOTE | 2024-02-11 12:15 | Emergency Department Note ---
Impression & Plan Melena, Anticoagulant long-term use ED Provider Note Provider: Vasiliy Berrios MD CHIEF COMPLAINT: Rectal bleeding HISTORY OF PRESENT ILLNESS: Patient is a 88-year-old female past medical history of CVA, dementia, hypertension Eliquis 2.5 mg twice daily presenting from [facility] where she resides. Patient evidently developed rectal bleeding last evening. Has had multiple bloody stools. Denies any syncope or significant shortness of breath or chest pain. Denies significant abdominal pain. Denies any nausea or vomiting. Is on aspirin in addition to Eliquis. Patient does have a distant history of GI bleed in the past. No other fevers or sick contacts reported. Patient reports she ate okay this morning and had a decent breakfast. PAST MEDICAL HISTORY: As noted above MEDICATIONS: Reviewed medication list from the facility SOCIAL HISTORY: Resides at [facility] PHYSICAL EXAM: GENERAL: alert and oriented in no acute distress on stretcher Head: normocephalic and atraumatic EYES: No injection, discharge or icterus. NECK: Trachea midline. Supple. ENT: Mucous membranes pink and moist. LUNGS: Airway patent. No retractions or tachypnea HEART: Regular rate and rhythm. No chest wall tenderness ABDOMEN: Soft and non-tender, without guarding or rebound. No hepatosplenomegaly or masses Rectal: With nurse RN director of field coordination present, maroon stool Hemoccult positive noted without hemorrhoid. SKIN: Acyanotic, warm, dry, without rashes EXTREMITIES: Without swelling, tenderness or deformity NEUROLOGICAL: No focal deficits. No aphasia. No facial droop or slurred speech. Normal strength and tone in the extremities. Sensation to gross touch normal. EK bpm normal sinus rhythm. No PVC or PAC. No acute ST segment elevation or depression with QTc of 442. CONTINUOUS CARDIAC MONITORING: was ordered and showed a heart rate of 80s to 90s bpm in normal sinus rhythm Patient's laboratory studies and imaging reviewed. Differential includes Diverticulosis, AVM, coagulopathy, colitis, inflammatory bowel disease, malignancy, Bettye-Ocampo tear, esophagitis, peptic ulcer disease, variceal bleed, gastritis, epistaxis, fissure, hemorrhoids, as well as other pathologies. IMPRESSION/MEDICAL DECISION MAKING: Reviewed prior records from July 2022. Patient had nuclear medicine study and colonoscopy at that time for rectal bleeding likely lower GI bleed but no definite source was noted at that point. Currently on aspirin and low-dose Eliquis. Denies significant abdominal pain fevers or worsening symptoms of symptomatic anemia. Type and screen sent given a dose of Protonix here although likely it is seeming like more of a lower GI bleed. Will obtain CT of the abdomen pelvis to look for any occult intra-abdominal pathology or signs of active bleeding. Type and screen is sent although she does not appear unstable. Not having significant pain and lower suspicion for diverticular bleed or hemorrhoidal bleed. Blood work here today's slightly worse anemia 11.7 from baseline around 13-14. No leukocytosis and normal platelet count. No severe electrolyte abnormalities. No severely elevated BUN. Creatinine normal at 1.1. No transaminitis noted. CT the abdomen pelvis shows without acute inflammatory process with extensive colonic close this without active diverticulitis. No intraluminal contrast was small and large bowel. There is some layering of hyperdense material in the stomach favoring food but cannot exclude intraluminal contrast in the stomach. Given patient reports she did have a large breakfast. Discussed with GI.zc Given the patient's long-term anticoagulation with Eliquis and use of aspirin with the 2 g drop in hemoglobin since prior values 5 months ago, do believe further observation is indicated. Patient agreeable and patient son agreeable. He does request urinalysis testing as he has frequent UTIs. Discussed possibility of GI intervention with scope however patient and patient's son states she does not cooperate for these and would not wish for these. Do not see any emergent indication for this at this time anyway but with time can see where her counts and bleeding go. Did contact the hospitalist team DIAGNOSIS: Melena, long-term anticoagulation DISPOSITION: Hospitalist will evaluate Patient was agreeable with this plan. Past Med/Surg History Problem List (Updated 02/11/24 @ 13:56 by Vasiliy Berrios M.D.) Anticoagulant long-term use (Acute) Melena (Acute) Axillary lymphadenopathy Contusion of knee, left (Acute) UTI (urinary tract infection) CVA (cerebral vascular accident) (Acute) Unwitnessed fall (Acute) Fracture, humerus Abnormal urinalysis Left leg swelling (Acute) DVT (deep venous thrombosis) (Acute) History of GI bleed (Acute) Anemia (Acute) Left leg DVT Near syncope Hypokalemia Acute blood loss anemia Encounter for pre-operative examination GI bleed (Acute) Diverticulosis (Acute) GI bleed likely secondary to diverticulosis Diabetes Hypertension Hyperlipemia Glaucoma Chondrocalcinosis of knee Spondylolisthesis of lumbar region DDD (degenerative disc disease), lumbar Osteoarthritis of left hip Lumbar spinal stenosis Severe at L4-L5 Dementia Depression Chronic low back pain Hypoglycemia due to insulin (Acute) Elevated troponin (Acute) Elevated CK Hypoglycemia Syncope Diabetes mellitus type 2 in nonobese Medical History Breast cancer Surgical History S/P hysterectomy History of mastectomy Family History Other No pertinent family history Denies family history of Ovarian cancer Prostate cancer Heart disease Breast cancer Colorectal cancer Social History Smoking Status: Never smoker Second Hand Exposure: No; Do You Dip or Chew Tobacco: No; Hx Alcohol Use: No Hx Substance Use: No Preferred Language: Sammarinese Communication Ability: Effective Visual Impairment: No Limitations Hearing Ability: Normal Boardmarker Required: No Beliefs That Will Affect Care: None marital status: / Current Living Situation: Long Term Current Living Situation Comment: [facility] current occupational status: retired Feels Safe at Home: Yes Childhood Exposure to Second-Hand Smoke: No Diet: regular Dental Care, Regularly: Yes Physical Activity Frequency: Does not Exercise Seatbelt Use: sometimes Sunscreen Use: No Assistive Devices: Walker Allergies Allergies Allergy/AdvReac Type Severity Reaction Status Date / Time amoxicillin [From Augmentin] Allergy Intermediate Rash on Verified 08/12/23 12:32 Hands and Feet clavulanic acid Allergy Intermediate Rash on Verified 08/12/23 12:32 [From Augmentin] Hands and Feet Home Meds Home Medications Medication Instructions Recorded Confirmed calcium 500 mg (as 1 tab PO BID 08/06/22 08/12/23 carbonate)-vitamin D3 5 mcg (200 unit) tablet (Os-Wil 500 + D3) diclofenac sodium 1 % topical gel 2 g topical QID PRN Pain 08/06/22 08/12/23 docusate sodium 100 mg tablet 100 mg PO DAILY PRN Constipation 08/06/22 08/12/23 latanoprost 0.005 % eye drops 1 drp OPB HS 08/06/22 08/12/23 pantoprazole 40 mg tablet,delayed 40 mg PO QAM 08/06/22 08/12/23 release quetiapine 25 mg tablet 25 mg PO HS 08/06/22 08/12/23 timolol maleate 0.5 % eye drops 1 drp OPB HS 08/06/22 08/12/23 triamcinolone acetonide 0.025 % 1 applic topical BID 08/06/22 08/12/23 topical cream insulin NPH-regular 70-30 U-100 20 unit subcut QPM 08/11/22 08/12/23 insulin 100 unit/mL subcutaneous pen (Novolin 70-30 FlexPen U-100 Insulin) insulin NPH-regular 70-30 U-100 35 unit subcut QAM 08/11/22 08/12/23 insulin 100 unit/mL subcutaneous pen (Novolin 70-30 FlexPen U-100 Insulin) acetaminophen 325 mg tablet 650 mg PO Q6H PRN PAIN/FEVER 08/08/23 08/12/23 (Tylenol) ferrous sulfate 325 mg (65 mg 325 mg PO DAILY 08/08/23 08/12/23 iron) tablet furosemide 20 mg tablet (Lasix) 20 mg PO DAILY 08/08/23 08/12/23 lisinopril 40 mg tablet 40 mg PO QAM 08/08/23 08/12/23 Previous Rx's Medication Instructions Recorded apixaban 2.5 mg tablet (Eliquis) 2.5 mg PO BID #60 tabs 08/10/23 aspirin 81 mg tablet,delayed 81 mg PO DAILY #30 tabs 08/10/23 release atorvastatin 40 mg tablet 40 mg PO QAM #30 tabs 08/10/23 Results & Data (ED) Vital Signs Vital Signs - 24 hr 02/11/24 11:52 02/11/24 12:08 02/11/24 12:21 Temperature 36.6 C Temperature Source Oral Pulse Rate 95 H 89 90 Pulse Rhythm Respiratory Rate 20 22 Blood Pressure 173/98 H 173/98 H Blood Pressure Mean 123 123 Pulse Oximetry 96 95 Oxygen Delivery Method Room Air Room Air Sepsis Recent Fever Within 48 Hours No Sepsis New/Unexplained Change in Mental Status No Sepsis Action Taken by Nursing No Action Required 02/11/24 12:33 Temperature Temperature Source Pulse Rate 86 Pulse Rhythm Regular Respiratory Rate 14 Blood Pressure Blood Pressure Mean Pulse Oximetry 94 Oxygen Delivery Method Room Air Sepsis Recent Fever Within 48 Hours Sepsis New/Unexplained Change in Mental Status Sepsis Action Taken by Nursing Laboratory Data 02/11/24 12:15 02/11/24 12:15 Lab Results 02/11/24 02/11/24 02/11/24 Range/Units 12:15 12:17 12:24 WBC 6.26 (4.8-10.8) K/ul RBC 3.63 L (4.20-5.40) M/uL Hgb 11.7 L (12.0-16.0) g/dl POC Hgb 11.9 L (12.0-16.0) g/dl Hct 35.3 L (37.0-47.0) % POC Hct 35 L (37-47) % MCV 97.2 (80.0-100.0) fL MCH 32.2 (25.0-34.0) pg MCHC 33.1 (32.0-36.0) g/dL RDW Std Deviation 49.1 H (36.4-46.3) fL RDW Coeff of Nikki 13.8 (11.5-14.5) % Plt Count 216 (130-400) K/uL MPV 9.8 (9.4-12.4) fL Immature Gran % (Auto) 0.2 % Neut % (Auto) 74.3 % Lymph % (Auto) 15.7 % [place] % (Auto) 6.7 % Eos % (Auto) 2.6 % Baso % (Auto) 0.5 % Neut # (Auto) 4.66 (1.40-6.50) K/uL Lymph # (Auto) 0.98 L (1.20-3.40) K/uL [place] # (Auto) 0.42 (0.11-0.59) K/uL Eos # (Auto) 0.16 (0.00-0.50) K/uL Baso # (Auto) 0.03 (0.00-0.20) K/uL Immature Gran # (Auto) 0.01 (0.01-0.20) K/uL PT 10.7 (9.0-12.0) Seconds INR 1.0 (0.9-1.1) APTT 26 (21-31) Seconds PTT Ratio 1.0 POC Sodium 140 (135-144) mmol/L Sodium 139 (136-145) mmol/L POC Potassium 4.1 (3.3-5.0) mmol/L Potassium 4.0 (3.5-5.1) mmol/L POC Chloride 100 L (101-112) mmol/L Chloride 102 (98-107) mmol/L Carbon Dioxide 29 (21-32) mmol/L POC Total CO2 29 (24-31) mmol/L Anion Gap 8 (3-11) POC Anion Gap 16.0 (16-25) mmol/L POC BUN 25 H (7-18) mg/dl BUN 23 (6-23) mg/dl Creatinine 1.09 (0.6-1.2) mg/dl POC Creatinine 1.1 (0.6-1.3) mg/dl Est Cr Clr Drug Dosing 38.0 ml/min eGFR 49.17 BUN/Creatinine Ratio 21.1 H (10-20) Glucose 225 H (70-99(Fasting)) mg/dl POC Glucose (other) 224 H (70-99) mg/dl Calcium 8.8 (8.6-10.3) mg/dl POC Ioniz Calcium Jaycee 1.13 (1.12-1.32) mmol/l Total Bilirubin 0.4 (0.2-1.0) mg/dl AST 15 (13-39) U/L ALT 10 (7-52) U/L Alkaline Phosphatase 110 H (34-104) U/L Total Protein 7.1 (6.0-8.3) gm/dl Albumin 3.8 (3.4-5.0) gm/dl Globulin 3.3 (2.5-4.0) gm/dl Albumin/Globulin Ratio 1.2 (0.9-2) POC Stool Occult Blood Positive A (Negative) Adenovirus (PCR) (NotDetected) B. pertussis DNA (PCR) (NotDetected) B.parapertussis DNA PCR (NotDetected) C. pneumoniae DNA (PCR) (NotDetected) Coronavirus OC43 (PCR) (NotDetected) Coronavirus HKU1 (PCR) (NotDetected) Coronavirus 229E (PCR) (NotDetected) SARS-CoV-2 (PCR) (NotDetected) Coronavirus NL63 (PCR) (NotDetected) Human Metapneumovir PCR (NotDetected) Influenza Type A (PCR) (NotDetected) Influenza Type B (PCR) (NotDetected) M. pneumoniae (PCR) (NotDetected) Parainfluenza 1 (PCR) (NotDetected) Parainfluenza 2 (PCR) (NotDetected) Parainfluenza 3 (PCR) (NotDetected) Parainfluenza 4 (PCR) (NotDetected) RSV (PCR) (NotDetected) Entero/Rhino (PCR) (NotDetected) Blood Type O Negative Antibody Screen NEGATIVE 02/11/24 Range/Units 12:30 WBC (4.8-10.8) K/ul RBC (4.20-5.40) M/uL Hgb (12.0-16.0) g/dl POC Hgb (12.0-16.0) g/dl Hct (37.0-47.0) % POC Hct (37-47) % MCV (80.0-100.0) fL MCH (25.0-34.0) pg MCHC (32.0-36.0) g/dL RDW Std Deviation (36.4-46.3) fL RDW Coeff of Nikki (11.5-14.5) % Plt Count (130-400) K/uL MPV (9.4-12.4) fL Immature Gran % (Auto) % Neut % (Auto) % Lymph % (Auto) % [place] % (Auto) % Eos % (Auto) % Baso % (Auto) % Neut # (Auto) (1.40-6.50) K/uL Lymph # (Auto) (1.20-3.40) K/uL [place] # (Auto) (0.11-0.59) K/uL Eos # (Auto) (0.00-0.50) K/uL Baso # (Auto) (0.00-0.20) K/uL Immature Gran # (Auto) (0.01-0.20) K/uL PT (9.0-12.0) Seconds INR (0.9-1.1) APTT (21-31) Seconds PTT Ratio POC Sodium (135-144) mmol/L Sodium (136-145) mmol/L POC Potassium (3.3-5.0) mmol/L Potassium (3.5-5.1) mmol/L POC Chloride (101-112) mmol/L Chloride (98-107) mmol/L Carbon Dioxide (21-32) mmol/L POC Total CO2 (24-31) mmol/L Anion Gap (3-11) POC Anion Gap (16-25) mmol/L POC BUN (7-18) mg/dl BUN (6-23) mg/dl Creatinine (0.6-1.2) mg/dl POC Creatinine (0.6-1.3) mg/dl Est Cr Clr Drug Dosing ml/min eGFR BUN/Creatinine Ratio (10-20) Glucose (70-99(Fasting)) mg/dl POC Glucose (other) (70-99) mg/dl Calcium (8.6-10.3) mg/dl POC Ioniz Calcium Jaycee (1.12-1.32) mmol/l Total Bilirubin (0.2-1.0) mg/dl AST (13-39) U/L ALT (7-52) U/L Alkaline Phosphatase (34-104) U/L Total Protein (6.0-8.3) gm/dl Albumin (3.4-5.0) gm/dl Globulin (2.5-4.0) gm/dl Albumin/Globulin Ratio (0.9-2) POC Stool Occult Blood (Negative) Adenovirus (PCR) Not Detected (NotDetected) B. pertussis DNA (PCR) Not Detected (NotDetected) B.parapertussis DNA PCR Not Detected (NotDetected) C. pneumoniae DNA (PCR) Not Detected (NotDetected) Coronavirus OC43 (PCR) Not Detected (NotDetected) Coronavirus HKU1 (PCR) Not Detected (NotDetected) Coronavirus 229E (PCR) Not Detected (NotDetected) SARS-CoV-2 (PCR) Not Detected (NotDetected) Coronavirus NL63 (PCR) Not Detected (NotDetected) Human Metapneumovir PCR Not Detected (NotDetected) Influenza Type A (PCR) Not Detected (NotDetected) Influenza Type B (PCR) Not Detected (NotDetected) M. pneumoniae (PCR) Not Detected (NotDetected) Parainfluenza 1 (PCR) Not Detected (NotDetected) Parainfluenza 2 (PCR) Not Detected (NotDetected) Parainfluenza 3 (PCR) Not Detected (NotDetected) Parainfluenza 4 (PCR) Not Detected (NotDetected) RSV (PCR) Not Detected (NotDetected) Entero/Rhino (PCR) Not Detected (NotDetected) Blood Type Antibody Screen Administered Medications Discontinued Medications Ioversol (Optiray 320 125ml) 118 ml IV ONCE ONE Stop: 02/11/24 13:21 Last Admin: 02/11/24 13:21 Dose: 118 ml Documented By: JACINTO Imaging Data Radiologist's Impression: Abdomen/Pelvis CTA 02/11/24 11:59 CT ANGIOGRAPHY OF THE ABDOMEN AND PELVIS CLINICAL HISTORY: Rectal bleeding. COMPARISON STUDY: CT of the abdomen and pelvis 07/19/2023. TECHNIQUE: Helical axial images of the abdomen and pelvis were obtained during arterial phase following intravenous injection of 118 cc Optiray 320 IV. Sagittal and coronal reconstructions were viewed as well as maximal intensity projections on an independent 3-D workstation. Automated exposure control was utilized for the study. A dose lowering technique was utilized adhering to the principles of ALARA. FINDINGS: No pneumatosis, free air or portal venous gas is present. Caliber of the abdominal aorta is normal. There is extensive atherosclerotic plaque within the abdominal aorta. The mesenteric vessels are patent. The right renal artery is patent. There is an accessory right renal artery. There is severe stenosis at the origin of the left renal artery due to calcified plaque. Extensive colonic diverticulosis is present. There is no evidence for acute diverticulitis. No intraluminal contrast within small or large bowel is present. There is hyperdense material within the dependent aspect of the stomach. Arterial phase images of the liver, spleen, adrenal glands and pancreas are unremarkable. The bladder is distended. This likely accounts for mild bilateral collecting system dilatation. The kidneys are unremarkable. There is no lymphadenopathy. There are no fluid collections. The appendix is normal. IMPRESSION: 1. No acute inflammatory process within the abdomen or pelvis. 2. Extensive colonic diverticulosis. No evidence for acute diverticulitis. No intraluminal contrast within the small or large bowel. 3. Layering hyperdense material within the stomach. Ingested contents are favored. However, intraluminal contrast within the stomach in the setting of an active bleed could appear similar. Findings could be correlated with clinical evidence for an upper GI bleed and upper endoscopy as indicated. 4. 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 ACT 112: Negative or not required by law. Electronically signed by: Flaco Campa M.D. 02/11/2024 1:39 PM Discharge Plan Visit Data Chief Complaint: Rectal Bleed Stated Complaint: RECTAL BLEED ED Provider: Vasiliy Berrios Discharge Problem: Melena, Anticoagulant long-term use Patient Disposition: Being Evaluated by Hospitalist Forms Stand Alone Forms: [facility] Prescriptions Prescriptions: No Action Novolin 70-30 FlexPen U-100 100 unit/mL (70-30) insulin pen 20 unit SUBCUT QPM Rx Instructions: AT 1700 Novolin 70-30 FlexPen U-100 100 unit/mL (70-30) insulin pen 35 unit SUBCUT QAM quetiapine 25 mg tablet 25 mg PO HS latanoprost 0.005 % drops 1 drp OPB HS triamcinolone acetonide 0.025 % cream 1 applic TOPICAL BID pantoprazole 40 mg tablet,delayed release (DR/EC) 40 mg PO QAM timolol maleate 0.5 % drops 1 drp OPB HS docusate sodium 100 mg Tablet 100 mg PO DAILY PRN (Reason: Constipation) calcium carbonate-vitamin D3 [Os-Wil 500 + D3] 500 mg-5 mcg (200 unit) Tablet 1 tab PO BID diclofenac sodium 1 % gel 2 g TOPICAL QID PRN (Reason: Pain) acetaminophen [Tylenol] 325 mg Tablet 650 mg PO Q6H PRN (Reason: PAIN/FEVER) ferrous sulfate 325 mg (65 mg iron) Tablet 325 mg PO DAILY furosemide [Lasix] 20 mg Tablet 20 mg PO DAILY lisinopril 40 mg tablet 40 mg PO QAM Eliquis 2.5 mg Tablet 2.5 mg PO BID Qty: 60 0RF atorvastatin 40 mg Tablet 40 mg PO QAM Qty: 30 0RF aspirin 81 mg Tablet,Delayed Release (Dr/Ec) 81 mg PO DAILY Qty: 30 0RF Referrals Referrals: Sharon Arevalo [Primary Care Provider] -
[2024-02-11 12:36] LABS: Basophils # (auto) 0.03 K/uL (0.00-0.20); Basophils % (auto) 0.5 %; Eosinophils # (auto) 0.16 K/uL (0.00-0.50); Eosinophils % (auto) 2.6 %; Hematocrit (blood only) 35.3 % (37.0-47.0); Hemoglobin 11.7 g/dl (12.0-16.0); Immature Granulocytes # (auto) 0.01 K/uL (0.01-0.20); Immature Granulocytes % (auto) 0.2 %; Lymphocytes # (auto) 0.98 K/uL (1.20-3.40); Lymphocytes % (auto) 15.7 %; Mean Corpuscular Hemoglobin 32.2 pg (25.0-34.0); Mean Corpuscular Hgb Conc 33.1 g/dL (32.0-36.0); Mean Corpuscular Volume 97.2 fL (80.0-100.0); Mean Platelet Volume 9.8 fL (9.4-12.4); Monocytes # (auto) 0.42 K/uL (0.11-0.59); Monocytes % (auto) 6.7 %; Neutrophils # (auto) 4.66 K/uL (1.40-6.50); Neutrophils % (auto) 74.3 %; Platelet Count 216 K/uL (130-400); RDW Coefficient of Variation 13.8 % (11.5-14.5); RDW Standard Deviation 49.1 fL (36.4-46.3); Red Blood Count 3.63 M/uL (4.20-5.40); White Blood Count 6.26 K/ul (4.8-10.8)
[2024-02-11 12:36] LABS: iSTAT Creatinine 1.1 mg/dl (0.6-1.3); iSTAT Hemoglobin 11.9 g/dl (12.0-16.0); iSTAT Ionized Calcium 1.13 mmol/l (1.12-1.32); iSTAT Potassium 4.1 mmol/L (3.3-5.0)
[2024-02-11 12:50] LABS: Albumin Globulin Ratio 1.2 (0.9-2); Albumin Level 3.8 gm/dl (3.4-5.0); BUN Creatinine Ratio 21.1 (10-20); Bilirubin,Total 0.4 mg/dl (0.2-1.0); Calcium 8.8 mg/dl (8.6-10.3); Globulin 3.3 gm/dl (2.5-4.0); Total Protein 7.1 gm/dl (6.0-8.3)
[2024-02-11 13:09] LABS: Partial Thromboplastin Time 26 Seconds (21-31); Prothrombin Time 10.7 Seconds (9.0-12.0)
[2024-02-11] MEDS: OPTIRAY 320 125ml IV ONE (13:21)
--- NOTE | 2024-02-11 13:41 | CT Scan Report ---
CT ANGIOGRAPHY OF THE ABDOMEN AND PELVIS CLINICAL HISTORY: Rectal bleeding. COMPARISON STUDY: CT of the abdomen and pelvis 07/19/2023. TECHNIQUE: Helical axial images of the abdomen and pelvis were obtained during arterial phase followi ng intravenous injection of 118 cc Optiray 320 IV. Sagittal and coronal reconstructions were viewed a s well as maximal intensity projections on an independent 3-D workstation. Automated exposure control was utilized for the study. A dose lowering technique was utilized adhering to the principles of AL STAN. FINDINGS: No pneumatosis, free air or portal venous gas is present. Caliber of the abdominal aorta is normal. There is extensive atherosclerotic plaque within the abdominal aorta. The mesenteric vessels are patent. The right renal artery is patent. There is an accessory right renal artery. There is sev ere stenosis at the origin of the left renal artery due to calcified plaque. Extensive colonic divert iculosis is present. There is no evidence for acute diverticulitis. No intraluminal contrast within s mall or large bowel is present. There is hyperdense material within the dependent aspect of the stoma ch. Arterial phase images of the liver, spleen, adrenal glands and pancreas are unremarkable. The joanna dder is distended. This likely accounts for mild bilateral collecting system dilatation. The kidneys are unremarkable. There is no lymphadenopathy. There are no fluid collections. The appendix is normal . IMPRESSION: 1. No acute inflammatory process within the abdomen or pelvis. 2. Extensive colonic diverticulosis. No evidence for acute diverticulitis. No intraluminal contrast w ithin the small or large bowel. 3. Layering hyperdense material within the stomach. Ingested contents are favored. However, intralumi nal contrast within the stomach in the setting of an active bleed could appear similar. Findings coul d be correlated with clinical evidence for an upper GI bleed and upper endoscopy as indicated. 4. 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 ACT 112: Negative or not required by law. Electronically signed by: Flaco Campa M.D. 02/11/2024 1:39 PM
[2024-02-11 14:02] LABS: Adenovirus PCR Not Detected (NotDetected); Bordetella parapertussis PCR Not Detected (NotDetected); Bordetella pertussis PCR Not Detected (NotDetected); Chlamydia pneumoniae PCR Not Detected (NotDetected); Coronavirus 229E PCR Not Detected (NotDetected); Coronavirus CoV-2 (COVID19)PCR Not Detected (NotDetected); Coronavirus HKU1 PCR Not Detected (NotDetected); Coronavirus NL63 PCR Not Detected (NotDetected); Coronavirus OC43PCR Not Detected (NotDetected); Human Metapneumovirus PCR Not Detected (NotDetected); Influenza A PCR Not Detected (NotDetected); Influenza B PCR Not Detected (NotDetected); Mycoplasma pneumoniae PCR Not Detected (NotDetected); Parainfluenza Virus 1 PCR Not Detected (NotDetected); Parainfluenza Virus 2 PCR Not Detected (NotDetected); Parainfluenza Virus 3 PCR Not Detected (NotDetected); Parainfluenza Virus 4 PCR Not Detected (NotDetected); Respiratory Syncytial VirusPCR Not Detected (NotDetected); Rhinovirus/Enterovirus PCR Not Detected (NotDetected)
--- NOTE | 2024-02-11 14:18 | Electrocardiogram Report ---
Test Reason : Blood Pressure : */* mmHG Vent. Rate : 91 BPM Atrial Rate : 91 BPM P-R Int : 174 ms QRS Dur : 86 ms QT Int : 360 ms P-R-T Axes : 35 80 72 degrees QTcB Int : 442 ms Normal sinus rhythm Poor R wave progression, consider anterior ME vs. lead placement vs. LVH Abnormal ECG When compared with ECG of 21-Sep-2023 09:00, No significant change was found Confirmed by Israel Sanders ([id number]) on 02/11/2024 2:18:06 PM Referred By: Confirmed By: Israel Sanders
[2024-02-11] MEDS: PANTOprazole 80 MG in DEXTROSE 5% 100 ML IV STA (14:28)
[2024-02-11] MEDS ORDERED: GLUCAGON FOR INJ 1 MG VIAL SQ PRN (14:30)
[2024-02-11] MEDS ORDERED: CARBOHYDRATES FOR HYPOGLYCEMIA PO PRN (14:30)
[2024-02-11] MEDS ORDERED: GLUCOSE 10 TAB/TUBE PO PRN (14:30)
[2024-02-11] MEDS ORDERED: GLUCOSE 40% GEL 15 GM TUBE PO PRN (14:30)
[2024-02-11] MEDS ORDERED: ONDANSETRON INJ 2 MG/ML 2 ML VIAL IV PRN (14:30)
[2024-02-11] MEDS ORDERED: DEXTROSE 50% 50 ML SYRINGE IV PRN (14:30)
[2024-02-11] MEDS ORDERED: ACETAMINOPHEN 325 MG TAB PO PRN (14:30)
--- NOTE | 2024-02-11 14:52 | History & Physical Report ---
Date of Service February 11, 2024 Assessment & Plan (1) GI bleed: Plan: Assessment: 1. Acute GI bleed. Probably lower. BUN and creatinine ratio are stable does not reflect upper GI bleed. CAT scan was equivocal with possible food content in the stomach versus contrast. I favor food she had a large meal prior to presentation. Her BUN and creatinine ratio do not reflect upper GI bleed. She has been having gross rectal bleeding per history. As she did back in July 2022. At this time the patient does not feel she would probably want to attempt another colonoscopy as she did in July 2022. It was a poor prep at that time and inconclusive. Will treat her conservatively. Placed on clear liquids. Have GI see the patient. Hold her aspirin and Eliquis. Do H&H's every 6 hours. I did discuss possible blood transfusion with the patient if her hemoglobin to drop into the 8 range. At this point she does not want to consent to blood transfusion either. She would like to make that decision if and when needed. 2. Anemia of acute blood loss. Hemoglobin is around 13 at baseline. 11.7 today. H&H is every 6. Monitor carefully. Hold aspirin and Eliquis. 3. Chronic left lower extremity DVT on chronic Eliquis therapy. This will be held at this time given the chief complaint as described above. 4. Diabetes mellitus type 2 insulin requiring. Sliding scale's been ordered. As well as basal insulin. Hemoglobin A1c checked in the AM. 5. History of dyslipidemia. Continue statin therapy. 6. Hypertension. Continue antihypertensives. 7. Cognitive impairment. She is on some Seroquel in the evening. But again she is alert and oriented x 2 today which is her baseline per her family at the bedside. Plan: As described above. Please refer to orders for further planning. History of Present Illness Chief Complaint: Rectal bleeding Primary Care Provider: Sharon Viveros [facility] 88-year-old female resides at a long-term care facility. She is on aspirin and Eliquis chronically. 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 Last evening she started develop rectal bleeding came to the ER for further evaluation and treatment as it continued throughout the day today. The patient denies any other symptomatology including abdominal pain Upon presentation emergency department patient's vital signs were stable. Hemoglobin was 11.7 g/dL. Her baseline is around 13 g/dL. CAT scan of the abdomen pelvis was performed which showed large amount of gastric content. She did have a large meal prior to presentation. This could also represent IV contrast however this is not favored. BUN and creatinine ratio are stable. Does not reflect upper GI bleed. Additionally the patient was here in July 2022. She had a similar presentation. Attempted colonoscopy was obtained but was a very poor prep therefore attempts were abandoned and it was inconclusive. The patient remained hemodynamically stable in the ER. She has had no further rectal bleeding in the ER. We have been called to admit for a probable lower GI bleed I suspect diverticular in nature. Back in July 2022 she also had a bleeding scan which was negative. In conversation with the patient and her son at the bedside the patient does not feel she would want to attempt another colonoscopy. However we will consult GI for further input and discussion with the patient for definitive decision on whether attempt to reattempt endoscopy or not. Allergies Allergy/AdvReac Type Severity Reaction Status Date / Time amoxicillin [From Augmentin] Allergy Intermediate Rash on Verified 08/12/23 12:32 Hands and Feet clavulanic acid Allergy Intermediate Rash on Verified 08/12/23 12:32 [From Augmentin] Hands and Feet Home Medications Medication Instructions Recorded Confirmed Type calcium 500 mg (as 1 tab PO BID 08/06/22 08/12/23 History carbonate)-vitamin D3 5 mcg (200 unit) tablet (Os-Wil 500 + D3) diclofenac sodium 1 % topical gel 2 g topical QID PRN Pain 08/06/22 08/12/23 History docusate sodium 100 mg tablet 100 mg PO DAILY PRN Constipation 08/06/22 08/12/23 History latanoprost 0.005 % eye drops 1 drp OPB HS 08/06/22 08/12/23 History pantoprazole 40 mg tablet,delayed 40 mg PO QAM 08/06/22 08/12/23 History release quetiapine 25 mg tablet 25 mg PO HS 08/06/22 08/12/23 History timolol maleate 0.5 % eye drops 1 drp OPB HS 08/06/22 08/12/23 History triamcinolone acetonide 0.025 % 1 applic topical BID 08/06/22 08/12/23 History topical cream insulin NPH-regular 70-30 U-100 20 unit subcut QPM 08/11/22 08/12/23 History insulin 100 unit/mL subcutaneous pen (Novolin 70-30 FlexPen U-100 Insulin) insulin NPH-regular 70-30 U-100 35 unit subcut QAM 08/11/22 08/12/23 History insulin 100 unit/mL subcutaneous pen (Novolin 70-30 FlexPen U-100 Insulin) acetaminophen 325 mg tablet 650 mg PO Q6H PRN PAIN/FEVER 08/08/23 08/12/23 History (Tylenol) ferrous sulfate 325 mg (65 mg 325 mg PO DAILY 08/08/23 08/12/23 History iron) tablet furosemide 20 mg tablet (Lasix) 20 mg PO DAILY 08/08/23 08/12/23 History lisinopril 40 mg tablet 40 mg PO QAM 08/08/23 08/12/23 History apixaban 2.5 mg tablet (Eliquis) 2.5 mg PO BID #60 tabs 08/10/23 08/12/23 Rx aspirin 81 mg tablet,delayed 81 mg PO DAILY #30 tabs 08/10/23 08/12/23 Rx release atorvastatin 40 mg tablet 40 mg PO QAM #30 tabs 08/10/23 08/12/23 Rx Past Med/Surg History Problem List (Updated 02/11/24 @ 13:56 by Vasiliy Berrios M.D.) Anticoagulant long-term use (Acute) Melena (Acute) Axillary lymphadenopathy Contusion of knee, left (Acute) UTI (urinary tract infection) CVA (cerebral vascular accident) (Acute) Unwitnessed fall (Acute) Fracture, humerus Abnormal urinalysis Left leg swelling (Acute) DVT (deep venous thrombosis) (Acute) History of GI bleed (Acute) Anemia (Acute) Left leg DVT Near syncope Hypokalemia Acute blood loss anemia Encounter for pre-operative examination GI bleed (Acute) Diverticulosis (Acute) GI bleed likely secondary to diverticulosis Diabetes Hypertension Hyperlipemia Glaucoma Chondrocalcinosis of knee Spondylolisthesis of lumbar region DDD (degenerative disc disease), lumbar Osteoarthritis of left hip Lumbar spinal stenosis Severe at L4-L5 Dementia Depression Chronic low back pain Hypoglycemia due to insulin (Acute) Elevated troponin (Acute) Elevated CK Hypoglycemia Syncope Diabetes mellitus type 2 in nonobese Medical History Breast cancer Surgical History S/P hysterectomy History of mastectomy Family History Other No pertinent family history Denies family history of Ovarian cancer Prostate cancer Heart disease Breast cancer Colorectal cancer Social History Smoking Status: Never smoker Second Hand Exposure: No; Do You Dip or Chew Tobacco: No; Hx Alcohol Use: No Hx Substance Use: No Preferred Language: Croatian Communication Ability: Effective Visual Impairment: No Limitations Hearing Ability: Normal [employer] 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 Beliefs That Will Affect Care: None marital status: / Current Living Situation: Snf Current Living Situation Comment: [facility] current occupational status: retired Feels Safe at Home: Yes Childhood Exposure to Second-Hand Smoke: No Diet: regular Dental Care, Regularly: Yes Physical Activity Frequency: Does not Exercise Seatbelt Use: sometimes Sunscreen Use: No Assistive Devices: Walker Review of Systems Review of Systems: A 10 point review of system was obtained and unless otherwise stated here or in history of present illness are negative and noncontributory to chief complaint. Physical Exam Physical Exam: In General: In general pleasant 88-year-old female who is alert and oriented to person and place. She is accompanied by her son at the time my examination. She interacts appropriate and pleasantly. She denies any symptoms whatsoever. HEENT: Normocephalic atraumatic pupils are equal round and reactive to light bilaterally. No scleral icterus no conjunctival injection external auditory canals are patent septum is in the midline nose is without discharge oral mucosa is pink and moist without lesion. NECK: Supple no rigidity no lymphadenopathy no thyromegaly no carotid bruits no JVD no masses. HEART: Regular rate and rhythm I do not appreciate any ectopy or rub. No murmur. LUNGS: Clear to auscultation bilaterally and anteriorly with no evidence of adventitious sounds/wheezes rales or rhonchi. ABDOMEN: Soft nontender, no rebound, no peritoneal signs, positive bowel sounds, no appreciable organomegaly. EXTREMITIES: Intact, no peripheral cyanosis, clubbing. There is bilateral lower extremity edema that appears quite chronic according to her son her lower extremity edema is actually looks improved over the last couple months. Left greater than right given her chronic left lower extremity DVT. Strength is 4+ out of 5 in extremities x4. NEUROLOGICAL: Cranial nerves II through XII are grossly intact with no focal deficit elicited upon examination. Results & Data Results & Data Vital Signs (Past 12 Hours) Vital Signs Temp Pulse Resp BP Pulse Ox O2 Del Method 02/11/24 14:06 88 14 181/96 H 02/11/24 13:00 86 17 158/81 H 02/11/24 12:33 86 14 94 Room Air 02/11/24 12:21 90 22 173/98 H 95 Room Air 02/11/24 12:08 89 02/11/24 11:52 36.6 C 95 H 20 173/98 H 96 Room Air Code Status & VTE Plan Code Status DNR/DNI. Personally discussed with the patient and her son at the bedside today. VTE Prophylaxis Plan VTE Prophylaxis will be ordered: No PG Care Time/CCT Total # of Minutes Spent Total Time Spent with Patient: Total time spent is greater than 50% in coordination of care (as documented) at patient's floor/unit and/or counseling patient: Coding Level of Care Code 40716 INT INP/OBS CARE 3/75MIN Diagnoses GI bleed K92.1 GI bleed type/associated pathology: melena (1) GI bleed GI bleed type/associated pathology: melena Qualified Code(s): K92.1 - Melena
[2024-02-11 19:47] LABS: Hematocrit (blood only) 35.9 % (37.0-47.0); Hemoglobin 11.9 g/dl (12.0-16.0)
[2024-02-11] MEDS: INSULIN ASPART PER UNIT CHARGE SC SCH (20:39)
[2024-02-11] MEDS ORDERED: TRIAMCINOLONE ACET 0.025% CR 15 GM TUBE TOP SCH (21:00)
[2024-02-11] MEDS: PANTOprazole 40 MG/10 ML SYR IV SCH (21:01)
[2024-02-11] MEDS: QUEtiapine FUMARATE 25 MG TABLET PO SCH (21:01)
[2024-02-11] MEDS: LATANOPROST 0.005% OP SOLN 2.5 ML BTL OPB SCH (21:02)
[2024-02-11] MEDS: TIMOLOL MALEATE 0.5% OP SOLN 5 ML BTL OPB SCH (21:02)
[2024-02-11] MEDS: LANTUS PER UNIT CHARGE SQ SCH (21:02)
[2024-02-11 22:09] LABS: Appearance Urine Clear (Clear); Bacteria Urine Automated 4+ (None Seen); Bilirubin Urine Negative (Negative); Blood Urine Negative (Negative); Cast Urine Automated 0-2 /lpf (0-2); Color Urine Yellow; Epithelial Cell Urine Auto 0-2 /hpf (0-2); Glucose Urine UA Negative (Negative); Ketones Urine Negative (Negative); Leukocyte Esterase Urine 2+ (Negative); Nitrite Urine Negative (Negative); Protein Urine Negative (Negative); Specific Gravity Urine 1.034 (1.000-1.030); Urobilinogen Urine Negative (Negative); WBC Urine Automated 21-50 /hpf (0-5); pH Urine 7.5 (4.5-7.5)
[2024-02-11] MEDS: MELATONIN 3 MG TAB PO ONE (22:28)
[2024-02-11 23:23] VITALS: O2SAT 95
[2024-02-12 00:49] LABS: Hematocrit (blood only) 32.7 % (37.0-47.0); Hemoglobin 10.8 g/dl (12.0-16.0)
[2024-02-12 08:05] LABS: Basophils # (auto) 0.04 K/uL (0.00-0.20); Basophils % (auto) 0.7 %; Eosinophils # (auto) 0.15 K/uL (0.00-0.50); Eosinophils % (auto) 2.6 %; Hematocrit (blood only) 35.7 % (37.0-47.0); Hemoglobin 11.8 g/dl (12.0-16.0); Immature Granulocytes # (auto) 0.01 K/uL (0.01-0.20); Immature Granulocytes % (auto) 0.2 %; Lymphocytes # (auto) 0.95 K/uL (1.20-3.40); Lymphocytes % (auto) 16.2 %; Mean Corpuscular Hemoglobin 31.8 pg (25.0-34.0); Mean Corpuscular Hgb Conc 33.1 g/dL (32.0-36.0); Mean Corpuscular Volume 96.2 fL (80.0-100.0); Monocytes # (auto) 0.39 K/uL (0.11-0.59); Monocytes % (auto) 6.6 %; Neutrophils # (auto) 4.33 K/uL (1.40-6.50); Neutrophils % (auto) 73.7 %; Platelet Count 210 K/uL (130-400); RDW Coefficient of Variation 13.8 % (11.5-14.5); RDW Standard Deviation 48.7 fL (36.4-46.3); Red Blood Count 3.71 M/uL (4.20-5.40); White Blood Count 5.87 K/ul (4.8-10.8)
[2024-02-12 08:08] LABS: Albumin Globulin Ratio 1.2 (0.9-2); Albumin Level 3.6 gm/dl (3.4-5.0); BUN Creatinine Ratio 18.9 (10-20); Bilirubin,Total 0.6 mg/dl (0.2-1.0); Calcium 8.5 mg/dl (8.6-10.3); Chol HDL Ratio 2.4 (0-5); Creatinine Clr Calc Pharmacy 42.5 ml/min; Globulin 3.1 gm/dl (2.5-4.0); Magnesium 1.8 mg/dl (1.7-2.4); Potassium 3.9 mmol/L (3.5-5.1); Total Protein 6.7 gm/dl (6.0-8.3)
[2024-02-12 08:22] LABS: Thyroid Stimulating Hormone 2.6 uIu/ml (0.300-4.500)
[2024-02-12] MEDS: ATORVASTATIN 40 MG TAB PO SCH (08:26)
[2024-02-12] MEDS: lisinopril 40 MG TAB PO SCH (08:26)
[2024-02-12 10:01] LABS: Estimated Average Glucose 128 mg/dl; Hemoglobin A1C 6.1 % (4.5-5.6)
[2024-02-12 10:57] VITALS: BP 169/80; PULSE 74; RESP 16; TEMP 97.3
--- NOTE | 2024-02-12 11:31 | Gastrointestinal Consultation ---
Date of Consultation February 12, 2024 Assessment & Plan (1) GI bleed: Suspect diverticular bleeding exacerbated by Eliquis. -Continue to monitor H/H -Patient adamantly declines colonoscopy -If patient re-bleeds, could consider CTA vs GI bleed scan as an active diverticular bleed could be treated by IR if she does not desire endoscopic intervention (2) Abnormal CT scan, stomach: Questions gastric contents vs contrast; no corresponding symptoms -Continue with PPI therapy (she takes Protonix 40 mg daily at home as well) -She declines any further endoscopic intervention Supervising Physician Co-Signing Physician Notes Patient with a history of probable diverticular bleeding returns now with lower GI bleeding CT scan did not document active hemorrhage at this time. Patient declines all endoscopic evaluation. Did she was discharged prior to being seen by me. See note above from nurse practitioner, agree History of Present Illness Reason for Consultation: GI bleeding Attending Physician: Jose L Hood, DO History of Present Illness Patient is an 88 yo female on Eliquis for DVT. She developed rectal bleeding yesterday and presented to the Ed due to this. She has no abdominal pain, nausea, vomiting, diarrhea. She notes she also takes a baby Aspirin. She is on Protonix 40 mg daily at home. She notes similar GI bleeding in 2022 that led to a colonoscopy. Unfortunately there was a poor prep and no bleeding source was identified. A CT of the abdomen indicated the following: IMPRESSION: 1. No acute inflammatory process within the abdomen or pelvis. 2. Extensive colonic diverticulosis. No evidence for acute diverticulitis. No intraluminal contrast within the small or large bowel. 3. Layering hyperdense material within the stomach. Ingested contents are favored. However, intraluminal contrast within the stomach in the setting of an active bleed could appear similar. Findings could be correlated with clinical evidence for an upper GI bleed and upper endoscopy as indicated. 4. 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 H/H is currently 11.8/35.7. She is now admitted for probable diverticular bleeding. She notes to me that she is not at all interested in EGD or colonoscopy moving forward. She notes no further GI bleeding since admission. Allergies Allergy/AdvReac Type Severity Reaction Status Date / Time amoxicillin [From Augmentin] Allergy Intermediate Rash on Verified 08/12/23 12:32 Hands and Feet clavulanic acid Allergy Intermediate Rash on Verified 08/12/23 12:32 [From Augmentin] Hands and Feet Home Medications Medication Instructions Recorded Confirmed Type calcium 500 mg (as 1 tab PO BID 08/06/22 02/11/24 History carbonate)-vitamin D3 5 mcg (200 unit) tablet (Os-Wil 500 + D3) latanoprost 0.005 % eye drops 1 drp OPB HS 08/06/22 02/11/24 History pantoprazole 40 mg tablet,delayed 40 mg PO QAM 08/06/22 02/11/24 History release quetiapine 25 mg tablet 25 mg PO HS 08/06/22 02/11/24 History timolol maleate 0.5 % eye drops 1 drp OPB HS 08/06/22 02/11/24 History triamcinolone acetonide 0.025 % 1 applic topical BID 08/06/22 02/11/24 History topical cream insulin NPH-regular 70-30 U-100 20 unit subcut QPM 08/11/22 02/11/24 History insulin 100 unit/mL subcutaneous pen (Novolin 70-30 FlexPen U-100 Insulin) insulin NPH-regular 70-30 U-100 35 unit subcut QAM 08/11/22 02/11/24 History insulin 100 unit/mL subcutaneous pen (Novolin 70-30 FlexPen U-100 Insulin) acetaminophen 325 mg tablet 650 mg PO Q6H PRN PAIN/FEVER 08/08/23 02/11/24 History (Tylenol) ferrous sulfate 325 mg (65 mg 325 mg PO DAILY 08/08/23 02/11/24 History iron) tablet furosemide 20 mg tablet (Lasix) 20 mg PO DAILY 08/08/23 02/11/24 History apixaban 2.5 mg tablet (Eliquis) 2.5 mg PO BID #60 tabs 08/10/23 02/11/24 Rx aspirin 81 mg tablet,delayed 81 mg PO DAILY #30 tabs 08/10/23 02/11/24 Rx release atorvastatin 40 mg tablet 40 mg PO QAM #30 tabs 08/10/23 02/11/24 Rx lisinopril 20 mg tablet 20 mg PO DAILY 02/11/24 02/11/24 History metformin 500 mg tablet,extended 500 mg PO BID 02/11/24 02/11/24 History release 24 hr Patient History Medical History Breast cancer Surgical History S/P hysterectomy History of mastectomy Family History Other No pertinent family history Denies family history of Ovarian cancer Prostate cancer Heart disease Breast cancer Colorectal cancer Social History Smoking Status: Never smoker Second Hand Exposure: No; Do You Dip or Chew Tobacco: No; Hx Alcohol Use: No Hx Substance Use: No Preferred Language: Romanian Communication Ability: Effective Visual Impairment: No Limitations Hearing Ability: Normal [employer] 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 Beliefs That Will Affect Care: None marital status: / Current Living Situation: Long Term Current Living Situation Comment: [facility] current occupational status: retired Feels Safe at Home: Yes Childhood Exposure to Second-Hand Smoke: No Diet: regular Dental Care, Regularly: Yes Physical Activity Frequency: Does not Exercise Seatbelt Use: sometimes Sunscreen Use: No Assistive Devices: Walker Review of Systems Constitutional: no fever and no chills Respiratory: no cough and no dyspnea Cardiovascular: no chest pain Gastrointestinal: + blood in stools; no abdominal pain Psychiatric: no problem reported Physical Exam Constitutional: well developed Respiratory: normal respiratory effort Gastrointestinal (Abdomen): normal bowel sounds, soft, nontender, no hepatosplenomegaly Psychiatric: Orientation: alert and oriented x 3 Results & Data Vital Signs (Past 12 Hours) Vital Signs Temp Pulse Pulse Resp BP Pulse Ox O2 Del Method 02/12/24 10:56 36.3 C L 74 16 169/80 H 95 Room Air 02/12/24 07:33 36.5 C 83 18 165/77 H 95 Room Air 02/12/24 02:50 36.5 C 66 18 136/75 95 Room Air 02/12/24 00:01 84 PG Care Time/CCT Total # of Minutes Spent Total Time Spent with Patient: Total time spent is greater than 50% in coordination of care (as documented) at patient's floor/unit and/or counseling patient: Coding Level of Care Code 04658 INT INP/OBS CARE 3/75MIN Diagnoses GI bleed K92.1 GI bleed type/associated pathology: melena Abnormal CT scan, stomach R93.3 (1) GI bleed GI bleed type/associated pathology: melena Qualified Code(s): K92.1 - Melena
--- NOTE | 2024-02-12 12:03 | Discharge Summary ---
Date of Service February 12, 2024 Admission HPI Per Admitting Provider William 88-year-old female resides at a long-term care facility. She is on aspirin and Eliquis chronically. 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 Last evening she started develop rectal bleeding came to the ER for further evaluation and treatment as it continued throughout the day today. The patient denies any other symptomatology including abdominal pain Upon presentation emergency department patient's vital signs were stable. Hemoglobin was 11.7 g/dL. Her baseline is around 13 g/dL. CAT scan of the abdomen pelvis was performed which showed large amount of gastric content. She did have a large meal prior to presentation. This could also represent IV contrast however this is not favored. BUN and creatinine ratio are stable. Does not reflect upper GI bleed. Additionally the patient was here in July 2022. She had a similar presentation. Attempted colonoscopy was obtained but was a very poor prep therefore attempts were abandoned and it was inconclusive. The patient remained hemodynamically stable in the ER. She has had no further rectal bleeding in the ER. We have been called to admit for a probable lower GI bleed I suspect diverticular in nature. Back in July 2022 she also had a bleeding scan which was negative. In conversation with the patient and her son at the bedside the patient does not feel she would want to attempt another colonoscopy. However we will consult GI for further input and discussion with the patient for definitive decision on whether attempt to reattempt endoscopy or not. Admission Exam Per Admitting Provider In General: In general william 88-year-old female who is alert and oriented to person and place. She is accompanied by her son at the time my examination. She interacts appropriate and pleasantly. She denies any symptoms whatsoever. HEENT: Normocephalic atraumatic pupils are equal round and reactive to light bilaterally. No scleral icterus no conjunctival injection external auditory canals are patent septum is in the midline nose is without discharge oral mucosa is pink and moist without lesion. NECK: Supple no rigidity no lymphadenopathy no thyromegaly no carotid bruits no JVD no masses. HEART: Regular rate and rhythm I do not appreciate any ectopy or rub. No murmur. LUNGS: Clear to auscultation bilaterally and anteriorly with no evidence of adventitious sounds/wheezes rales or rhonchi. ABDOMEN: Soft nontender, no rebound, no peritoneal signs, positive bowel sounds, no appreciable organomegaly. EXTREMITIES: Intact, no peripheral cyanosis, clubbing. There is bilateral lower extremity edema that appears quite chronic according to her son her lower extremity edema is actually looks improved over the last couple months. Left greater than right given her chronic left lower extremity DVT. Strength is 4+ out of 5 in extremities x4. NEUROLOGICAL: Cranial nerves II through XII are grossly intact with no focal deficit elicited upon examination. Principal Diagnosis GI bleed Discharge Exam General: patient resting comfortably, NAD, non-toxic in appearance, answers questions appropriately. Skin: warm, dry, intact HEENT: NC/AT, anicteric sclera, conjunctiva without injection, moist mucus membranes. Heart: +S1/S2, regular, no m/r/g Lungs: equal air entry bilaterally, no rales/rhonchi/wheezes Abd: +BS, soft, NT/ND Ext: warm, no clubbing/cyanosis or edema Neuro: nonfocal, speech intact, no facial droop, moving all extremities. Discharge Data Allergies Allergy/AdvReac Type Severity Reaction Status Date / Time amoxicillin [From Augmentin] Allergy Intermediate Rash on Verified 08/12/23 12:32 Hands and Feet clavulanic acid Allergy Intermediate Rash on Verified 08/12/23 12:32 [From Augmentin] Hands and Feet Consultations 02/11/24 14:11 ED Decision to Admit Stat 02/11/24 14:30 Consult Gastroenterology Routine Ordered Studies 02/11/24 11:59 CT angio abdomen pelvis w con Stat Hospital Course (1) GI bleed: Suspect diverticular bleeding exacerbated by Eliquis. - H/H w/o evidence of extensive bleeding - Clinically patient w/o pain, dizziness, fatigue - Patient declines colonoscopy - If patient re-bleeds, could consider CTA vs GI bleed scan as an active diverticular bleed could be treated by IR if she does not desire endoscopic intervention - Safe for d/c, hold aspirin for 1 week, can resume Eliquis in 2 weeks (2) Abnormal CT scan, stomach: Questions gastric contents vs contrast; no corresponding symptoms -Continue with PPI therapy (she takes Protonix 40 mg daily at home as well) -She declines any further endoscopic intervention - Stable, w/o any abdominal symptoms or pain Total Time Total Time Spent Total Time Spent (In Minutes): See attending attestation Discharge Plan Discharge Items Patient Disposition: Personal Residential Reason For Visit: GIB Discharge Diagnosis: GI bleed Activity: Per Instructions section Non-emergency contact: Primary Care Provider Call non-emergency contact if: your pain is not controlled Follow-up/Referrals: Barbi ViverosSharon Elise [Primary Care Provider] - Diet: Regular Addtl Attending Provider Instructions: You were admitted to [facility] due to a acute GI bleed. You endorsed that prior to coming in you had a bowel movement containing a large amount of blood. While admitted there has not been evidence of blood in your bowel movements or urine. Your labs have shown that your hemoglobin has yunior stable without a large drop indicating minor blood loss. Your GI bleed was likely diverticulosis related and at times increased strain or stress can cause these small outpouchings within the colon to rupture nearby blood vessels, resulting in blood in the stool. However as you have not had any abdominal pain, weakness, dizziness, or loss of consciousness in addition to normal lab results it is likely that this was a transient diverticular bleed that has begun healing and will continue to heal over the coming weeks. After you return to your personal fpc at [facility] we will hold your aspirin for approximately 1 week and your Eliquis for approximately 2 weeks. As these medications can inhibit clotting and thin your blood we will hold them briefly while your GI bleed resolves. However, it is important to resume these medications as instructed as they will help prevent clots throughout the body that can cause stroke or damage to your lungs. A discharge summary will be sent to your primary care physician to ensure continuity of care. Please bring this discharge summary with you to your next office appointment so that your provider can review it at that time. Follow-up appointments: Make a follow-up appointment with your PCP within the next week. It is very important that you follow up with them shortly after discharge from the hospital. Medications: Your medication list has been reviewed and reconciled upon discharge to ensure accuracy and continuity of care. An updated list of all your medications is included with your hospital discharge paperwork. Please review this list closely, and make note of any changes. Take your medications as instructed; do not skip a dose of your medicines. Make sure all of your doctors know every medicine you are taking (including [id number] medicines, vitamins, and supplements). Call your primary care provider before taking any new medicines (including [id number] medicines, vitamins, and supplements), because some of these may interact with your current medications, or may make your symptoms worse. Tell your primary care provider if you cannot afford your medications. CONTACT YOUR PRIMARY CARE PROVIDER if you experience any of the following: Difficulty following your treatment plan, or difficulty taking medications CALL 911 OR GO TO THE EMERGENCY DEPARTMENT if you experience any of the following: Sudden, severe abdominal pain or nausea/vomiting Severe chest pain, or chest pain that radiates (moves) to your jaw or arm Sudden, severe shortness of breath or difficulty breathing Thank you for allowing us to participate in your care. Pending Studies at Discharge: No Stand-Alone Forms: My [employer], Smoking Cessation Skilled Items Patient informed of condition?: Yes DNR: Yes Discharge Level of Care: Skilled Communicable Disease: No Discharge Prognosis: Stable Lines: None Urinary Catheter: No Medications and DC Order Prescriptions: Continued Novolin 70-30 FlexPen U-100 100 unit/mL (70-30) insulin pen 20 unit SUBCUT QPM Rx Instructions: AT 1700 Novolin 70-30 FlexPen U-100 100 unit/mL (70-30) insulin pen 35 unit SUBCUT QAM quetiapine 25 mg tablet 25 mg PO HS latanoprost 0.005 % drops 1 drp OPB HS triamcinolone acetonide 0.025 % cream 1 applic TOPICAL BID pantoprazole 40 mg tablet,delayed release (DR/EC) 40 mg PO QAM timolol maleate 0.5 % drops 1 drp OPB HS calcium carbonate-vitamin D3 [Os-Wil 500 + D3] 500 mg-5 mcg (200 unit) Tablet 1 tab PO BID lisinopril 20 mg tablet 20 mg PO DAILY metformin 500 mg tablet extended release 24 hr 500 mg PO BID acetaminophen [Tylenol] 325 mg Tablet 650 mg PO Q6H PRN (Reason: PAIN/FEVER) ferrous sulfate 325 mg (65 mg iron) Tablet 325 mg PO DAILY furosemide [Lasix] 20 mg Tablet 20 mg PO DAILY atorvastatin 40 mg Tablet 40 mg PO QAM Qty: 30 0RF Held Eliquis 2.5 mg Tablet 2.5 mg PO BID Qty: 60 0RF Hold Instructions: Resume on 02/26/24. Please hold until all signs of GI bleed have resolved. Likely it will be safe to resume at the date indicated. aspirin 81 mg Tablet,Delayed Release (Dr/Ec) 81 mg PO DAILY Qty: 30 0RF Hold Instructions: Resume on 02/19/24. Hold until all signs of GI bleed have resolved. As patient is clinically and symptomatically stable at this time, it is likely safe to resume aspirin therapy at the date indicated. Discharge Orders: Discharge Order (Routine); Ordered 02/12/24 Ordered By: Kali Fragoso Admission Data Admit Date/Time: 02/11/24 14:30 Attending Provider: Jose L Hood Admit Provider: Alexei Juarez Primary Care Provider: Sharon Arevalo Other Providers: Alexei Juarez; Robby Mayers Other Interventions: Discharge Summary Assessment (RN) Last Done: 02/12/24 12:51 Supervising Physician Co-Signing Physician Notes I personally examined the patient and verified all villalobos points of history and exam, discussed case, and agree with decision making with Dr Fragoso Feeling better and would very much like to leave the hospital. She does not recall any further GI bleeding since she has been in the hospital. In discussion with nursing, she has had no further bleeding since they assumed her care at 7 this morning, and noted just a small smear of a bowel movement reported from overnight. She feels well. Vitals noted, in general she is awake and alert pleasant no distress. HEENT normocephalic atraumatic mucous membranes moist. Breathing unlabored no accessory muscle use good effort. Skin shows no rashes no pallor or icterus. Neuro without focal deficits. GI bleedingsuspect lower, clinically behaving much like a diverticular bleed. Appears to have resolved. Hemodynamically stable. GI bleeding due to anticoagulation use accentuating what was probably a small bleedbut in the end fortunately was also still small. She would very much like to leave the hospitalthis appears to be safe/reasonable. Outpatient follow-up. Hold aspirin and anticoagulation for a week or so, then would resume aspirin, followed by anticoagulant later. Discussed with patient and son, long-term risk-benefit generally really favors having someone on their "blood thinners" and less bleeding is too frequent or too severe to do so in the long-term, given that bleeding can usually be stabilized/managed versus endorgan ischemia often having irreversible consequences. Resident Activity Tracking Resident Involvement: Resident Care Provided Care Provided: Adult Hospital Medicine
[2024-02-12 13:24] LABS: Hematocrit (blood only) 34.4 % (37.0-47.0); Hemoglobin 11.2 g/dl (12.0-16.0)
--- NOTE | 2024-02-12 17:33 | Billing Data ---
Date of Service February 12, 2024 Coding Level of Care Code 99521 IN/OBS DISCH 30 MIN/LESS
== END 2024-02-12 13:27 | disposition home or self-care (01) | DRG 813 ==
LOC: ED 11:34 → 2S 14:30 → SUATTDRO 14:30 → 2S 18:09